=== PATIENT | male | born 1940 | race Caucasian/White ===

== ENCOUNTER 2019-12-03 16:10 | Outpatient (CLI) | payer MEDICARE, SELFPAY ==
--- NOTE | 2019-12-03 | ECG_ITS ---
Measurements Intervals [place] Rate: 78 P: 90 [place]: 172 QRS: 18 QRSD: 78 T: 64 QT: 377 QTc: 430 Interpretive Statements SINUS RHYTHM EARLY PRECORDIAL R/S TRANSITION NONSPECIFIC ST & T-WAVE ABNORMALITY- DIFFUSE LEADS BASELINE ARTIFACT- I, II, III, AVR, AVL, AVF, V3-V4 BORDERLINE ECG Electronically Signed On 12-03-2019 16:49:51 CDT by Brandon Marshall D.O.
== END 2019-12-03 16:11 | disposition home or self-care (01) ==
PROVIDERS: PCP Internal Medicine
DX: M20.42 Other hammer toe(s) (acquired), left foot (principal)
CPT/HCPCS: 93005

== ENCOUNTER 2023-08-31 08:06 | Outpatient (CLI) | payer MEDICARE, SELFPAY ==
--- NOTE | ~2023-08-31 | XR_ITS ---
MODIFIED ESOPHAGRAM HISTORY: Dysphagia. Parkinson's disease. TECHNIQUE: Modified barium esophagram was performed on 08/31/2023. I administered fluoroscopy and perfo rmed the exam with speech pathologist. Patient was seated for lateral fluoroscopic imaging for inges tion of thin liquids, pudding, solids and quantified amounts, followed by thin liquids in uncontrolle d amounts. This was recorded on tape. A single fluoroscopic spot image was also recorded. The DAP for this procedure was 0.933 Gycm2. The amount of fluoroscopy time used during this procedure was 3.8 mi nutes. FINDINGS: Oral stage: Adequate function. Pharyngeal stage: Adequate function. Cervical/esophageal stage: Adequate function. IMPRESSION: Patient tolerated regular consistency oral feedings in the upright position. Please reji elate with speech pathologist findings and specific feeding recommendations. Reviewed, dictated and finalized at location A. NG SEWER IMPRESSION: Patient tolerated regular consistency oral feedings in the upright position. Please correlate with speech pathologist findings and specific feedi ng recommendations.
--- NOTE | 2023-08-31 09:30 | REHSTMBS ---
Assessment and note entered by Heidi Bolaños, [employer] Modified Barium Swallow Evaluation Feeding Type Recommended Oral Food Consistency Regular, Level 7 Liquid Consistency Thin (0) ST Clinical Summary MODIFIED BARIUM SWALLOW STUDY This patient was seen for an outpatient Modified Barium Swallow at the request of his physician, Dr. Patricia. Patient has a history of Parkinson's disease; he reported he was diagnosed 5-7 years ago. Patient reported that currently his feeds him as his hands are too shaking to feed himself neatly. He admitted to taking too large of bites and not chewing thoroughly as the reason he gets choked on solid foods; both patient and his deny that he chokes/coughs on liquids. The patient was viewed in the lateral position to the level of C5/C6. He was presented with uncontrolled thin liquid contrast medium per straw, pudding mixed with semi-solid contrast medium, and then fruit cocktail pieces and a large piece of geovani cracker and requested to swallow each item. He exhibited quick swallows with no evidence of penetration/aspiration on any consistency. Results indicate this patient's swallowing skills are within normal limits. It is possible that his behavior including large bites (although it is not him taking the large bites but the bite size presented by his ) and limited mastication are contributing to evidence of choking. Patient seems aware but may be unable to change habit? Speech Therapy is recommended for at least several sessions to address safe swallowing techniques, perhaps adding head flexion to the swallows, and for strengthening exercises to prevent evidence of dysphagia at home from worsening. Patient and voiced understanding of suggestion to begin Speech Therapy. Please order outpatient Speech Therapy at [facility] at the [facility] if you are in agreement. Thank you for this referral.
== END 2023-08-31 08:07 | disposition home or self-care (01) ==
PROVIDERS: PCP Internal Medicine; Visit Provider Student in an Organized Health Care Education/Training Program
DX: R13.10 Dysphagia, unspecified (principal); G20.A1 Parkinson's disease without dyskinesia, without mention of fluctuations
CPT/HCPCS: 92611

== ENCOUNTER 2024-06-16 19:16 | Emergency (ER) | payer MEDICARE, SELFPAY ==
--- NOTE | ~2024-06-16 | CT_ITS ---
EXAMINATION: CT pelvis wo con DATE: 06/16/2024 20:43 INDICATION: Fall TECHNIQUE: Computed tomography (CT) of the pelvis was performed without intravenous contrast. Automat ed exposure control and iterative reconstruction technique were employed. Exam dose: 354.98 mGy-cm t otal exam DLP. Lumbar spine COMPARISON: None. FINDINGS: There is extensive diverticulosis of the sigmoid and descending colon without diverticuliti s. No bowel obstruction is evident. Prostate enlargement and calcifications. Is extensive calcification of the abdominal aorta and iliac and femoral arteries. No lower abdominal or pelvic mass lesion or adenopathy or ascites is noted. Status post right total hip arthroplasty. There is posterior surgical fusion in the lumbosacral area. No pelvic fracture or bone destruction is detected. There is degenerative change but normal alignment at the sacroiliac joints. Left hip osteoarthritis. IMPRESSION: No pelvic fracture is detected Status post posterior lumbosacral surgical fusion Status post right total hip arthroplasty Reviewed, dictated and finalized at [facility]. Reviewed, dictated and finalized at location A. OUT INSPECTOR
--- NOTE | ~2024-06-16 | CT_ITS ---
EXAMINATION: CT lumbar spine wo con DATE: 06/16/2024 20:42 INDICATION: Fall TECHNIQUE: Computed tomography (CT) of the head was performed without intravenous contrast. The mA wa s adjusted according to patient size. Iterative reconstruction technique was employed. Exam dose: 73 9.67 mGy-cm total exam DLP. Lumbar spine COMPARISON: None FINDINGS: Status post posterior interbody surgical fusion at L4-S1 bilaterally. There is prominent degenerative spurring of the lower thoracic spine. There is severe degenerative disc disease at L1-2 and L2-3 with mild retrolisthesis at each of these levels. There is moderately severe degenerative disc disease and mild retrolisthesis at L3-4. There is grade 1 anterolisthesis at L5-S1. The sacroiliac joints are intact. There is extensive calcification of the abdominal aorta and iliac arteries. Numerous diverticula of the colon. IMPRESSION: Status post posterior and interbody surgical fusion or-S1 Multilevel prominent degenerative disc disease with associated mild retrolisthesis Grade 1 anterolisthesis at L5-S1 No apparent recent fracture of the lumbar spine is noted Reviewed, dictated and finalized at [facility]. Reviewed, dictated and finalized at location A. L RECRUITER IMPRESSION: Status post posterior and interbody surgical fusion or-S1 Multilevel prominent degenerative disc disease with associated mild retrolisthe sis Grade 1 anterolisthesis at L5-S1 No apparent recent fracture of the lumbar spine is noted
[2024-06-16 19:23] VITALS: BP 108/38; PULSE 82; RESP 16; TEMP 36.8; O2SAT 96
--- NOTE | 2024-06-16 19:56 | ED.FALL ---
HPI - Fall General Chief Complaint: Fall Stated Complaint: fall- referral from urgent care Time Seen by Provider: 06/16/24 19:46 History of Present Illness HPI Narrative: Patient is an 84-year-old male who presents to the emergency department this evening complaining of right hip pain. Patient states that yesterday while walking he got his walker stuck on something and caused him to fall landing on his right side. Patient presented to an urgent care where they performed x-rays of the patient's hip and lumbar spine and other than calcifications and arthritis and not see any fractures. They were encouraged to come to the emergency department for further evaluation to make sure that the x-rays did not miss any fractures. Patient admits that he did not his head. He is alert and oriented to person, place, and situation and is answering all my questions appropriately. He has been ambulatory since the fall yesterday using his walker. No additional symptoms or concerns at this time. Related Data Home Medications ?Medication ?Instructions ?Recorded ?Confirmed ?Last Taken ?Type aspirin 81 mg tablet,delayed 81 mg PO QAM 03/15/21 08/16/21 Unknown History release calcium 300 mg-D3 20 mcg-magnesium 1 tablet PO QAM 03/15/21 08/16/21 Unknown History 25 mg-coppr 0.5 [id number] tablet (Caltrate-D3 Plus Minerals) celecoxib 200 mg capsule 200 mg PO QAM 03/15/21 08/16/21 Unknown History diphenhydramine HCl 50 mg capsule 50 mg PO QHS 03/15/21 08/16/21 Unknown History divalproex 500 mg tablet,delayed 1,000 mg PO QHS 03/15/21 08/16/21 Unknown History release fluticasone furoate 100 1 inh inhalation DAILY 03/15/21 08/16/21 Unknown History mcg/actuation blister powder for inhalation tamsulosin 0.4 mg capsule 0.4 mg PO DAILY 03/15/21 08/16/21 Unknown History trifluoperazine 10 mg tablet 30 mg PO QHS 03/15/21 08/16/21 Unknown History venlafaxine 225 mg tablet,extended 225 mg PO QHS 03/15/21 08/16/21 Unknown History release 24 hr lorazepam 1 mg tablet 1 mg PO QHS PRN 06/13/23 Unknown History Allergies Allergy/AdvReac Type Severity Reaction Status Date / Time No Known Allergies Allergy Verified 06/16/24 19:28 Review of Systems Review of Systems: All systems are reviewed and are negative unless stated otherwise in the HPI. [facility] Past Medical History Medical History Cataract fragments in both eyes following surgery Arthritis COPD (chronic obstructive pulmonary disease) Depression Surgical History Surgical History History of back surgery Hx of cholecystectomy History of hip replacement Family History Family History Other Cancer Depression Heart disease Social History Social History Social History: Caffeine-none Smoking packs per day: 0 Smoking cigarettes per day: 0.0 Years smoked: 0 Smoking pack-years: 0.00 Smoking status: Former smoker Second hand tobacco smoke exposure: No Smoking end date: 06/26/06 Alcohol intake: former Substance use: never Substance use type: does not use Do You Feel Safe in your Home?: Yes Lack of Transportation: No Lack of Food: Never True Current Housing: I Have Housing Concerned About Future Housing: No Difficulty Paying Gas/Electric Bills: No Difficulty Paying for Meds: No Currently Unemployed: No Education: High School Diploma/GED Difficulty w/ Childcare or Family Care: No Living arrangements: with family Gender identity (if verbalized by the patient): Male Exam Narrative: General: Alert, awake, afebrile, in no acute distress. HEENT: PERRL, no rhinorrhea, no post nasal drip, oropharynx clear. Neck: Trachea midline, no JVD, no lymphadenopathy. Cardiovascular: Regular rate and rhythm, no murmurs, rubs or gallops, no peripheral edema. Respiratory: Clear to auscultation bilaterally, no tachypnea, no wheezing, no rhonchi, no rubs, no respiratory distress. Abdomen: Soft, nontender, nondistended, no rebound, no guarding, no peritoneal signs. Musculoskeletal: No joint swelling or deformity, normal muscle tone. Back: No midline tenderness to palpation over the cervical, thoracic spine, midline lumbar Skin: No rashes or petechia, no signs of infection. Psychiatric: Alert and oriented, normal behavior and judgment for situation. Neurological: Alert and oriented to person, place, and time. Follows all commands. No focal deficits, speech is clear and fluent. Course Vital Signs Vital signs: Vital Signs Temperature 98.2 F 06/16/24 19:23 Pulse Rate 82 06/16/24 19:23 Respiratory Rate 16 06/16/24 19:23 Blood Pressure 108/38 L 06/16/24 19:23 Pulse Oximetry 96 06/16/24 19:23 Oxygen Delivery Room Air 06/16/24 19:23 Temperature 98.2 F 06/16/24 19:23 Pulse Rate 82 06/16/24 19:23 Respiratory Rate 16 06/16/24 19:23 Blood Pressure 108/38 L 06/16/24 19:23 Pulse Oximetry 96 06/16/24 19:23 Oxygen Delivery Room Air 06/16/24 19:23 MDM - Fall MDM Narrative Medical decision making narrative: The patient was evaluated by myself in the emergency department. History is obtained from patient who is an independent historian and physical exam was performed. External medical records were reviewed at this time. IV was established and pertinent tests were ordered. Laboratory results obtained revealing no acute process. Family members requested obtaining a Depakote level as they were supposed to do this as an outpatient but they have not gone to it. I did inform the patient that this is a send out lab and they will need to contact the hospital to obtain these results. Imaging studies obtained included CT lumbar/ pelvis without IV contrast which was independently interpreted by me revealing no acute fractures, chronic findings, which is pending final radiology interpretation. patient was provided with a printout of both his lumbar and pelvis CT report. Differential diagnosis considerations include fractures, dislocations, musculoskeletal strain. Comorbidities impacting this visit include none. I have evaluated and discussed social determinants of health with the patient that could potentially impact subsequent diagnosis and treatment plans. On repeat assessment of the patient, reevaluation revealed that the patient is doing well and is in no acute distress. Patient symptoms have Remained stable since he arrived to our emergency department. Repeat vital signs were all reviewed and noted to be stable. Differential diagnosis and treatment plan were discussed with the patient at bedside. Patient agrees with discussion and after shared medical decision making agrees with discharge. All questions were answered to the patient's satisfaction. Patient will follow up with his PCP in 3-5 days. Patient was provided with strict return precautions and instructed to return to the emergency department if any new or worsening symptoms develop. The patient was discharged in stable condition. Lab Data 06/16/24 21:33 06/16/24 21:32 Labs: Lab Results 06/16/24 06/16/24 Range/Units 21:32 21:33 WBC 15.9 H (4.5-10.0) K/mm3 RBC 4.59 L (4.6-6.20) M/mm3 Hgb 13.7 L (14.0-18.0) g/dL Hct 41.3 L (42.0-52.0) % MCV 90.0 (80-100) fl MCH 29.8 (26-34) pg MCHC 33.2 (32-36) g/dl RDW 14.5 (11.5-14.5) % Plt Count 183 (150-375) k/mm3 MPV 10.6 H (7.4-10.4) fl Immature Gran % (Auto) Not Reportable Neut % (Auto) Not Reportable Lymph % (Auto) Not Reportable [place] % (Auto) Not Reportable Eos % (Auto) Not Reportable Baso % (Auto) Not Reportable Lymph # (Auto) Not Reportable [place] # (Auto) Not Reportable Eos # (Auto) Not Reportable Baso # (Auto) Not Reportable Abs Immat Gran (auto) Not Reportable Absolute Neuts (auto) Not Reportable Absolute Nucleated RBC Not Reportable Nucleated RBC % Not Reportable Platelet Estimate Pending Schistocytes Pending Sodium 134 L (137-145) mmol/L Potassium 4.0 (3.4-5.0) mmol/L Chloride 102 (98-107) mmol/L Carbon Dioxide 29 (22-30) mmol/L Anion Gap 3 L (4-12) mmol/L BUN 22 H (9-20) mg/dL Creatinine 0.60 L (0.7-1.3) mg/dL Estim Creat Clear Calc 78 ml/min Estimated GFR > 60 (59 - ) Glucose 120 H (65-110) mg/dL Calcium 9.4 (8.4-10.2) mg/dL Magnesium 2.0 (1.6-2.3) mg/dL Total Bilirubin 0.6 (0.2-1.3) mg/dL AST 30 (17-59) U/L ALT 8 (6-50) U/L Alkaline Phosphatase 87 (38-126) U/L Total Protein 8.0 (6.3-8.2) g/dL Albumin 4.4 (3.5-5.1) g/dL Free Valproic Acid Pending Total Valproic Acid Pending Discharge Plan Discharge Clinical Impression: Back pain, Hip pain, right, Fall from ground level Patient Disposition: Home, Self-Care Condition: Stable Instructions: Antibiotic Form, Fall Prevention for Older Adults (ED) Additional Instructions: Please follow-up with your family doctor within the next 3-5 days. Return to the emergency department if any new or worsening symptoms develop. Patient Language: Tamaz[place] Prescriptions: No Action lorazepam 1 mg tablet 1 mg PO QHS PRN carbidopa-levodopa 25-250 mg tablet 2 tablet PO QID Qty: 480 3RF donepezil 5 mg tablet See Rx Instructions .ROUTE .COMPLEX Qty: 90 3RF Dose Instruction: TAKE 1 TABLET DAILY IN THE EVENING Rx Instructions: TAKE 1 TABLET DAILY IN THE EVENING primidone 50 mg tablet See Rx Instructions .ROUTE .COMPLEX Qty: 360 3RF Dose Instruction: TAKE 2 TABLETS BY MOUTH TWICE A DAY Rx Instructions: TAKE 2 TABLETS BY MOUTH TWICE A DAY tamsulosin 0.4 mg capsule 0.4 mg PO DAILY trifluoperazine 10 mg tablet 30 mg PO QHS divalproex 500 mg tablet,delayed release (DR/EC) 1,000 mg PO QHS venlafaxine 225 mg tablet extended release 24hr 225 mg PO QHS diphenhydramine HCl 50 mg capsule 50 mg PO QHS celecoxib 200 mg capsule 200 mg PO QAM aspirin 81 mg tablet,delayed release (DR/EC) 81 mg PO QAM fluticasone furoate 100 mcg/actuation blister with device 1 inh inhalation DAILY Caltrate-D3 Plus Minerals 300 mg-800 unit -25 mg-0.5 mg tablet 1 tablet PO QAM Follow-up/Referrals: Christophe,Junito Connelly MD [Primary Care Provider] - 3 Days Time of Disposition: 21:29
[2024-06-16 21:41] LABS: Hematocrit 41.3 % (42.0-52.0); Hemoglobin 13.7 g/dL (14.0-18.0); Mean Corpuscular HGB Conc 33.2 g/dl (32-36); Mean Corpuscular Hemoglobin 29.8 pg (26-34); Mean Platelet Volume 10.6 fl (7.4-10.4); Platelet Count Result 183 k/mm3 (150-375); Red Blood Count 4.59 M/mm3 (4.6-6.20); Red Cell Distribution Width 14.5 % (11.5-14.5); White Blood Count 15.9 K/mm3 (4.5-10.0)
[2024-06-16 21:51] LABS: Alanine Aminotransferase 8 U/L (6-50); Albumin Level 4.4 g/dL (3.5-5.1); Alkaline Phosphatase 87 U/L (38-126); Anion Gap 3 mmol/L (4-12); Aspartate Amino Transferase 30 U/L (17-59); Bilirubin,Total 0.6 mg/dL (0.2-1.3); Blood Urea Nitrogen 22 mg/dL (9-20); Calcium 9.4 mg/dL (8.4-10.2); Carbon Dioxide 29 mmol/L (22-30); Chloride 102 mmol/L (98-107); Estimated CRCL calculation 78 ml/min; Estimated Glomerular Filt Rate > 60; Glucose 120 mg/dL (65-110); Sodium 134 mmol/L (137-145)
[2024-06-16 22:07] LABS: Eosinophils Absolute Manual 0.63 K/mm3 (0.02-0.50); Eosinophils Percent Manual 4 % (0-4); Lymphocytes Absolute Manual 2.06 K/mm3 (1.1-4.5); Monocytes Percent Manual 17 % (3-9); Neutrophils Percent Manual 66 % (46-73); Total Cells Counted 100
[2024-06-16 22:08] LABS: Anisocytosis 1+; Giant Platelets Present; Platelet Estimate Adequate (Adequate); Schistocytes None Seen; Smudge Cells PRESENT
[2024-06-16 22:23] VITALS: BP 143/99; PULSE 80; RESP 17; O2SAT 97
== END 2024-06-16 22:24 | disposition home or self-care (01) ==
PROVIDERS: Emergency Provider Emergency Medicine; PCP Internal Medicine
DX: M25.551 Pain in right hip (principal); M54.50 Low back pain, unspecified; M19.90 Unspecified osteoarthritis, unspecified site; J44.9 Chronic obstructive pulmonary disease, unspecified; F32.A Depression, unspecified; W01.0XXA Fall on same level from slipping, tripping and stumbling without subsequent striking against object, initial encounter
CPT/HCPCS: 36415; 72131; 72192; 80053; 80164; 80165; 83735; 85025; 99284

== ENCOUNTER 2024-09-30 14:43 | Emergency (ER) | payer MEDICARE, SELFPAY ==
--- NOTE | ~2024-09-30 | XR_ITS ---
CHEST RADIOGRAPH, PA AND LATERAL CLINICAL HISTORY: chest pain and abdominal pain . COMPARISON: None available TECHNIQUE: PA and lateral views of the chest. FINDINGS The cardiomediastinal silhouette is unremarkable. Coarse interstitial lung markings and scar are identified bilaterally, likely chronic. The remainder of the lungs are clear. IMPRESSION: No focal infiltrate or effusion. Reviewed, dictated and finalized at location A.
--- NOTE | ~2024-09-30 | US_ITS ---
EXAM: ABDOMEN ULTRASOUND HISTORY: transaminitis, epigastric pain COMPARISON: None FINDINGS: LIVER: The liver is increased in echogenicity and unremarkable in size. Punctate echogenic foci are described within the liver suggesting small calcifications. The portal vein is patent, demonstrating hepatopedal flow. GALLBLADDER: Surgically absent. BILE DUCTS: Common bile duct measures 2.4mm. PANCREAS: Limited evaluation of the pancreas secondary to overlying bowel gas. VASCULATURE : The IVC is patent. IMPRESSION: Fatty infiltration of the liver with punctate calcifications. Reviewed, dictated and finalized at location A.
--- NOTE | ~2024-09-30 | CT_ITS ---
EXAMINATION: CTA chest PE abdomen pel DATE: 09/30/2024 19:48 CDT INDICATION: Remote history of chest and abdominal pain, now resolved. TECHNIQUE: Computed tomographic angiography (CTA) of the chest was performed, along with multiple con tiguous axial images of the abdomen and pelvis with 100 mL Omnipaque-350 intravenous contrast. The do se-length product was 1015.70 mGy-cm. Maximum intensity projection 3D-reconstructions of the aorta an d other arteries were constructed by the technologist on a separate workstation. FINDINGS/OBSERVATIONS: PULMONARY ARTERIES: No filling defect is identified within the main or proximal pulmonary artery. The main pulmonary artery is not enlarged. THORACIC AORTA: No aneurysmal dilatation or dissection is present. The great vessels are intact LUNGS: Chronic interstitial change is detected bilaterally. Peripheral honeycombing is also noted, as is central lobular emphysematous disease. Calcified pleural plaques are noted. MEDIASTINUM: No morphologically suspicious or pathologically enlarged lymph nodes are identified with in the mediastinum or bilateral axilla. BONES OF THE CHEST: No acute fracture. Age-appropriate degenerative disease. No lytic or blastic lesions. HEART: The heart is of normal size, without pericardial effusion. LIVER: Punctate calcifications identified within the hepatic parenchyma, suggesting prior granulomatous dise ase. Remainder of the liver is otherwise unremarkable, and is not enlarged. GALLBLADDER AND BILIARY SYSTEM: The gallbladder is surgically absent. PANCREAS: The pancreas enhances homogeneously without ductal dilatation. SPLEEN: Punctate calcifications identified within the splenic parenchyma, suggesting prior granulomat ous disease. The remainder of the spleen otherwise enhances homogeneously and is not enlarged. KIDNEYS: The bilateral kidneys enhance symmetrically without hydronephrosis or renal calculi. ADRENAL GLANDS: Unremarkable. GASTROINTESTINAL TRACT: Colonic diverticulosis without surrounding inflammatory change. APPENDIX: The appendix is not definitively visualized. However, no pericecal inflammatory change is identified suggest the presence of acute appendicitis. VASCULATURE: Densely calcified atherosclerotic disease, without aneurysmal dilatation or significant stenosis. LYMPH NODES: No pathologically enlarged or morphologically suspicious lymph nodes within the retroperitoneum or at the root of the mesentery. PELVIC STRUCTURES: The bladder is significantly distended, and otherwise unremarkable. Limited evaluation of the pelvis secondary to streak metallic artifact from patient's right hip prost hetic and lower lumbar spine hardware. The prostate gland does not appear to be enlarged. BODY WALL AND MUSCULOSKELETAL: Posterior fixation hardware at the level of L4, L5 and S1 with postlaminectomy change. 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 IMPRESSION: No pulmonary embolus. No aortic dissection. No acute pathology identified within the chest, abdomen or pelvis, as detailed above Reviewed, dictated and finalized at location A.
--- NOTE | 2024-09-30 14:46 | ECG_ITS ---
Test Date: 2024-09-30 14:59:22 Measurements Intervals [place] Rate: 78 P: 7 [place]: 180 QRS: 44 QRSD: 78 T: 48 QT: 375 QTc: 427 Interpretive Statements SINUS RHYTHM BORDERLINE ST-T WAVE ABNORMALITY- inf/lat leads BASELINE ARTIFACT- I, II, III, AVR, AVL, AVF, V1-V6 BORDERLINE ECG No previous ECG available for comparison Electronically Signed On 09-30-2024 15:12:28 CDT by Brandon Marshall D.O.
[2024-09-30 15:12] LABS: Hematocrit 41.4 % (42.0-52.0); Hemoglobin 13.3 g/dL (14.0-18.0); Mean Corpuscular HGB Conc 32.1 g/dl (32-36); Mean Corpuscular Volume 93.2 fl (80-100); Mean Platelet Volume 10.3 fl (7.4-10.4); Platelet Count Result 181 k/mm3 (150-375); Red Blood Count 4.44 M/mm3 (4.6-6.20); Red Cell Distribution Width 14.5 % (11.5-14.5); White Blood Count 11.3 K/mm3 (4.5-10.0)
[2024-09-30 15:16] VITALS: BP 131/95; PULSE 77; RESP 18; TEMP 36.9; O2SAT 98
[2024-09-30 15:22] LABS: Alanine Aminotransferase 103 U/L (6-50); Albumin Level 4.8 g/dL (3.5-5.1); Alkaline Phosphatase 123 U/L (38-126); Anion Gap 7 mmol/L (4-12); Aspartate Amino Transferase 412 U/L (17-59); Bilirubin,Total 0.7 mg/dL (0.2-1.3); Blood Urea Nitrogen 18 mg/dL (9-20); Calcium 9.5 mg/dL (8.4-10.2); Carbon Dioxide 34 mmol/L (22-30); Chloride 98 mmol/L (98-107); Estimated CRCL calculation 73 ml/min; Estimated Glomerular Filt Rate > 60; Glucose 86 mg/dL (65-110); Lipase 144 U/L (23-300); Sodium 139 mmol/L (137-145)
[2024-09-30 15:27] LABS: Prothrombin Time 13.7 Seconds (11.1-14.7)
[2024-09-30 15:29] LABS: Partial Thromboplastin Time 29.7 Seconds (22.3-36.8)
[2024-09-30 15:34] LABS: Troponin I < 0.012 ng/mL (0.000-0.034)
[2024-09-30 15:48] LABS: Eosinophils Absolute Manual 0.22 K/mm3 (0.02-0.50); Eosinophils Percent Manual 2 % (0-4); Lymphocytes Absolute Manual 2.37 K/mm3 (1.1-4.5); Monocytes Percent Manual 8 % (3-9); Neutrophils Percent Manual 69 % (46-73); Platelet Estimate Adequate (Adequate); Total Cells Counted 100
[2024-09-30 15:49] LABS: Schistocytes None Seen
--- NOTE | 2024-09-30 15:59 | ED.CHESTPAIN ---
HPI - Chest Pain General Chief Complaint: Chest Pain <FREDI Lewis Last Filed: 10/01/24 09:12> Stated Complaint: Chest/upper abdomen pain <FREDI Lewis Last Filed: 10/01/24 09:12> Time Seen by Provider: 09/30/24 15:59 <FREDI Lewis Last Filed: 10/01/24 09:12> Focused HPI: This is a 84 year old male that presents to the ER for chest pain. Started around 2 this morning. Reports associated mid abdominal pain. Reports this lasted for a couple of hours and went away without intervention. Denies vomiting, diarrhea, shortness of breath. GENERAL: Elderly, well-nourished, and in no acute distress. HEAD: Normocephalic, atraumatic. CHEST: Clear to auscultation. ?No respiratory distress. HEART: Regular rate and rhythm.? NEURO: ?Alert and oriented x3. Patient screened in triage and initial orders placed.? ?Additional care and disposition to be based upon?diagnostic testing and treatment. <FREDI Lewis Last Filed: 10/01/24 09:12> Focused HPI: This is a 84 year old male that presents to the ER for chest pain. Started around 2 this morning. Reports associated mid abdominal pain. Reports this lasted for a couple of hours and went away without intervention. Denies vomiting, diarrhea, shortness of breath. GENERAL: Elderly, well-nourished, and in no acute distress. HEAD: Normocephalic, atraumatic. CHEST: Clear to auscultation. ?No respiratory distress. HEART: Regular rate and rhythm.? NEURO: ?Alert and oriented x3. Patient screened in triage and initial orders placed.? ?Additional care and disposition to be based upon?diagnostic testing and treatment. <FREDI Lowery Last Filed: 10/01/24 03:35> Source: patient <FREDI Lowery Last Filed: 10/01/24 03:35> Mode of arrival: ambulatory <FREDI Lowery Last Filed: 10/01/24 03:35> Limitations: no limitations <Silvana Valle PA-C - Last Filed: 10/01/24 03:35> History of Present Illness HPI narrative: Agree with above HPI. Patient reports to me that he had an hour long episode around 3:00 a.m. of diffuse chest and abdominal pain. He then had another less severe, shorter episode around 10:00 a.m.. Pain is currently resolved. He denies any active pain. Denies recent cough or cold symptoms, pain or swelling in legs. No previous hx of heart disease. Does not see a ultimate hoops referee. Hx of parkinson's, COPD <Silvana Valle PA-C - Last Filed: 10/01/24 03:35> Related Data Home Medications: Home Medications ?Medication ?Instructions ?Recorded ?Confirmed ?Last Taken ?Type aspirin 81 mg tablet,delayed 81 mg PO QAM 03/15/21 08/16/21 Unknown History release calcium 300 mg-D3 20 mcg-magnesium 1 tablet PO QAM 03/15/21 08/16/21 Unknown History 25 mg-coppr 0.5 um-phdh-feuh tablet (Caltrate-D3 Plus Minerals) celecoxib 200 mg capsule 200 mg PO QAM 03/15/21 08/16/21 Unknown History diphenhydramine HCl 50 mg capsule 50 mg PO QHS 03/15/21 08/16/21 Unknown History divalproex 500 mg tablet,delayed 1,000 mg PO QHS 03/15/21 08/16/21 Unknown History release fluticasone furoate 100 1 inh inhalation DAILY 03/15/21 08/16/21 Unknown History mcg/actuation blister powder for inhalation tamsulosin 0.4 mg capsule 0.4 mg PO DAILY 03/15/21 08/16/21 Unknown History trifluoperazine 10 mg tablet 30 mg PO QHS 03/15/21 08/16/21 Unknown History venlafaxine 225 mg tablet,extended 225 mg PO QHS 03/15/21 08/16/21 Unknown History release 24 hr lorazepam 1 mg tablet 1 mg PO QHS PRN 06/13/23 Unknown History <Priscila Palmer PA-C - Last Filed: 10/01/24 09:12> Allergies/Adverse Reactions: Allergies Allergy/AdvReac Type Severity Reaction Status Date / Time No Known Allergies Allergy Verified 09/30/24 14:45 <Priscila Palmer PA-C - Last Filed: 10/01/24 09:12> Review of Systems Review of Systems: All systems reviewed & are unremarkable except as noted in HPI. <Silvana Valle PA-C - Last Filed: 10/01/24 03:35> All systems reviewed & are unremarkable except as noted in HPI and below <Silvana Valle PA-C - Last Filed: 10/01/24 03:35> [facility] Past Medical History Medical History: Medical History Cataract fragments in both eyes following surgery Arthritis COPD (chronic obstructive pulmonary disease) Depression <Priscila Palmer PA-C - Last Filed: 10/01/24 09:12> Surgical History Surgical History: Surgical History History of back surgery Hx of cholecystectomy History of hip replacement <Priscila Palmer PA-C - Last Filed: 10/01/24 09:12> Family History Family History: Family History Other Cancer Depression Heart disease <Priscila Palmer PA-C - Last Filed: 10/01/24 09:12> Social History Social History: Social History Social History: Caffeine-none Smoking packs per day: 0 Smoking cigarettes per day: 0.0 Years smoked: 0 Smoking pack-years: 0.00 Smoking status: Former smoker Second hand tobacco smoke exposure: No Smoking end date: 06/26/06 Alcohol intake: former Substance use: never Substance use type: does not use Do You Feel Safe in your Home?: Yes Lack of Transportation: No Lack of Food: Never True Current Housing: I Have Housing Concerned About Future Housing: No Difficulty Paying Gas/Electric Bills: No Difficulty Paying for Meds: No Currently Unemployed: No Education: High School Diploma/GED Difficulty w/ Childcare or Family Care: No Living arrangements: with family Gender identity (if verbalized by the patient): Male <FREDI Lewis Last Filed: 10/01/24 09:12> Exam Narrative: GENERAL: Elderly but well appearing, well-nourished, non-toxic, in no acute distress. HEAD: Normocephalic, atraumatic. RESPIRATORY: Airway patent, respirations nonlabored. Clear to auscultation bilaterally, no rales, rhonchi. Very faint occasional expiratory wheezing. CARDIOVASCULAR: Regular rate and rhythm without murmurs, rubs, or gallops. ABDOMINAL: Soft, no focal tenderness, nondistended. Normoactive BS. MUSCULOSKELETAL: Moves all extremities. No gross deformities. No peripheral edema. No calf tenderness. SKIN: Warm, dry, normal color. NEURO: A&O X3. Speech clear. Cranial nerves II-XII grossly intact. Steady gait. Diffuse tremor in upper extremities, consistent with Parkinsons PSYCHIATRIC: Appropriate mood and affect. Normal interaction. <FREDI Lowery Last Filed: 10/01/24 03:35> Course Vital Signs Vital signs: Vital Signs Temperature 98.4 F 09/30/24 15:16 Pulse Rate 77 09/30/24 15:16 Respiratory Rate 18 09/30/24 15:16 Blood Pressure 131/95 H 09/30/24 15:16 Pulse Oximetry 98 09/30/24 15:16 Oxygen Delivery Room Air 09/30/24 15:16 Temperature 98.4 F 09/30/24 15:16 Pulse Rate 76 09/30/24 19:26 Respiratory Rate 17 09/30/24 19:26 Blood Pressure 110/89 09/30/24 19:26 Pulse Oximetry 100 09/30/24 19:26 Oxygen Delivery Room Air 09/30/24 15:16 <FREDI Lewis Last Filed: 10/01/24 09:12> Vital Signs Temperature 98.4 F 09/30/24 15:16 Pulse Rate 77 09/30/24 15:16 Respiratory Rate 18 09/30/24 15:16 Blood Pressure 131/95 H 09/30/24 15:16 Pulse Oximetry 98 09/30/24 15:16 Oxygen Delivery Room Air 09/30/24 15:16 Temperature 98.4 F 09/30/24 15:16 Pulse Rate 76 09/30/24 19:26 Respiratory Rate 17 09/30/24 19:26 Blood Pressure 110/89 09/30/24 19:26 Pulse Oximetry 100 09/30/24 19:26 Oxygen Delivery Room Air 09/30/24 15:16 <FREDI Lowery Last Filed: 10/01/24 03:35> MDM - Chest Pain MDM Narrative Medical decision making narrative: Patient presented to ED with episodes of chest and abdominal pain that began this morning. VSS upon arrival. Patient asymptomatic at the time of my evaluation. Denying pain since 10am this morning. EKG w/ some nonspecific ST changes in inferior leads, no acute STEMI. Baseline trop undetectable. Basic laboratory studies with leukocytosis of 11.3. No bandemia. Stable electrolytes. Liver enzymes are mildly elevated, AST 412, ALT 103. Normal total bilirubin. Normal alk-phos. Lipase within normal range. Patient without any right upper quadrant tenderness on exam. Right upper quadrant ultrasound was obtained and showing fatty liver with calcifications, no other abnormalities. 3hr EKG w/o interval changes. 3hr trop also undetectable. Patient with HEART score 3/4, no significant risk factors for ACS. Low suspicion for ACS at this time. D-dimer resulted elevated. CTA PE study with abd/pelvis obtained and unremarkable, no evidence of PE or other acute abnormalities. No aortic pathology. Discussed lab and imaging findings with patient. Overall w/u reassuring. Patient states he is ready to go home at this time. He has not had any further pain in the ED. Feel he is safe for discharge home with close outpatient follow-up. Recommended close follow-up with PCP for further evaluation, repeat laboratory testing given elevated liver enzymes. Discussed very strict return precautions. Patient and voiced understanding. They feel comfortable going home. Discharged in stable condition. <FREDI Lowery Last Filed: 10/01/24 03:35> Medical Records Data Attestation: I reviewed the patient's medical records. <FREDI Lowery Last Filed: 10/01/24 03:35> Lab Data Attestation: I reviewed the patient's lab results. <FREDI Lowery Last Filed: 10/01/24 03:35> Result diagrams: 09/30/24 15:03 09/30/24 15:03 <Priscila Palmer PA-C - Last Filed: 10/01/24 09:12> Labs: Lab Results 09/30/24 09/30/24 Range/Units 15:03 17:50 WBC 11.3 H (4.5-10.0) K/mm3 RBC 4.44 L (4.6-6.20) M/mm3 Hgb 13.3 L (14.0-18.0) g/dL Hct 41.4 L (42.0-52.0) % MCV 93.2 (80-100) fl MCH 30.0 (26-34) pg MCHC 32.1 (32-36) g/dl RDW 14.5 (11.5-14.5) % Plt Count 181 (150-375) k/mm3 MPV 10.3 (7.4-10.4) fl Immature Gran % (Auto) Not Reportable Neut % (Auto) Not Reportable Lymph % (Auto) Not Reportable [place] % (Auto) Not Reportable Eos % (Auto) Not Reportable Baso % (Auto) Not Reportable Lymph # (Auto) Not Reportable [place] # (Auto) Not Reportable Eos # (Auto) Not Reportable Baso # (Auto) Not Reportable Abs Immat Gran (auto) Not Reportable Absolute Neuts (auto) Not Reportable Absolute Nucleated RBC Not Reportable Total Counted 100 Neutrophils % (Manual) 69 (46-73) % Band Neutrophils % 0 (0-6) % Lymphocytes % (Manual) 21.0 (18-44) % Monocytes % (Manual) 8 (3-9) % Eosinophils % (Manual) 2 (0-4) % Nucleated RBC % Not Reportable Abs Neuts (Manual) 7.79 H (1.3-6.7) K/mm3 Abs Lymphs (Manual) 2.37 (1.1-4.5) K/mm3 Abs Monocytes (Manual) 0.90 (0.1-0.90) K/mm3 Absolute Eos (Manual) 0.22 (0.02-0.50) K/mm3 Platelet Estimate Adequate (Adequate) Schistocytes None seen PT 13.7 (11.1-14.7) Seconds INR 1.0 APTT 29.7 (22.3-36.8) Seconds D-Dimer 0.63 H (<0.48) ug/mL Sodium 139 (137-145) mmol/L Potassium 5.0 (3.4-5.0) mmol/L Chloride 98 (98-107) mmol/L Carbon Dioxide 34 H (22-30) mmol/L Anion Gap 7 (4-12) mmol/L BUN 18 (9-20) mg/dL Creatinine 0.67 L (0.7-1.3) mg/dL Estim Creat Clear Calc 73 ml/min Estimated GFR > 60 (59 - ) Glucose 86 (65-110) mg/dL Calcium 9.5 (8.4-10.2) mg/dL Total Bilirubin 0.7 (0.2-1.3) mg/dL AST 412 H (17-59) U/L ALT 103 H (6-50) U/L Alkaline Phosphatase 123 (38-126) U/L Troponin I < 0.012 < 0.012 (0.000-0.034) ng/mL Total Protein 8.0 (6.3-8.2) g/dL Albumin 4.8 (3.5-5.1) g/dL Lipase 144 (23-300) U/L <Priscila Palmer PA-C - Last Filed: 10/01/24 09:12> Lab Results 09/30/24 09/30/24 Range/Units 15:03 17:50 WBC 11.3 H (4.5-10.0) K/mm3 RBC 4.44 L (4.6-6.20) M/mm3 Hgb 13.3 L (14.0-18.0) g/dL Hct 41.4 L (42.0-52.0) % MCV 93.2 (80-100) fl MCH 30.0 (26-34) pg MCHC 32.1 (32-36) g/dl RDW 14.5 (11.5-14.5) % Plt Count 181 (150-375) k/mm3 MPV 10.3 (7.4-10.4) fl Immature Gran % (Auto) Not Reportable Neut % (Auto) Not Reportable Lymph % (Auto) Not Reportable [place] % (Auto) Not Reportable Eos % (Auto) Not Reportable Baso % (Auto) Not Reportable Lymph # (Auto) Not Reportable [place] # (Auto) Not Reportable Eos # (Auto) Not Reportable Baso # (Auto) Not Reportable Abs Immat Gran (auto) Not Reportable Absolute Neuts (auto) Not Reportable Absolute Nucleated RBC Not Reportable Total Counted 100 Neutrophils % (Manual) 69 (46-73) % Band Neutrophils % 0 (0-6) % Lymphocytes % (Manual) 21.0 (18-44) % Monocytes % (Manual) 8 (3-9) % Eosinophils % (Manual) 2 (0-4) % Nucleated RBC % Not Reportable Abs Neuts (Manual) 7.79 H (1.3-6.7) K/mm3 Abs Lymphs (Manual) 2.37 (1.1-4.5) K/mm3 Abs Monocytes (Manual) 0.90 (0.1-0.90) K/mm3 Absolute Eos (Manual) 0.22 (0.02-0.50) K/mm3 Platelet Estimate Adequate (Adequate) Schistocytes None seen PT 13.7 (11.1-14.7) Seconds INR 1.0 APTT 29.7 (22.3-36.8) Seconds D-Dimer 0.63 H (<0.48) ug/mL Sodium 139 (137-145) mmol/L Potassium 5.0 (3.4-5.0) mmol/L Chloride 98 (98-107) mmol/L Carbon Dioxide 34 H (22-30) mmol/L Anion Gap 7 (4-12) mmol/L BUN 18 (9-20) mg/dL Creatinine 0.67 L (0.7-1.3) mg/dL Estim Creat Clear Calc 73 ml/min Estimated GFR > 60 (59 - ) Glucose 86 (65-110) mg/dL Calcium 9.5 (8.4-10.2) mg/dL Total Bilirubin 0.7 (0.2-1.3) mg/dL AST 412 H (17-59) U/L ALT 103 H (6-50) U/L Alkaline Phosphatase 123 (38-126) U/L Troponin I < 0.012 < 0.012 (0.000-0.034) ng/mL Total Protein 8.0 (6.3-8.2) g/dL Albumin 4.8 (3.5-5.1) g/dL Lipase 144 (23-300) U/L <FREDI Lowery Last Filed: 10/01/24 03:35> Imaging Data Attestation: I personally reviewed and interpreted this imaging study as follows: <FREDI Lowery Last Filed: 10/01/24 03:35> Radiologist's impression: ITS Impressions Chest X-Ray 09/30/24 15:29 IMPRESSION: No focal infiltrate or effusion. Upper Quadrant Ultrasound 09/30/24 16:39 IMPRESSION: Fatty infiltration of the liver with punctate calcifications. Chest/Abdomen/Pelvis CTA 09/30/24 19:48 IMPRESSION: No pulmonary embolus. No aortic dissection. No acute pathology identified within the chest, abdomen or pelvis, as detailed above <FREDI Lowery Last Filed: 10/01/24 03:35> ECG Data EKG #1: Attestation: I personally reviewed and interpreted this ECG as follows: <FREDI Lowery Last Filed: 10/01/24 03:35> ECG completion date: 09/30/24 <FREDI Lowery Last Filed: 10/01/24 03:35> ECG completion time: 14:59 <FREDI Lowery Last Filed: 10/01/24 03:35> EKG Interpretation: normal rate (78), sinus rhythm and non-specific ST changes <FREDI Lowery Last Filed: 10/01/24 03:35> Critical Care Time Critical Care Time Critical Care Time: No <FREDI Lewis Last Filed: 10/01/24 09:12> Discharge Plan Discharge Clinical Impression: Atypical chest pain, Transaminitis <FREDI Lewis Last Filed: 10/01/24 09:12> Patient Disposition: Home <FREDI Lewis Last Filed: 10/01/24 09:12> Condition: Stable <Priscila Palmer PA-C - Last Filed: 10/01/24 09:12> Instructions: Antibiotic Form, Chest Pain (ED), Abdominal Pain (ED), Transaminitis (ED) <Priscila Palmer PA-C - Last Filed: 10/01/24 09:12> Additional Instructions: Your workup here was reassuring. Follow-up closely with your primary care doctor for further evaluation. Your liver enzymes were slightly elevated today. You will need repeat laboratory testing within the next 1 week. Recommend follow-up with PCP for this. Return to the ED if you experience worsening or severe chest or abdominal pain, feeling short of breath or difficulty breathing, passing out, unable to keep down food or drink, dark black stools, rectal bleeding, or any other symptoms of concern. <Priscila Palmer PA-C - Last Filed: 10/01/24 09:12> Patient Language: Sudanese <Priscila Palmer PA-C - Last Filed: 10/01/24 09:12> Prescriptions: No Action lorazepam 1 mg tablet 1 mg PO QHS PRN carbidopa-levodopa 25-250 mg tablet 2 tablet PO QID Qty: 480 3RF donepezil 5 mg tablet See Rx Instructions .ROUTE .COMPLEX Qty: 90 3RF Dose Instruction: TAKE 1 TABLET DAILY IN THE EVENING Rx Instructions: TAKE 1 TABLET DAILY IN THE EVENING primidone 50 mg tablet See Rx Instructions .ROUTE .COMPLEX Qty: 360 3RF Dose Instruction: TAKE 2 TABLETS BY MOUTH TWICE A DAY Rx Instructions: TAKE 2 TABLETS BY MOUTH TWICE A DAY tamsulosin 0.4 mg capsule 0.4 mg PO DAILY trifluoperazine 10 mg tablet 30 mg PO QHS divalproex 500 mg tablet,delayed release (DR/EC) 1,000 mg PO QHS venlafaxine 225 mg tablet extended release 24hr 225 mg PO QHS diphenhydramine HCl 50 mg capsule 50 mg PO QHS celecoxib 200 mg capsule 200 mg PO QAM aspirin 81 mg tablet,delayed release (DR/EC) 81 mg PO QAM fluticasone furoate 100 mcg/actuation blister with device 1 inh inhalation DAILY Caltrate-D3 Plus Minerals 300 mg-800 unit -25 mg-0.5 mg tablet 1 tablet PO QAM <Priscila Palmer PA-C - Last Filed: 10/01/24 09:12> Follow-up/Referrals: Saeed,Junito Connelly MD [Primary Care Provider] - <Priscila Palmer PA-C - Last Filed: 10/01/24 09:12> Time of Disposition: 20:29 <Priscila Palmer PA-C - Last Filed: 10/01/24 09:12> 20:29 <Silvana Valle PA-C - Last Filed: 10/01/24 03:35> Quality HEART score for chest pain patients History: slightly suspicious <Silvana Valle PA-C - Last Filed: 10/01/24 03:35> ECG: non specific repolarization disturbance/LBTB/PM <Silvana Valle PA-C - Last Filed: 10/01/24 03:35> Age: > or = to 65 years <Silvana Valle PA-C - Last Filed: 10/01/24 03:35> Risk factors: no risk factors known <Silvana Valle PA-C - Last Filed: 10/01/24 03:35> Troponin: < or = to 1x normal limit <Silvana Valle PA-C - Last Filed: 10/01/24 03:35> Heart score: 3 <Priscila Palmer PA-C - Last Filed: 10/01/24 09:12> 3 <Silvana Valle PA-C - Last Filed: 10/01/24 03:35>
[2024-09-30 16:01] LABS: Band Neutrophils Percent 0 % (0-6); Neutrophils Absolute Manual 7.79 K/mm3 (1.3-6.7)
--- OUTSIDE RECORDS SUMMARY | 2024-09-30 16:53 | XMS_ITS | CONTINUITY OF CARE DOCUMENT ---
Author Name bill, bill Address Unknown Organization [facility] Address [address] [place] [address] Phone [phone] Care Team Providers Care Orchard Pruner Name Role Phone Gaston Hawkins MD Unavailable NASH SHARMA MD Unavailable NASH SHARMA MD Unavailable PROBLEMS Condition Status Date Provider Notes DEPRESSION active Chadd Mesa RN CHEST PAIN-TYPE TO BE DETERMINED active - Kemal Oleary MD TOBACCO USE completed - Kemal jacob MD CHEST PAIN-? CAUSE:NEG ECHO, DDIMER, CXR & NUCLEAR active Kemal Oleary MD ENCOUNTERS Date Type Provider Location Encounter Diag nosis - In-person encounter Office Visit Kemal Oleary MD [facility] CHEST PAIN-TYPE TO BE DETERMINEDCHEST PAIN-? CAUSE:NEG ECHO, DDIMER, CXR & NUCLEAR - In-person encounter Office Visit Kemal Oleary MD [facility] TOBACCO USE VITAL SIGNS Date Observation Value Provider blood pressure, diastolic 80 mm[Hg] Moe Mesa RN blood pressure, systolic 134 mm[Hg] Chadd Mesa RN pulse rate 72 /min Chadd Mesa RN oxygen saturation, oximetry 98 % Chadd Mesa RN respiratory rate E&M 18 /min Chadd briggs RN weight E&M 168 [lb_av] Chadd Mesa RN blood pressure, diastolic 80 mm[Hg] Ricarda Nicolas blood pressure, systolic 140 mm[Hg] And re Nicolas pulse rate 87 /min Kermit Childressd oxygen saturation, oximetry 95 % Kermit Childressd respiratory rate E&M 18 /min Kermit roa weight E&M 163 [lb_av] Kermit Nicolas ALLERGIES No Known Drug Allergies HISTORY OF MEDICATION USE Medication Status Instructions Dates Provider Indications Com ments TEMAZEPAM 30 MG ORAL CAPSULE completed 5 - 5 Chadd Mesa RN LEXAPRO 20 MG ORAL TABLET active ONE TAB. DAILY 5 Kermit Fidencio BENZTROPINE MESYLATE 1 MG ORAL TABLET active 1 tab @ hs 5 Chadd Mesa RN TRAZODONE HCL 100 MG ORAL TABLET completed 5 - 5 Chadd Mesa RN NEXIUM 40 MG ORAL CAPSULE DELAYED RELEASE active ONE TAB. DAILY 5 Kermit Fidencio APAP-DIPHENHYDRAMIN E TABS completed 5 - 5 Chadd Mesa RN TRIFLUOPERAZINE HCL 10 MG ORAL TABLET active 4 tab @ hs 5 Chadd Mesa RN BENADRYL TABLET active 1 cap @ hs Chadd kwon RN TRAZODONE HCL TABLET active 100mg @ hs Chadd Mesa RN TEMAZEPAM CAPSULE active 30mg 2 @ hs [facility] tulio RN ASPIRIN 81 MG ORAL TABLET active ONE TAB. DAILY 5 Kemal Oleary MD LEXAPRO TABLET completed - 5 Kermit Childressd SOCIAL HISTORY Date Observation Value Provider social history reviewed E&M reviewed Chadd Mesa RN number of children 3 children Kemal chaudhary MD social history E&M Marital Statu s: E thnicity: C hildren: 3 children L alison with family/friends Kemal Oleary MD social history reviewed E&M reviewed Kemal Oleary MD physical exercise, f requency, days per week no [employer] caffeine use, averag e drinks per day no [employer] alcohol use, average drinks per day none [employer] number of years as a smoker 10 years or m ore [employer] smoking status Quit [employer] MENTAL STATUS Date Observation Value Provider assessment of judgme nt and insight E&M Alert and oriented to time, place and person. Mood and affect are normal. Chadd Mesa RN assessment of judgme nt and insight E&M Alert and oriented to time, place and person. Mood and affect are normal. Kemal Oleary MD INSURANCE PROVIDERS Payer name Policy type / Coverage type [place] [employer] ID [employer]P MEDICARE ADVANTAGE PLAN (PPO) Medicare [id number] TREATMENT PLAN Date Name Performer office visit Kemal Oleary MD office visit: H is updated medication list for this problem includes: Aspirin 81 Mg Tabs (Aspirin) ..... One tab. daily BP today: 134/80 Prior BP: 140/80 (11/29/2007) N uclear Stress Findings: 1. Normal Emmett protocol exercise tolerance test. 2 . Normal left ventricular size and function with a calculated ejection fraction of 63%%. 3 . Myocardial scintigraphy is normal without evidence for previous myocardial infarction or reversible ischemia. (11/15/2007) E chocardiogram: EF 55%. The left ventricular chamber size is normal. Normal left ventricular wall thickness. Normal left ventricular function. There is E: A reversal of mitral inflow velocities consistent with d iastolic dysfunction. Normal right atrium. The Mitral Valve is structurally normal and appears to open and close adequately. The aortic valve appears structurally normal. The tricuspid valve is structurally normal. The right ventricular systolic pressure ( RSVP) is estimated to be less than 30 mmHg and is within normal limits. (12/18/2007) Kemal Oleary MD signature: H is updated medication list for this problem includes: Aspirin 81 Mg Tabs (Aspirin) ..... One tab. daily N uclear Stress Findings: 1. Normal Emmett protocol exercise tolerance test. 2 . Normal left ventricular size and function with a calculated ejection fraction of 63%%. 3 . Myocardial scintigraphy is normal without evidence for previous myocardial infarction or reversible ischemia. (11/15/2007) Orders: C omplete Echo ([id number]) Kemal Oleary MD Date Name Complete Echo
--- OUTSIDE RECORDS SUMMARY | 2024-09-30 16:53 | XMS_ITS | Clinical Summary ---
Author Organization [facility] Address [address] [place] [id number] Care Team Providers Care Automotive Service Consultant Name Role Phone Storm Rae MD Primary Care Provider [phone] Social History Tobacco Use Types Packs/Day Years Used Date Smoking Tobacco: Never Assessed Sex and Gender Information Value Date Recorded Sex Assigned at Not on file Legal Sex Male 5:14 PM CDT Gender Identity Not on file Sexual Orientation Not on file Plan of Treatment Health Maintenance Due Date Last Done Comments DTaP, Tdap and Td Vaccines ( 1 - Tdap) 1961 Zoster Vaccines (1 of 2) 1992 Pneumococcal Vaccine: 65+ Ye ars (1 of 1 - PCV) 2007 RSV Immunization or 60+ Years (1 - 1-dose 75+ series) 2017 COVID-19 Vaccine ( - 2023-2 5 season) 2024 Meningococcal B Vaccine Aged Out No l onger eligible based on patient's age to complete this topic Meningococcal Vaccine Aged Out No mitch keshia eligible based on patient's age to complete this topic RSV Immunizations Under 20 Months Aged Out No longer eligible based on patient's age to complete this topic Care Teams Automotive Service Consultant Relationship Specialty Start Date End Date Storm Rae MD [address] [facility] [address] [place] [address] PCP - General 03/29/11
--- NOTE | 2024-09-30 17:14 | PC.NURSE ---
Patient ambulated to the restroom with assistance of walker. stayed at patient's side in the bathroom for support
[2024-09-30 17:20] VITALS: BP 110/89; PULSE 86; RESP 20; O2SAT 98
[2024-09-30 17:37] LABS: D Dimer 0.63 ug/mL (<0.48)
--- NOTE | 2024-09-30 17:39 | PC.NURSE ---
Patient denies chest pain at this time. Patient states he has not had any chest pain since 1000 this morning
--- NOTE | 2024-09-30 17:53 | ECG_ITS ---
Test Date: 2024-09-30 17:58:35 Measurements Intervals [place] Rate: 74 P: 30 VT: 192 QRS: 16 QRSD: 86 T: 37 QT: 403 QTc: 448 Interpretive Statements SINUS RHYTHM CONSIDER INFERIOR INFARCT, AGE INDETERMINATE NONSPECIFIC ST & T-WAVE ABNORMALITY- LATERAL LEADS BASELINE WANDER- V3 ABNORMAL ECG Compared to ECG 09/30/2024 14:59:22 NO SIGNIFICANT CHANGE Electronically Signed On 09-30-2024 19:34:48 CDT by Brandon Marshall D.O.
--- OUTSIDE RECORDS SUMMARY | 2024-09-30 18:14 | XMS_ITS | Clinical Summary ---
Author Organization [facility] Address [address] [place] [id number] Care Team Providers Care Manager Marketing Sales Name Role Phone Storm Rae MD Primary Care Provider [phone] Social History Tobacco Use Types Packs/Day Years [...] age to complete this topic Care Teams Manager Marketing Sales Relationship Specialty Start Date End Date Storm Rae MD [address] [facility] [address] [place] [address] PCP - General 03/29/11
--- OUTSIDE RECORDS SUMMARY | 2024-09-30 18:14 | XMS_ITS | CONTINUITY OF CARE DOCUMENT ---
Author Name bill, bill Address Unknown Organization [facility] Address [address] [place] [address] Phone [phone] Care Team Providers Care Swahili Teacher Name Role Phone Gaston Hawkins MD Unavailable [phone] NASH SHARMA MD Unavailable [phone] NASH SHARMA MD Unavailable PROBLEMS Condition Status Date Provider Notes DEPRESSION active Chadd Mesa RN CHEST PAIN-TYPE TO BE DETERMINED active - Kemal Oleary MD TOBACCO USE completed - Kemal jacob MD CHEST PAIN-? CAUSE:NEG ECHO, DDIMER, CXR & NUCLEAR active Kemal Oleary MD ENCOUNTERS Date Type Provider Location Encounter Diag nosis - In-person encounter Office Visit Kemal Oleary MD [place] [facility] CHEST PAIN-TYPE TO BE DETERMINEDCHEST PAIN-? CAUSE:NEG ECHO, DDIMER, CXR & NUCLEAR - In-person encounter Office Visit Kemal Oleary MD [place] [facility] TOBACCO USE VITAL SIGNS Date Observation [...] TEMAZEPAM CAPSULE active 30mg 2 @ hs [facility] tulio RN ASPIRIN 81 MG ORAL TABLET [...] Payer name Policy type / Coverage type [place] red libertarian ID UHC GRP MEDICARE ADVANTAGE PLAN (PPO) Medicare [id number] TREATMENT PLAN Date Name Performer office visit [...] reversible ischemia. (11/15/2007) Orders: C omplete Echo ([id number]) Kemal Oleary MD Date Name Complete Echo
[2024-09-30 18:23] LABS: Troponin I < 0.012 ng/mL (0.000-0.034)
[2024-09-30 19:26] VITALS: BP 110/89; PULSE 76; PULSE 79; RESP 17; O2SAT 100
== END 2024-09-30 20:37 | disposition home or self-care (01) ==
PROVIDERS: Emergency Medicine; Emergency Provider Physician Assistant; PCP Internal Medicine
DX: R07.89 Other chest pain (principal); R74.01 Elevation of levels of liver transaminase levels; J44.9 Chronic obstructive pulmonary disease, unspecified; H59.023 Cataract (lens) fragments in eye following cataract surgery, bilateral; M19.90 Unspecified osteoarthritis, unspecified site; F32.A Depression, unspecified; Z96.649 Presence of unspecified artificial hip joint; Z90.49 Acquired absence of other specified parts of digestive tract; Z87.891 Personal history of nicotine dependence; Z79.899 Other long term (current) drug therapy; R94.31 Abnormal electrocardiogram [ECG] [EKG]; K76.0 Fatty (change of) liver, not elsewhere classified
CPT/HCPCS: 36415; 71046; 71275; 74177; 76705; 80053; 83690; 84484; 85025; 85380; 85610; 85730; 93005; 99284; Q9967

== ENCOUNTER 2024-11-23 07:31 | Inpatient (IN) | payer MEDICARE, SELFPAY ==
[2024-11-23] VITALS (30 sets, daily range): BP systolic 84–129; BP diastolic 57–111; PULSE 101–129; RESP 16–24; TEMP 36.5–36.9; O2SAT 91–99; BMI 29.0
--- NOTE | ~2024-11-23 | US_ITS ---
US right upper quadrant INDICATION: Abnormal liver CT PROCEDURE: Realtime right upper abdominal ultrasound. COMPARISON: CT dated 11/23/2024 FINDINGS: The pancreas is normal without focal mass or pancreatic ductal dilation. There is a slight ly irregular shaped hyperechoic mass measuring 1.7 cm x 1 x 1.4 cm. No internal vascularity. There i s normal directional flow in the portal vein. Gallbladder is surgically absent. Common bile duct measures 2 mm. No sonographic Gallegos's sign. IMPRESSION: 1: Hyperechoic irregular shaped 1.7 cm liver mass. Recommend correlation with MRI abdomen without and with contrast for complete evaluation of masses seen on prior CT. Cannot exclude malignancy. Reviewed, dictated and finalized at location A. IMPRESSION: 1: Hyperechoic irregular shaped 1.7 cm liver mass. Recommend correlation with M RI abdomen without and with contrast for complete evaluation of masses seen on prior CT. Cannot exclude malignancy.
--- NOTE | ~2024-11-23 | CT_ITS ---
EXAMINATION: CT brain wo con DATE: 11/23/2024 08:55 INDICATION: Status post fall. TECHNIQUE: Computed tomography (CT) of the head was performed without intravenous contrast. The dose- length product was 605.33 mGy-cm. Automated exposure control and iterative reconstruction technique w ere employed. COMPARISON: None FINDINGS: Generalized atrophy. There are scattered mild periventricular and subcortical white matter changes, most likely related to small vessel ischemic disease (microangiopathy). There is intracrania l atherosclerosis. There is a chronic left lacunar infarction versus prominent perivascular space. No acute intracranial hemorrhage, infarction, mass or mass effect. Paranasal sinuses and mastoids are p neumatized. Nasal bones intact. No depressed skull fractures. IMPRESSION: 1. No acute intracranial abnormality. Reviewed, dictated and finalized at location A.
--- NOTE | ~2024-11-23 | XR_ITS ---
XR chest 2V 11/23/2024 08:59 Indication: Weakness Procedure: 2 view chest Comparison: 09/30/2024 Findings: Borderline heart size. There is extensive bilateral airspace disease, consistent with pneum onia. Possible small left effusion. No pneumothorax. No acute osseous abnormality. Impression: 1: Extensive bilateral airspace disease, consistent with pneumonia. Reviewed, dictated and finalized at location A. Impression: 1: Extensive bilateral airspace disease, consistent with pneumonia.
--- NOTE | ~2024-11-23 | MR_ITS ---
EXAMINATION: MR renal wo/w con DATE: 11/27/2024 12:21 INDICATION: Left adrenal mass TECHNIQUE: Magnetic resonance imaging (MRI) of the abdomen was performed without and with 14 mL Multi esequiel intravenous contrast. Sequences included coronal T2-weighted SS-FSE, coronal and axial FS 2D-F IESTA, axial STIR FSE, axial T2-weighted SS-FSE, axial T2-weighted FS SS-FSE, axial diffusion-weighte d SE, axial dual-echo T1-weighted FSPGR, and axial and coronal T1-weighted LAVA. Postcontrast axial T 1-weighted LAVA images were obtained in a time course. Postcontrast coronal T1-weighted LAVA images w ere obtained. COMPARISON: CT dated 11/23/2024 FINDINGS: Heart size is normal. No pericardial or pleural effusion. Gallbladder is surgically absent. Liver, sp javed, pancreas and right adrenal gland are normal. Again seen is a nodular appearance to the posterio r medial limb of the left adrenal gland. No evident signal dropout to suggest adenoma. When viewed on the sagittal plane with the prior CT imaging however the posterior medial limb appears folded anteri roly which likely accounts for the more nodular appearance on the axial imaging. Review of 3-4 mm T2 hyperintense nonenhancing right renal cyst. There are also few bilateral T2 hyperintense nonenhancing parapelvic cysts of both kidneys. Visualized bowels appear normal. The region of focal wall thickeni ng along the distal transverse colon seen on prior CT is appreciated in the current study and may hav e reflected artifact of peristalsis. No pathologically enlarged abdominal lymphadenopathy. Mild thora columbar levocurvature with severe lumbar and moderate lower thoracic spondylosis with associated fib rofatty degenerative endplate changes. Metallic magnetic field artifact associated with instrumentati on for lower lumbar posterior spinal fusion. Additional subtle postoperative changes seen along the m idline upper abdominal wall surgical scar. IMPRESSION: 1. Persistent nodular thickening of the posterior medial limb of the left adrenal gland. Based upon a ppearance on the reconstructed sagittal imaging on prior CT would favor that this reflects artifactua l nodular appearance in the axial plane and resulting from anterior flexion of this limb of the adren al gland as opposed to a true nodule. Recommend 12 month follow-up adrenal protocol abdomen CT as per indeterminate 1-2 cm adrenal nodule. Reviewed, dictated and finalized at location A. IMPRESSION: 1. Persistent nodular thickening of the posterior medial limb of the left adren al gland. Based upon appearance on the reconstructed sagittal imaging on prior CT would favor that this reflects artifactual nodular appearance in the axial p rm and resulting from anterior flexion of this limb of the adrenal gland as o pposed to a true nodule. Recommend 12 month follow-up adrenal protocol abdomen CT as per indeterminate 1-2 cm adrenal nodule.
--- NOTE | ~2024-11-23 | CT_ITS ---
EXAMINATION: CT diagnostic chest wo con DATE: 11/23/2024 11:48 INDICATION: Possible pneumonia. TECHNIQUE: Computed tomography (CT) of the chest was performed without intravenous contrast. The dose -length product was 269.67 mGy-cm. Automated exposure control and iterative reconstruction technique were employed. COMPARISON: CT dated 09/30/2024 FINDINGS: There is patent patchy consolidation of the right upper lobe consistent with pneumonia. The re is focal consolidation in the right lower lobe as well. There is extensive chronic interstitial rehana ng disease with bronchiectasis bilaterally. No endobronchial lesions. There is atherosclerosis of the aorta and coronary arteries. Heart size normal. There is residual contrast in the renal collecting s ystems, likely from prior contrast study. There is severe thoracic and upper lumbar spondylosis with dextroscoliosis. IMPRESSION: 1. Patchy predominantly right-sided airspace consolidation, consistent with pneumonia. 2: Chronic interstitial lung disease, consistent with pulmonary fibrosis. There is associated bronch iectasis bilaterally. Reviewed, dictated and finalized at location A. IMPRESSION: 1. Patchy predominantly right-sided airspace consolidation, consistent with pne umonia. 2: Chronic interstitial lung disease, consistent with pulmonary fibrosis. Ther e is associated bronchiectasis bilaterally.
--- NOTE | ~2024-11-23 | CT_ITS ---
EXAMINATION: CT abdomen pelvis w con DATE: 11/23/2024 08:55 INDICATION: Bilateral lower quadrant pain TECHNIQUE: Computed tomography (CT) of the abdomen and pelvis was performed with 100 cc Omnipaque 350 intravenous contrast. The dose-length product was 600.03 mGy-cm. Automated exposure control and iter ative reconstruction technique were employed. COMPARISON: CT dated 09/30/2024. FINDINGS: There is dependent atelectasis. Heart size normal. There is a low-density lesion in the lef t hepatic lobe measuring 2.6 x 2.6 cm which has developed since prior examination. There is a 1 cm hy povascular lesion of the right hepatic lobe. This was not definitely seen on prior examination. There are calcified granulomas of the spleen. The pancreas, right adrenal gland and kidneys are unremarkab le. There is nodular thickening of the left adrenal gland, nonspecific. There are cholecystectomy cli ps. There are calcified granulomas of the spleen. There is atherosclerosis of the aorta without evide nce for aneurysm. Colonic diverticulosis without evidence for diverticulitis. There is a possible col onic mass proximal to the splenic flexure. There is mild thickening of the more proximal colon. Consi ifrah colitis. There is a right total hip arthroplasty. 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 Severe lower thoracic and lumbar spondylosis with fusion at L4-S1. There is grade 1 spondylolisthe sis at L5-S1. IMPRESSION: 1. Possible colonic mass just proximal to the splenic flexure. There is mild segmental thickening of the proximal colon. Cannot exclude colon carcinoma. Other considerations include infectious and infla mmatory colitis. Recommend GI consultation. 2: Developing liver masses, suspicious for metastatic disease. 3: Nodular thickening of the left adrenal gland which may be secondary to adenomatous hyperplasia or adenomas versus metastatic disease. Reviewed, dictated and finalized at location A. IMPRESSION: 1. Possible colonic mass just proximal to the splenic flexure. There is mild se gmental thickening of the proximal colon. Cannot exclude colon carcinoma. Other considerations include infectious and inflammatory colitis. Recommend GI consu ltation. 2: Developing liver masses, suspicious for metastatic disease. 3: Nodular thickening of the left adrenal gland which may be secondary to gita omatous hyperplasia or adenomas versus metastatic disease.
--- OUTSIDE RECORDS SUMMARY | 2024-11-23 07:33 | XMS_ITS | CONTINUITY OF CARE DOCUMENT ---
Author Name bill, bill Address Unknown Organization [facility] Address [address] [place] [address] Phone [phone] Care Team Providers Care Construction Cost Estimator Name Role Phone Gaston Hawkins MD Unavailable NASH SHARMA MD Unavailable NASH SHARMA MD Unavailable [phone] PROBLEMS Condition Status Date Provider Notes DEPRESSION active Chadd Mesa RN CHEST PAIN-TYPE TO BE DETERMINED active - Kemal Oleary MD TOBACCO USE completed - Kemal jacob MD CHEST PAIN-? CAUSE:NEG ECHO, DDIMER, CXR & NUCLEAR active Kemal Oleary MD ENCOUNTERS Date Type Provider Location Encounter Diag nosis - In-person encounter Office Visit Kemal Oleary MD [place] [facility] CHEST PAIN-TYPE TO BE DETERMINEDCHEST PAIN-? CAUSE:NEG ECHO, DDIMER, CXR & NUCLEAR - In-person encounter Office Visit Kemal Oleary MD [place] [facility] TOBACCO USE VITAL SIGNS Date Observation [...] ORAL CAPSULE completed 5 - 5 Chadd eMsa RN LEXAPRO 20 MG ORAL TABLET active [...] TEMAZEPAM CAPSULE active 30mg 2 @ hs [facility] tulio RN ASPIRIN 81 MG ORAL TABLET [...] Payer name Policy type / Coverage type [place] red [employer] party ID UHC GRP MEDICARE ADVANTAGE PLAN (PPO) Medicare [id number] TREATMENT PLAN Date Name Performer office visit [...] reversible ischemia. (11/15/2007) Orders: C omplete Echo ([id number]) Kemal Oleary MD Date Name Complete Echo
--- NOTE | 2024-11-23 07:39 | ECG_ITS ---
Test Date: 2024-11-23 07:50:41 Measurements Intervals [place] Rate: 121 P: 41 WI: 169 QRS: 32 QRSD: 76 T: 18 QT: 410 QTc: 584 Interpretive Statements SINUS TACHYCARDIA WITH OCCASIONAL SUPRAVENTRICULAR PREMATURE COMPLEXES NONSPECIFIC ST & T-WAVE ABNORMALITY- DIFFUSE LEADS BASELINE ARTIFACT- I, III, AVR, AVL, AVF, V1-V6 ABNORMAL ECG Compared to ECG 09/30/2024 17:58:35 HEART RATE HAS INCREASED Electronically Signed On 11-24-2024 06:41:56 CDT by Brandon Marshall D.O.
[2024-11-23 08:01] LABS: Basophils Absolute Auto 0.1 K/mm3 (0.0-0.1); Basophils Percent Auto 0.3 % (0.2-1.2); Eosinophils Percent Auto 0.1 % (0-4.4); Hematocrit 47.7 % (42.0-52.0); Hemoglobin 14.9 g/dL (14.0-18.0); Immature Granulocyte Absolute 0.13 K/mm3 (0.00-0.031); Immature Granulocyte Percent A 0.7 % (0-0.5); Lymphocytes Absolute Auto 0.62 K/mm3 (0.9-3.2); Lymphocytes Percent Auto 3.2 % (18.3-44.2); Mean Corpuscular HGB Conc 31.2 g/dl (32-36); Mean Corpuscular Hemoglobin 29.1 pg (26-34); Mean Corpuscular Volume 93.2 fl (80-100); Mean Platelet Volume 11.3 fl (7.4-10.4); Monocytes Absolute Auto 4.4 K/mm3 (0.1-0.6); Monocytes Percent Auto 22.7 % (2.6-8.5); Neutrophils Absolute Auto 14.2 K/mm3 (1.3-6.7); Platelet Count Result 197 k/mm3 (150-375); Red Blood Count 5.12 M/mm3 (4.6-6.20); Red Cell Distribution Width 14.8 % (11.5-14.5); White Blood Count 19.4 K/mm3 (4.5-10.0)
--- OUTSIDE RECORDS SUMMARY | 2024-11-23 08:03 | XMS_ITS | CONTINUITY OF CARE DOCUMENT ---
Author Name bill, bill Address Unknown Organization [facility] Address [address] [place] [address] Phone [phone] Care Team Providers Care Shearing Supervisor Name Role Phone Gaston Hawkins MD Unavailable NASH SHARMA MD Unavailable [phone] NASH SHARMA MD Unavailable [phone] PROBLEMS Condition Status Date Provider Notes DEPRESSION active Chadd Mesa RN CHEST PAIN-TYPE TO BE DETERMINED active - Kemal Oleary MD TOBACCO USE completed - Kemal jacob MD CHEST PAIN-? CAUSE:NEG ECHO, DDIMER, CXR & NUCLEAR active Kemal Oleary MD ENCOUNTERS Date Type Provider Location Encounter Diag nosis - In-person encounter Office Visit Kemal Oleary MD [place] [facility] CHEST PAIN-TYPE TO BE DETERMINEDCHEST PAIN-? CAUSE:NEG ECHO, DDIMER, CXR & NUCLEAR - In-person encounter Office Visit Kemal Oleary MD [place] [facility] TOBACCO USE VITAL SIGNS Date Observation [...] TEMAZEPAM CAPSULE active 30mg 2 @ hs [facility] tulio RN ASPIRIN 81 MG ORAL [...] Payer name Policy type / Coverage type [place] red green party ID UHC GRP MEDICARE ADVANTAGE PLAN (PPO) Medicare [id number] TREATMENT PLAN Date Name Performer office visit [...] reversible ischemia. (11/15/2007) Orders: C omplete Echo ([id number]) Kemal Oleary MD Date Name Complete Echo
[2024-11-23] MEDS: SODIUM CHLORIDE 0.9% IV 1,000 ML 999 ML IV CONT ×2 (08:10→09:05)
[2024-11-23] MEDS: SODIUM CHLORIDE 0.9% IV 500 ML 999 ML IV CONT (08:12)
[2024-11-23 08:16] LABS: Alanine Aminotransferase 25 U/L (6-50); Albumin Level 4.1 g/dL (3.5-5.1); Alkaline Phosphatase 64 U/L (38-126); Anion Gap 13 mmol/L (4-12); Aspartate Amino Transferase 277 U/L (17-59); Bilirubin,Total 0.8 mg/dL (0.2-1.3); Blood Urea Nitrogen 49 mg/dL (9-20); Calcium 9.5 mg/dL (8.4-10.2); Carbon Dioxide 25 mmol/L (22-30); Chloride 105 mmol/L (98-107); Estimated CRCL calculation 45 ml/min; Estimated Glomerular Filt Rate > 60; Glucose 145 mg/dL (65-110); Lipase 15 U/L (23-300); Sodium 143 mmol/L (137-145)
[2024-11-23 08:44] LABS: Lactic Acid Reflex 3.8 mmol/L (0.7-2.0)
[2024-11-23 08:50] LABS: INR 1.3
[2024-11-23 08:51] LABS: Partial Thromboplastin Time 31.7 Seconds (22.3-36.8)
[2024-11-23 09:02] LABS: Add Urine Microscopic? YES; Appearance Urine Clear (Clear); Bacteria Urine None Seen /hpf; Bilirubin Urine 1+ (Negative); Blood Urine Negative (Negative); Color Urine Dark Yellow (Yellow); Glucose Urine UA Negative (Negative); Hyaline Casts Urine Present /lpf; Ketones Urine Trace mg/dL (Negative); Leukocyte Esterase Ur Negative LEU/UL (Negative); Need Manual Microscopic Reviewed; Nitrate Urine Negative (Negative); Protein Urine 1+ mg/dL (Negative); Specific Grav Ur 1.029 (1.001-1.035); Squamous Epithelial Cell Urine None Seen /hpf (Few); WBC Urine 0-5 /hpf (0-3); pH Urine 5.5 (5.0-9.0)
[2024-11-23 09:04] LABS: CRP 21.3 mg/dL (<1.0)
--- NOTE | 2024-11-23 09:57 | ED_ITS ---
HPI - General Adult General Chief complaint: Nausea/Vomiting/Diarrhea Stated complaint: diarrhea, falls Time Seen by Provider: 11/23/24 07:42 History of Present Illness HPI narrative: Patient is an 84-year-old male who presents ER with diarrhea. Ongoing over last 3 days. He has had multiple falls due to weakness. is concerned he may have struck his head. Stool has been dark but not dark black. He has tried taking Imodium without improvement. No chest pain or shortness of breath. Mild nausea. Poor oral intake per . Related Data Home Medications ?Medication ?Instructions ?Recorded ?Confirmed ?Last Taken ?Type aspirin 81 mg tablet,delayed 81 mg PO BID 03/15/21 11/23/24 Unknown History release calcium 300 mg-D3 20 mcg-magnesium 1 tablet PO QAM 03/15/21 11/23/24 Unknown History 25 mg-coppr 0.5 [id number] tablet (Caltrate-D3 Plus Minerals) celecoxib 200 mg capsule 200 mg PO QAM 03/15/21 11/23/24 Unknown History diphenhydramine HCl 50 mg capsule 50 mg PO QHS 03/15/21 11/23/24 Unknown History divalproex 500 mg tablet,delayed 1,000 mg PO QHS 03/15/21 11/23/24 Unknown History release fluticasone furoate 100 1 inh inhalation DAILY 03/15/21 11/23/24 Unknown History mcg/actuation blister powder for inhalation tamsulosin 0.4 mg capsule 0.4 mg PO QHS 03/15/21 11/23/24 Unknown History trifluoperazine 10 mg tablet 30 mg PO QHS 03/15/21 11/23/24 Unknown History venlafaxine 225 mg tablet,extended 225 mg PO QHS 03/15/21 11/23/24 Unknown History release 24 hr lorazepam 1 mg tablet 1 mg PO BID 06/13/23 11/23/24 Unknown History Allergies Allergy/AdvReac Type Severity Reaction Status Date / Time No Known Allergies Allergy Verified 11/23/24 07:38 Review of Systems 2 Review of Systems: All systems reviewed & are unremarkable except as noted in HPI and below Constitutional: Constitutional: Reports no additional constitutional complaints ENT: Reports system reviewed and no additional complaints, except as documented Cardiovascular: Cardiovascular: Reports no additional cardiovascular complaints Respiratory: Respiratory: Reports no additional respiratory complaints Gastrointestinal: Gastrointestinal: Reports no additional gastrointestinal complaints [facility] Past Medical History Medical History (Updated 11/23/24 @ 18:16 by Ricci Brambila MD) Bronchiectasis seen on CT scan 11/23/2024 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 11/23/2024 Benign prostatic hyperplasia Anxiety Bipolar disorder Gastroesophageal reflux disease Parkinson's Disease Chronic obstructive pulmonary disease Arthritis Depression Surgical History Surgical History (Updated 11/23/24 @ 13:35 by Alia Acosta PA-C) History of cataract extraction History of cholecystectomy History of back surgery History of hip replacement Family History Family History Sibling Diabetes mellitus Father Cancer Sibling Heart disease Other Depression Social History Social History (Updated 11/23/24 @ 13:36 by Alia Acosta PA-C) Social History: Surrogate medical decision maker: Helenchico Chen, spouse. Code status: Do not resuscitate. Smoking packs per day: 2 Smoking cigarettes per day: 40.0 Years smoked: 50 Smoking pack-years: 100.00 Smoking status: Former smoker Tobacco type: cigarettes Second hand tobacco smoke exposure: Yes Smoking end date: 06/26/06 Alcohol intake: never Substance use: never Substance use type: does not use Do You Feel Safe in your Home?: Yes Lack of Transportation: No Lack of Food: Never True Current Housing: I Have Housing Concerned About Future Housing: No Difficulty Paying Gas/Electric Bills: No Difficulty Paying for Meds: No Currently Unemployed: No Education: High School Diploma/GED Difficulty w/ Childcare or Family Care: No Living arrangements: with family Spiritual care concerns: No Exam 2 Narrative: GENERAL: Ill-appearing, well-nourished, and in no acute distress. HEAD: Normocephalic, atraumatic. EYES: PERRL and EOMI. ENT: Dry mucous membranes. CHEST: Clear to auscultation. No respiratory distress. HEART: Tachycardic regular. Normal peripheral pulses. ABDOMEN: Soft, nontender, nondistended. EXTREMITIES: Normal range of motion. No edema. SKIN: Warm, dry, no rash. NEURO: Alert and oriented x3. PSYCH: Normal mood and affect. Course Course Emergency Course: Patient aggressively fluid resuscitated with 30 milliliters/kilogram of IV fluid. Broad-spectrum antibiotics started and blood cultured. Lactate elevated. Admit to hospitalist service. Patient without pneumonia symptoms but abnormal chest x-ray. Will add on CT scan for better understanding. reports patient used Cologuard 3 years ago but has not had a recent colonoscopy. Gi consulted. Vital Signs Vital signs: Vital Signs Temperature 98.0 F 11/23/24 07:35 Pulse Rate 127 H 11/23/24 07:35 Respiratory Rate 16 11/23/24 07:35 Blood Pressure 84/57 L 11/23/24 07:35 Pulse Oximetry 94 11/23/24 07:35 Oxygen Delivery Room Air 11/23/24 07:35 Temperature 98.5 F 11/23/24 16:53 Pulse Rate 108 H 11/23/24 16:53 Respiratory Rate 20 11/23/24 16:53 Blood Pressure 111/76 11/23/24 16:53 Pulse Oximetry 92 11/23/24 16:53 Oxygen Delivery Room Air 11/23/24 15:59 Medical Decision Making Vital Signs Vital Signs: Vital Signs Temperature 98.0 F 11/23/24 07:35 Pulse Rate 127 H 11/23/24 07:35 Respiratory Rate 16 11/23/24 07:35 Blood Pressure 84/57 L 11/23/24 07:35 Pulse Oximetry 94 11/23/24 07:35 Oxygen Delivery Room Air 11/23/24 07:35 Temperature 98.5 F 11/23/24 16:53 Pulse Rate 108 H 11/23/24 16:53 Respiratory Rate 20 11/23/24 16:53 Blood Pressure 111/76 11/23/24 16:53 Pulse Oximetry 92 11/23/24 16:53 Oxygen Delivery Room Air 11/23/24 15:59 Lab Data 11/23/24 07:55 11/23/24 07:55 Labs: Lab Results 11/23/24 11/23/24 11/23/24 Range/Units 07:55 08:23 08:27 WBC 19.4 H (4.5-10.0) K/mm3 RBC 5.12 (4.6-6.20) M/mm3 Hgb 14.9 (14.0-18.0) g/dL Hct 47.7 (42.0-52.0) % MCV 93.2 (80-100) fl MCH 29.1 (26-34) pg MCHC 31.2 L (32-36) g/dl RDW 14.8 H (11.5-14.5) % Plt Count 197 (150-375) k/mm3 MPV 11.3 H (7.4-10.4) fl Immature Gran % (Auto) 0.7 H (0-0.5) % Neut % (Auto) 73.0 (45.5-73.1) % Lymph % (Auto) 3.2 L (18.3-44.2) % [place] % (Auto) 22.7 H (2.6-8.5) % Eos % (Auto) 0.1 (0-4.4) % Baso % (Auto) 0.3 (0.2-1.2) % Lymph # (Auto) 0.62 L (0.9-3.2) K/mm3 [place] # (Auto) 4.4 H (0.1-0.6) K/mm3 Eos # (Auto) 0.0 (0-0.3) K/mm3 Baso # (Auto) 0.1 (0.0-0.1) K/mm3 Abs Immat Gran (auto) 0.13 H (0.00-0.031) K/mm3 Absolute Neuts (auto) 14.2 H (1.3-6.7) K/mm3 Absolute Nucleated RBC 0.000 (0.0-0.012) K/mm3 Nucleated RBC % 0.0 (0.0-0.2) % PT 16.0 H (11.1-14.7) Seconds INR 1.3 APTT 31.7 (22.3-36.8) Seconds Sodium 143 (137-145) mmol/L Potassium 4.0 (3.4-5.0) mmol/L Chloride 105 (98-107) mmol/L Carbon Dioxide 25 (22-30) mmol/L Anion Gap 13 H (4-12) mmol/L BUN 49 H D (9-20) mg/dL Creatinine 1.08 (0.7-1.3) mg/dL Estim Creat Clear Calc 45 ml/min Estimated GFR > 60 (59 - ) Glucose 145 H (65-110) mg/dL Lactic Acid 3.8 H (0.7-2.0) mmol/L Calcium 9.5 (8.4-10.2) mg/dL Total Bilirubin 0.8 (0.2-1.3) mg/dL AST 277 H (17-59) U/L ALT 25 (6-50) U/L Alkaline Phosphatase 64 (38-126) U/L C-Reactive Protein 21.3 H (<1.0) mg/dL Total Protein 7.0 (6.3-8.2) g/dL Albumin 4.1 (3.5-5.1) g/dL Lipase 15 L (23-300) U/L Urine Color Dark yellow (Yellow) Urine Appearance Clear (Clear) Urine pH 5.5 (5.0-9.0) Ur Specific [place] 1.029 (1.001-1.035) Urine Protein 1+ H (Negative) mg/dL Urine Glucose (UA) Negative (Negative) mg/dL Urine Ketones Trace H (Negative) mg/dL Ur Blood (Man) Negative (Negative) Urine Nitrate Negative (Negative) Urine Bilirubin 1+ H (Negative) Urine Urobilinogen 1.0 (<2.0) mg/dL Add Ur Microanalysis Reviewed Leukocyte Esterase Rfl Negative (Negative) CHUCK/UL Urine RBC 11-20 H (0-2) /hpf Urine WBC 0-5 (0-3) /hpf Ur Squamous Epith Cells None seen (Few) /hpf Urine Bacteria None seen /hpf Urine Casts 3-5 Hyaline Casts Present (None) /lpf Nasal MRSA (PCR) (NOT DETECTE) Blood Type O Positive Antibody Screen Negative 11/23/24 11/23/24 Range/Units 10:43 11:02 WBC (4.5-10.0) K/mm3 RBC (4.6-6.20) M/mm3 Hgb (14.0-18.0) g/dL Hct (42.0-52.0) % MCV (80-100) fl MCH (26-34) pg MCHC (32-36) g/dl RDW (11.5-14.5) % Plt Count (150-375) k/mm3 MPV (7.4-10.4) fl Immature Gran % (Auto) (0-0.5) % Neut % (Auto) (45.5-73.1) % Lymph % (Auto) (18.3-44.2) % [place] % (Auto) (2.6-8.5) % Eos % (Auto) (0-4.4) % Baso % (Auto) (0.2-1.2) % Lymph # (Auto) (0.9-3.2) K/mm3 [place] # (Auto) (0.1-0.6) K/mm3 Eos # (Auto) (0-0.3) K/mm3 Baso # (Auto) (0.0-0.1) K/mm3 Abs Immat Gran (auto) (0.00-0.031) K/mm3 Absolute Neuts (auto) (1.3-6.7) K/mm3 Absolute Nucleated RBC (0.0-0.012) K/mm3 Nucleated RBC % (0.0-0.2) % PT (11.1-14.7) Seconds INR APTT (22.3-36.8) Seconds Sodium (137-145) mmol/L Potassium (3.4-5.0) mmol/L Chloride (98-107) mmol/L Carbon Dioxide (22-30) mmol/L Anion Gap (4-12) mmol/L BUN (9-20) mg/dL Creatinine (0.7-1.3) mg/dL Estim Creat Clear Calc ml/min Estimated GFR (59 - ) Glucose (65-110) mg/dL Lactic Acid 2.3 H (0.7-2.0) mmol/L Calcium (8.4-10.2) mg/dL Total Bilirubin (0.2-1.3) mg/dL AST (17-59) U/L ALT (6-50) U/L Alkaline Phosphatase (38-126) U/L C-Reactive Protein (<1.0) mg/dL Total Protein (6.3-8.2) g/dL Albumin (3.5-5.1) g/dL Lipase (23-300) U/L Urine Color (Yellow) Urine Appearance (Clear) Urine pH (5.0-9.0) Ur Specific [place] (1.001-1.035) Urine Protein (Negative) mg/dL Urine Glucose (UA) (Negative) mg/dL Urine Ketones (Negative) mg/dL Ur Blood (Man) (Negative) Urine Nitrate (Negative) Urine Bilirubin (Negative) Urine Urobilinogen (<2.0) mg/dL Add Ur Microanalysis Leukocyte Esterase Rfl (Negative) CHUCK/UL Urine RBC (0-2) /hpf Urine WBC (0-3) /hpf Ur Squamous Epith Cells (Few) /hpf Urine Bacteria /hpf Urine Casts Hyaline Casts (None) /lpf Nasal MRSA (PCR) Not detected (NOT DETECTE) Blood Type Antibody Screen Imaging Data Radiologist's impression: ITS Impressions Head CT 11/23/24 08:57 IMPRESSION: 1. No acute intracranial abnormality. Abdomen/Pelvis CT 11/23/24 08:58 IMPRESSION: 1. Possible colonic mass just proximal to the splenic flexure. There is mild segmental thickening of the proximal colon. Cannot exclude colon carcinoma. Other considerations include infectious and inflammatory colitis. Recommend GI consultation. 2: Developing liver masses, suspicious for metastatic disease. 3: Nodular thickening of the left adrenal gland which may be secondary to adenomatous hyperplasia or adenomas versus metastatic disease. Chest X-Ray 11/23/24 09:08 Impression: 1: Extensive bilateral airspace disease, consistent with pneumonia. Critical Care Time Critical Care Time Critical Care Time: Yes Total Critical Care Time: 35 Discharge Plan Discharge Clinical Impression: Colitis, Sepsis, IRA (acute kidney injury) Patient Disposition: Still a Patient Condition: Serious
[2024-11-23 10:32] LABS: Reflex Lactic Acid Yes or No Add Lactic
[2024-11-23] MEDS: metroNIDAZOLE 500 MG/ISO 100ML 500 MG/100 ML BAG 100 MG IVPB (11:01)
[2024-11-23 11:11] LABS: Lactic Acid 2.3 mmol/L (0.7-2.0)
--- NOTE | 2024-11-23 12:16 | ADMGEN ---
This patient, Bartolome Maynard, was admitted to IMU Room 203-01 at approximately 1202. Patient/family oriented to hospital policies and general routines including ID bracelet, bed and alarms, visiting hours, pain management, procedures, bathroom and other care routines, personal items, smoking policy, room service/diet, and visiting hours. Information on how to activate the Rapid Response Team has been discussed. Patient/Family are encouraged to report perceived risks to care and to ask questions if they do not understand what they are told or what they should do.
[2024-11-23 12:36] LABS: MRSA (PCR) NOT DETECTED (NOT DETECTE)
[2024-11-23] MEDS: SODIUM CHLORIDE 0.9% IV 1,000 ML 125 ML IV CONT (12:49)
--- NOTE | 2024-11-23 12:55 | P.HP_ITS ---
H&P: HPI History of Present Illness Date/Time: 11/23/24 14:00 Chief Complaint: Vomiting, diarrhea, and weakness. Narrative: This is an 84-year-old male with history of Parkinson's disease, bipolar disorder, depression, anxiety, benign prostatic hyperplasia, chronic obstructive pulmonary disease, and pulmonary fibrosis with evidence of bronchiectasis on CT scan today who presented to the emergency department via private vehicle for evaluation of vomiting, diarrhea, and weakness. He has not been feeling well for 3 days with symptoms to include nausea, vomiting, and up to 20 episodes of diarrhea a day. He is becoming increasingly weak and reports having 2 falls due to the weakness, without injury. His stools have been dark starting today. He denies fever, chills, sweats, abdominal pain, epigastric pain, bloating, belching, hematemesis, hematochezia, dysuria, sinus congestion, sore throat, and cough. He also denies dysphagia and concerns for aspiration. No sick contacts, recent travel, or recent antibiotic use. He has had gradual weight loss over the years. He has not had a colonoscopy recently but he has never had colon polyps and apparently had a negative Cologuard 3 years ago. In the ED: He was afebrile on arrival with a blood pressure yeah 84/57, pulse 127, respiratory 24, SpO2 94% on room air. Labs were significant for a WBC count of 19.4, anion gap 13, BUN 49, lactic acid 3.8, AST 277, CRP 21.3. Abdomen/pelvis CT showed a possible colonic mass proximal to splenic flexure, developing liver masses, nodular thickening left adrenal gland. Chest CT showed findings of pneumonia and pulmonary fibrosis and associated bronchiectasis. He was given a 2.5 L normal saline bolus with improvement lactic acid level and blood pressures and he was started on ceftriaxone and metronidazole for possible colitis. He has been admitted to the IMU in this setting for further treatment and evaluation. Review of Systems Review of Systems: 12 systems were reviewed and are negativ e except for as per HPI. FOR[facility]LY [facility], LATER [facility] Past Medical History Medical History Bronchiectasis seen on CT scan 11/23/2024 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 11/23/2024 Benign prostatic hyperplasia Anxiety Bipolar disorder Gastroesophageal reflux disease Parkinson's Disease Chronic obstructive pulmonary disease Arthritis Depression Surgical History Surgical History History of cataract extraction History of cholecystectomy History of back surgery History of hip replacement Family History Family History Sibling Diabetes mellitus Father Cancer Sibling Heart disease Other Depression Social History Social History (Updated 11/23/24 @ 22:37 by Alia Acosta PA-C) Social History: Surrogate medical decision maker: Helen Chen, spouse. Code status: Do not resuscitate. Smoking packs per day: 2 Smoking cigarettes per day: 40.0 Years smoked: 50 Smoking pack-years: 100.00 Smoking status: Former smoker Tobacco type: cigarettes Second hand tobacco smoke exposure: Yes Smoking end date: 06/26/06 Alcohol intake: never Substance use: never Substance use type: does not use Do You Feel Safe in your Home?: Yes Lack of Transportation: No Lack of Food: Never True Current Housing: I Have Housing Concerned About Future Housing: No Difficulty Paying Gas/Electric Bills: No Difficulty Paying for Meds: No Currently Unemployed: No Education: High School Diploma/GED Difficulty w/ Childcare or Family Care: No Living arrangements: with family Additional living arrangements comments: Lives with spouse. Occupation/Education: retired Additional occupation/education comments: Worked for [employer] (without a respirator). Spiritual care concerns: No Meds Home Medications and Allergies Home Medications ?Medication ?Instructions ?Recorded ?Confirmed ?Type aspirin 81 mg tablet,delayed 81 mg PO BID 03/15/21 11/23/24 History release calcium 300 mg-D3 20 mcg-magnesium 1 tablet PO QAM 03/15/21 11/23/24 History 25 mg-coppr 0.5 [id number] tablet (Caltrate-D3 Plus Minerals) celecoxib 200 mg capsule 200 mg PO QAM 03/15/21 11/23/24 History diphenhydramine HCl 50 mg capsule 50 mg PO QHS 03/15/21 11/23/24 History divalproex 500 mg tablet,delayed 1,000 mg PO QHS 03/15/21 11/23/24 History release fluticasone furoate 100 1 inh inhalation DAILY 03/15/21 11/23/24 History mcg/actuation blister powder for inhalation tamsulosin 0.4 mg capsule 0.4 mg PO QHS 03/15/21 11/23/24 History trifluoperazine 10 mg tablet 30 mg PO QHS 03/15/21 11/23/24 History venlafaxine 225 mg tablet,extended 225 mg PO QHS 03/15/21 11/23/24 History release 24 hr lorazepam 1 mg tablet 1 mg PO BID 06/13/23 11/23/24 History carbidopa 25 mg-levodopa 250 mg 2 tablet PO QID #480 tabs 11/11/24 11/23/24 Rx tablet donepezil 5 mg tablet See Rx Instructions .Route 11/11/24 11/23/24 Rx .COMPLEX #90 tabs primidone 50 mg tablet See Rx Instructions .Route 11/11/24 11/23/24 Rx .COMPLEX #360 tabs Allergies Allergy/AdvReac Type Severity Reaction Status Date / Time No Known Allergies Allergy Verified 11/23/24 07:38 Vital Signs Vital Signs - 24 hr 11/23/24 07:35 11/23/24 07:52 11/23/24 07:53 Temperature 98.0 F Pulse Rate 127 H 126 H 125 H Respiratory Rate 16 24 H Blood Pressure 84/57 L 110/91 H 105/87 Pulse Oximetry 94 95 Oxygen Delivery Room Air 11/23/24 07:53 11/23/24 07:54 11/23/24 07:59 Temperature Pulse Rate 123 H 129 H 121 H Respiratory Rate Blood Pressure 107/92 H 129/111 H Pulse Oximetry Oxygen Delivery 11/23/24 08:00 11/23/24 08:21 11/23/24 08:30 Temperature Pulse Rate 119 H 116 H 115 H Respiratory Rate 24 H 22 H 22 H Blood Pressure Pulse Oximetry Oxygen Delivery 11/23/24 08:31 11/23/24 09:02 11/23/24 09:04 Temperature Pulse Rate 110 H 110 H 118 H Respiratory Rate 22 H 20 22 H Blood Pressure 118/84 116/85 Pulse Oximetry 99 95 96 Oxygen Delivery 11/23/24 09:15 11/23/24 09:16 11/23/24 09:34 Temperature Pulse Rate 110 H 110 H 113 H Respiratory Rate 20 20 21 H Blood Pressure 112/80 Pulse Oximetry 96 95 Oxygen Delivery 11/23/24 09:45 11/23/24 09:46 11/23/24 10:07 Temperature Pulse Rate 108 H 110 H 102 H Respiratory Rate 20 21 H 20 Blood Pressure 114/80 Pulse Oximetry 94 94 97 Oxygen Delivery 11/23/24 10:15 11/23/24 10:16 11/23/24 12:23 Temperature 97.7 F Pulse Rate 101 H 104 H 104 H Respiratory Rate 21 H 21 H 20 Blood Pressure 108/87 108/72 Pulse Oximetry 97 94 Oxygen Delivery Exam Narrative: General: Chronically ill-appearing gentleman the semi-Foster position in bed in no acute distress. Weight: 86.6 kg. BMI: 29.0 HEENT: Masked facies.PERRL, EOMI. Sclera anicteric. Tacky mucous membranes. Neck: Supple. No JVD. Respiratory: Respirations are nonlabored he is speaking in full sentences. Coarse crackles heard throughout both lung james, more so at the bases. Cardiovascular: Regular rate and rhythm with S1-S2. Gastrointestinal: Abdomen is soft, nontender, and nondistended with positive bowel sounds. Skin: Warm and dry. Generalized pallor. Extremities: No cyanosis, clubbing, or edema. Radial and pedal pulses intact. Neurological: Alert. Cranial nerves 2-12 are grossly intact. Speech is clear. No facial asymmetry. Tremor of the upper extremity. Generalized weakness without gross focal findings. Psychiatric: Pleasant and cooperative with appropriate mood and affect. H&P: Results Labs Labs: Short CBC 11/23/24 Range/Units 07:55 WBC 19.4 H (4.5-10.0) K/mm3 Hgb 14.9 (14.0-18.0) g/dL Hct 47.7 (42.0-52.0) % Plt Count 197 (150-375) k/mm3 BMP 11/23/24 07:55 Sodium 143 Potassium 4.0 Chloride 105 Carbon Dioxide 25 BUN 49 H D Creatinine 1.08 Glucose 145 H Calcium 9.5 Liver Function 11/23/24 Range/Units 07:55 Total Bilirubin 0.8 (0.2-1.3) mg/dL AST 277 H (17-59) U/L ALT 25 (6-50) U/L Alkaline Phosphatase 64 (38-126) U/L Albumin 4.1 (3.5-5.1) g/dL Urine 11/23/24 Range/Units 08:27 Urine Color Dark yellow (Yellow) Urine Appearance Clear (Clear) Urine pH 5.5 (5.0-9.0) Ur Specific [place] 1.029 (1.001-1.035) Urine Protein 1+ H (Negative) mg/dL Urine Glucose (UA) Negative (Negative) mg/dL Imaging Head CT 11/23/24 08:57 IMPRESSION: 1. No acute intracranial abnormality. Abdomen/Pelvis CT 11/23/24 08:58 IMPRESSION: 1. Possible colonic mass just proximal to the splenic flexure. There is mild segmental thickening of the proximal colon. Cannot exclude colon carcinoma. Other considerations include infectious and inflammatory colitis. Recommend GI consultation. 2: Developing liver masses, suspicious for metastatic disease. 3: Nodular thickening of the left adrenal gland which may be secondary to adenomatous hyperplasia or adenomas versus metastatic disease. Chest X-Ray 11/23/24 09:08 Impression: 1: Extensive bilateral airspace disease, consistent with pneumonia. Chest CT 11/23/24 12:15 IMPRESSION: 1. Patchy predominantly right-sided airspace consolidation, consistent with pneumonia. 2: Chronic interstitial lung disease, consistent with pulmonary fibrosis. There is associated bronchiectasis bilaterally. Assessment and Plan Assessment and plan (1) Sepsis: Code(s): A41.9 - Sepsis, unspecified organism Status: Acute (2) Pneumonia: Code(s): J18.9 - Pneumonia, unspecified organism Status: Acute (3) Colon wall thickening: Code(s): K63.9 - Disease of intestine, unspecified Status: Acute (4) Liver mass: Code(s): R16.0 - Hepatomegaly, not elsewhere classified Status: Acute (5) Pulmonary fibrosis: Code(s): J84.10 - Pulmonary fibrosis, unspecified Status: Acute (6) Bronchiectasis: Code(s): J47.9 - Bronchiectasis, uncomplicated Status: Acute (7) Prolonged QT interval: Code(s): R94.31 - Abnormal electrocardiogram [ECG] [EKG] Status: Acute (8) Chronic obstructive pulmonary disease: Code(s): J44.9 - Chronic obstructive pulmonary disease, unspecified Status: Acute (9) Parkinson's Disease: Code(s): G20 - Parkinson's disease Status: Acute (10) Gastroesophageal reflux disease: Code(s): K21.9 - Gastro-esophageal reflux disease without esophagitis Status: Acute (11) Benign prostatic hyperplasia: Code(s): N40.0 - Benign prostatic hyperplasia without lower urinary tract symptoms Status: Acute (12) Bipolar disorder: Code(s): F31.9 - Bipolar disorder, unspecified Status: Acute (13) Depression: Code(s): F32.9 - Major depressive disorder, single episode, unspecified Status: Acute (14) Anxiety: Code(s): F41.9 - Anxiety disorder, unspecified Status: Acute Plan The patient presented to the emergency department with a 2 day history of vomiting, diarrhea, and weakness leading to to falls without injury as detailed in HPI. Labs, imaging, EKG, and all reports were personally reviewed. He met sepsis criteria on arrival with hypotension, tachycardia, tachypnea, leukocytosis, and lactic acidosis in the setting of underlying infection. The source of infection appears to be the lungs with patchy, predominantly right- sided airspace disease on chest CT. Additionally there was mild segmental thickening of the proximal colon which could be infectious, inflammatory, or underlying malignancy (concerning given findings of developing liver masses and nodular thickening of the left adrenal gland). He received ceftriaxone and metronidazole in the ED but antibiotics will be changed to piperacillin- tazobactam and doxycycline to cover pneumonia in a patient with history of dysphagia due to Parkinson as well as bronchiectasis and possible colitis. Blood and sputum cultures are pending. GI consulted for colonoscopy. QTc is 584 and we will hold QT prolonging medications for now (diphenhydramine, donepezil, trifluoperazine, venlafaxine) and continue to monitor on telemetry and repeat EKG in a.m. Consider cardiology consultation if QT remains prolonged. Electrolytes are well within normal limits though magnesium is pending. No acute issues with regards to his COPD. Chronic conditions without acute issues include gastroesophageal reflux disease, benign prostatic hyperplasia, depression, anxiety, and bipolar disorder. His home medications will be reviewed and resumed as appropriate. Findings and treatment plan were discussed with the patient. Questions were solicited and answered to satisfaction. The patient's medical management will be taken over by the hospitalist team in a.m. Quality VTE Prophylaxis VTE prophylaxis: mechanical ordered If No VTE Prophylaxis Answer both mechanical and pharmacologic: Reason no pharmacologic proph: medical contraindication (dark stools, will need colonoscopy) Hospitalist MIPS Advance Care Plan I have confirmed that the patient's Advanced Care Plan is present, code status is documented, or surrogate decision maker is listed in patient medical record.: Yes Medication Reconciliation I have utilized all available resources to obtain, update and review the patients current medications (includes all prescriptions, OTC, herbals, cannabis, and nutritional supplements).: Yes
[2024-11-23 15:35] LABS: Magnesium 2.3 mg/dL (1.6-2.3)
[2024-11-23] MEDS: PIPERACILLN/TAZ 3.375GM/NS50ML 3.375 GM/50 ML BAG IVPB (15:35)
[2024-11-23] MEDS: SODIUM CHLORIDE 0.9% IV 1,000 ML 85 ML IV CONT (15:39)
[2024-11-23 15:42] LABS: Valproic Acid 39.7 ug/mL (50-120)
[2024-11-23 16:20] LABS: Influenza A QL RT-PCR Negative (Negative); Influenza B QL RT-PCR Negative (Negative); SARS-CoV-2 RNA PCR Negative (Negative)
[2024-11-23] MEDS: PRIMIDONE 50 MG TABLET 100 MG BY MOUTH (16:36)
[2024-11-23] MEDS: LORazepam (*CRX) 1 MG TABLET PO (16:36)
[2024-11-23] MEDS: CARBIDOPA/LEVODOPA 25/250 MG TABLET 2 TABLET PO ×2 (16:37→21:59)
[2024-11-23] MEDS: ASPIRIN 81 MG ENTERIC TABLET PO (16:37)
--- NOTE | 2024-11-23 16:59 | ECG_ITS ---
Test Date: 2024-11-23 17:14:46 Measurements Intervals [place] Rate: 101 P: 11 OR: 185 QRS: 7 QRSD: 69 T: 34 QT: 289 QTc: 374 Interpretive Statements SINUS TACHYCARDIA EARLY PRECORDIAL R/S TRANSITION LEFT VENTRICULAR HYPERTROPHY WITH ST-T CHANGE CONSIDER INFERIOR INFARCT, AGE INDETERMINATE BASELINE WANDER- AVF ABNORMAL ECG Compared to ECG 11/23/2024 07:50:41 HEART RATE HAS DECREASED Electronically Signed On 11-24-2024 06:55:23 CDT by Brandon Marshall D.O.
--- NOTE | 2024-11-23 17:56 | PC.NURSE ---
PT to bring in home medication for use while in the hospital.
[2024-11-23] MEDS: FLUTICASONE PROP 110 MCG INHALER 12 GM (*SP) 2 PUFF INHALATION (20:00)
[2024-11-23] MEDS: DIVALPROEX SODIUM DR 250 MG TABEC 1000 MG PO (21:59)
[2024-11-23] MEDS: DOXYCYCLINE HYCLATE 100 MG TABLET PO (21:59)
[2024-11-23] MEDS: TAMSULOSIN HCL 0.4 MG CAPSULE PO (22:00)
[2024-11-23] MEDS: guaiFENesin 12 HR 600 MG TABCR 1200 MG PO (22:00)
[2024-11-24] VITALS (20 sets, daily range): BP systolic 110–175; BP diastolic 61–91; PULSE 85–118; RESP 18–20; TEMP 36.6–37.3; O2SAT 93–97
[2024-11-24] MEDS: PIPERACILLN/TAZ 3.375GM/NS50ML 3.375 GM/50 ML BAG IVPB ×4 (00:09→17:40)
[2024-11-24 00:14] LABS: Toxigenic C. Diff NEGATIVE (NEGATIVE)
[2024-11-24 01:30] LABS: IFOB Positive Control Positive; Immunochemical Fecal Occult Bl Negative (N)
[2024-11-24 04:37] LABS: Hematocrit 36.1 % (42.0-52.0); Hemoglobin 11.4 g/dL (14.0-18.0); Mean Corpuscular HGB Conc 31.6 g/dl (32-36); Mean Corpuscular Hemoglobin 29.5 pg (26-34); Mean Corpuscular Volume 93.3 fl (80-100); Mean Platelet Volume 11.3 fl (7.4-10.4); Platelet Count Result 127 k/mm3 (150-375); Red Blood Count 3.87 M/mm3 (4.6-6.20); Red Cell Distribution Width 15.1 % (11.5-14.5); White Blood Count 13.2 K/mm3 (4.5-10.0)
[2024-11-24 04:57] LABS: Alanine Aminotransferase 32 U/L (6-50); Albumin Level 3.1 g/dL (3.5-5.1); Alkaline Phosphatase 56 U/L (38-126); Anion Gap 9 mmol/L (4-12); Aspartate Amino Transferase 111 U/L (17-59); Bilirubin,Total 0.5 mg/dL (0.2-1.3); Blood Urea Nitrogen 20 mg/dL (9-20); Calcium 8.4 mg/dL (8.4-10.2); Carbon Dioxide 23 mmol/L (22-30); Chloride 112 mmol/L (98-107); Estimated CRCL calculation 80 ml/min; Estimated Glomerular Filt Rate > 60; Glucose 98 mg/dL (65-110); Magnesium 2.3 mg/dL (1.6-2.3); Potassium 3.1 mmol/L (3.4-5.0); Sodium 144 mmol/L (137-145)
--- NOTE | 2024-11-24 08:00 | ECG_ITS ---
Test Date: 2024-11-24 10:56:44 Measurements Intervals [place] Rate: 102 P: 17 [place]: 174 QRS: 17 QRSD: 78 T: 54 QT: 278 QTc: 363 Interpretive Statements SINUS TACHYCARDIA WITH OCCASIONAL SUPRAVENTRICULAR PREMATURE COMPLEXES EARLY PRECORDIAL R/S TRANSITION CONSIDER INFERIOR INFARCT, AGE INDETERMINATE NONSPECIFIC ST & T-WAVE ABNORMALITY- ANTEROLAT/HIGH LAT LEADS BORDERLINE ECG Compared to ECG 11/23/2024 17:14:46 NO SIGNIFICANT CHANGE Electronically Signed On 11-24-2024 19:16:21 CDT by Brandon Marshall D.O.
[2024-11-24] MEDS: FLUTICASONE PROP 110 MCG INHALER 12 GM (*SP) 2 PUFF INHALATION ×2 (08:08→21:01)
[2024-11-24] MEDS: PRIMIDONE 50 MG TABLET 100 MG BY MOUTH ×2 (09:26→16:42)
[2024-11-24] MEDS: DOXYCYCLINE HYCLATE 100 MG TABLET PO ×2 (09:26→20:29)
[2024-11-24] MEDS: LORazepam (*CRX) 1 MG TABLET PO ×2 (09:26→16:42)
[2024-11-24] MEDS: guaiFENesin 12 HR 600 MG TABCR 1200 MG PO ×2 (09:26→20:29)
[2024-11-24] MEDS: CARBIDOPA/LEVODOPA 25/250 MG TABLET 2 TABLET PO ×4 (09:26→20:28)
[2024-11-24] MEDS: ASPIRIN 81 MG ENTERIC TABLET PO ×2 (09:26→16:42)
--- NOTE | 2024-11-24 10:34 | PHAR ---
HOME MED TRIFLUOPERAZINE TAB 10 MG; TAKE 3 TABLETS BY MOUTH EVERY DAY. VERIFIED BY PHARMACY.
[2024-11-24] MEDS: CALCIUM/VITAMIN D 250 MG/3.125 MCG (125 I.U.) TABLET 1 TABLET PO (12:03)
--- NOTE | 2024-11-24 15:21 | P.CONGI_ITS ---
Assessment and Plan Assessment and plan (1) Sepsis: Code(s): A41.9 - Sepsis, unspecified organism Status: Acute Assessment and Plan: on arrival, doing better now s/p fluids, abx cultures pending (2) Colon wall thickening: Code(s): K63.9 - Disease of intestine, unspecified Status: Acute Assessment and Plan: worrisome findings, willing to have colonoscopy tomorrow to assess if malignancy, could be also colitis (3) Pneumonia: Code(s): J18.9 - Pneumonia, unspecified organism Status: Acute (4) IRA (acute kidney injury): Code(s): N17.9 - Acute kidney failure, unspecified Status: Acute Assessment and Plan: treated, on fluids (5) Parkinson's Disease: Code(s): G20 - Parkinson's disease Status: Acute (6) Pulmonary fibrosis: Code(s): J84.10 - Pulmonary fibrosis, unspecified Status: Acute GI Consult Note Consult date/time: 11/24/24 15:21 Reason for consult: diarrhea, abnormal colon by ct HPI: Bartolome Maynard is a 84 year old male with history of Parkinson's disease, bipolar disorder, benign prostatic hyperplasia, chronic obstructive pulmonary disease, and pulmonary fibrosis who came to the emergency department via private vehicle for 3 days of vomiting, diarrhea, and weakness. His was sick Monday then he became sick with several episodes of diarrhea up to 20 a day with nausea and vomiting, this has improved since admission. No fever, no blood in stools. He has not had a colonoscopy for almost 10 years but had a negative Cologuard 3 years ago. ER evaluation with low BP 84/57, tachycardic. Labs were significant for a WBC count of 19.4, anion gap 13, BUN 49, lactic acid 3.8, AST 277, CRP 21.3. Abdomen/pelvis CT showed a possible colonic mass proximal to splenic flexure, developing liver masses, nodular thickening left adrenal gland. Chest CT showed findings of pneumonia and pulmonary fibrosis and associated bronchiectasis, started on abx and already feeling better. at bedside and willing to have colonoscopy tomorrow. Review of Systems 2 Constitutional: Constitutional: Reports fatigue Eyes: Eyes: Denies blurry vision ENT: Reports Normal hearing present Cardiovascular: Cardiovascular: Denies chest pain Respiratory: Respiratory: Reports cough (chronic) Gastrointestinal: Gastrointestinal: Reports diarrhea, Reports nausea and Reports vomiting Genitourinary: Comments: h/p BPH Musculoskeletal: Musculoskeletal: Denies back pain Integumentary/Breasts: Skin/Breast: Denies rash Neurologic: Comments: parkinson's Psychiatric: Psychiatric: Denies behavioral changes [facility] Past Medical History Medical History Bronchiectasis seen on CT scan 11/23/2024 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 11/23/2024 Benign prostatic hyperplasia Anxiety Bipolar disorder Gastroesophageal reflux disease Parkinson's Disease Chronic obstructive pulmonary disease Arthritis Depression Surgical History Surgical History History of cataract extraction History of cholecystectomy History of back surgery History of hip replacement Family History Family History Sibling Diabetes mellitus Father Cancer Sibling Heart disease Other Depression Social History Social History (Updated 11/23/24 @ 22:37 by Alia Acosta PA-C) Social History: Surrogate medical decision maker: Helen Chen, spouse. Code status: Do not resuscitate. Smoking packs per day: 2 Smoking cigarettes per day: 40.0 Years smoked: 50 Smoking pack-years: 100.00 Smoking status: Former smoker Tobacco type: cigarettes Second hand tobacco smoke exposure: Yes Smoking end date: 06/26/06 Alcohol intake: never Substance use: never Substance use type: does not use Do You Feel Safe in your Home?: Yes Lack of Transportation: No Lack of Food: Never True Current Housing: I Have Housing Concerned About Future Housing: No Difficulty Paying Gas/Electric Bills: No Difficulty Paying for Meds: No Currently Unemployed: No Education: High School Diploma/GED Difficulty w/ Childcare or Family Care: No Living arrangements: with family Additional living arrangements comments: Lives with spouse. Occupation/Education: retired Additional occupation/education comments: Worked for [employer] vehicles (without a respirator). Spiritual care concerns: No Meds Home Medications and Allergies Home Medications ?Medication ?Instructions ?Recorded ?Confirmed ?Type aspirin 81 mg tablet,delayed 81 mg PO BID 03/15/21 11/23/24 History release calcium 300 mg-D3 20 mcg-magnesium 1 tablet PO QAM 03/15/21 11/23/24 History 25 mg-coppr 0.5 [id number] tablet (Caltrate-D3 Plus Minerals) celecoxib 200 mg capsule 200 mg PO QAM 03/15/21 11/23/24 History diphenhydramine HCl 50 mg capsule 50 mg PO QHS 03/15/21 11/23/24 History divalproex 500 mg tablet,delayed 1,000 mg PO QHS 03/15/21 11/23/24 History release fluticasone furoate 100 1 inh inhalation DAILY 03/15/21 11/23/24 History mcg/actuation blister powder for inhalation tamsulosin 0.4 mg capsule 0.4 mg PO QHS 03/15/21 11/23/24 History trifluoperazine 10 mg tablet 30 mg PO QHS 03/15/21 11/23/24 History venlafaxine 225 mg tablet,extended 225 mg PO QHS 03/15/21 11/23/24 History release 24 hr lorazepam 1 mg tablet 1 mg PO BID 06/13/23 11/23/24 History carbidopa 25 mg-levodopa 250 mg 2 tablet PO QID #480 tabs 11/11/24 11/23/24 Rx tablet donepezil 5 mg tablet See Rx Instructions .Route 11/11/24 11/23/24 Rx .COMPLEX #90 tabs primidone 50 mg tablet See Rx Instructions .Route 11/11/24 11/23/24 Rx .COMPLEX #360 tabs Allergies Allergy/AdvReac Type Severity Reaction Status Date / Time No Known Allergies Allergy Verified 11/23/24 07:38 Vital Signs Vital Signs - 24 hr 11/23/24 15:59 11/23/24 16:00 11/23/24 16:53 Temperature 98.5 F Pulse Rate 104 H 108 H Respiratory Rate 20 Blood Pressure 111/76 Pulse Oximetry 92 Oxygen Delivery Room Air Fraction of Inspired Oxygen 11/23/24 18:00 11/23/24 19:52 11/23/24 20:00 Temperature 98.4 F Pulse Rate 103 H 108 H 115 H Respiratory Rate 20 20 Blood Pressure 124/85 Pulse Oximetry 91 Oxygen Delivery Fraction of Inspired Oxygen 11/23/24 20:00 11/23/24 20:25 11/23/24 21:41 Temperature Pulse Rate 106 H 108 H Respiratory Rate 20 Blood Pressure Pulse Oximetry 92 91 Oxygen Delivery Room Air Room Air Fraction of Inspired Oxygen 21 11/23/24 22:00 11/24/24 00:00 11/24/24 00:00 Temperature 98.4 F Pulse Rate 105 H 106 H 107 H Respiratory Rate 20 Blood Pressure 140/82 Pulse Oximetry 94 Oxygen Delivery Fraction of Inspired Oxygen 11/24/24 00:05 11/24/24 01:35 11/24/24 03:10 Temperature Pulse Rate 106 H 106 H 103 H Respiratory Rate 20 20 Blood Pressure Pulse Oximetry 94 94 Oxygen Delivery Room Air Room Air Fraction of Inspired Oxygen 11/24/24 03:38 11/24/24 04:00 11/24/24 06:00 Temperature 97.8 F Pulse Rate 105 H 105 H 105 H Respiratory Rate 20 Blood Pressure 111/88 Pulse Oximetry 94 Oxygen Delivery Fraction of Inspired Oxygen 11/24/24 08:00 11/24/24 08:08 11/24/24 08:14 Temperature 99.1 F Pulse Rate 118 H 106 H Respiratory Rate 18 Blood Pressure 175/76 H Pulse Oximetry 94 94 Oxygen Delivery Room Air Fraction of Inspired Oxygen 21 11/24/24 12:00 11/24/24 12:04 11/24/24 14:00 Temperature 98.9 F Pulse Rate 100 101 H 94 Respiratory Rate 20 Blood Pressure 155/61 H Pulse Oximetry 93 Oxygen Delivery Fraction of Inspired Oxygen Exam 2 Const: General: comfortable and no acute distress HENMT: Face/Nose/Sinus: Normal nares present Eyes: General: appearance normal, both eyes and all related structures Neck: Neck: supple Resp: Auscultation: clear to auscultation bilaterally Cardio: Rate: regular rate Rhythm: regular rhythm GI: Inspection: non-distended GI Palp: Yes Soft to palpation and No Tenderness to palpation present (GI) Auscultation: normal bowel sounds Skin: General skin exam: normal color Neuro: Speech: normal speech Motor exam (neuro): 5/5 motor strength present throughout Other: tremors Extrem: General: normal to inspection Psych: Mental Status: mental status grossly normal Results Labs 11/24/24 03:49 11/24/24 03:49 Labs: Short CBC 11/24/24 Range/Units 03:49 WBC 13.2 H (4.5-10.0) K/mm3 Hgb 11.4 L D (14.0-18.0) g/dL Hct 36.1 L (42.0-52.0) % Plt Count 127 L (150-375) k/mm3 BMP 11/24/24 03:49 Sodium 144 Potassium 3.1 L Chloride 112 H Carbon Dioxide 23 BUN 20 D Creatinine 0.58 L Glucose 98 Calcium 8.4 Liver Function 11/24/24 Range/Units 03:49 Total Bilirubin 0.5 (0.2-1.3) mg/dL AST 111 H (17-59) U/L ALT 32 (6-50) U/L Alkaline Phosphatase 56 (38-126) U/L Albumin 3.1 L (3.5-5.1) g/dL
[2024-11-24] MEDS: POTASSIUM CHLORIDE 20 MEQ PACKET (FOR LIQUID) 40 MEQ PO (16:40)
[2024-11-24] MEDS: BISACODYL 5 MG TABLET EC 20 MG PO (17:39)
[2024-11-24] MEDS: polyethylene glycoL 3350 238 GM BOTTLE PO (17:39)
[2024-11-24] MEDS: DIVALPROEX SODIUM DR 250 MG TABEC 1000 MG PO (20:29)
[2024-11-24] MEDS: TRIFLUOPERAZINE 10 MG 30 EACH PO (20:29)
[2024-11-24] MEDS: TAMSULOSIN HCL 0.4 MG CAPSULE PO (20:29)
--- NOTE | 2024-11-24 21:34 | WPDURCON ---
Assessment and Plan Assessment and plan (1) Sepsis: Code(s): A41.9 - Sepsis, unspecified organism Status: Acute (2) Colitis: Code(s): K52.9 - Noninfective gastroenteritis and colitis, unspecified Status: Acute (3) Adrenal mass: Code(s): E27.8 - Other specified disorders of adrenal gland Status: Acute Plan Left adrenal mass being worked up for colorectal issue. will need work up for functional adenoma does not have the appearance of a adrenal cortical carcinoma. will check metanephrines, renin, alsodterone, cortisol (may need endocrine evlauation as outpt for completion of endocrine functional studies.. MRI adrenal mass protocol after current evaluation for functional studies and GI issues Urology Consult Note HPI Date Seen: 11/24/24 Requesting Physician: Corey Garcia MD Primary Care Provider: Junito Saeed, Consult Narrative Narrative: Bartolome Perrygreciaana paula 84-year-old male with history of Parkinson's disease, bipolar disorder, depression, anxiety, benign prostatic hyperplasia, chronic obstructive pulmonary disease, and pulmonary fibrosis with evidence of bronchiectasis on CT scan today who presented to the emergency departmentfor abdominal pain and diarrhea.Urology is consulted for left adrenal thickening. Patient denies any hematuria dysuria and no significant active LUTS nocturia 0-1 times per. No hesitancy or straining throughout the day. This prostate issues denies seeing a urologist for this in the past. He denies uncontrolled blood pressure headaches mood swings patient. being workd up by GI for possible mass on CT. Review of Systems Review of Systems: All systems reviewed & are unremarkable except as noted in HPI and below Constitutional: Constitutional: Reports no additional constitutional complaints Eyes: Eyes: Reports no additional eye complaints ENT: Reports system reviewed and no additional complaints, except as documented Cardiovascular: Cardiovascular: Reports no additional cardiovascular complaints Respiratory: Respiratory: Reports as per HPI and Reports no additional respiratory complaints Gastrointestinal: Gastrointestinal: Reports no additional gastrointestinal complaints Genitourinary: Genitourinary: Reports no additional male genitourinary complaints, Denies hematuria, Denies dysuria, Denies flank pain and Denies urinary frequency Musculoskeletal: Musculoskeletal: Reports no additional musculoskeletal complaints Integumentary/Breasts: Skin/Breast: Reports system reviewed and no additional complaints, except as docu Neurologic: Reports system reviewed and no additional complaints, except as documented Psychiatric: Psychiatric: Reports no additional psychiatric complaints [facility] Past Medical History Medical History Bronchiectasis seen on CT scan 11/23/2024 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 11/23/2024 Benign prostatic hyperplasia Anxiety Bipolar disorder Gastroesophageal reflux disease Parkinson's Disease Chronic obstructive pulmonary disease Arthritis Depression Surgical History Surgical History History of cataract extraction History of cholecystectomy History of back surgery History of hip replacement Family History Family History Sibling Diabetes mellitus Father Cancer Sibling Heart disease Other Depression Social History Social History (Updated 11/23/24 @ 22:37 by Alia Acosta PA-C) Social History: Surrogate medical decision maker: Helen Chen, spouse. Code status: Do not resuscitate. Smoking packs per day: 2 Smoking cigarettes per day: 40.0 Years smoked: 50 Smoking pack-years: 100.00 Smoking status: Former smoker Tobacco type: cigarettes Second hand tobacco smoke exposure: Yes Smoking end date: 06/26/06 Alcohol intake: never Substance use: never Substance use type: does not use Do You Feel Safe in your Home?: Yes Lack of Transportation: No Lack of Food: Never True Current Housing: I Have Housing Concerned About Future Housing: No Difficulty Paying Gas/Electric Bills: No Difficulty Paying for Meds: No Currently Unemployed: No Education: High School Diploma/GED Difficulty w/ Childcare or Family Care: No Living arrangements: with family Additional living arrangements comments: Lives with spouse. Occupation/Education: retired Additional occupation/education comments: Worked for [employer] vehicles (without a respirator). Spiritual care concerns: No Meds Home Medications and Allergies Home Medications ?Medication ?Instructions ?Recorded ?Confirmed ?Type aspirin 81 mg tablet,delayed 81 mg PO BID 03/15/21 11/23/24 History release calcium 300 mg-D3 20 mcg-magnesium 1 tablet PO QAM 03/15/21 11/23/24 History 25 mg-coppr 0.5 [id number] tablet (Caltrate-D3 Plus Minerals) celecoxib 200 mg capsule 200 mg PO QAM 03/15/21 11/23/24 History diphenhydramine HCl 50 mg capsule 50 mg PO QHS 03/15/21 11/23/24 History divalproex 500 mg tablet,delayed 1,000 mg PO QHS 03/15/21 11/23/24 History release fluticasone furoate 100 1 inh inhalation DAILY 03/15/21 11/23/24 History mcg/actuation blister powder for inhalation tamsulosin 0.4 mg capsule 0.4 mg PO QHS 03/15/21 11/23/24 History trifluoperazine 10 mg tablet 30 mg PO QHS 03/15/21 11/23/24 History venlafaxine 225 mg tablet,extended 225 mg PO QHS 03/15/21 11/23/24 History release 24 hr lorazepam 1 mg tablet 1 mg PO BID 06/13/23 11/23/24 History carbidopa 25 mg-levodopa 250 mg 2 tablet PO QID #480 tabs 11/11/24 11/23/24 Rx tablet donepezil 5 mg tablet See Rx Instructions .Route 11/11/24 11/23/24 Rx .COMPLEX #90 tabs primidone 50 mg tablet See Rx Instructions .Route 11/11/24 11/23/24 Rx .COMPLEX #360 tabs Allergies Allergy/AdvReac Type Severity Reaction Status Date / Time No Known Allergies Allergy Verified 11/23/24 07:38 Vital Signs Vital Signs - 24 hr 11/23/24 21:41 11/23/24 22:00 11/24/24 00:00 Temperature 36.9 C Pulse Rate 108 H 105 H 106 H Respiratory Rate 20 20 Blood Pressure 140/82 Pulse Oximetry 91 94 Oxygen Delivery Room Air Fraction of Inspired Oxygen 11/24/24 00:00 11/24/24 00:05 11/24/24 01:35 Temperature Pulse Rate 107 H 106 H 106 H Respiratory Rate 20 Blood Pressure Pulse Oximetry 94 Oxygen Delivery Room Air Fraction of Inspired Oxygen 11/24/24 03:10 11/24/24 03:38 11/24/24 04:00 Temperature 36.6 C Pulse Rate 103 H 105 H 105 H Respiratory Rate 20 20 Blood Pressure 111/88 Pulse Oximetry 94 94 Oxygen Delivery Room Air Fraction of Inspired Oxygen 11/24/24 06:00 11/24/24 08:00 11/24/24 08:08 Temperature Pulse Rate 105 H 118 H Respiratory Rate Blood Pressure Pulse Oximetry 94 Oxygen Delivery Room Air Fraction of Inspired Oxygen 21 11/24/24 08:14 11/24/24 12:00 11/24/24 12:04 Temperature 37.3 C 37.2 C Pulse Rate 106 H 100 101 H Respiratory Rate 18 20 Blood Pressure 175/76 H 155/61 H Pulse Oximetry 94 93 Oxygen Delivery Fraction of Inspired Oxygen 11/24/24 14:00 11/24/24 16:00 11/24/24 16:32 Temperature 36.7 C Pulse Rate 94 92 96 Respiratory Rate 20 Blood Pressure 129/73 Pulse Oximetry 93 Oxygen Delivery Fraction of Inspired Oxygen 11/24/24 18:00 11/24/24 18:49 Temperature 36.9 C Pulse Rate 90 85 Respiratory Rate 18 Blood Pressure 110/91 H Pulse Oximetry 93 Oxygen Delivery Fraction of Inspired Oxygen Exam Const: General: comfortable and no acute distress HENMT: Face/Nose/Sinus: Normal nares present Mouth: Yes moist mucous membranes abnormal Eyes: General: appearance normal, both eyes and all related structures Resp: Auscultation: no wheezes Cardio: Rate: regular rate GI: GI Palp: Yes Soft to palpation, No Tenderness to palpation present (GI) and No Guarding due to palpation present (GI) Skin: General skin exam: normal color Neuro: Other: tremors consistent with parkinsons Extrem: General: normal to inspection Results Labs 11/24/24 03:49 11/24/24 03:49 Labs: Short CBC 11/24/24 Range/Units 03:49 WBC 13.2 H (4.5-10.0) K/mm3 Hgb 11.4 L D (14.0-18.0) g/dL Hct 36.1 L (42.0-52.0) % Plt Count 127 L (150-375) k/mm3 BMP 11/24/24 03:49 Sodium 144 Potassium 3.1 L Chloride 112 H Carbon Dioxide 23 BUN 20 D Creatinine 0.58 L Glucose 98 Calcium 8.4 Liver Function 11/24/24 Range/Units 03:49 Total Bilirubin 0.5 (0.2-1.3) mg/dL AST 111 H (17-59) U/L ALT 32 (6-50) U/L Alkaline Phosphatase 56 (38-126) U/L Albumin 3.1 L (3.5-5.1) g/dL Imaging Attestation: I personally reviewed and interpreted this imaging study as follows: My impression: left adrenal enlargement
[2024-11-24 22:56] LABS: Cortisol Random 9.35 ug/dL
--- NOTE | 2024-11-24 23:31 | P.PNIM_ITS ---
Progress Note: A&P Assessment and Plan (1) Sepsis: Code(s): A41.9 - Sepsis, unspecified organism Status: Acute Assessment and Plan: continue iv abx monitor bc (2) Pneumonia: Code(s): J18.9 - Pneumonia, unspecified organism Status: Acute Assessment and Plan: continue iv abx (3) Colon wall thickening: Code(s): K63.9 - Disease of intestine, unspecified Status: Acute Assessment and Plan: incidental finding on ct scan GI on board colonoscopy tyrese to find out results (4) Liver mass: Code(s): R16.0 - Hepatomegaly, not elsewhere classified Status: Acute Assessment and Plan: Gi on board for possible liver mass see recommendations urology on board for possible adrenal mass mri adrenal ordered (5) Pulmonary fibrosis: Code(s): J84.10 - Pulmonary fibrosis, unspecified Status: Acute (6) Bronchiectasis: Code(s): J47.9 - Bronchiectasis, uncomplicated Status: Acute (7) Prolonged QT interval: Code(s): R94.31 - Abnormal electrocardiogram [ECG] [EKG] Status: Acute (8) Chronic obstructive pulmonary disease: Code(s): J44.9 - Chronic obstructive pulmonary disease, unspecified Status: Acute (9) Parkinson's Disease: Code(s): G20 - Parkinson's disease Status: Acute (10) Gastroesophageal reflux disease: Code(s): K21.9 - Gastro-esophageal reflux disease without esophagitis Status: Acute (11) Benign prostatic hyperplasia: Code(s): N40.0 - Benign prostatic hyperplasia without lower urinary tract symptoms Status: Acute (12) Bipolar disorder: Code(s): F31.9 - Bipolar disorder, unspecified Status: Acute (13) Depression: Code(s): F32.9 - Major depressive disorder, single episode, unspecified Status: Acute (14) Anxiety: Code(s): F41.9 - Anxiety disorder, unspecified Status: Acute Plan dvt prop: scd Subjective Date/time seen: 11/24/24 23:31 Interval history: Pt admitted with sepsis, pneumonia, hepatomegaly, copd Pt found to have colonic mass liver mass and adrenal mass on ct incidental finding gi md consulted urology md consulted -await recommendations Review of Systems Review of Systems: thick cough, sob, general weakness Exam Narrative: General: Chronically ill-appearing gentleman the semi-Foster position in bed in no acute distress. Weight: 86.6 kg. BMI: 29.0 HEENT: Masked facies.PERRL, EOMI. Sclera anicteric. Tacky mucous membranes. Neck: Supple. No JVD. Respiratory: Respirations are nonlabored he is speaking in full sentences. Coarse crackles heard throughout both lung james, more so at the bases. Cardiovascular: Regular rate and rhythm with S1-S2. Gastrointestinal: Abdomen is soft, nontender, and nondistended with positive bowel sounds. Skin: Warm and dry. Generalized pallor. Extremities: No cyanosis, clubbing, or edema. Radial and pedal pulses intact. Neurological: Alert. Cranial nerves 2-12 are grossly intact. Speech is clear. No facial asymmetry. Tremor of the upper extremity. Generalized weakness without gross focal findings. Psychiatric: Pleasant and cooperative with appropriate mood and affect. Objective Data Vital Signs Vital Signs: Vital Signs - 24 hr 11/24/24 00:00 11/24/24 00:00 11/24/24 00:05 Temperature 36.9 C Pulse Rate 106 H 107 H 106 H Respiratory Rate 20 20 Blood Pressure 140/82 Pulse Oximetry 94 94 Oxygen Delivery Room Air Fraction of Inspired Oxygen 11/24/24 01:35 11/24/24 03:10 11/24/24 03:38 Temperature 36.6 C Pulse Rate 106 H 103 H 105 H Respiratory Rate 20 20 Blood Pressure 111/88 Pulse Oximetry 94 94 Oxygen Delivery Room Air Fraction of Inspired Oxygen 11/24/24 04:00 11/24/24 06:00 11/24/24 08:00 Temperature Pulse Rate 105 H 105 H 118 H Respiratory Rate Blood Pressure Pulse Oximetry Oxygen Delivery Fraction of Inspired Oxygen 11/24/24 08:08 11/24/24 08:14 11/24/24 12:00 Temperature 37.3 C Pulse Rate 106 H 100 Respiratory Rate 18 Blood Pressure 175/76 H Pulse Oximetry 94 94 Oxygen Delivery Room Air Fraction of Inspired Oxygen 21 11/24/24 12:04 11/24/24 14:00 11/24/24 16:00 Temperature 37.2 C Pulse Rate 101 H 94 92 Respiratory Rate 20 Blood Pressure 155/61 H Pulse Oximetry 93 Oxygen Delivery Fraction of Inspired Oxygen 11/24/24 16:32 11/24/24 18:00 11/24/24 18:49 Temperature 36.7 C 36.9 C Pulse Rate 96 90 85 Respiratory Rate 20 18 Blood Pressure 129/73 110/91 H Pulse Oximetry 93 93 Oxygen Delivery Fraction of Inspired Oxygen 11/24/24 20:00 11/24/24 20:00 11/24/24 20:00 Temperature 36.6 C Pulse Rate 87 91 Respiratory Rate 19 Blood Pressure 117/85 Pulse Oximetry 97 Oxygen Delivery Room Air Fraction of Inspired Oxygen 11/24/24 21:11/24/24 21:11/24/24 22:00 Temperature Pulse Rate 89 89 91 Respiratory Rate 20 Blood Pressure Pulse Oximetry 95 Oxygen Delivery Room Air Fraction of Inspired Oxygen 21 Intake/Output Intake/Output: Intake & Output 11/21/24 11/22/24 11/23/24 11/24/24 23:59 23:59 23:59 23:59 Intake Total 4252.1 4300 Output Total 400 1450 Balance 3852.1 2850 Meds/Results Medications: Active Medications Generic Name Dose Route Start Last Admin Trade Name Freq PRN Reason Stop Dose Admin Acetaminophen 650 mg 11/23/24 10:59 Acetaminophen 325 Mg Tablet PO Q4H PRN Mild Pain (1-3) or Fever Aspirin 81 mg 11/23/24 17:00 11/24/24 16:42 Aspirin 81 Mg Enteric Tablet PO 81 mg BID CRAMEN Administration Calcium Carbonate 1 tablet 11/24/24 12:00 11/24/24 12:03 Calcium/Vitamin D 250 Mg/3.125 Mcg (125 I.U.) Tablet PO 1 tablet DAILY@1200 CARMEN Administration Carbidopa/Levodopa 2 tablet 11/23/24 17:00 11/24/24 20:28 Carbidopa/Levodopa 25/250 Mg Tablet PO 2 tablet QID CARMEN Administration Divalproex Sodium 1,000 mg 11/23/24 21:00 11/24/24 20:[address] 250 Mg Tabec PO 1,000 mg QHS CARMEN Administration Doxycycline Hyclate 100 mg 11/23/24 21:00 11/24/24 20:29 Doxycycline Hyclate 100 Mg Tablet PO 100 mg Q12HR CARMEN Administration Fluticasone Propionate 2 puff 11/23/24 20:00 11/24/24 21:01 Fluticasone Prop 110 Mcg Inhaler 12 Gm (*Sp) INHALATION 2 puff Q12HRT CARMEN Administration Guaifenesin 1,200 mg 11/23/24 21:00 11/24/24 20:29 Guaifenesin 12 Hr 600 Mg Tabcr PO 1,200 mg Q12HR CARMEN Administration Piperacillin/Tazobactam/Dextrose 3.375 gm in 50 mls @ 100 mls/hr 11/23/24 16:00 11/24/24 17:40 Zosyn 3.375 Gm/Ns 50 Ml IVPB 100 mls/hr Q6HR CARMEN Administration Lorazepam 1 mg 11/23/24 17:00 11/24/24 16:42 Lorazepam (*Crx) 1 Mg Tablet PO 1 mg BID CARMEN Administration Magnesium Citrate 300 ml 11/25/24 01:00 Magnesium Citrate 300 Ml Btl PO 11/25/24 01:01 ONCE ONE Trifluoperazine 10 30 mg 11/24/24 21:00 11/24/24 20:29 Mg Tablet Home PO 12/24/24 20:59 30 mg QHS CARMEN Administration Ondansetron HCl 4 mg 11/23/24 10:59 Ondansetron Inj 4 Mg/2 Ml Vial IV PUSH Q4H PRN Nausea Potassium Chloride 40 meq 11/24/24 17:00 11/24/24 16:40 Potassium Chloride 20 Meq Packet (For Liquid) PO 40 meq BID CARMEN Administration Primidone 100 mg 11/23/24 17:00 11/24/24 16:42 Primidone 50 Mg Tablet BY MOUTH 100 mg BID CARMEN Administration Tamsulosin HCl 0.4 mg 11/23/24 21:00 11/24/24 20:29 Tamsulosin Hcl 0.4 Mg Capsule PO 0.4 mg QHS CARMEN Administration Radiology Results: ITS Impressions Head CT 11/23/24 08:57 IMPRESSION: 1. No acute intracranial abnormality. Abdomen/Pelvis CT 11/23/24 08:58 IMPRESSION: 1. Possible colonic mass just proximal to the splenic flexure. There is mild segmental thickening of the proximal colon. Cannot exclude colon carcinoma. Other considerations include infectious and inflammatory colitis. Recommend GI consultation. 2: Developing liver masses, suspicious for metastatic disease. 3: Nodular thickening of the left adrenal gland which may be secondary to adenomatous hyperplasia or adenomas versus metastatic disease. Chest X-Ray 11/23/24 09:08 Impression: 1: Extensive bilateral airspace disease, consistent with pneumonia. Chest CT 11/23/24 12:15 IMPRESSION: 1. Patchy predominantly right-sided airspace consolidation, consistent with p neumonia. 2: Chronic interstitial lung disease, consistent with pulmonary fibrosis. There is associated bronchiectasis bilaterally. Labs Labs: Laboratory Results - last 24 hr 11/23/24 11/24/24 11/24/24 22:32 03:49 22:10 WBC 13.2 H RBC 3.87 L Hgb 11.4 L D Hct 36.1 L MCV 93.3 MCH 29.5 MCHC 31.6 L RDW 15.1 H Plt Count 127 L MPV 11.3 H Sodium 144 Potassium 3.1 L Chloride 112 H Carbon Dioxide 23 Anion Gap 9 BUN 20 D Creatinine 0.58 L Estim Creat Clear Calc 80 Estimated GFR > 60 Glucose 98 Calcium 8.4 Magnesium 2.3 Total Bilirubin 0.5 AST 111 H ALT 32 Alkaline Phosphatase 56 Total Protein 6.0 L Albumin 3.1 L Random Cortisol 9.35 Stl Occult Blood (IFOB) Negative C. difficile (PCR) Negative
[2024-11-25] VITALS (18 sets, daily range): BP systolic 91–129; BP diastolic 63–89; PULSE 76–94; RESP 16–25; TEMP 36.3–37.3; O2SAT 92–97
[2024-11-25] MEDS: VENLAFAXINE HCL XR 75 MG CAP.ER.24H 225 MG PO ×2 (00:04→20:16)
[2024-11-25] MEDS: PIPERACILLN/TAZ 3.375GM/NS50ML 3.375 GM/50 ML BAG IVPB ×4 (00:04→17:27)
[2024-11-25 02:17] LABS: Hematocrit 35.1 % (42.0-52.0); Hemoglobin 11.4 g/dL (14.0-18.0); Mean Corpuscular HGB Conc 32.5 g/dl (32-36); Mean Corpuscular Hemoglobin 29.5 pg (26-34); Mean Corpuscular Volume 90.9 fl (80-100); Platelet Count Result 137 k/mm3 (150-375); Red Blood Count 3.86 M/mm3 (4.6-6.20); Red Cell Distribution Width 14.6 % (11.5-14.5); White Blood Count 13.3 K/mm3 (4.5-10.0)
[2024-11-25 02:39] LABS: Anion Gap 7 mmol/L (4-12); Blood Urea Nitrogen 13 mg/dL (9-20); Calcium 8.8 mg/dL (8.4-10.2); Carbon Dioxide 26 mmol/L (22-30); Chloride 108 mmol/L (98-107); Estimated CRCL calculation 83 ml/min; Estimated Glomerular Filt Rate > 60; Glucose 109 mg/dL (65-110); Magnesium 1.9 mg/dL (1.6-2.3); Potassium 2.7 mmol/L (3.4-5.0); Sodium 141 mmol/L (137-145)
[2024-11-25] MEDS: POTASSIUM CHLORIDE 20 MEQ PACKET (FOR LIQUID) 40 MEQ PO ×3 (03:54→16:13)
[2024-11-25] MEDS: POTASSIUM CHLORIDE INJ 40 MEQ in SODIUM CHLORIDE 0.9% IV 500 ML 130 MEQ IVPB (03:54)
[2024-11-25 05:00] LABS: Anion Gap 6 mmol/L (4-12); Blood Urea Nitrogen 12 mg/dL (9-20); Calcium 8.9 mg/dL (8.4-10.2); Carbon Dioxide 27 mmol/L (22-30); Chloride 108 mmol/L (98-107); Estimated CRCL calculation 82 ml/min; Estimated Glomerular Filt Rate > 60; Glucose 105 mg/dL (65-110); Potassium 2.8 mmol/L (3.4-5.0); Sodium 141 mmol/L (137-145)
[2024-11-25] MEDS: FLUTICASONE PROP 110 MCG INHALER 12 GM (*SP) 2 PUFF INHALATION ×2 (08:34→20:22)
[2024-11-25] MEDS: PRIMIDONE 50 MG TABLET 100 MG BY MOUTH ×2 (08:52→16:13)
[2024-11-25] MEDS: CARBIDOPA/LEVODOPA 25/250 MG TABLET 2 TABLET PO ×4 (08:52→20:16)
[2024-11-25] MEDS: DOXYCYCLINE HYCLATE 100 MG TABLET PO ×2 (08:52→20:16)
[2024-11-25] MEDS: LORazepam (*CRX) 1 MG TABLET PO ×2 (08:52→16:15)
[2024-11-25 09:31] LABS: Potassium 3.6 mmol/L (3.4-5.0)
[2024-11-25] MEDS: LACTATED RINGERS 1,000 ML 150 ML IV CONT (13:15)
--- NOTE | 2024-11-25 13:24 | P.PNAN_ITS ---
Anes - Initial Pre Proc Eval Procedure: Operation Date: 11/25/24 15:30 Proposed Procedures p Colonoscopy - Hood Murray MD Date/Time: 11/25/24 13:24 Surgeon: Corey Garcia MD Pre Op Diagnosis: sepsis,colitis,colon mass Patient Data Age: 84 Gender: M Height: 1.73 m Weight: 72.3 kg Last Vital Signs Temp 36.6 C 11/25/24 12:55 Pulse 84 11/25/24 12:55 Resp 20 11/25/24 12:55 BP 125/86 11/25/24 12:55 Pulse Ox 94 11/25/24 12:55 O2 Del Method Room Air 11/25/24 12:55 FiO2 21 11/25/24 08:39 Allergies Allergy/AdvReac Type Severity Reaction Status Date / Time No Known Allergies Allergy Verified 11/23/24 07:38 Home Medications ?Medication ?Instructions ?Recorded ?Confirmed ?Type aspirin 81 mg tablet,delayed 81 mg PO BID 03/15/21 11/23/24 History release calcium 300 mg-D3 20 mcg-magnesium 1 tablet PO QAM 03/15/21 11/23/24 History 25 mg-coppr 0.5 [id number] tablet (Caltrate-D3 Plus Minerals) celecoxib 200 mg capsule 200 mg PO QAM 03/15/21 11/23/24 History diphenhydramine HCl 50 mg capsule 50 mg PO QHS 03/15/21 11/23/24 History divalproex 500 mg tablet,delayed 1,000 mg PO QHS 03/15/21 11/23/24 History release fluticasone furoate 100 1 inh inhalation DAILY 03/15/21 11/23/24 History mcg/actuation blister powder for inhalation tamsulosin 0.4 mg capsule 0.4 mg PO QHS 03/15/21 11/23/24 History trifluoperazine 10 mg tablet 30 mg PO QHS 03/15/21 11/23/24 History venlafaxine 225 mg tablet,extended 225 mg PO QHS 03/15/21 11/23/24 History release 24 hr lorazepam 1 mg tablet 1 mg PO BID 06/13/23 11/23/24 History carbidopa 25 mg-levodopa 250 mg 2 tablet PO QID #480 tabs 11/11/24 11/23/24 Rx tablet donepezil 5 mg tablet See Rx Instructions .Route 11/11/24 11/23/24 Rx .COMPLEX #90 tabs primidone 50 mg tablet See Rx Instructions .Route 11/11/24 11/23/24 Rx .COMPLEX #360 tabs Laboratory Tests 11/24/24 11/24/24 11/24/24 22:10 22:10 22:11 WBC RBC Hgb Hct MCV MCH MCHC RDW Plt Count MPV Sodium Potassium Chloride Carbon Dioxide Anion Gap BUN Creatinine Estim Creat Clear Calc Estimated GFR Glucose Calcium Magnesium Renin Pending Renin Activity Pending Aldosterone Pending Pending Aldosterone/Renin Dir Pending Random Cortisol 9.35 ug/dL Plasma Free Metaneph Pending Plasma Free Normeta Pending Pls Totl Free Metaneph Pending 11/25/24 11/25/24 11/25/24 02:12 04:01 09:08 WBC 13.3 H K/mm3 (4.5-10.0) RBC 3.86 L M/mm3 (4.6-6.20) Hgb 11.4 L g/dL (14.0-18.0) Hct 35.1 L % (42.0-52.0) MCV 90.9 fl (80-100) MCH 29.5 pg (26-34) MCHC 32.5 g/dl (32-36) RDW 14.6 H % (11.5-14.5) Plt Count 137 L k/mm3 (150-375) MPV 11.0 H fl (7.4-10.4) Sodium 141 mmol/L 141 mmol/L (137-145) (137-145) Potassium 2.7 L* mmol/L 2.8 L* mmol/L 3.6 mmol/L (3.4-5.0) (3.4-5.0) (3.4-5.0) Chloride 108 H mmol/L 108 H mmol/L (98-107) (98-107) Carbon Dioxide 26 mmol/L 27 mmol/L (22-30) (22-30) Anion Gap 7 mmol/L 6 mmol/L (4-12) (4-12) BUN 13 D mg/dL 12 mg/dL (9-20) (9-20) Creatinine 0.56 L mg/dL 0.57 L mg/dL (0.7-1.3) (0.7-1.3) Estim Creat Clear Calc 83 ml/min 82 ml/min Estimated GFR > 60 > 60 (59 - ) (59 - ) Glucose 109 mg/dL 105 mg/dL (65-110) (65-110) Calcium 8.8 mg/dL 8.9 mg/dL (8.4-10.2) (8.4-10.2) Magnesium 1.9 mg/dL (1.6-2.3) Renin Renin Activity Aldosterone Aldosterone/Renin Dir Random Cortisol Plasma Free Metaneph Plasma Free Normeta Pls Totl Free Metaneph Patient hx anesthesia problems: none Family hx anesthesia problems: none Results Review: All pre-operative results and documents have been reviewed as part of the pre- operative evaluation. [facility] Past Medical History Medical History Bronchiectasis seen on CT scan 11/23/2024 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 11/23/2024 Benign prostatic hyperplasia Anxiety Bipolar disorder Gastroesophageal reflux disease Parkinson's Disease Chronic obstructive pulmonary disease Arthritis Depression Surgical History Surgical History History of cataract extraction History of cholecystectomy History of back surgery History of hip replacement Family History Family History Sibling Diabetes mellitus Father Cancer Sibling Heart disease Other Depression Social History Social History (Updated 11/23/24 @ 22:37 by Alia Acosta PA-C) Social History: Surrogate medical decision maker: Helen Chen, spouse. Code status: Do not resuscitate. Smoking packs per day: 2 Smoking cigarettes per day: 40.0 Years smoked: 50 Smoking pack-years: 100.00 Smoking status: Former smoker Tobacco type: cigarettes Second hand tobacco smoke exposure: Yes Smoking end date: 06/26/06 Alcohol intake: never Substance use: never Substance use type: does not use Do You Feel Safe in your Home?: Yes Lack of Transportation: No Lack of Food: Never True Current Housing: I Have Housing Concerned About Future Housing: No Difficulty Paying Gas/Electric Bills: No Difficulty Paying for Meds: No Currently Unemployed: No Education: High School Diploma/GED Difficulty w/ Childcare or Family Care: No Living arrangements: with family Additional living arrangements comments: Lives with spouse. Occupation/Education: retired Additional occupation/education comments: Worked for [employer] (without a respirator). Spiritual care concerns: No Anes - Eval Final PreProcedure Day of Procedure 11/25/24 13:24 Patient weight: normal Heart: regular rate and rhythm Lungs: clear to auscultation and normal air movement Airway: Mallampati scale class II Neurological: alert and oriented Last oral intake: >/= 8 hours ASA classification: IV Emergent: no Anesthetic plan: proceed Anesthesia type and monitoring: general GIVS and standard monitoring Results Review: All pre-operative results and documents have been reviewed as part of the pre- operative evaluation. Informed Consent: The patient's anesthetic plan and its attendant risks and benefits were discussed with the patient/family/POA. Questions were solicited and answers provided to the satisfaction of the patient/family/POA.
--- NOTE | 2024-11-25 14:23 | S_PTH ---
PATIENT: Bartolome Maynard LOC: [id number] U#:[id number] AGE/SX: 84/M ROOM: 348 RE11/23/[address]: Suzanne Foster APRN : 1940 BED: 01 DIS: 11/27/2024 SPEC #: [id number] RECD: 11/26/24 09:24 STATUS: [facility] [place] #: [id number] FAN: 11/25/24 14:[address]: Hood Murray DEPT: [facility] Surgical RECD BY: Yuko Centeno ENTERED: 11/26/24 09:25 SP TYPE: Surgical OTHR DR: Junito Saeed, MD Corey Jones MD Tissues: A - Colon Biopsy B - Colon Biopsy Procedures: Hematoxylin and Eosin Stain Gross and Microscopic Level 4
[2024-11-25] MEDS: CALCIUM/VITAMIN D 250 MG/3.125 MCG (125 I.U.) TABLET 1 TABLET PO (14:56)
--- NOTE | 2024-11-25 15:35 | P.PNIM_ITS ---
Progress Note: A&P Assessment and Plan (1) Sepsis: Code(s): A41.9 - Sepsis, unspecified organism Status: Acute Assessment and Plan: continue iv zosyn monitor bc (2) Pneumonia: Code(s): J18.9 - Pneumonia, unspecified organism Status: Acute Assessment and Plan: continue iv zosyn and oral doxycycline ct chest shows patchy infiltrate on admission can dc fluids [place] [id number] continue to watch wcc (3) Colon wall thickening: Code(s): K63.9 - Disease of intestine, unspecified Status: Acute Assessment and Plan: incidental finding on ct scan GI on board colonoscopy today (4) Liver mass: Code(s): R16.0 - Hepatomegaly, not elsewhere classified Status: Acute Assessment and Plan: Gi on board for possible liver mass see recommendations urology on board for possible adrenal mass mri adrenal ordered watch cmp (5) Prolonged QT interval: Code(s): R94.31 - Abnormal electrocardiogram [ECG] [EKG] Status: Acute Assessment and Plan: tele on (6) Chronic obstructive pulmonary disease: Code(s): J44.9 - Chronic obstructive pulmonary disease, unspecified Status: Acute Assessment and Plan: history of COPD (7) Parkinson's Disease: Code(s): G20 - Parkinson's disease Status: Acute Assessment and Plan: stable on meds (8) Gastroesophageal reflux disease: Code(s): K21.9 - Gastro-esophageal reflux disease without esophagitis Status: Acute Assessment and Plan: stable on meds (9) Benign prostatic hyperplasia: Code(s): N40.0 - Benign prostatic hyperplasia without lower urinary tract symptoms Status: Acute Assessment and Plan: stable on meds (10) Bipolar disorder: Code(s): F31.9 - Bipolar disorder, unspecified Status: Acute Assessment and Plan: stable on meds (11) Depression: Code(s): F32.9 - Major depressive disorder, single episode, unspecified Status: Acute Assessment and Plan: stable on meds (12) Anxiety: Code(s): F41.9 - Anxiety disorder, unspecified Status: Acute Assessment and Plan: stable on meds Plan Dvt prop: scd code status : DNR Subjective Date/time seen: 11/25/24 15:35 Interval history: Pt admitted with sepsis, pneumonia, hepatomegaly, copd Pt found to have colonic mass liver mass and adrenal mass on ct incidental finding Gi md consulted urology md consulted Pt going for colonoscopy today per GI MD Pt to have MRI adrenal mass protocol after colonoscopy Severely hypokalemic potassium rider ordered Review of Systems Review of Systems: Pt states his cough is improved still appears weak Exam Narrative: General: Chronically ill-appearing gentleman old frail tired Respiratory: Respirations are nonlabored, bl decreased BS Cardiovascular: s1 and s2 nl Gastrointestinal: Abdomen is soft, nontender Skin: Warm and dry. Generalized pallor. Extremities: No cyanosis, clubbing, or edema. Radial and pedal pulses intact. Neurological: Alert. Cranial nerves 2-12 are grossly intact. Speech is clear. No facial asymmetry. Tremor of the upper extremity. Generalized weakness without gross focal findings. Psychiatric: Pleasant and cooperative with appropriate mood and affect. Objective Data Vital Signs Vital Signs: Vital Signs - 24 hr 11/24/24 16:00 11/24/24 16:32 11/24/24 18:00 Temperature 36.7 C Pulse Rate 92 96 90 Respiratory Rate 20 Blood Pressure 129/73 Pulse Oximetry 93 Oxygen Delivery Fraction of Inspired Oxygen 11/24/24 18:49 11/24/24 20:00 11/24/24 20:00 Temperature 36.9 C 36.6 C Pulse Rate 85 87 Respiratory Rate 18 19 Blood Pressure 110/91 H 117/85 Pulse Oximetry 93 97 Oxygen Delivery Room Air Fraction of Inspired Oxygen 11/24/24 20:00 11/24/24 21:01 11/24/24 21:01 Temperature Pulse Rate 91 89 89 Respiratory Rate 20 Blood Pressure Pulse Oximetry 95 Oxygen Delivery Room Air Fraction of Inspired Oxygen 11/24/24 22:00 11/25/24 00:00 11/25/24 00:00 Temperature Pulse Rate 91 93 Respiratory Rate Blood Pressure Pulse Oximetry Oxygen Delivery Room Air Fraction of Inspired Oxygen 11/25/24 00:00 11/25/24 02:00 11/25/24 04:00 Temperature 36.3 C L Pulse Rate 91 92 Respiratory Rate 16 Blood Pressure 129/89 Pulse Oximetry 96 Oxygen Delivery Room Air Fraction of Inspired Oxygen 11/25/24 04:00 11/25/24 04:00 11/25/24 06:00 Temperature 37.0 C Pulse Rate 92 94 91 Respiratory Rate 20 Blood Pressure 123/85 Pulse Oximetry 94 Oxygen Delivery Fraction of Inspired Oxygen 11/25/24 08:00 11/25/24 08:00 11/25/24 08:39 Temperature 37.2 C Pulse Rate 89 89 79 Respiratory Rate 16 20 Blood Pressure 117/85 Pulse Oximetry 93 96 Oxygen Delivery Room Air Fraction of Inspired Oxygen 21 11/25/24 08:39 11/25/24 10:00 11/25/24 12:00 Temperature Pulse Rate 79 87 88 Respiratory Rate 20 Blood Pressure Pulse Oximetry Oxygen Delivery Fraction of Inspired Oxygen 11/25/24 12:55 11/25/24 14:22 11/25/24 14:32 Temperature 36.6 C Pulse Rate 84 78 80 Respiratory Rate 20 19 19 Blood Pressure 125/86 91/63 L 103/71 Pulse Oximetry 94 96 97 Oxygen Delivery Room Air Room Air Room Air Fraction of Inspired Oxygen 11/25/24 14:42 Temperature Pulse Rate 76 Respiratory Rate 25 H Blood Pressure 104/79 Pulse Oximetry 94 Oxygen Delivery Room Air Fraction of Inspired Oxygen Intake/Output Intake/Output: Intake & Output 11/22/24 11/23/24 11/24/24 11/25/24 23:59 23:59 23:59 23:59 Intake Total 4252.1 4350 750 Output Total 400 1450 550 Balance 3852.1 2900 200 Meds/Results Medications: Active Medications Generic Name Dose Route Start Last Admin Trade Name Delfinq PRN Reason Stop Dose Admin Acetaminophen 650 mg 11/23/24 10:59 Acetaminophen 325 Mg Tablet PO Q4H PRN Mild Pain (1-3) or Fever Aspirin 81 mg 11/23/24 17:00 11/25/24 11:04 Aspirin 81 Mg Enteric Tablet PO Not Given BID [facility] Calcium Carbonate 1 tablet 11/24/24 12:00 11/25/24 14:56 Calcium/Vitamin D 250 Mg/3.125 Mcg (125 I.U.) Tablet PO 1 tablet DAILY@1200 CARMEN Administration Carbidopa/Levodopa 2 tablet 11/23/24 17:00 11/25/24 12:25 Carbidopa/Levodopa 25/250 Mg Tablet PO 2 tablet QID CARMEN Administration Divalproex Sodium 1,000 mg 11/23/24 21:00 11/24/24 20:[address] 250 Mg Tabec PO 1,000 mg QHS CARMEN Administration Doxycycline Hyclate 100 mg 11/23/24 21:00 11/25/24 08:52 Doxycycline Hyclate 100 Mg Tablet PO 100 mg Q12HR CARMEN Administration Fluticasone Propionate 2 puff 11/23/24 20:00 11/25/24 08:34 Fluticasone Prop 110 Mcg Inhaler 12 Gm (*Sp) INHALATION 2 puff Q12HRT CARMEN Administration Guaifenesin 1,200 mg 11/23/24 21:00 11/25/24 11:04 Guaifenesin 12 Hr 600 Mg Tabcr PO Not Given Q12HR CARMEN Piperacillin/Tazobactam/Dextrose 3.375 gm in 50 mls @ 100 mls/hr 11/23/24 16:00 11/25/24 11:07 Zosyn 3.375 Gm/Ns 50 Ml IVPB 100 mls/hr Q6HR CARMEN Administration Lorazepam 1 mg 11/23/24 17:00 11/25/24 08:52 Lorazepam (*Crx) 1 Mg Tablet PO 1 mg BID CARMEN Administration Trifluoperazine 10 30 mg 11/24/24 21:00 11/24/24 20:29 Mg Tablet Home PO 12/24/24 20:59 30 mg QHS CARMEN Administration Ondansetron HCl 4 mg 11/23/24 10:59 Ondansetron Inj 4 Mg/2 Ml Vial IV PUSH Q4H PRN Nausea Potassium Chloride 40 meq 11/24/24 17:00 11/25/24 08:52 Potassium Chloride 20 Meq Packet (For Liquid) PO 40 meq BID CARMEN Administration Primidone 100 mg 11/23/24 17:00 11/25/24 08:52 Primidone 50 Mg Tablet BY MOUTH 100 mg BID CARMEN Administration Tamsulosin HCl 0.4 mg 11/23/24 21:00 11/24/24 20:29 Tamsulosin Hcl 0.4 Mg Capsule PO 0.4 mg QHS CARMEN Administration Venlafaxine HCl 225 mg 11/24/24 23:40 11/25/24 00:04 Venlafaxine Hcl Xr 75 Mg Cap.Er.24h PO 225 mg QHS CARMEN Administration Radiology Results: ITS Impressions Head CT 11/23/24 08:57 IMPRESSION: 1. No acute intracranial abnormality. Abdomen/Pelvis CT 11/23/24 08:58 IMPRESSION: 1. Possible colonic mass just proximal to the splenic flexure. There is mild segmental thickening of the proximal colon. Cannot exclude colon carcinoma. Other considerations include infectious and inflammatory colitis. Recommend GI consultation. 2: Developing liver masses, suspicious for metastatic disease. 3: Nodular thickening of the left adrenal gland which may be secondary to adenomatous hyperplasia or adenomas versus metastatic disease. Chest X-Ray 11/23/24 09:08 Impression: 1: Extensive bilateral airspace disease, consistent with pneumonia. Chest CT 11/23/24 12:15 IMPRESSION: 1. Patchy predominantly right-sided airspace consolidation, consistent with pneumonia. 2: Chronic interstitial lung disease, consistent with pulmonary fibrosis. There is associated bronchiectasis bilaterally. Labs Labs: Laboratory Results - last 24 hr 11/24/24 11/25/24 11/25/24 22:10 02:12 04:01 WBC 13.3 H RBC 3.86 L Hgb 11.4 L Hct 35.1 L MCV 90.9 MCH 29.5 MCHC 32.5 RDW 14.6 H Plt Count 137 L MPV 11.0 H Sodium 141 141 Potassium 2.7 L* 2.8 L* Chloride 108 H 108 H Carbon Dioxide 26 27 Anion Gap 7 6 BUN 13 D 12 Creatinine 0.56 L 0.57 L Estim Creat Clear Calc 83 82 Estimated GFR > 60 > 60 Glucose 109 105 Calcium 8.8 8.9 Magnesium 1.9 Random Cortisol 9.35 11/25/24 09:08 WBC RBC Hgb Hct MCV MCH MCHC RDW Plt Count MPV Sodium Potassium 3.6 Chloride Carbon Dioxide Anion Gap BUN Creatinine Estim Creat Clear Calc Estimated GFR Glucose Calcium Magnesium Random Cortisol
--- NOTE | 2024-11-25 16:01 | PCOTNOTE ---
Attempted to see pt for OT evaluation however pt was out of room for colonoscopy. Will continue to follow.
[2024-11-25] MEDS: ASPIRIN 81 MG ENTERIC TABLET PO (16:13)
[2024-11-25] MEDS: guaiFENesin 12 HR 600 MG TABCR 1200 MG PO (20:16)
[2024-11-25] MEDS: TAMSULOSIN HCL 0.4 MG CAPSULE PO (20:16)
[2024-11-25] MEDS: TRIFLUOPERAZINE 10 MG 30 EACH PO (20:17)
[2024-11-25] MEDS: DONEPEZIL HCL 5 MG TABLET BY MOUTH (20:17)
[2024-11-25] MEDS: DIVALPROEX SODIUM DR 250 MG TABEC 1000 MG PO (20:17)
[2024-11-26] VITALS (12 sets, daily range): BP systolic 115–149; BP diastolic 84–105; PULSE 62–91; RESP 16–18; TEMP 36.6–37.4; O2SAT 92–97
[2024-11-26] MEDS: PIPERACILLN/TAZ 3.375GM/NS50ML 3.375 GM/50 ML BAG IVPB ×2 (00:05→05:44)
[2024-11-26 08:37] LABS: Basophils Absolute Auto 0.1 K/mm3 (0.0-0.1); Basophils Percent Auto 0.3 % (0.2-1.2); Eosinophils Absolute Auto 0.3 K/mm3 (0-0.3); Eosinophils Percent Auto 1.9 % (0-4.4); Hematocrit 39.4 % (42.0-52.0); Hemoglobin 12.7 g/dL (14.0-18.0); Immature Granulocyte Absolute 0.58 K/mm3 (0.00-0.031); Immature Granulocyte Percent A 3.7 % (0-0.5); Lymphocytes Absolute Auto 1.58 K/mm3 (0.9-3.2); Lymphocytes Percent Auto 10.2 % (18.3-44.2); Mean Corpuscular HGB Conc 32.2 g/dl (32-36); Mean Corpuscular Hemoglobin 28.8 pg (26-34); Mean Corpuscular Volume 89.3 fl (80-100); Mean Platelet Volume 10.3 fl (7.4-10.4); Monocytes Absolute Auto 2.2 K/mm3 (0.1-0.6); Monocytes Percent Auto 14.3 % (2.6-8.5); Neutrophils Absolute Auto 10.8 K/mm3 (1.3-6.7); Neutrophils Percent Auto 69.6 % (45.5-73.1); Platelet Count Result 177 k/mm3 (150-375); Red Blood Count 4.41 M/mm3 (4.6-6.20); Red Cell Distribution Width 14.2 % (11.5-14.5); White Blood Count 15.5 K/mm3 (4.5-10.0)
[2024-11-26] MEDS: FLUTICASONE PROP 110 MCG INHALER 12 GM (*SP) 2 PUFF INHALATION ×2 (08:40→20:38)
[2024-11-26] MEDS: DOXYCYCLINE HYCLATE 100 MG TABLET PO ×2 (08:54→20:19)
[2024-11-26] MEDS: PRIMIDONE 50 MG TABLET 100 MG BY MOUTH ×2 (08:54→16:06)
[2024-11-26] MEDS: CARBIDOPA/LEVODOPA 25/250 MG TABLET 2 TABLET PO ×4 (08:54→20:20)
[2024-11-26] MEDS: ASPIRIN 81 MG ENTERIC TABLET PO ×2 (08:54→16:06)
[2024-11-26] MEDS: LORazepam (*CRX) 1 MG TABLET PO ×2 (08:54→16:06)
[2024-11-26] MEDS: guaiFENesin 12 HR 600 MG TABCR 1200 MG PO ×2 (08:54→20:19)
[2024-11-26 11:12] LABS: Anion Gap 10 mmol/L (4-12); Blood Urea Nitrogen 12 mg/dL (9-20); Calcium 9.3 mg/dL (8.4-10.2); Carbon Dioxide 26 mmol/L (22-30); Chloride 100 mmol/L (98-107); Estimated CRCL calculation 86 ml/min; Estimated Glomerular Filt Rate > 60; Glucose 132 mg/dL (65-110); Magnesium 1.8 mg/dL (1.6-2.3); Potassium 3.7 mmol/L (3.4-5.0); Sodium 136 mmol/L (137-145)
[2024-11-26] MEDS: POTASSIUM CHLORIDE 20 MEQ PACKET (FOR LIQUID) 40 MEQ PO ×2 (12:45→16:15)
[2024-11-26] MEDS: AMOXICILLIN/CLAVULANATE K 875-125 MG TAB 1 TABLET PO ×2 (12:45→20:19)
[2024-11-26] MEDS: CALCIUM/VITAMIN D 250 MG/3.125 MCG (125 I.U.) TABLET 1 TABLET PO (12:45)
--- NOTE | 2024-11-26 14:22 | P.PNUR_ITS ---
Progress Note: A&P Assessment and Plan (1) Left adrenal mass: Code(s): E27.8 - Other specified disorders of adrenal gland Status: Acute Assessment and Plan: 10/3124 CT AP W CON: Nodular thickening of the left adrenal gland which may be secondary to adenomatous hyperplasia or adenomas versus metastatic disease Plan - 84yoM admitted with GI issues, incidental finding of left adrenal mass identified on CT. - Patient needs abdominal MRI, adrenal mass protocol for further assessment. This can be completed as an inpatient or outpatient. [facility] would not delay discharge to complete. - Follow-up with uro-onc (Dr. Kaye) on discharge. Patient/family aware and agreeable. - No plan for inpatient surgical intervention. Inpatient urology to follow peripherally. Please call with questions. Subjective Subjective Date/Time Seen: 11/26/24 14:22 Interval history: NAEO, afebrile Colonoscopy yesterday --> Colitis Hgb and renal function stable Patient reports diarrhea episode earlier and feeling weak, otherwise denies complaints Exam Narrative: Comfortable, no distress, UNGA, essential tremor Objective Data Vital Signs Vital Signs: Vital Signs - 24 hr 11/25/24 14:32 11/25/24 14:42 11/25/24 16:00 Temperature Pulse Rate 80 76 77 Respiratory Rate 19 25 H Blood Pressure 103/71 104/79 Pulse Oximetry 97 94 Oxygen Delivery Room Air Room Air Fraction of Inspired Oxygen 11/25/24 16:00 11/25/24 18:00 11/25/24 20:00 Temperature 98.5 F 99.2 F Pulse Rate 76 80 87 Respiratory Rate 20 20 Blood Pressure 114/83 113/72 Pulse Oximetry 93 94 Oxygen Delivery Fraction of Inspired Oxygen 11/25/24 20:00 11/25/24 20:00 11/25/24 20:23 Temperature Pulse Rate 89 90 Respiratory Rate 16 Blood Pressure Pulse Oximetry Oxygen Delivery Room Air Fraction of Inspired Oxygen 11/25/24 20:23 11/25/24 20:25 11/25/24 22:00 Temperature Pulse Rate 90 89 89 Respiratory Rate 16 16 Blood Pressure Pulse Oximetry 92 Oxygen Delivery Room Air Fraction of Inspired Oxygen 21 11/26/24 00:00 11/26/24 00:00 11/26/24 00:00 Temperature 99.3 F Pulse Rate 85 89 Respiratory Rate 18 Blood Pressure 134/92 H Pulse Oximetry 97 Oxygen Delivery Room Air Fraction of Inspired Oxygen 11/26/24 02:00 11/26/24 04:00 11/26/24 04:00 Temperature Pulse Rate 82 83 Respiratory Rate Blood Pressure Pulse Oximetry Oxygen Delivery Room Air Fraction of Inspired Oxygen 11/26/24 04:00 11/26/24 06:00 11/26/24 07:36 Temperature 98.0 F 98 F Pulse Rate 79 79 86 Respiratory Rate 18 18 Blood Pressure 136/89 147/105 H Pulse Oximetry 94 93 Oxygen Delivery Fraction of Inspired Oxygen 11/26/24 08:00 11/26/24 08:43 11/26/24 09:21 Temperature Pulse Rate 85 88 Respiratory Rate 18 Blood Pressure Pulse Oximetry Oxygen Delivery Room Air Fraction of Inspired Oxygen 11/26/24 10:00 11/26/24 12:01 Temperature Pulse Rate 91 Respiratory Rate Blood Pressure Pulse Oximetry Oxygen Delivery Room Air Fraction of Inspired Oxygen Intake/Output Intake/Output: Intake & Output 11/23/24 11/24/24 11/25/24 11/26/24 23:59 23:59 23:59 23:59 Intake Total 4252.1 4350 1730 960 Output Total 400 1450 1550 1750 Balance 3852.1 2900 180 -790 Meds/Results Medications: Active Medications Generic Name Dose Route Start Last Admin Trade Name Alistair PRN Reason Stop Dose Admin Acetaminophen 650 mg 11/23/24 10:59 Acetaminophen 325 Mg Tablet PO Q4H PRN Mild Pain (1-3) or Fever Amoxicillin/Clavulanate Potassium 1 tablet 11/26/24 11:45 11/26/24 12:45 Amoxicillin/Clavulanate K 875-125 Mg Tab PO 12/02/24 23:59 1 tablet Q12HR CARMEN Administration Aspirin 81 mg 11/23/24 17:00 11/26/24 08:54 Aspirin 81 Mg Enteric Tablet PO 81 mg BID CARMEN Administration Calcium Carbonate 1 tablet 11/24/24 12:00 11/26/24 12:45 Calcium/Vitamin D 250 Mg/3.125 Mcg (125 I.U.) Tablet PO 1 tablet DAILY@1200 CARMEN Administration Carbidopa/Levodopa 2 tablet 11/23/24 17:00 11/26/24 12:45 Carbidopa/Levodopa 25/250 Mg Tablet PO 2 tablet QID CARMEN Administration Divalproex Sodium 1,000 mg 11/23/24 21:00 11/25/24 20:[address] 250 Mg Tabec PO 1,000 mg QHS CARMEN Administration Donepezil HCl 5 mg 11/25/24 21:00 11/25/24 20:17 Donepezil Hcl 5 Mg Tablet BY MOUTH 5 mg QHS CARMEN Administration Doxycycline Hyclate 100 mg 11/23/24 21:00 11/26/24 08:54 Doxycycline Hyclate 100 Mg Tablet PO 11/30/24 09:01 100 mg Q12HR CARMEN Administration Fluticasone Propionate 2 puff 11/23/24 20:00 11/26/24 08:40 Fluticasone Prop 110 Mcg Inhaler 12 Gm (*Sp) INHALATION 2 puff Q12HRT CARMEN Administration Guaifenesin 1,200 mg 11/23/24 21:00 11/26/24 08:54 Guaifenesin 12 Hr 600 Mg Tabcr PO 1,200 mg Q12HR CARMEN Administration Lorazepam 1 mg 11/23/24 17:00 11/26/24 08:54 Lorazepam (*Crx) 1 Mg Tablet PO 1 mg BID CARMEN Administration Trifluoperazine 10 30 mg 11/24/24 21:00 11/25/24 20:17 Mg Tablet Home PO 12/24/24 20:59 30 mg QHS CARMEN Administration Ondansetron HCl 4 mg 11/23/24 10:59 Ondansetron Inj 4 Mg/2 Ml Vial IV PUSH Q4H PRN Nausea Potassium Chloride 40 meq 11/24/24 17:00 11/26/24 12:45 Potassium Chloride 20 Meq Packet (For Liquid) PO 40 meq BID CARMEN Administration Primidone 100 mg 11/23/24 17:00 11/26/24 08:54 Primidone 50 Mg Tablet BY MOUTH 100 mg BID CARMEN Administration Tamsulosin HCl 0.4 mg 11/23/24 21:00 11/25/24 20:16 Tamsulosin Hcl 0.4 Mg Capsule PO 0.4 mg QHS CARMEN Administration Venlafaxine HCl 225 mg 11/24/24 23:40 11/25/24 20:16 Venlafaxine Hcl Xr 75 Mg Cap.Er.24h PO 225 mg QHS CARMEN Administration Radiology Results: ITS Impressions Head CT 11/23/24 08:57 IMPRESSION: 1. No acute intracranial abnormality. Abdomen/Pelvis CT 11/23/24 08:58 IMPRESSION: 1. Possible colonic mass just proximal to the splenic flexure. There is mild segmental thickening of the proximal colon. Cannot exclude colon carcinoma. Other considerations include infectious and inflammatory colitis. Recommend GI consultation. 2: Developing liver masses, suspicious for metastatic disease. 3: Nodular thickening of the left adrenal gland which may be secondary to adenomatous hyperplasia or adenomas versus metastatic disease. Chest X-Ray 11/23/24 09:08 Impression: 1: Extensive bilateral airspace disease, consistent with pneumonia. Chest CT 11/23/24 12:15 IMPRESSION: 1. Patchy predominantly right-sided airspace consolidation, consistent with pneumonia. 2: Chronic interstitial lung disease, consistent with pulmonary fibrosis. There is associated bronchiectasis bilaterally. Labs Labs: Laboratory Results - last 24 hr 11/26/24 08:31 WBC 15.5 H RBC 4.41 L Hgb 12.7 L Hct 39.4 L MCV 89.3 MCH 28.8 MCHC 32.2 RDW 14.2 Plt Count 177 MPV 10.3 Immature Gran % (Auto) 3.7 H Neut % (Auto) 69.6 Lymph % (Auto) 10.2 L [place] % (Auto) 14.3 H Eos % (Auto) 1.9 Baso % (Auto) 0.3 Lymph # (Auto) 1.58 [place] # (Auto) 2.2 H Eos # (Auto) 0.3 Baso # (Auto) 0.1 Abs Immat Gran (auto) 0.58 H Absolute Neuts (auto) 10.8 H Absolute Nucleated RBC 0.000 Nucleated RBC % 0.0 Sodium 136 L Potassium 3.7 Chloride 100 Carbon Dioxide 26 Anion Gap 10 BUN 12 Creatinine 0.54 L Estim Creat Clear Calc 86 Estimated GFR > 60 Glucose 132 H Calcium 9.3 Magnesium 1.8
--- NOTE | 2024-11-26 16:17 | P.PNGI_ITS ---
Progress Note: A&P Assessment and Plan (1) Colitis: Code(s): K52.9 - Noninfective gastroenteritis and colitis, unspecified Status: Acute Assessment and Plan: s/p colonoscopy, noted patchy inflammation in rt colon, pending biopsies had diarrhea today (2) Colon wall thickening: Code(s): K63.9 - Disease of intestine, unspecified Status: Acute (3) Hypokalemia: Code(s): E87.6 - Hypokalemia Status: Acute Assessment and Plan: treated and better (4) Sepsis: Code(s): A41.9 - Sepsis, unspecified organism Status: Acute Assessment and Plan: resolved Subjective Date/time seen: 11/26/24 16:17 Interval history: colonoscopy with colitis in rt colon had diarrhea today overall better unable to urinate today after catheter removed Review of Systems Review of Systems: All systems reviewed & are unremarkable except as noted in HPI and below Exam Const: General: comfortable and no acute distress HENMT: Face/Nose/Sinus: Normal nares present Eyes: General: appearance normal, both eyes and all related structures Neck: Neck: supple Resp: Auscultation: clear to auscultation bilaterally Cardio: Rate: regular rate Rhythm: regular rhythm GI: Inspection: non-distended GI Palp: Yes Soft to palpation and No Tenderness to palpation present (GI) Auscultation: normal bowel sounds Skin: General skin exam: normal color Neuro: Speech: normal speech Motor exam (neuro): 5/5 motor strength present throughout Other: tremors Extrem: General: normal to inspection Psych: Mental Status: mental status grossly normal Objective Data Vital Signs Vital Signs: Vital Signs - 24 hr 11/25/24 18:00 11/25/24 20:00 11/25/24 20:00 Temperature 99.2 F Pulse Rate 80 87 Respiratory Rate 20 Blood Pressure 113/72 Pulse Oximetry 94 Oxygen Delivery Room Air Fraction of Inspired Oxygen 11/25/24 20:00 11/25/24 20:23 11/25/24 20:23 Temperature Pulse Rate 89 90 90 Respiratory Rate 16 16 Blood Pressure Pulse Oximetry 92 Oxygen Delivery Room Air Fraction of Inspired Oxygen 21 11/25/24 20:25 11/25/24 22:00 11/26/24 00:00 Temperature Pulse Rate 89 89 Respiratory Rate 16 Blood Pressure Pulse Oximetry Oxygen Delivery Room Air Fraction of Inspired Oxygen 11/26/24 00:00 11/26/24 00:00 11/26/24 02:00 Temperature 99.3 F Pulse Rate 85 89 82 Respiratory Rate 18 Blood Pressure 134/92 H Pulse Oximetry 97 Oxygen Delivery Fraction of Inspired Oxygen 11/26/24 04:00 11/26/24 04:00 11/26/24 04:00 Temperature 98.0 F Pulse Rate 83 79 Respiratory Rate 18 Blood Pressure 136/89 Pulse Oximetry 94 Oxygen Delivery Room Air Fraction of Inspired Oxygen 11/26/24 06:00 11/26/24 07:36 11/26/24 08:00 Temperature 98 F Pulse Rate 79 86 85 Respiratory Rate 18 Blood Pressure 147/105 H Pulse Oximetry 93 Oxygen Delivery Fraction of Inspired Oxygen 11/26/24 08:43 11/26/24 09:21 11/26/24 10:00 Temperature Pulse Rate 88 91 Respiratory Rate 18 Blood Pressure Pulse Oximetry Oxygen Delivery Room Air Fraction of Inspired Oxygen 11/26/24 12:01 11/26/24 15:40 Temperature 98 F Pulse Rate 62 Respiratory Rate 16 Blood Pressure 115/84 Pulse Oximetry 94 Oxygen Delivery Room Air Fraction of Inspired Oxygen Intake/Output Intake/Output: Intake & Output 11/23/24 11/24/24 11/25/24 11/26/24 23:59 23:59 23:59 23:59 Intake Total 4252.1 4350 1730 960 Output Total 400 1450 1550 1750 Balance 3852.1 2900 180 -790 Meds/Results Medications: Active Medications Generic Name Dose Route Start Last Admin Trade Name Freq PRN Reason Stop Dose Admin Acetaminophen 650 mg 11/23/24 10:59 Acetaminophen 325 Mg Tablet PO Q4H PRN Mild Pain (1-3) or Fever Amoxicillin/Clavulanate Potassium 1 tablet 11/26/24 11:45 11/26/24 12:45 Amoxicillin/Clavulanate K 875-125 Mg Tab PO 12/02/24 23:59 1 tablet Q12HR CARMEN Administration Aspirin 81 mg 11/23/24 17:00 11/26/24 16:06 Aspirin 81 Mg Enteric Tablet PO 81 mg BID CARMEN Administration Calcium Carbonate 1 tablet 11/24/24 12:00 11/26/24 12:45 Calcium/Vitamin D 250 Mg/3.125 Mcg (125 I.U.) Tablet PO 1 tablet DAILY@1200 CARMEN Administration Carbidopa/Levodopa 2 tablet 11/23/24 17:00 11/26/24 16:06 Carbidopa/Levodopa 25/250 Mg Tablet PO 2 tablet QID CARMEN Administration Divalproex Sodium 1,000 mg 11/23/24 21:00 11/25/24 20:[address] 250 Mg Tabec PO 1,000 mg QHS CARMEN Administration Donepezil HCl 5 mg 11/25/24 21:00 11/25/24 20:17 Donepezil Hcl 5 Mg Tablet BY MOUTH 5 mg QHS CARMEN Administration Doxycycline Hyclate 100 mg 11/23/24 21:00 11/26/24 08:54 Doxycycline Hyclate 100 Mg Tablet PO 11/30/24 09:01 100 mg Q12HR CARMEN Administration Fluticasone Propionate 2 puff 11/23/24 20:00 11/26/24 08:40 Fluticasone Prop 110 Mcg Inhaler 12 Gm (*Sp) INHALATION 2 puff Q12HRT CARMEN Administration Guaifenesin 1,200 mg 11/23/24 21:00 11/26/24 08:54 Guaifenesin 12 Hr 600 Mg Tabcr PO 1,200 mg Q12HR CARMEN Administration Lorazepam 1 mg 11/23/24 17:00 11/26/24 16:06 Lorazepam (*Crx) 1 Mg Tablet PO 1 mg BID CARMEN Administration Trifluoperazine 10 30 mg 11/24/24 21:00 11/25/24 20:17 Mg Tablet Home PO 12/24/24 20:59 30 mg QHS CARMEN Administration Ondansetron HCl 4 mg 11/23/24 10:59 Ondansetron Inj 4 Mg/2 Ml Vial IV PUSH Q4H PRN Nausea Potassium Chloride 40 meq 11/24/24 17:00 11/26/24 16:15 Potassium Chloride 20 Meq Packet (For Liquid) PO 40 meq BID CARMEN Administration Primidone 100 mg 11/23/24 17:00 11/26/24 16:06 Primidone 50 Mg Tablet BY MOUTH 100 mg BID CARMEN Administration Tamsulosin HCl 0.4 mg 11/23/24 21:00 11/25/24 20:16 Tamsulosin Hcl 0.4 Mg Capsule PO 0.4 mg QHS CARMEN Administration Venlafaxine HCl 225 mg 11/24/24 23:40 11/25/24 20:16 Venlafaxine Hcl Xr 75 Mg Cap.Er.24h PO 225 mg QHS CARMEN Administration Radiology Results: ITS Impressions Head CT 11/23/24 08:57 IMPRESSION: 1. No acute intracranial abnormality. Abdomen/Pelvis CT 11/23/24 08:58 IMPRESSION: 1. Possible colonic mass just proximal to the splenic flexure. There is mild segmental thickening of the proximal colon. Cannot exclude colon carcinoma. Other considerations include infectious and inflammatory colitis. Recommend GI consultation. 2: Developing liver masses, suspicious for metastatic disease. 3: Nodular thickening of the left adrenal gland which may be secondary to adenomatous hyperplasia or adenomas versus metastatic disease. Chest X-Ray 11/23/24 09:08 Impression: 1: Extensive bilateral airspace disease, consistent with pneumonia. Chest CT 11/23/24 12:15 IMPRESSION: 1. Patchy predominantly right-sided airspace consolidation, consistent with pneumonia. 2: Chronic interstitial lung disease, consistent with pulmonary fibrosis. There is associated bronchiectasis bilaterally. Labs Labs: Laboratory Results - last 24 hr 11/26/24 08:31 WBC 15.5 H RBC 4.41 L Hgb 12.7 L Hct 39.4 L MCV 89.3 MCH 28.8 MCHC 32.2 RDW 14.2 Plt Count 177 MPV 10.3 Immature Gran % (Auto) 3.7 H Neut % (Auto) 69.6 Lymph % (Auto) 10.2 L [place] % (Auto) 14.3 H Eos % (Auto) 1.9 Baso % (Auto) 0.3 Lymph # (Auto) 1.58 [place] # (Auto) 2.2 H Eos # (Auto) 0.3 Baso # (Auto) 0.1 Abs Immat Gran (auto) 0.58 H Absolute Neuts (auto) 10.8 H Absolute Nucleated RBC 0.000 Nucleated RBC % 0.0 Sodium 136 L Potassium 3.7 Chloride 100 Carbon Dioxide 26 Anion Gap 10 BUN 12 Creatinine 0.54 L Estim Creat Clear Calc 86 Estimated GFR > 60 Glucose 132 H Calcium 9.3 Magnesium 1.8
--- NOTE | 2024-11-26 16:36 | PM.IMPN ---
Progress Note: A&P Assessment and Plan (1) Sepsis: Code(s): A41.9 - Sepsis, unspecified organism Status: Acute Assessment and Plan: continue iv zosyn Blood culture negative today. Will switch to Augmentin Treating for colitis and pneumonia (2) Pneumonia: Code(s): J18.9 - Pneumonia, unspecified organism Status: Acute Assessment and Plan: continue iv zosyn and oral doxycycline ct chest shows patchy infiltrate on admission bc prelim is negative Mild leukocytosis persist Will switch Zosyn to Augmentin (3) Colon wall thickening: Code(s): K63.9 - Disease of intestine, unspecified Status: Acute Assessment and Plan: incidental finding on ct scan GI on board colonoscopy with findings of colitis. (4) Liver mass: Code(s): R16.0 - Hepatomegaly, not elsewhere classified Status: Acute Assessment and Plan: Gi on board for possible liver mass see recommendations urology on board for possible adrenal mass mri adrenal ordered watch cmp (5) Prolonged QT interval: Code(s): R94.31 - Abnormal electrocardiogram [ECG] [EKG] Status: Acute Assessment and Plan: tele on Repeat EKG with normal QTC (6) Chronic obstructive pulmonary disease: Code(s): J44.9 - Chronic obstructive pulmonary disease, unspecified Status: Acute Assessment and Plan: history of COPD CT with underlying chronic interstitial lung disease consistent with pulmonary fibrosis associated bronchiectasis (7) Parkinson's Disease: Code(s): G20 - Parkinson's disease Status: Acute Assessment and Plan: stable on meds (8) Gastroesophageal reflux disease: Code(s): K21.9 - Gastro-esophageal reflux disease without esophagitis Status: Acute Assessment and Plan: stable on meds (9) Benign prostatic hyperplasia: Code(s): N40.0 - Benign prostatic hyperplasia without lower urinary tract symptoms Status: Acute Assessment and Plan: stable on meds (10) Bipolar disorder: Code(s): F31.9 - Bipolar disorder, unspecified Status: Acute Assessment and Plan: stable on meds (11) Depression: Code(s): F32.9 - Major depressive disorder, single episode, unspecified Status: Acute Assessment and Plan: stable on meds (12) Anxiety: Code(s): F41.9 - Anxiety disorder, unspecified Status: Acute Assessment and Plan: stable on meds Plan Suspicious liver masses on CT will check right upper quadrant ultrasound Nodular thickening of the left adrenal gland hormonal assessment ordered will take some time for these results to come back should follow this up as an outpatient basis. Adrenal mass protocol abnormal MRI ordered this should be followed up as an outpatient as well Urinary retention may try void trial Dvt prop: scd code status : DNR Subjective Date/time seen: 11/26/24 16:37 Interval history: Feels well. Working with therapy. No abdominal pain. Diarrhea resolved. No cough or shortness of breath. Review of Systems Review of Systems: All systems reviewed & are unremarkable except as noted in HPI and below Exam Narrative: General: Chronically well-appearing not in acute distress Respiratory: Respirations are nonlabored, bl decreased BS Cardiovascular: s1 and s2 nl Gastrointestinal: Abdomen is soft, nontender Skin: Warm and dry. Generalized pallor. Extremities: No cyanosis, clubbing, or edema. Radial and pedal pulses intact. Neurological: Alert. Cranial nerves 2-12 are grossly intact. Speech is clear. No facial asymmetry. Tremor of the upper extremity. Generalized weakness without gross focal findings. Psychiatric: Pleasant and cooperative with appropriate mood and affect. Objective Data Vital Signs Vital Signs: Vital Signs - 24 hr 11/25/24 18:00 11/25/24 20:00 11/25/24 20:00 Temperature 99.2 F Pulse Rate 80 87 Respiratory Rate 20 Blood Pressure 113/72 Pulse Oximetry 94 Oxygen Delivery Room Air Fraction of Inspired Oxygen 11/25/24 20:00 11/25/24 20:23 11/25/24 20:23 Temperature Pulse Rate 89 90 90 Respiratory Rate 16 16 Blood Pressure Pulse Oximetry 92 Oxygen Delivery Room Air Fraction of Inspired Oxygen 21 11/25/24 20:25 11/25/24 22:00 11/26/24 00:00 Temperature Pulse Rate 89 89 Respiratory Rate 16 Blood Pressure Pulse Oximetry Oxygen Delivery Room Air Fraction of Inspired Oxygen 11/26/24 00:00 11/26/24 00:00 11/26/24 02:00 Temperature 99.3 F Pulse Rate 85 89 82 Respiratory Rate 18 Blood Pressure 134/92 H Pulse Oximetry 97 Oxygen Delivery Fraction of Inspired Oxygen 11/26/24 04:00 11/26/24 04:00 11/26/24 04:00 Temperature 98.0 F Pulse Rate 83 79 Respiratory Rate 18 Blood Pressure 136/89 Pulse Oximetry 94 Oxygen Delivery Room Air Fraction of Inspired Oxygen 11/26/24 06:00 11/26/24 07:36 11/26/24 08:00 Temperature 98 F Pulse Rate 79 86 85 Respiratory Rate 18 Blood Pressure 147/105 H Pulse Oximetry 93 Oxygen Delivery Fraction of Inspired Oxygen 11/26/24 08:43 11/26/24 09:21 11/26/24 10:00 Temperature Pulse Rate 88 91 Respiratory Rate 18 Blood Pressure Pulse Oximetry Oxygen Delivery Room Air Fraction of Inspired Oxygen 11/26/24 12:01 11/26/24 15:40 Temperature 98 F Pulse Rate 62 Respiratory Rate 16 Blood Pressure 115/84 Pulse Oximetry 94 Oxygen Delivery Room Air Fraction of Inspired Oxygen Intake/Output Intake/Output: Intake & Output 11/23/24 11/24/24 11/25/24 11/26/24 23:59 23:59 23:59 23:59 Intake Total 4252.1 4350 1730 960 Output Total 400 1450 1550 1750 Balance 3852.1 2900 180 -790 Meds/Results Medications: Active Medications Generic Name Dose Route Start Last Admin Trade Name Freq PRN Reason Stop Dose Admin Acetaminophen 650 mg 11/23/24 10:59 Acetaminophen 325 Mg Tablet PO Q4H PRN Mild Pain (1-3) or Fever Amoxicillin/Clavulanate Potassium 1 tablet 11/26/24 11:45 11/26/24 12:45 Amoxicillin/Clavulanate K 875-125 Mg Tab PO 12/02/24 23:59 1 tablet Q12HR CARMEN Administration Aspirin 81 mg 11/23/24 17:00 11/26/24 16:06 Aspirin 81 Mg Enteric Tablet PO 81 mg BID CARMEN Administration Calcium Carbonate 1 tablet 11/24/24 12:00 11/26/24 12:45 Calcium/Vitamin D 250 Mg/3.125 Mcg (125 I.U.) Tablet PO 1 tablet DAILY@1200 CARMEN Administration Carbidopa/Levodopa 2 tablet 11/23/24 17:00 11/26/24 16:06 Carbidopa/Levodopa 25/250 Mg Tablet PO 2 tablet QID CARMEN Administration Divalproex Sodium 1,000 mg 11/23/24 21:00 11/25/24 20:[address] 250 Mg Tabec PO 1,000 mg QHS CARMEN Administration Donepezil HCl 5 mg 11/25/24 21:00 11/25/24 20:17 Donepezil Hcl 5 Mg Tablet BY MOUTH 5 mg QHS CARMEN Administration Doxycycline Hyclate 100 mg 11/23/24 21:00 11/26/24 08:54 Doxycycline Hyclate 100 Mg Tablet PO 11/30/24 09:01 100 mg Q12HR CARMEN Administration Fluticasone Propionate 2 puff 11/23/24 20:00 11/26/24 08:40 Fluticasone Prop 110 Mcg Inhaler 12 Gm (*Sp) INHALATION 2 puff Q12HRT CARMEN Administration Guaifenesin 1,200 mg 11/23/24 21:00 11/26/24 08:54 Guaifenesin 12 Hr 600 Mg Tabcr PO 1,200 mg Q12HR CARMEN Administration Lorazepam 1 mg 11/23/24 17:00 11/26/24 16:06 Lorazepam (*Crx) 1 Mg Tablet PO 1 mg BID CARMEN Administration Trifluoperazine 10 30 mg 11/24/24 21:00 11/25/24 20:17 Mg Tablet Home PO 12/24/24 20:59 30 mg QHS CARMEN Administration Ondansetron HCl 4 mg 11/23/24 10:59 Ondansetron Inj 4 Mg/2 Ml Vial IV PUSH Q4H PRN Nausea Potassium Chloride 40 meq 11/24/24 17:00 11/26/24 16:15 Potassium Chloride 20 Meq Packet (For Liquid) PO 40 meq BID CARMNE Administration Primidone 100 mg 11/23/24 17:00 11/26/24 16:06 Primidone 50 Mg Tablet BY MOUTH 100 mg BID CARMEN Administration Tamsulosin HCl 0.4 mg 11/23/24 21:00 11/25/24 20:16 Tamsulosin Hcl 0.4 Mg Capsule PO 0.4 mg QHS CARMEN Administration Venlafaxine HCl 225 mg 11/24/24 23:40 11/25/24 20:16 Venlafaxine Hcl Xr 75 Mg Cap.Er.24h PO 225 mg QHS CARMEN Administration Radiology Results: ITS Impressions Head CT 11/23/24 08:57 IMPRESSION: 1. No acute intracranial abnormality. Abdomen/Pelvis CT 11/23/24 08:58 IMPRESSION: 1. Possible colonic mass just proximal to the splenic flexure. There is mild segmental thickening of the proximal colon. Cannot exclude colon carcinoma. Other considerations include infectious and inflammatory colitis. Recommend GI consultation. 2: Developing liver masses, suspicious for metastatic disease. 3: Nodular thickening of the left adrenal gland which may be secondary to adenomatous hyperplasia or adenomas versus metastatic disease. Chest X-Ray 11/23/24 09:08 Impression: 1: Extensive bilateral airspace disease, consistent with pneumonia. Chest CT 11/23/24 12:15 IMPRESSION: 1. Patchy predominantly right-sided airspace consolidation, consistent with pneumonia. 2: Chronic interstitial lung disease, consistent with pulmonary fibrosis. There is associated bronchiectasis bilaterally. Labs Labs: Laboratory Results - last 24 hr 11/26/24 08:31 WBC 15.5 H RBC 4.41 L Hgb 12.7 L Hct 39.4 L MCV 89.3 MCH 28.8 MCHC 32.2 RDW 14.2 Plt Count 177 MPV 10.3 Immature Gran % (Auto) 3.7 H Neut % (Auto) 69.6 Lymph % (Auto) 10.[address] [place] % (Auto) 14.3 H Eos % (Auto) 1.9 Baso % (Auto) 0.3 Lymph # (Auto) 1.58 [place] # (Auto) 2.2 H Eos # (Auto) 0.3 Baso # (Auto) 0.1 Abs Immat Gran (auto) 0.58 H Absolute Neuts (auto) 10.8 H Absolute Nucleated RBC 0.000 Nucleated RBC % 0.0 Sodium 136 L Potassium 3.7 Chloride 100 Carbon Dioxide 26 Anion Gap 10 BUN 12 Creatinine 0.54 L Estim Creat Clear Calc 86 Estimated GFR > 60 Glucose 132 H Calcium 9.3 Magnesium 1.8
[2024-11-26] MEDS: TAMSULOSIN HCL 0.4 MG CAPSULE PO (20:19)
[2024-11-26] MEDS: VENLAFAXINE HCL XR 75 MG CAP.ER.24H 225 MG PO (20:19)
[2024-11-26] MEDS: DIVALPROEX SODIUM DR 250 MG TABEC 1000 MG PO (20:19)
[2024-11-26] MEDS: DONEPEZIL HCL 5 MG TABLET BY MOUTH (20:20)
[2024-11-26] MEDS: TRIFLUOPERAZINE 10 MG 30 EACH PO (20:23)
--- NOTE | 2024-11-26 21:34 | PC.NURSE ---
This patient, Bartolome Andrew Ishanana paula, was received from [[id number] ] on 11/26/24 at 2138. Patient/family oriented to unit policies and routines
--- NOTE | 2024-11-26 21:42 | PC.NURSE ---
This patient, Bartolome Maynard, was transferred to [facility] on 11/26/24 at 2125. Personal belongings sent with patient. Report given to Luz MESSINA. Appropriate documentation sent with patient.
[2024-11-27 05:46] LABS: Basophils Absolute Auto 0.1 K/mm3 (0.0-0.1); Basophils Percent Auto 0.5 % (0.2-1.2); Eosinophils Absolute Auto 0.4 K/mm3 (0-0.3); Eosinophils Percent Auto 2.4 % (0-4.4); Hematocrit 38.1 % (42.0-52.0); Hemoglobin 12.3 g/dL (14.0-18.0); Immature Granulocyte Absolute 1.09 K/mm3 (0.00-0.031); Immature Granulocyte Percent A 6.4 % (0-0.5); Lymphocytes Absolute Auto 2.03 K/mm3 (0.9-3.2); Mean Corpuscular HGB Conc 32.3 g/dl (32-36); Mean Corpuscular Hemoglobin 29.1 pg (26-34); Mean Corpuscular Volume 90.1 fl (80-100); Mean Platelet Volume 10.6 fl (7.4-10.4); Monocytes Absolute Auto 2.8 K/mm3 (0.1-0.6); Monocytes Percent Auto 16.7 % (2.6-8.5); Neutrophils Absolute Auto 10.5 K/mm3 (1.3-6.7); Platelet Count Result 189 k/mm3 (150-375); Red Blood Count 4.23 M/mm3 (4.6-6.20); Red Cell Distribution Width 14.2 % (11.5-14.5)
[2024-11-27 06:00] VITALS: BP 105/82; PULSE 90; RESP 16; TEMP 36.8; O2SAT 93
[2024-11-27 06:33] LABS: Alanine Aminotransferase 25 U/L (6-50); Albumin Level 3.4 g/dL (3.5-5.1); Alkaline Phosphatase 72 U/L (38-126); Anion Gap 8 mmol/L (4-12); Aspartate Amino Transferase 55 U/L (17-59); Bilirubin,Total 0.4 mg/dL (0.2-1.3); Blood Urea Nitrogen 12 mg/dL (9-20); Calcium 9.3 mg/dL (8.4-10.2); Carbon Dioxide 25 mmol/L (22-30); Chloride 99 mmol/L (98-107); Estimated CRCL calculation 92 ml/min; Estimated Glomerular Filt Rate > 60; Glucose 108 mg/dL (65-110); Magnesium 1.8 mg/dL (1.6-2.3); Potassium 4.1 mmol/L (3.4-5.0); Sodium 132 mmol/L (137-145); Total Protein 6.2 g/dL (6.3-8.2)
[2024-11-27] MEDS: FLUTICASONE PROP 110 MCG INHALER 12 GM (*SP) 2 PUFF INHALATION (08:50)
[2024-11-27] MEDS: LORazepam (*CRX) 1 MG TABLET PO (13:03)
[2024-11-27] MEDS: PRIMIDONE 50 MG TABLET 100 MG BY MOUTH (13:03)
[2024-11-27] MEDS: CALCIUM/VITAMIN D 250 MG/3.125 MCG (125 I.U.) TABLET 1 TABLET PO (13:03)
[2024-11-27] MEDS: ASPIRIN 81 MG ENTERIC TABLET PO (13:03)
[2024-11-27] MEDS: guaiFENesin 12 HR 600 MG TABCR 1200 MG PO (13:03)
[2024-11-27] MEDS: DOXYCYCLINE HYCLATE 100 MG TABLET PO (13:04)
[2024-11-27] MEDS: POTASSIUM CHLORIDE 20 MEQ PACKET (FOR LIQUID) 40 MEQ PO (13:04)
[2024-11-27] MEDS: AMOXICILLIN/CLAVULANATE K 875-125 MG TAB 1 TABLET PO (13:04)
[2024-11-27] MEDS: CARBIDOPA/LEVODOPA 25/250 MG TABLET 2 TABLET PO (13:04)
--- NOTE | 2024-11-27 15:02 | P.DS_ITS ---
DS: Admitting Diagnosis Discharge Date 11/27/2024 Admitting Diagnosis Pneumonia/Sepsis/Colitis DS: Discharge Diagnosis Discharge Diagnosis (1) Sepsis: Code(s): A41.9 - Sepsis, unspecified organism Status: Acute (2) Pneumonia: Code(s): J18.9 - Pneumonia, unspecified organism Status: Acute (3) Colon wall thickening: Code(s): K63.9 - Disease of intestine, unspecified Status: Acute (4) Liver mass: Code(s): R16.0 - Hepatomegaly, not elsewhere classified Status: Acute (5) Prolonged QT interval: Code(s): R94.31 - Abnormal electrocardiogram [ECG] [EKG] Status: Acute (6) Chronic obstructive pulmonary disease: Code(s): J44.9 - Chronic obstructive pulmonary disease, unspecified Status: Acute (7) Parkinson's Disease: Code(s): G20 - Parkinson's disease Status: Acute (8) Gastroesophageal reflux disease: Code(s): K21.9 - Gastro-esophageal reflux disease without esophagitis Status: Acute (9) Benign prostatic hyperplasia: Code(s): N40.0 - Benign prostatic hyperplasia without lower urinary tract symptoms Status: Acute (10) Bipolar disorder: Code(s): F31.9 - Bipolar disorder, unspecified Status: Acute (11) Depression: Code(s): F32.9 - Major depressive disorder, single episode, unspecified Status: Acute (12) Anxiety: Code(s): F41.9 - Anxiety disorder, unspecified Status: Acute DS: Summary Hospital Course Reason for hospitalization: speis/Pneumonia/Colitis Hospital Course: Admission: Patient was a 84-year-old male with history of Parkinson's disease, bipolar disorder, depression, anxiety, benign prostatic hyperplasia, chronic obstructive pulmonary disease, and pulmonary fibrosis with evidence of bronchiectasis on CT scan today who presented to the emergency department via private vehicle for evaluation of vomiting, diarrhea, and weakness. He has not been feeling well for 3 days with symptoms to include nausea, vomiting, and up to 20 episodes of diarrhea a day. He is becoming increasingly weak and reports having 2 falls due to the weakness, without injury. His stools have been dark starting today. He denies fever, chills, sweats, abdominal pain, epigastric pain, bloating, belching, hematemesis, hematochezia, dysuria, sinus congestion, sore throat, and cough. He also denies dysphagia and concerns for aspiration. No sick contacts, recent travel, or recent antibiotic use. He has had gradual weight loss over the years. He has not had a colonoscopy recently but he has never had colon polyps and apparently had a negative Cologuard 3 years ago. In the ED: He was afebrile on arrival with a blood pressure yeah 84/57, pulse 127, respiratory 24, SpO2 94% on room air. Labs were significant for a WBC count of 19.4, anion gap 13, BUN 49, lactic acid 3.8, AST 277, CRP 21.3. Abdomen/pelvis CT showed a possible colonic mass proximal to splenic flexure, developing liver masses, nodular thickening left adrenal gland. Chest CT showed findings of pneumonia and pulmonary fibrosis and associated bronchiectasis. He was given a 2.5 L normal saline bolus with improvement lactic acid level and blood pressures and he was started on ceftriaxone and metronidazole for possible colitis. He was been admitted to the IMU in this setting for further treatment and evaluation. Hospital Course: Patient was admitted to the medical unit due to sepsis secondary to pneumonia and colitis was continued iv zosyn and transitioned to oral Augmentin and doxycycline at discharge. blood cultures remained negative throughout his hospitalization, leukocytosis trended flat anywhere between 15-17, but remained afebrile and on room air there was an incidental finding on ct scan I have colon thickening at which time a colonoscopy was conducted by GI showing colitis. patient was continued on IV Zosyn and doxycycline and then transitioned to Augmentin for coverage. patient with possible liver mass GI reported could follow-up outpatient for was also found to have a left adrenal mass and underwent MRI that did show persistent nodular thickening of the posterior medial limb of the left adrenal gland which was recommended for a follow-up in 12 months for adrenal protocol abdomen CT however can continue to follow with Urology outpatient. patient with overall improvement to symptoms was tolerating oral intake with minimal abdominal pain and diarrhea had improved, and denied further shortness a breath. Pathology report for his colitis did show ischemic colitis will follow-up with GI outpatient for continued monitoring and treatment. patient was discharged home with family Status at Discharge Functional status at discharge: uses cane/walker Overall status at discharge: patient is progressing back to baseline Time Spent with Patient Time attestation: Total time spent providing and/or coordinating discharge services: Time spent: Greater than 30 minutes Exam Narrative: General: Chronically well-appearing not in acute distress Respiratory: Respirations are nonlabored, bl decreased BS Cardiovascular: s1 and s2 nl Gastrointestinal: Abdomen is soft, nontender Skin: Warm and dry. Generalized pallor. Extremities: No cyanosis, clubbing, or edema. Radial and pedal pulses intact. Neurological: Alert. Cranial nerves 2-12 are grossly intact. Speech is clear. No facial asymmetry. Tremor of the upper extremity. Generalized weakness without gross focal findings. Psychiatric: Pleasant and cooperative with appropriate mood and affect. DS: Data Data Completed and Pending Completed studies during hospitalization: Pending at discharge 11/25/24 14:23 Surgical [PTH] Routine Labs on day of discharge: Labs from last 24 hours 11/27/24 05:28 WBC 17.0 H RBC 4.23 L Hgb 12.3 L Hct 38.1 L MCV 90.1 MCH 29.1 MCHC 32.3 RDW 14.2 Plt Count 189 MPV 10.6 H Immature Gran % (Auto) 6.4 H Neut % (Auto) 62.0 Lymph % (Auto) 12.0 L [place] % (Auto) 16.7 H Eos % (Auto) 2.4 Baso % (Auto) 0.5 Lymph # (Auto) 2.03 [place] # (Auto) 2.8 H Eos # (Auto) 0.4 H Baso # (Auto) 0.1 Abs Immat Gran (auto) 1.09 H Absolute Neuts (auto) 10.5 H Absolute Nucleated RBC 0.000 Nucleated RBC % 0.0 Sodium 132 L Potassium 4.1 Chloride 99 Carbon Dioxide 25 Anion Gap 8 BUN 12 Creatinine 0.50 L Estim Creat Clear Calc 92 Estimated GFR > 60 Glucose 108 Calcium 9.3 Magnesium 1.8 Total Bilirubin 0.4 AST 55 ALT 25 Alkaline Phosphatase 72 Total Protein 6.2 L Albumin 3.4 L Preliminary micro results at discharge 11/23/24 08:23 Blood Culture - Preliminary Blood 11/23/24 08:23 Blood Culture - Preliminary Blood Imaging Radiologist's impression: Radiology Results: ITS Impressions Head CT 11/23/24 08:57 IMPRESSION: 1. No acute intracranial abnormality. Abdomen/Pelvis CT 11/23/24 08:58 IMPRESSION: 1. Possible colonic mass just proximal to the splenic flexure. There is mild segmental thickening of the proximal colon. Cannot exclude colon carcinoma. Other considerations include infectious and inflammatory colitis. Recommend GI consultation. 2: Developing liver masses, suspicious for metastatic disease. 3: Nodular thickening of the left adrenal gland which may be secondary to adenomatous hyperplasia or adenomas versus metastatic disease. Chest X-Ray 11/23/24 09:08 Impression: 1: Extensive bilateral airspace disease, consistent with pneumonia. Chest CT 11/23/24 12:15 IMPRESSION: 1. Patchy predominantly right-sided airspace consolidation, consistent with pneumonia. 2: Chronic interstitial lung disease, consistent with pulmonary fibrosis. There is associated bronchiectasis bilaterally. Discharge Plan Discharge Attending physician on discharge: Yossi Red Consulting providers: Humble Rodriguez; Hood Murray; Brandon Marshall; Alia Acosta; Denise Steve; Vinay Abbott; Arcaeli Bird; Ken Tan; Uriel Suresh Discharging Clinician: Suzanne Foster Anticipated Discharge Date/Time: 11/27/24 14:40 Patient Disposition: Home Activity: may shower and as tolerated Diet: low fiber Discharge Instructions: Colitis: * You were diagnosed with colitis per colonoscopy and biopsy was sent for further evaluation, underlying causes include inflammatory vs infectious vs autoimmune. Your VEGA markers did come back positive and I recommend further testing outpatient for underlying autoimmune diseases. * I have prescribed oral antibiotics please take as indicated and complete even if feeling better * I recommend a low fiber soft diet with smaller portions * Avoid spicy or fried foods Pneumonia * Complete antibiotic as prescribed * stay hydrated * Continue incentive spirometer Please follow-up in 12 months for repeat Adrenal CT scan Please follow-up with GI for Liver biopsy outpatient was infectious process is complete How can you care for yourself at home? ? Keep track of any new symptoms or changes in your symptoms. ? Rest until you feel better. ? Be safe with medicines. Take your medicines exactly as prescribed. Call your doctor if you think you are having a problem with your medicine. ? Do not drive after taking a prescription pain medicine. ? Ensure to follow-up with primary care physician as indicated and provide updated medication list provided to you at discharge. When should you call for help? Call 911 anytime you think you may need emergency care. For example, call if: ? You passed out (lost consciousness). Call your doctor now or seek immediate medical care if: ? You have new symptoms like fever, difficulty breathing, Chest pain, vomiting, or rash. ? You have new or different pain. ? You are confused and are having trouble thinking clearly. ? Your symptoms are getting worse. Watch closely for changes in your health, and be sure to contact your doctor if: ? You do not get better as expected. Patient Instructions: Antibiotic Form, Low Fiber Diet (DC), Pneumonia (DC), Infectious Colitis (GEN), Colitis (ED) Patient Language: [place] Stand Alone Forms: General Discharge Information Follow-up/Referrals: Brandt Kaye MD [Physician] - Call for Appointment (Please schedule at either [place] or [facility] locations ) Discharge Medications: New amoxicillin-pot clavulanate 875-125 mg tablet 1 tablet PO Q12H Qty: 11 0RF doxycycline hyclate 100 mg Tablet 100 mg PO Q12HR Qty: 6 0RF guaifenesin [Mucus Relief ER] 600 mg Tablet Extended Release 12hr 1,200 mg PO Q12HR Qty: 10 0RF Continued lorazepam 1 mg tablet 1 mg PO BID tamsulosin 0.4 mg capsule 0.4 mg PO QHS trifluoperazine 10 mg tablet 30 mg PO QHS divalproex 500 mg tablet,delayed release (DR/EC) 1,000 mg PO QHS venlafaxine 225 mg tablet extended release 24hr 225 mg PO QHS celecoxib 200 mg capsule 200 mg PO QAM aspirin 81 mg tablet,delayed release (DR/EC) 81 mg PO BID fluticasone furoate 100 mcg/actuation blister with device 1 inh inhalation DAILY Caltrate-D3 Plus Minerals 300 mg-800 unit -25 mg-0.5 mg tablet 1 tablet PO QAM primidone 50 mg tablet See Rx Instructions .ROUTE .COMPLEX Qty: 360 3RF Dose Instruction: TAKE 2 TABLETS BY MOUTH TWICE A DAY Rx Instructions: TAKE 2 TABLETS BY MOUTH TWICE A DAY donepezil 5 mg tablet See Rx Instructions .ROUTE .COMPLEX Qty: 90 3RF Dose Instruction: TAKE 1 TABLET DAILY IN THE EVENING Rx Instructions: TAKE 1 TABLET DAILY IN THE EVENING carbidopa-levodopa 25-250 mg tablet 2 tablet PO QID Qty: 480 3RF Discontinued diphenhydramine HCl 50 mg capsule 50 mg PO QHS Date of admission: 11/23/24 11:52 Primary Care Provider: Ashley,Junito Connelly Admitting Provider: Corey Garcia Attending physician on admission: Suzanne Foster Condition: Stable Quality VTE Prophylaxis VTE prophylaxis: mechanical ordered -Patient's previous records reviewed on admission -ER notes reviewed in detail on admission -discussed all findings and current treatment plan with patient/Family/POA -Consultations reviewed for recommendations -Patient's disposition for safe discharge discussed with spring encaser Dictation performed by [employer] direct speech recognition software, therefore cosmetics counter manager variants and typographical errors may occur. Hospitalist MIPS Heart Failure (Exclusion) Patient has history of Heart Transplant or Left Ventricular Assistive Device?: No IF YES, STOP HERE Heart Failure (Qualifier) Patient has current or prior documentation of LVEF less than or equal to 40%, or mod/servere depressed LVSF?: No IF NO, STOP HERE
--- NOTE | 2024-11-27 17:21 | WPDGIPROGNO ---
Progress Note: A&P Assessment and Plan (1) Colitis: Code(s): K52.9 - Noninfective gastroenteritis and colitis, unspecified Status: Acute Assessment and Plan: s/p colonoscopy, noted patchy inflammation in rt colon, bx consistent with ischemic colitis no need to repeat colonoscopy, no malignancy ok to go home (2) Colon wall thickening: Code(s): K63.9 - Disease of intestine, unspecified Status: Acute Assessment and Plan: from colitis (3) Sepsis: Code(s): A41.9 - Sepsis, unspecified organism Status: Acute Assessment and Plan: resolved Subjective Date/time seen: 11/27/24 15:11 Interval history: better, going home Review of Systems Review of Systems: All systems reviewed & are unremarkable except as noted in HPI and below Exam Const: General: comfortable and no acute distress HENMT: Face/Nose/Sinus: Normal nares present Eyes: General: appearance normal, both eyes and all related structures Neck: Neck: supple Resp: Auscultation: clear to auscultation bilaterally Cardio: Rate: regular rate Rhythm: regular rhythm GI: Inspection: non-distended GI Palp: Yes Soft to palpation and No Tenderness to palpation present (GI) Auscultation: normal bowel sounds Skin: General skin exam: normal color Neuro: Speech: normal speech Motor exam (neuro): 5/5 motor strength present throughout Other: tremors Extrem: General: normal to inspection Psych: Mental Status: mental status grossly normal Objective Data Vital Signs Vital Signs: Vital Signs - 24 hr 11/26/24 20:00 11/26/24 20:37 11/26/24 20:42 Temperature 98.2 F Pulse Rate 81 Respiratory Rate 16 Blood Pressure 143/96 H Pulse Oximetry 95 92 Oxygen Delivery Room Air Room Air 11/26/24 21:54 11/26/24 22:59 11/27/24 06:00 Temperature 98.0 F 98.2 F Pulse Rate 87 90 Respiratory Rate 16 16 Blood Pressure 149/89 H 105/82 Pulse Oximetry 97 93 Oxygen Delivery Room Air 11/27/24 08:00 11/27/24 10:22 Temperature Pulse Rate Respiratory Rate Blood Pressure Pulse Oximetry Oxygen Delivery Room Air Room Air Intake/Output Intake/Output: Intake & Output 11/24/24 11/25/24 11/26/24 11/27/24 23:59 23:59 23:59 23:59 Intake Total 4350 1730 1200 Output Total 1450 1550 1750 Balance 2900 180 -550 Meds/Results Radiology Results: ITS Impressions Head CT 11/23/24 08:57 IMPRESSION: 1. No acute intracranial abnormality. Abdomen/Pelvis CT 11/23/24 08:58 IMPRESSION: 1. Possible colonic mass just proximal to the splenic flexure. There is mild segmental thickening of the proximal colon. Cannot exclude colon carcinoma. Other considerations include infectious and inflammatory colitis. Recommend GI consultation. 2: Developing liver masses, suspicious for metastatic disease. 3: Nodular thickening of the left adrenal gland which may be secondary to adenomatous hyperplasia or adenomas versus metastatic disease. Chest X-Ray 11/23/24 09:08 Impression: 1: Extensive bilateral airspace disease, consistent with pneumonia. Chest CT 11/23/24 12:15 IMPRESSION: 1. Patchy predominantly right-sided airspace consolidation, consistent with pneumonia. 2: Chronic interstitial lung disease, consistent with pulmonary fibrosis. There is associated bronchiectasis bilaterally. Upper Quadrant Ultrasound 11/27/24 10:39 IMPRESSION: 1: Hyperechoic irregular shaped 1.7 cm liver mass. Recommend correlation with MRI abdomen without and with contrast for complete evaluation of masses seen on prior CT. Cannot exclude malignancy. Kidney MRI 11/27/24 12:39 IMPRESSION: 1. Persistent nodular thickening of the posterior medial limb of the left adrenal gland. Based upon appearance on the reconstructed sagittal imaging on prior CT would favor that this reflects artifactual nodular appearance in the axial plane and resulting from anterior flexion of this limb of the adrenal gland as opposed to a true nodule. Recommend 12 month follow-up adrenal protocol abdomen CT as per indeterminate 1-2 cm adrenal nodule. Labs Labs: Laboratory Results - last 24 hr 11/23/24 11/27/24 16:37 05:28 WBC 17.0 H RBC 4.23 L Hgb 12.3 L Hct 38.1 L MCV 90.1 MCH 29.1 MCHC 32.3 RDW 14.2 Plt Count 189 MPV 10.6 H Immature Gran % (Auto) 6.4 H Neut % (Auto) 62.0 Lymph % (Auto) 12.0 L [place] % (Auto) 16.7 H Eos % (Auto) 2.4 Baso % (Auto) 0.5 Lymph # (Auto) 2.03 [place] # (Auto) 2.8 H Eos # (Auto) 0.4 H Baso # (Auto) 0.1 Abs Immat Gran (auto) 1.09 H Absolute Neuts (auto) 10.5 H Absolute Nucleated RBC 0.000 Nucleated RBC % 0.0 Sodium 132 L Potassium 4.1 Chloride 99 Carbon Dioxide 25 Anion Gap 8 BUN 12 Creatinine 0.50 L Estim Creat Clear Calc 92 Estimated GFR > 60 Glucose 108 Calcium 9.3 Magnesium 1.8 Total Bilirubin 0.4 AST 55 ALT 25 Alkaline Phosphatase 72 Total Protein 6.2 L Albumin 3.4 L Urine Pneumococcal Ag Not detected
[2024-11-27 18:14] LABS: Legionella pneumophila Ag Ur. NOT DETECTED
[2024-11-27 19:14] LABS: Mycoplasma IgM Antibody Titer. 100 U/mL
[2024-12-05 07:51] LABS: PRA 1.24
[2024-12-07 09:26] LABS: Metanephrine, Free 38
[2024-12-07 09:31] LABS: Normetanephrine, Free 213; Total, Free (MN + NMN) 251
== END 2024-11-27 15:51 | disposition home or self-care (01) | DRG 194 ==
LOC: ANHED 08:00 → ANHIMU 11:39 → ANH3MED 11-26 21:31
PROVIDERS: Family Medicine; Internal Medicine Gastroenterology; Physician Assistant; Urology; Admitting Provider Internal Medicine; Emergency Provider Emergency Medicine; PCP Internal Medicine; Visit Provider Nurse Practitioner Family
PROC: 0DJD8ZZ Inspection of Lower Intestinal Tract, Via Natural or Artificial Opening Endoscopic (ICD-10-PCS; CPT 45378; principal; 2024-11-25 15:30)
DX: J18.9 Pneumonia, unspecified organism (principal); J47.0 Bronchiectasis with acute lower respiratory infection; N17.9 Acute kidney failure, unspecified; K57.30 Diverticulosis of large intestine without perforation or abscess without bleeding; K52.9 Noninfective gastroenteritis and colitis, unspecified; E87.6 Hypokalemia; E27.8 Other specified disorders of adrenal gland; F31.9 Bipolar disorder, unspecified; F41.9 Anxiety disorder, unspecified; G20.A1 Parkinson's disease without dyskinesia, without mention of fluctuations; J84.10 Pulmonary fibrosis, unspecified; K21.9 Gastro-esophageal reflux disease without esophagitis; N40.0 Benign prostatic hyperplasia without lower urinary tract symptoms; R16.0 Hepatomegaly, not elsewhere classified; Z66 Do not resuscitate; Z90.49 Acquired absence of other specified parts of digestive tract; Z87.891 Personal history of nicotine dependence; Z79.82 Long term (current) use of aspirin; Z20.822 Contact with and (suspected) exposure to COVID-19
CPT/HCPCS: 36415; 70450; 71046; 71250; 74177; 74183; 76705; 80048; 80053; 80164; 81001; 82088; 82274; 82533; 83605; 83690; 83735; 83835; 84132; 84244; 85025; 85027; 85610; 85730; 86140; 86738; 86850; 86900; 86901; 87040; 87045; 87427; 87449; 87493; 87636; 87641; 87899; 88305; 93005; 94640; 94667; 94668; 96361; 96365; 96366; 96368; 96375; 97161; 97165; 97535; 99285; A9270; A9577; G0378; J0696; J1836; J2371; J2543; J2704; J3480; J7030; J7040; J7120; Q9967

== ENCOUNTER 2025-02-06 17:11 | Inpatient (IN) | payer MEDICARE, SELFPAY ==
[2025-02-06] VITALS (30 sets, daily range): BP systolic 132–156; BP diastolic 80–127; PULSE 112–127; RESP 19–42; TEMP 36.6; O2SAT 83–98
--- NOTE | ~2025-02-06 | US_ITS ---
EXAMINATION: US venous doppler [facility] DATE: 02/07/2025 14:41 INDICATION: Lower limb swelling TECHNIQUE: Grayscale ultrasound images without and with compression and Doppler ultrasound images of the bilateral lower extremity veins were obtained. COMPARISON: None. FINDINGS: The visualized portions of right common femoral vein, profunda (deep) femoral vein, femoral vein, pop liteal vein, posterior tibial veins, peroneal veins and greater saphenous vein outflow are patent. The visualized portions of left common femoral vein, profunda femoral vein, femoral vein, popliteal v ein, posterior tibial veins, peroneal veins and greater saphenous vein outflow are patent. IMPRESSION: 1. No deep venous thrombosis in either lower limb. Reviewed, dictated and finalized at location A.
--- NOTE | ~2025-02-06 | XR_ITS ---
MODIFIED ESOPHAGRAM HISTORY: Pneumonia TECHNIQUE: Modified barium esophagram was performed on 02/07/2025. I administered fluoroscopy and perf ormed the exam with speech pathologist. Patient was seated for lateral fluoroscopic imaging for manda stion of thin liquids, pudding, solids and quantified amounts, followed by thin liquids in uncontroll ed amounts. This was recorded on tape. A single fluoroscopic spot image was also recorded. The DAP fo r this procedure was 1.253 Gycm2. The amount of fluoroscopy time used during this procedure was 1.3 m inutes. FINDINGS: Oral stage: Adequate function. Pharyngeal stage: Trace laryngeal penetration without aspiration.. Cervical/esophageal stage: Adequate function. IMPRESSION: Trace laryngeal penetration without aspiration. Please correlate with speech pathologist findings and specific feeding recommendations. Reviewed, dictated and finalized at location A. IMPRESSION: Trace laryngeal penetration without aspiration. Please correlate w deon speech pathologist findings and specific feeding recommendations.
--- NOTE | ~2025-02-06 | XR_ITS ---
EXAMINATION: XR chest 1V portable DATE: 02/10/2025 08:04 INDICATION: Pneumonia. Interstitial lung disease. TECHNIQUE: frontal view of the chest was obtained. COMPARISON: Chest radiograph dated 02/06/2025 FINDINGS: The course interstitial opacities and mild patchy airspace opacities scattered throughout both lungs appear slightly more prominent in the current than on the prior study which suggests worsening mild p ulmonary edema and/or pneumonia superimposed over emphysema and chronic interstitial lung disease. No pleural effusion or pneumothorax. Heart size is normal accounting for AP technique. IMPRESSION: 1. Emphysema with chronic interstitial lung disease with suggestion of some interval worsening in sup erimposed pulmonary edema and/or pneumonia. Reviewed, dictated and finalized at location A. IMPRESSION: 1. Emphysema with chronic interstitial lung disease with suggestion of some int erval worsening in superimposed pulmonary edema and/or pneumonia.
--- NOTE | ~2025-02-06 | XR_ITS ---
EXAMINATION: XR chest 2V Exam Date/Time: 02/06/2025 18:21 CDT HISTORY: cp Comparison: X-ray chest and CT chest 11/23/2024. RESULT: Lines, tubes, and devices: None. Lungs and pleura: Ill-defined patchy bilateral groundglass opacities, overlying moderate diffuse ret icular/interstitial opacities. Cardiomediastinal silhouette: Stable. Other: No acute osseous or upper abdominal finding. IMPRESSION: Patchy ground glass opacities may represent infection or edema, overlying moderate chronic interstiti al lung disease. Acute exacerbation of the interstitial disease should also be considered in the diff erential Reviewed, dictated and finalized at location K. IMPRESSION: Patchy ground glass opacities may represent infection or edema, overlying moder ate chronic interstitial lung disease. Acute exacerbation of the interstitial d isease should also be considered in the differential
--- NOTE | ~2025-02-06 | CT_ITS ---
EXAMINATION: CTA chest PE protocol DATE: 02/07/2025 13:30 CDT INDICATION: Rule out pulmonary wasn't. History of ILD. Bronchiectasis TECHNIQUE: Computed tomographic angiography (CTA) of the chest was performed with intravenous contras t. The dose-length product was 510.26 mGy-cm. Maximum intensity projection 3D-reconstructions of the aorta and other arteries were constructed by the technologist on a separate workstation. COMPARISON: CTA chest 09/30/2024; CT chest 11/23/2024 FINDINGS: No pulmonary embolism is identified. Small right-sided pleural effusion. Tiny left-sided pleural effu ubaldo. Upper abdomen is grossly unchanged. Heart is mildly enlarged. Thoracic aorta is not aneurysmal. There are coronary artery calcifications. Tracheobronchial tree is patent. No pneumothorax. No pulmonary mass. Grossly stable paraseptal and ce ntrilobular emphysema. Grossly stable bronchiectasis. Grossly stable honeycombing in the lower lungs. Osseous structures are grossly unchanged. Bones appear osteopenic with multilevel degenerative change in the visualized spine. IMPRESSION: 1. No pulmonary embolism identified. 2. No pulmonary mass. No new focal pulmonary consolidation. 3. Grossly stable chronic changes in the lungs as compared to the study from 09/30/2024. Grossly stable bronchiectasis. 4. New small right-sided pleural effusion. Tiny left-sided pleural effusion. Reviewed, dictated and finalized at location A.
--- OUTSIDE RECORDS SUMMARY | 2025-02-06 17:14 | XMS_ITS | Clinical Summary ---
Author Organization [facility] Address [address] [place] [id number] Care Team Providers Care [employer] Engraver Hand Name Role Phone Storm Rae MD Primary Care Provider [phone] Social History Tobacco Use Types Packs/Day Years Used Date Smoking Tobacco: Never Assessed Sex and Gender Information Value Date Recorded Sex Assigned at Not on file Legal Sex Male 5:14 PM CDT Gender Identity Not on file Sexual Orientation Not on file Plan of Treatment Health Maintenance Due Date Last Done Comments DTaP, Tdap and Td Vaccines ( 1 - Tdap) 1961 Pneumococcal Vaccine: 50+ Ye ars (1 of 1 - PCV) 1992 Zoster Vaccines (1 of 2) 1992 RSV Immunization or 60+ Years (1 - [...] age to complete this topic Care Teams [employer] Eng[employer] Relationship Specialty Start Date End Date Storm Rae MD [address] [id number] PCP - General 03/29/11
--- NOTE | 2025-02-06 17:47 | ECG_ITS ---
Test Date: 2025-02-06 17:54:34 Measurements Intervals Qulin Rate: 113 P: 30 MO: 166 QRS: 13 QRSD: 77 T: 63 QT: 346 QTc: 475 Interpretive Statements SINUS TACHYCARDIA DELAYED PRECORDIAL R/S TRANSITION BORDERLINE ST-T WAVE ABNORMALITY- DIFFUSE LEADS BASELINE ARTIFACT- I, III, AVL, AVF, V1, V4-V6 ABNORMAL ECG Compared to ECG 11/24/2024 10:56:44 HEART RATE HAS INCREASED Electronically Signed On 02-06-2025 18:56:27 CDT by Brandon Marshall D.O.
--- NOTE | 2025-02-06 17:49 | ED.SOB ---
HPI - SOB/Dyspnea General Chief Complaint: Shortness of Breath/Dyspnea <Sunitha Coyle APRN - Last Filed: 02/06/25 17:52> Stated Complaint: sob, cough <Sunitha Coyle APRN - Last Filed: 02/06/25 17:52> Time Seen by Provider: 02/06/25 17:49 <Sunitha Coyle APRN - Last Filed: 02/06/25 17:52> Focused HPI: Patient is an 84-year-old male who presents to the ER with a 1 week history of shortness of breath and cough. He reports he called his primary care provider about a week ago and they prescribed him is Z-Rufus. Patient reports he completed the Z-Rufus and his symptoms did not improve so his primary care provider called him in a prescription for doxycycline. He reports he had no imaging his chest. Patient denies any recent fevers, abdominal pain, or back pain. He also endorses increased weakness. Patient endorses a history of COPD and dementia. GENERAL: Ill-appearing, well-nourished, and in mild respiratory distress. HEAD: Normocephalic, atraumatic. CHEST: Clear to auscultation. ?Mild respiratory distress. Crackles bilateral bases. HEART: Tachycardia. NEURO: ?Alert and oriented x3. Patient screened in triage and initial orders placed.? ?Additional care and disposition to be based upon?diagnostic testing and treatment. <Sunitha Coyle APRN - Last Filed: 02/06/25 17:52> History of Present Illness HPI Narrative: agree with HPI <Bari Padilla MD - Last Filed: 02/06/25 22:19> Related Data Home Medications: Home Medications ?Medication ?Instructions ?Recorded ?Confirmed ?Last Taken ?Type aspirin 81 mg tablet,delayed 81 mg PO BID 03/15/21 11/23/24 Unknown History release calcium 300 mg-D3 20 mcg-magnesium 1 tablet PO QAM 03/15/21 11/23/24 Unknown History 25 mg-coppr 0.5 [id number] tablet (Caltrate-D3 Plus Minerals) celecoxib 200 mg capsule 200 mg PO QAM 03/15/21 11/23/24 Unknown History divalproex 500 mg tablet,delayed 1,000 mg PO QHS 03/15/21 11/23/24 Unknown History release fluticasone furoate 100 1 inh inhalation DAILY 03/15/21 11/23/24 Unknown History mcg/actuation blister powder for inhalation tamsulosin 0.4 mg capsule 0.4 mg PO QHS 03/15/21 11/23/24 Unknown History trifluoperazine 10 mg tablet 30 mg PO QHS 03/15/21 11/23/24 Unknown History venlafaxine 225 mg tablet,extended 225 mg PO QHS 03/15/21 11/23/24 Unknown History release 24 hr lorazepam 1 mg tablet 1 mg PO BID 06/13/23 11/23/24 Unknown History <Sunitha Coyle, ORTHOPEDIC CODER - Last Filed: 02/06/25 17:52> Allergies/Adverse Reactions: Allergies Allergy/AdvReac Type Severity Reaction Status Date / Time No Known Allergies Allergy Verified 11/23/24 07:38 <Sunitha Coyle, ORTHOPEDIC CODER - Last Filed: 02/06/25 17:52> Review of Systems Review of Systems: Gen.: Denies fevers or chills Eyes: Denies eye pain or visual change ENT: Denies congestion Respiratory: Denies shortness of breath or cough CV: Denies chest pain or palpitations GI: Denies abdominal pain nausea, emesis or diarrhea denies burning, urgency, frequency or hematuria Musculoskeletal: Denies back pain or muscle pain Neuro: Denies numbness, tingling, weakness or focal weakness Skin: Denies rash Except as documented, all other systems reviewed and negative <Bari Padilla MD - Last Filed: 02/06/25 22:19> [facility] Past Medical History Medical History: Medical History Hypokalemia Bronchiectasis seen on CT scan 11/23/2024 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 11/23/2024 Benign prostatic hyperplasia Anxiety Bipolar disorder Gastroesophageal reflux disease Parkinson's Disease Chronic obstructive pulmonary disease Arthritis Depression <Sunitha Coyle, ORTHOPEDIC CODER - Last Filed: 02/06/25 17:52> Surgical History Surgical History: Surgical History History of cataract extraction History of cholecystectomy History of back surgery History of hip replacement <Sunitha Enrike Coyle, ORTHOPEDIC CODER - Last Filed: 02/06/25 17:52> Family History Family History: Family History Sibling Diabetes mellitus Father Cancer Sibling Heart disease Other Depression <Sunitha Enrike Coyle, ORTHOPEDIC CODER - Last Filed: 02/06/25 17:52> Social History Social History: Social History Social History: Surrogate medical decision maker: Helen Chen, spouse. Code status: Do not resuscitate. Smoking packs per day: 2 Smoking cigarettes per day: 40.0 Years smoked: 50 Smoking pack-years: 100.00 Smoking status: Former smoker Tobacco type: cigarettes Second hand tobacco smoke exposure: Yes Smoking end date: 06/26/06 Alcohol intake: never Substance use: never Substance use type: does not use Do You Feel Safe in your Home?: Yes Lack of Transportation: No Lack of Food: Never True Current Housing: I Have Housing Concerned About Future Housing: No Difficulty Paying Gas/Electric Bills: No Difficulty Paying for Meds: No Currently Unemployed: No Education: High School Diploma/GED Difficulty w/ Childcare or Family Care: No Living arrangements: with family Additional living arrangements comments: Lives with spouse. Occupation/Education: retired Additional occupation/education comments: Worked for [employer] (without a respirator). Spiritual care concerns: No <Sunitha Coyle, ORTHOPEDIC CODER - Last Filed: 02/06/25 17:52> Exam Narrative: APPEARANCE: Ill appearing EYES: EOMI HEENT: Normocephalic, atraumatic, OMM RESPIRATORY: Speaking in 2 word sentences, expiratory wheezes throughout CARDIOVASCULAR: Tachycardic, regular rhythm without murmurs rubs or gallops. ABDOMINAL: Soft, nontender, nondistended, no rebound or guarding MUSCULOSKELETAl: Moves all extremities. 1+ pitting edema to the BLE. NEURO: Awake and alert. Following commands, speech normal, no focal deficits SKIN:: Warm, dry. No rashes lesions or abrasions PSYCHIATRIC: Normal affect/mood, <Bari Padilla MD - Last Filed: 02/06/25 22:19> Course Vital Signs Vital signs: Vital Signs Temperature 97.8 F 02/06/25 17:42 Pulse Rate 113 H 02/06/25 17:42 Respiratory Rate 22 H 02/06/25 17:42 Blood Pressure 134/80 02/06/25 17:42 Pulse Oximetry 95 02/06/25 17:42 Oxygen Delivery Room Air 02/06/25 17:42 Temperature 97.8 F 02/06/25 17:42 Pulse Rate 124 H 02/06/25 21:45 Respiratory Rate 26 H 02/06/25 21:45 Blood Pressure 134/80 02/06/25 17:42 Pulse Oximetry 95 02/06/25 17:42 Oxygen Delivery Room Air 02/06/25 17:42 <Sunitha Coyle APRN - Last Filed: 02/06/25 17:52> Vital Signs Temperature 97.8 F 02/06/25 17:42 Pulse Rate 113 H 02/06/25 17:42 Respiratory Rate 22 H 02/06/25 17:42 Blood Pressure 134/80 02/06/25 17:42 Pulse Oximetry 95 02/06/25 17:42 Oxygen Delivery Room Air 02/06/25 17:42 Temperature 97.8 F 02/06/25 17:42 Pulse Rate 124 H 02/06/25 21:45 Respiratory Rate 26 H 02/06/25 21:45 Blood Pressure 134/80 02/06/25 17:42 Pulse Oximetry 95 02/06/25 17:42 Oxygen Delivery Room Air 02/06/25 17:42 <Bari Padilla MD - Last Filed: 02/06/25 22:19> MDM - SOB/Dyspnea MDM Narrative Medical decision making narrative: 84 yo male that presents to the ED for chest pain and shortness of breath. Initial pulse ox 85% on RA. Patient placed on 2L NC with improvement to 95%. He had expiratory wheezes throughout. Tachycardic to 110s. BP stable. Patient given duoneb, solumedrol, roceph, and doxycycline. Patient has already had 3 days of doxycycline. CXR showed evidence of ground glass opacities, no focal infiltrates. Leukocytosis at 21, although he is usually high, baseline appears to be around 15, has not been on steroids recently. Initial troponin 0.30, repeat troponin 0.32. Lactic acid 3.6. ABG showed respiratory alkalosis with hypoxemia. Suspect patient's elevated troponin is due to hypoxemia and unlikely primary cardiac at this time. Patient's chest pain has improved with O2. Continues to feel that he is not getting enough oxygen despite increasing NC to 4L and satting mid 90s, will trial venti mask as patient is trying to breath with mouth mostly. Repeat ABG prior to second duoneb shows slight improvement of hypoxemia and alkalosis. Patient will require admission for acute hypoxic respiratory failure due to COPD exacerbation. Patient did meet sepsis criteria, but did not receive full 30cc/kg fluids due to concerns for acute CHF as pro-BNP was nearly 9000. Case discussed with hospitalist who will admit the patient. Will add on scheduled nebs. <Bari Padilla MD - Last Filed: 02/06/25 22:19> Differential Diagnosis Differential diagnosis: Likely acute exacerbation of chronic obstructive airways disease, congestive heart failure, community acquired pneumonia and other (ACS) <Bari Padilla MD - Last Filed: 02/06/25 22:19> Lab Data Attestation: I reviewed the patient's lab results. <Bari Padilla MD - Last Filed: 02/06/25 22:19> Result diagrams: 02/06/25 18:04 02/06/25 18:04 <Sunitha Coyle APRN - Last Filed: 02/06/25 17:52> Labs: Lab Results 02/06/25 02/06/25 02/06/25 Range/Units 18:04 19:57 20:43 WBC 21.1 H (4.5-10.0) K/mm3 RBC 3.81 L (4.6-6.20) M/mm3 Hgb 11.3 L (14.0-18.0) g/dL Hct 36.5 L (42.0-52.0) % MCV 95.8 (80-100) fl MCH 29.7 (26-34) pg MCHC 31.0 L (32-36) g/dl RDW 15.7 H (11.5-14.5) % Plt Count 334 D (150-375) k/mm3 MPV 10.5 H (7.4-10.4) fl Immature Gran % (Auto) Not Reportable Neut % (Auto) Not Reportable Lymph % (Auto) Not Reportable [place] % (Auto) Not Reportable Eos % (Auto) Not Reportable Baso % (Auto) Not Reportable Lymph # (Auto) Not Reportable [place] # (Auto) Not Reportable Eos # (Auto) Not Reportable Baso # (Auto) Not Reportable Abs Immat Gran (auto) Not Reportable Absolute Neuts (auto) Not Reportable Absolute Nucleated RBC Not Reportable Total Counted 100 Neutrophils % (Manual) 75 H (46-73) % Band Neutrophils % 2 (0-6) % Lymphocytes % (Manual) 6 L (18-44) % Monocytes % (Manual) 13 H (3-9) % Eosinophils % (Manual) 1 (0-4) % Metamyelocytes % 2 % Myelocytes % 1 % Nucleated RBC % Not Reportable Abs Neuts (Manual) 16.24 H (1.3-6.7) K/mm3 Abs Lymphs (Manual) 1.26 (1.1-4.5) K/mm3 Abs Monocytes (Manual) 2.74 H (0.1-0.90) K/mm3 Absolute Eos (Manual) 0.21 (0.02-0.50) K/mm3 Platelet Estimate Adequate (Adequate) Schistocytes None seen PT 17.4 H (11.1-14.7) Seconds INR 1.4 APTT 37.8 H (22.3-36.8) Seconds Sodium 142 (137-145) mmol/L Potassium 4.5 (3.4-5.0) mmol/L Chloride 107 (98-107) mmol/L Carbon Dioxide 23 (22-30) mmol/L Anion Gap 12 (4-12) mmol/L BUN 39 H D (9-20) mg/dL Creatinine 0.94 (0.7-1.3) mg/dL Estim Creat Clear Calc 52 ml/min Estimated GFR > 60 (59 - ) Glucose 124 H (65-110) mg/dL Lactic Acid 3.6 H 1.9 (0.7-2.0) mmol/L Calcium 9.7 (8.4-10.2) mg/dL Magnesium 2.2 (1.6-2.3) mg/dL Total Bilirubin 0.7 (0.2-1.3) mg/dL AST 59 (17-59) U/L ALT 47 (6-50) U/L Alkaline Phosphatase 80 (38-126) U/L Troponin I 0.303 H* 0.322 H* (0.000-0.034) ng/mL NT-Pro-B Natriuret Pep 8850 H (19.9-100) pg/mL Total Protein 7.4 (6.3-8.2) g/dL Albumin 4.1 (3.5-5.1) g/dL Urine Color Dark yellow (Yellow) Urine Appearance Clear (Clear) Urine pH 5.5 (5.0-9.0) Ur Specific [place] 1.033 (1.001-1.035) Urine Protein 1+ H (Negative) mg/dL Urine Glucose (UA) Negative (Negative) mg/dL Urine Ketones Trace H (Negative) mg/dL Ur Blood (Man) Negative (Negative) Urine Nitrate Negative (Negative) Urine Bilirubin Negative (Negative) Urine Urobilinogen 1.0 (<2.0) mg/dL Leukocyte Esterase Rfl Trace H (Negative) CHUCK/UL Urine RBC 3-5 H (0-2) /hpf Urine WBC 6-10 H (0-3) /hpf Ur Squamous Epith Cells None seen (Few) /hpf Urine Bacteria None seen /hpf Urine Casts 3-5 <Sunitha Coyle, ORTHOPEDIC CODER - Last Filed: 02/06/25 17:52> Lab Results 02/06/25 02/06/25 02/06/25 Range/Units 18:04 19:57 20:43 WBC 21.1 H (4.5-10.0) K/mm3 RBC 3.81 L (4.6-6.20) M/mm3 Hgb 11.3 L (14.0-18.0) g/dL Hct 36.5 L (42.0-52.0) % MCV 95.8 (80-100) fl MCH 29.7 (26-34) pg MCHC 31.0 L (32-36) g/dl RDW 15.7 H (11.5-14.5) % Plt Count 334 D (150-375) k/mm3 MPV 10.5 H (7.4-10.4) fl Immature Gran % (Auto) Not Reportable Neut % (Auto) Not Reportable Lymph % (Auto) Not Reportable [place] % (Auto) Not Reportable Eos % (Auto) Not Reportable Baso % (Auto) Not Reportable Lymph # (Auto) Not Reportable [place] # (Auto) Not Reportable Eos # (Auto) Not Reportable Baso # (Auto) Not Reportable Abs Immat Gran (auto) Not Reportable Absolute Neuts (auto) Not Reportable Absolute Nucleated RBC Not Reportable Total Counted 100 Neutrophils % (Manual) 75 H (46-73) % Band Neutrophils % 2 (0-6) % Lymphocytes % (Manual) 6 L (18-44) % Monocytes % (Manual) 13 H (3-9) % Eosinophils % (Manual) 1 (0-4) % Metamyelocytes % 2 % Myelocytes % 1 % Nucleated RBC % Not Reportable Abs Neuts (Manual) 16.24 H (1.3-6.7) K/mm3 Abs Lymphs (Manual) 1.26 (1.1-4.5) K/mm3 Abs Monocytes (Manual) 2.74 H (0.1-0.90) K/mm3 Absolute Eos (Manual) 0.21 (0.02-0.50) K/mm3 Platelet Estimate Adequate (Adequate) Schistocytes None seen PT 17.4 H (11.1-14.7) Seconds INR 1.4 APTT 37.8 H (22.3-36.8) Seconds Sodium 142 (137-145) mmol/L Potassium 4.5 (3.4-5.0) mmol/L Chloride 107 (98-107) mmol/L Carbon Dioxide 23 (22-30) mmol/L Anion Gap 12 (4-12) mmol/L BUN 39 H D (9-20) mg/dL Creatinine 0.94 (0.7-1.3) mg/dL Estim Creat Clear Calc 52 ml/min Estimated GFR > 60 (59 - ) Glucose 124 H (65-110) mg/dL Lactic Acid 3.6 H 1.9 (0.7-2.0) mmol/L Calcium 9.7 (8.4-10.2) mg/dL Magnesium 2.2 (1.6-2.3) mg/dL Total Bilirubin 0.7 (0.2-1.3) mg/dL AST 59 (17-59) U/L ALT 47 (6-50) U/L Alkaline Phosphatase 80 (38-126) U/L Troponin I 0.303 H* 0.322 H* (0.000-0.034) ng/mL NT-Pro-B Natriuret Pep 8850 H (19.9-100) pg/mL Total Protein 7.4 (6.3-8.2) g/dL Albumin 4.1 (3.5-5.1) g/dL Urine Color Dark yellow (Yellow) Urine Appearance Clear (Clear) Urine pH 5.5 (5.0-9.0) Ur Specific [place] 1.033 (1.001-1.035) Urine Protein 1+ H (Negative) mg/dL Urine Glucose (UA) Negative (Negative) mg/dL Urine Ketones Trace H (Negative) mg/dL Ur Blood (Man) Negative (Negative) Urine Nitrate Negative (Negative) Urine Bilirubin Negative (Negative) Urine Urobilinogen 1.0 (<2.0) mg/dL Leukocyte Esterase Rfl Trace H (Negative) CHUCK/UL Urine RBC 3-5 H (0-2) /hpf Urine WBC 6-10 H (0-3) /hpf Ur Squamous Epith Cells None seen (Few) /hpf Urine Bacteria None seen /hpf Urine Casts 3-5 <Bari Padilla MD - Last Filed: 02/06/25 22:19> ABG Data ABG results: 02/06/25 02/06/25 19:39 21:29 Puncture Site Right radial Right radial ABG pH 7.517 H* 7.500 H ABG pCO2 26.4 L 27.2 L ABG pO2 71.6 L 75.7 L ABG PO2/FiO2 Ratio 2.56 2.70 ABG HCO3 20.9 L 20.7 L ABG O2 Saturation 96.0 96.4 ABG O2 Content 15.4 L 15.1 L ABG Base Excess -0.8 -1.4 A-a Gradient 96.9 91.8 Oxyhemoglobin 92.7 93.0 Total Hemoglobin 11.8 L 11.5 L O2 Delivery Device Nasal cannula Nasal cannula O2 Liters/Min 2.0 2.0 FiO2 28 28 <Sunitha Coyle APRN - Last Filed: 02/06/25 17:52> 02/06/25 02/06/25 19:39 21:29 Puncture Site Right radial Right radial ABG pH 7.517 H* 7.500 H ABG pCO2 26.4 L 27.2 L ABG pO2 71.6 L 75.7 L ABG PO2/FiO2 Ratio 2.56 2.70 ABG HCO3 20.9 L 20.7 L ABG O2 Saturation 96.0 96.4 ABG O2 Content 15.4 L 15.1 L ABG Base Excess -0.8 -1.4 A-a Gradient 96.9 91.8 Oxyhemoglobin 92.7 93.0 Total Hemoglobin 11.8 L 11.5 L O2 Delivery Device Nasal cannula Nasal cannula O2 Liters/Min 2.0 2.0 FiO2 28 28 <Bari Padilla MD - Last Filed: 02/06/25 22:19> Attestation: I personally reviewed and interpreted this ABG as follows: <Bari Padilla MD - Last Filed: 02/06/25 22:19> Interpretation: Respiratory alkalosis with hypoxemia <Bari Padilla MD - Last Filed: 02/06/25 22:19> Imaging Data Radiologist's impression: Impressions Chest X-Ray 02/06/25 18:30 IMPRESSION: Patchy ground glass opacities may represent infection or edema, overlying moderate chronic interstitial lung disease. Acute exacerbation of the interstitial disease should also be considered in the differential <Bari Padilla MD - Last Filed: 02/06/25 22:19> ECG Data EKG #1: ECG completion date: 02/06/25 <Bari Padilla MD - Last Filed: 02/06/25 22:19> ECG completion time: 17:54 <Bari Padilla MD - Last Filed: 02/06/25 22:19> Interpretation: Some artifact limits interpretation. Sinus tachycardia rate of 113, normal axis, normal intervals, nonspecific ST wave change <Bari Padilla MD - Last Filed: 02/06/25 22:19> EKG #2: Attestation: I personally reviewed and interpreted this ECG as follows: <Bari Padilal MD - Last Filed: 02/06/25 22:19> ECG completion date: 02/06/25 <Bari Padilla MD - Last Filed: 02/06/25 22:19> ECG completion time: 20:33 <Bari Padilla MD - Last Filed: 02/06/25 22:19> Prior ECG tracings: available for review (no significant change) <Bari Padilla MD - Last Filed: 02/06/25 22:19> Interpretation: Sinus tachycardia rate of 121, normal axis, normal intervals, nonspecific ST and T wave changes <Bari Padilla MD - Last Filed: 02/06/25 22:19> Discharge Plan Discharge Clinical Impression: Acute hypoxemic respiratory failure, Acute exacerbation of chronic obstructive pulmonary disease, Non-ST elevation (NSTEMI) myocardial infarction <Sunitha Coyle APRN - Last Filed: 02/06/25 17:52> Patient Disposition: Still a Patient <Sunitha Coyle APRN - Last Filed: 02/06/25 17:52> Condition: Stable <Sunitha Coyle APRN - Last Filed: 02/06/25 17:52> Patient Language: Malay <Sunitha Coyle APRN - Last Filed: 02/06/25 17:52> Prescriptions: No Action lorazepam 1 mg tablet 1 mg PO BID tamsulosin 0.4 mg capsule 0.4 mg PO QHS trifluoperazine 10 mg tablet 30 mg PO QHS divalproex 500 mg tablet,delayed release (DR/EC) 1,000 mg PO QHS venlafaxine 225 mg tablet extended release 24hr 225 mg PO QHS celecoxib 200 mg capsule 200 mg PO QAM aspirin 81 mg tablet,delayed release (DR/EC) 81 mg PO BID fluticasone furoate 100 mcg/actuation blister with device 1 inh inhalation DAILY Caltrate-D3 Plus Minerals 300 mg-800 unit -25 mg-0.5 mg tablet 1 tablet PO QAM primidone 50 mg tablet See Rx Instructions .ROUTE .COMPLEX Qty: 360 3RF Dose Instruction: TAKE 2 TABLETS BY MOUTH TWICE A DAY Rx Instructions: TAKE 2 TABLETS BY MOUTH TWICE A DAY donepezil 5 mg tablet See Rx Instructions .ROUTE .COMPLEX Qty: 90 3RF Dose Instruction: TAKE 1 TABLET DAILY IN THE EVENING Rx Instructions: TAKE 1 TABLET DAILY IN THE EVENING carbidopa-levodopa 25-250 mg tablet 2 tablet PO QID Qty: 480 3RF amoxicillin-pot clavulanate 875-125 mg tablet 1 tablet PO Q12H Qty: 11 0RF doxycycline hyclate 100 mg Tablet 100 mg PO Q12HR Qty: 6 0RF guaifenesin [Mucus Relief ER] 600 mg Tablet Extended Release 12hr 1,200 mg PO Q12HR Qty: 10 0RF <Sunitha Coyle APRN - Last Filed: 02/06/25 17:52> Follow-up/Referrals: Saeed,Junito Connelly MD [Primary Care Provider] - <Sunitha Coyle APRN - Last Filed: 02/06/25 17:52>
[2025-02-06 18:12] LABS: Hematocrit 36.5 % (42.0-52.0); Hemoglobin 11.3 g/dL (14.0-18.0); Mean Corpuscular HGB Conc 31.0 g/dl (32-36); Mean Corpuscular Hemoglobin 29.7 pg (26-34); Mean Corpuscular Volume 95.8 fl (80-100); Platelet Count Result 334 k/mm3 (150-375); Red Blood Count 3.81 M/mm3 (4.6-6.20); White Blood Count 21.1 K/mm3 (4.5-10.0)
[2025-02-06 18:23] LABS: INR 1.4; Prothrombin Time 17.4 Seconds (11.1-14.7)
[2025-02-06 18:24] LABS: Partial Thromboplastin Time 37.8 Seconds (22.3-36.8)
[2025-02-06 18:28] LABS: Band Neutrophils Percent 2 % (0-6); Lymphocytes Absolute Manual 1.26 K/mm3 (1.1-4.5); Lymphocytes Percent Manual 6 % (18-44); Monocytes Absolute Manual 2.74 K/mm3 (0.1-0.90); Monocytes Percent Manual 13 % (3-9); Neutrophils Absolute Manual 16.24 K/mm3 (1.3-6.7); Neutrophils Percent Manual 75 % (46-73); Total Cells Counted 100
[2025-02-06 18:29] LABS: Eosinophils Absolute Manual 0.21 K/mm3 (0.02-0.50); Eosinophils Percent Manual 1 % (0-4); Metamyelocytes Percent 2 %; Myelocytes Percent 1 %; Schistocytes None Seen
[2025-02-06 18:35] LABS: Alanine Aminotransferase 47 U/L (6-50); Albumin Level 4.1 g/dL (3.5-5.1); Alkaline Phosphatase 80 U/L (38-126); Anion Gap 12 mmol/L (4-12); Aspartate Amino Transferase 59 U/L (17-59); Bilirubin,Total 0.7 mg/dL (0.2-1.3); Blood Urea Nitrogen 39 mg/dL (9-20); Calcium 9.7 mg/dL (8.4-10.2); Carbon Dioxide 23 mmol/L (22-30); Chloride 107 mmol/L (98-107); Estimated CRCL calculation 52 ml/min; Estimated Glomerular Filt Rate > 60; Glucose 124 mg/dL (65-110); Magnesium 2.2 mg/dL (1.6-2.3); Potassium 4.5 mmol/L (3.4-5.0); Sodium 142 mmol/L (137-145); Total Protein 7.4 g/dL (6.3-8.2)
[2025-02-06 18:43] LABS: NT Pro B Type Natriuretic Pept 8850 pg/mL (19.9-100); Troponin I 0.303 ng/mL (0.000-0.034)
--- OUTSIDE RECORDS SUMMARY | 2025-02-06 19:29 | XMS_ITS | Clinical Summary ---
Author Organization [facility] Address [address] [place] [id number] Care Team Providers Care Nurses Assistant Name Role Phone Storm Rae MD Primary Care Provider [phone] Social History Tobacco Use Types Packs/Day Years [...] age to complete this topic Care Teams Nurses Assistant Relationship Specialty Start Date End Date Storm Rae MD [address] [address] PCP - General 03/29/11
[2025-02-06] MEDS: IPRATROPIUM 0.5 MG/ALBUTEROL SULFATE 2.5 MG AMPUL.NEB 3 ML INHALATION ×2 (19:40→21:43)
[2025-02-06 19:51] LABS: Alveolar/Arterial O2 Gradient 96.9 mmHg; Fractional Inspired Oxygen 28 %; HCO3 ABG 20.9 mEq/l (22.0-26.0); Oxygen Content ABG 15.4 %vol (16.0-22.0); Oxygen Saturation ABG 96.0 % (95.0-100.0); PCO2 ABG 26.4 mmHg (35.0-45.0); PO2 ABG 71.6 mmHg (80.0-100.0); PO2 FiO2 Ratio Arterial Blood 2.56 %
[2025-02-06 19:53] LABS: Liters per Minute 2.0 LPM; Modified Allen's Test Pass; Site Drawn RIGHT RADIAL
[2025-02-06] MEDS: SODIUM CHLORIDE 0.9% IV 500 ML 999 ML IV CONT (20:04)
[2025-02-06 20:16] LABS: Add Urine Microscopic? YES; Appearance Urine Clear (Clear); Glucose Urine UA Negative (Negative); Leukocyte Esterase Ur Trace LEU/UL (Negative); Nitrate Urine Negative (Negative); Specific Grav Ur 1.033 (1.001-1.035)
--- NOTE | 2025-02-06 20:30 | ECG_ITS ---
Test Date: 2025-02-06 20:33:16 Measurements Intervals [place] Rate: 121 P: 28 HI: 157 QRS: 3 QRSD: 78 T: 47 QT: 326 QTc: 463 Interpretive Statements SINUS TACHYCARDIA ST-T WAVE ABNORMALITY IN INF/LAT LEADS- CONSIDER ISCHEMIA ABNORMAL ECG Compared to ECG 02/06/2025 17:54:34 HEART RATE HAS INCREASED POSSIBLE ISCHEMIA NOW PRESENT Electronically Signed On 02-07-2025 06:33:30 CDT by Brandon Marshall D.O.
[2025-02-06] MEDS: DOXYCYCLINE HYCLATE 100 MG TABLET PO (21:05)
[2025-02-06] MEDS: cefTRIAXone 1 GM in SODIUM CHLORIDE 0.9% IV 50 ML 100 ML IVPB (21:05)
[2025-02-06 21:15] LABS: Troponin I 0.322 ng/mL (0.000-0.034)
[2025-02-06 21:47] LABS: Alveolar/Arterial O2 Gradient 91.8 mmHg; Fractional Inspired Oxygen 28 %; HCO3 ABG 20.7 mEq/l (22.0-26.0); Oxygen Content ABG 15.1 %vol (16.0-22.0); Oxygen Saturation ABG 96.4 % (95.0-100.0); PCO2 ABG 27.2 mmHg (35.0-45.0); PO2 ABG 75.7 mmHg (80.0-100.0); PO2 FiO2 Ratio Arterial Blood 2.70 %
[2025-02-06 21:49] LABS: Liters per Minute 2.0 LPM; Modified Allen's Test Pass; Site Drawn RIGHT RADIAL
[2025-02-07] VITALS (23 sets, daily range): BP systolic 101–146; BP diastolic 78–90; PULSE 106–130; RESP 18–34; TEMP 36.5–36.7; O2SAT 93–98; BMI 24.7; BMI 24.9
--- NOTE | 2025-02-07 | ECHO_ITS ---
Patient Info Name: Bartolome Maynard Age: 84 years : 1940 Gender: Male Ht: 68 in Wt: 164 lbs BSA: 1.90 m2 HR: 108 bpm BP: 109 / 83 mmHg Heart Rhythm: Sinus Rhythm Technical Quality: Good Exam Date: 02/07/2025 3:18 PM Patient Status: I Admit Date: 02/06/2025 Exam Type: CA echo dop color flow w con Complete two-dimensional, color flow and Doppler transthoracic echocardiogram is performed with contrast to opacify the left ventricle and to improve the deliniation of the left ventricle endocardial borders. Staff Referring Physician: Gregg Naik Oncology Pharmacist: Felicia Fernández Attending Provider: Jackie Lazcano DO Contrast/Agitated Saline Contrast/Ag. Saline: Definity Amount: 2.00 ml Administered By: Felicia Fernández Summary 1. Left ventricular chamber dimension is mildly enlarged. 2. Left ventricular systolic function is severely reduced, estimated at 25-30. 3. There is mildly increased left ventricular wall thickness. 4. The left ventricular diastolic function is grade I diastolic dysfunction. 5. Left atrial chamber dimension is moderately enlarged. 6. There is moderate mitral valve regurgitation. 7. The mitral valve annulus is mildly calcified. 8. There is mild aortic valve regurgitation. 9. There is mild tricuspid valve regurgitation. 10. Severe pulmonary hypertension, estimated pulmonary arterial systolic pressure is 60 mmHg. 11. There is moderate pulmonic regurgitation. Left Ventricle Left ventricular chamber dimension is mildly enlarged. Left ventricular systolic function is severely reduced, estimated at 25-30. There is mildly increased left ventricular wall thickness. The left ventricular diastolic function is grade I diastolic dysfunction. Right Ventricle Right ventricular chamber dimension is normal. Right ventricular systolic function is normal. Left Atria Left atrial chamber dimension is moderately enlarged. Right Atria Right atrial chamber dimension is normal. Atrial Septum Intact interatrial septum visualized by color flow imaging. Aortic Valve The aortic valve is trileaflet. There is mild aortic valve sclerosis. There is no aortic valve stenosis. There is mild aortic valve regurgitation. Pulmonic Valve The pulmonic valve is normal. There is no pulmonic valve stenosis. There is moderate pulmonic regurgitation. Mitral Valve There is no mitral valve stenosis. There is moderate mitral valve regurgitation. The mitral valve annulus is mildly calcified. Tricuspid Valve The tricuspid valve leaflets are normal. There is no significant tricuspid valve stenosis. There is mild tricuspid valve regurgitation. Severe pulmonary hypertension, estimated pulmonary arterial systolic pressure is 60 mmHg. Pericardium/Pleural The pericardium appears normal. There is no pericardial effusion. Inferior Vena Cava Normal inferior vena cava with >50% collapse upon inspiration consistent with normal right atrial pressure, 5 mmHg. Aorta The aortic root size at the sinus of Valsalva is normal. Left Ventricular Outflow Tract Name Value Normal LVOT 2D LVOT Diameter 2.1 cm LVOT Doppler LVOT Peak Velocity 59 cm/s LVOT Peak Gradient 1 mmHg LVOT Mean Gradient 1 mmHg LVOT VTI 11 cm LVOT Stroke Volume 37 ml LVOT CO 4.0 l/min LVOT CI 2.1 l/min/m2 Pulmonic Valve Name Value Normal RVOT Doppler RVOT Peak Velocity 42 cm/s RVOT Peak Gradient 1 mmHg PV Doppler PV Peak Velocity 67 cm/s PV Peak Gradient 2 mmHg PV Regurgitation Doppler MA Peak End Diastolic Velocity 182 cm/s Mitral Valve Name Value Normal MV Diastolic Function MV E Peak Velocity 88 cm/s MV A Peak Velocity 25 cm/s MV E/A 3.6 MV Decel Time (PW) 152 ms MV Annular TDI MV E/e' (Septal) 11.4 MV E/e' (Lateral) 10.7 MV E/e' (Average) 11.1 Tricuspid Valve Name Value Normal TV Regurgitation Doppler TR Peak Velocity 371 cm/s TR Peak Gradient 55 mmHg Estimated PAP/RSVP RA Pressure 5 mmHg <=5 PA Systolic Pressure 60 mmHg <36 RV Systolic Pressure 60 mmHg <36 Aortic Valve Name Value Normal AV Doppler AV Peak Velocity 91 cm/s AV Peak Gradient 3 mmHg AV Area (Cont Eq Mckay) 2.3 cm2 AV DI (Mckay) 0.65 AV Regurgitation 2D LVOT Area 3.5 cm2 Ventricles Name Value Normal LV Dimensions 2D/MM IVS Diastolic Thickness (2D) 1.2 cm 0.6-1.0 LVID Diastole (2D) 5.0 cm 4.2-5.8 LVIW Diastolic Thickness (2D) 1.2 cm 0.6-1.0 LVID Systole (2D) 4.3 cm 2.5-4.0 LVOT Diameter 2.1 cm LV Mass (2D Cubed) 229.46 g 88.00-224.00 LV Mass Index (2D Cubed) 121 g/m2 49-115 Relative Wall Thickness (2D) 0.47 <=0.42 LV Fractional Shortening/Ejection Fraction 2D/MM LV Fractional Shortening (2D) 13 % 25-43 LV EF (2D Teichholz) 29 % LV Diastolic Volume (4C MOD) 148 ml LV EF (4C MOD) 22 % LV Diastolic Volume (2C MOD) 140 ml LV EF (2C MOD) 38 % LV Diastolic Volume (BP MOD) 154 ml 62-150 LV Diastolic Volume Index (BP MOD) 81 ml/m2 34-74 LV Systolic Volume (BP MOD) 106 ml 21-61 LV Systolic Volume Index (BP MOD) 56 ml/m2 11-31 LV EF (BP MOD) 32 % 52-72 LV Diastolic Length (4C) 9.7 cm LV Systolic Length (4C) 9.0 cm LV Stroke Volume (4C MOD) 33 ml Atria Name Value Normal LA Dimensions LA Volume (4C A-L) 69 ml LA Volume (BP A-L) 60 ml RA Dimensions RA Systolic Major [place] Length (4C) 4.7 cm 2.1-2.7 RA Area (4C) 12.6 cm2 <=18.0 Report Signatures
[2025-02-07 00:16] LABS: Influenza A QL RT-PCR Negative (Negative); Influenza B QL RT-PCR Negative (Negative); RSV RNA, RT-PCR Negative (Negative); SARS-CoV-2 RNA PCR Negative (Negative)
--- NOTE | 2025-02-07 01:01 | ECG_ITS ---
Test Date: 2025-02-07 01:02:44 Measurements Intervals [place] Rate: 120 P: 35 IL: 163 QRS: 15 QRSD: 77 T: 64 QT: 321 QTc: 455 Interpretive Statements SINUS TACHYCARDIA ST-T WAVE ABNORMALITY IN INF/LAT LEADS- CONSIDER ISCHEMIA ABNORMAL ECG Compared to ECG 02/06/2025 20:33:16 No significant changes Electronically Signed On 02-07-2025 06:34:01 CDT by Brandon Marshall D.O.
--- NOTE | 2025-02-07 01:15 | ADMGEN ---
This patient, Bartolome Maynard, was admitted to IMU Room 205-02. Patient/family oriented to hospital policies and general routines including ID bracelet, bed and alarms, visiting hours, pain management, procedures, bathroom and other care routines, personal items, smoking policy, room service/diet, and visiting hours. Information on how to activate the Rapid Response Team has been discussed. Patient/Family are encouraged to report perceived risks to care and to ask questions if they do not understand what they are told or what they should do.
[2025-02-07] MEDS: LORazepam (*CRX) 1 MG TABLET PO ×3 (01:40→22:12)
[2025-02-07] MEDS: TAMSULOSIN HCL 0.4 MG CAPSULE PO ×2 (01:40→22:15)
[2025-02-07] MEDS: VENLAFAXINE HCL XR 75 MG CAP.ER.24H 225 MG PO ×2 (01:40→22:16)
[2025-02-07] MEDS: CARBIDOPA/LEVODOPA 25/250 MG TABLET 2 TABLET PO ×5 (01:40→22:14)
[2025-02-07] MEDS: diphenhydrAMINE HCl CAP 25 MG CAPSULE 50 MG PO ×2 (01:40→22:09)
[2025-02-07] MEDS: PRIMIDONE 50 MG TABLET 100 MG PO ×3 (01:40→22:14)
[2025-02-07] MEDS: DIVALPROEX SODIUM DR 250 MG TABEC 1000 MG PO ×2 (01:40→22:10)
[2025-02-07] MEDS: ASPIRIN 81 MG ENTERIC TABLET PO ×3 (01:40→17:21)
[2025-02-07] MEDS: IPRATROPIUM 0.5 MG/ALBUTEROL SULFATE 2.5 MG AMPUL.NEB 3 ML INHALATION ×2 (03:50→07:28)
[2025-02-07 05:32] LABS: Troponin I 0.303 ng/mL (0.000-0.034)
--- NOTE | 2025-02-07 07:30 | P.HP_ITS ---
H&P: HPI History of Present Illness Date/Time: 02/07/25 07:30 Chief Complaint: Worsening cough and shortness of Narrative: 84-year-old male with a past medical history of COPD, pulmonary fibrosis, bronchiectasis, Parkinson's disease, bipolar disorder, depression, BPH and dementia who presented to the ER with productive cough and shortness of breath. The patient states that he had received a prescription for Z-Rufus about 2 weeks ago. Despite taking the Z-Rufus he continued to have cough and the cough was productive of green to brownish sputum. He reports that he usually does have a cough that is productive of clear sputum but his sputum has definitely changed. He reports he has not been having any fever. A couple of days ago he called this provider again and was given a prescription for doxycycline. He took a couple of days of the doxycycline in still was not feeling any better. He noticed that he was having increased wheezing and significant shortness of breath. When he arrived to the ER he was having oxygen saturations of 85% on room air. He was noted to have significant leukocytosis and denies any significant fevers or chills. He denies any orthopnea. He has not noticed any lower extremity swelling. He has noticed that his abdomen is been more distended. He is unsure if he is emptying his bladder completely. He does report weak urinary stream at times. Patient does have history of presume dementia given is on Aricept but is a relatively good historian at the time of my evaluation he is alert oriented x4. He denies any recent confusion. Chest x-ray in the ER suggested likely pneumonia versus pulmonary edema. Patient's oxygen saturations improved up to 95% on 4 L nasal cannula but the patient was mouth breathing and subsequently was placed on a Venti mask. Review of Systems 2 Review of Systems: 12 systems were reviewed with pertinent positives and negatives per HPI. Except as documented in the HPI, all other systems were reviewed and are negative. [facility] Past Medical History Medical History (Updated 02/07/25 @ 07:47 by Jackie Lazcano DO) Bronchiectasis seen on CT scan 11/23/2024 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 11/23/2024 Benign prostatic hyperplasia Anxiety Bipolar disorder Gastroesophageal reflux disease Parkinson's Disease Chronic obstructive pulmonary disease Arthritis Depression Surgical History Surgical History History of cataract extraction History of cholecystectomy History of back surgery History of hip replacement Family History Family History Sibling Diabetes mellitus Father Cancer Sibling Heart disease Other Depression Social History Social History (Updated 02/07/25 @ 08:11 by Jackie Lazcano DO) Social History: The patient smoked 2-3 packs of unfiltered Camel cigarettes for 50 years prior to quitting. He quit smoking in 2006. He lives with his of almost 60 years. Surrogate medical decision maker: Helenchico Chen, spouse. Code status: DNR/DNI Smoking packs per day: 2 Smoking cigarettes per day: 40.0 Years smoked: 50 Smoking pack-years: 100.00 Smoking status: Former smoker Tobacco type: cigarettes Second hand tobacco smoke exposure: Yes Smoking end date: 06/26/06 Alcohol intake: never Substance use: never Substance use type: does not use Do You Feel Safe in your Home?: Yes Lack of Transportation: No Lack of Food: Never True Current Housing: I Have Housing Concerned About Future Housing: No Difficulty Paying Gas/Electric Bills: No Difficulty Paying for Meds: No Currently Unemployed: No Education: High School Diploma/GED Difficulty w/ Childcare or Family Care: No Living arrangements: with family Additional living arrangements comments: Lives with spouse. Occupation/Education: retired Additional occupation/education comments: Worked for [employer] (without a respirator). Spiritual care concerns: No Meds Home Medications and Allergies Home Medications ?Medication ?Instructions ?Recorded ?Confirmed ?Type aspirin 81 mg tablet,delayed 81 mg PO BID 03/15/21 02/06/25 History release calcium 300 mg-D3 20 mcg-magnesium 1 tablet PO QAM 03/15/21 02/06/25 History 25 mg-coppr 0.5 [id number] tablet (Caltrate-D3 Plus Minerals) celecoxib 200 mg capsule 200 mg PO QAM 03/15/21 02/06/25 History divalproex 500 mg tablet,delayed 1,000 mg PO QHS 03/15/21 02/06/25 History release fluticasone furoate 100 1 inh inhalation BID 03/15/21 02/06/25 History mcg/actuation blister powder for inhalation tamsulosin 0.4 mg capsule 0.4 mg PO QHS 03/15/21 02/06/25 History trifluoperazine 10 mg tablet 30 mg PO QHS 03/15/21 02/06/25 History venlafaxine 225 mg tablet,extended 225 mg PO QHS 03/15/21 02/06/25 History release 24 hr lorazepam 1 mg tablet 1 mg PO BID 06/13/23 02/06/25 History carbidopa 25 mg-levodopa 250 mg 2 tablet PO QID #480 tabs 11/11/24 02/06/25 Rx tablet donepezil 5 mg tablet See Rx Instructions .Route 11/11/24 02/06/25 Rx .COMPLEX #90 tabs primidone 50 mg tablet See Rx Instructions .Route 11/11/24 02/06/25 Rx .COMPLEX #360 tabs doxycycline hyclate 100 mg tablet 100 mg PO Q12HR #6 tabs 11/27/24 02/06/25 Rx diphenhydramine HCl 25 mg capsule 50 mg PO HS 02/06/25 02/06/25 History (Allergy (diphenhydramine)) Allergies Allergy/AdvReac Type Severity Reaction Status Date / Time No Known Allergies Allergy Verified 02/07/25 05:14 Vital Signs Vital Signs - 24 hr 02/06/25 17:42 02/06/25 18:54 02/06/25 19:00 Temperature 97.8 F Pulse Rate 113 H Respiratory Rate 22 H 27 H Blood Pressure 134/80 Pulse Oximetry 95 92 87 L Oxygen Delivery Room Air Oxygen Flow Rate 02/06/25 19:01 02/06/25 19:15 02/06/25 19:15 Temperature Pulse Rate Respiratory Rate Blood Pressure 149/105 H Pulse Oximetry 95 94 89 L Oxygen Delivery Nasal Cannula Oxygen Flow Rate 4 02/06/25 19:16 02/06/25 19:20 02/06/25 19:30 Temperature Pulse Rate Respiratory Rate 25 H Blood Pressure 156/86 H Pulse Oximetry 83 L 95 94 Oxygen Delivery Nasal Cannula Oxygen Flow Rate 4 02/06/25 19:31 02/06/25 19:45 02/06/25 19:46 Temperature Pulse Rate 113 H Respiratory Rate 22 H 26 H 42 H Blood Pressure 134/85 141/86 H Pulse Oximetry 94 94 Oxygen Delivery Oxygen Flow Rate 02/06/25 19:48 02/06/25 20:00 02/06/25 20:01 Temperature Pulse Rate 112 H 125 H Respiratory Rate 26 H 33 H Blood Pressure 144/81 H Pulse Oximetry 96 95 Oxygen Delivery Oxygen Flow Rate 02/06/25 20:15 02/06/25 20:16 02/06/25 20:30 Temperature Pulse Rate 119 H 121 H 119 H Respiratory Rate 22 H 25 H 28 H Blood Pressure 141/104 H Pulse Oximetry 97 96 96 Oxygen Delivery Oxygen Flow Rate 02/06/25 20:31 02/06/25 20:45 02/06/25 20:46 Temperature Pulse Rate 121 H 123 H 123 H Respiratory Rate 33 H 35 H 42 H Blood Pressure 138/99 H 140/127 H Pulse Oximetry 96 97 95 Oxygen Delivery Oxygen Flow Rate 02/06/25 21:00 02/06/25 21:01 02/06/25 21:15 Temperature Pulse Rate 125 H 125 H 122 H Respiratory Rate 24 H 24 H 25 H Blood Pressure 138/89 Pulse Oximetry 96 94 94 Oxygen Delivery Oxygen Flow Rate 02/06/25 21:30 02/06/25 21:45 02/06/25 21:45 Temperature Pulse Rate 125 H 124 H 122 H Respiratory Rate 39 H 26 H 24 H Blood Pressure Pulse Oximetry 97 94 Oxygen Delivery Oxygen Flow Rate 02/06/25 22:00 02/06/25 22:15 02/06/25 22:30 Temperature Pulse Rate 127 H 127 H 126 H Respiratory Rate 19 32 H 28 H Blood Pressure Pulse Oximetry 98 95 94 Oxygen Delivery Oxygen Flow Rate 02/06/25 22:32 02/06/25 22:55 02/07/25 00:39 Temperature Pulse Rate 125 H 116 H Respiratory Rate 26 H 25 H Blood Pressure 132/82 146/78 H Pulse Oximetry 92 97 98 Oxygen Delivery Simple Face Mask Oxygen Flow Rate 6 02/07/25 00:54 02/07/25 01:20 02/07/25 02:00 Temperature 97.9 F Pulse Rate 115 H 130 H Respiratory Rate 25 H 34 H Blood Pressure 121/90 Pulse Oximetry 96 98 96 Oxygen Delivery Simple Face Mask Oxygen Flow Rate 6 02/07/25 02:00 02/07/25 03:50 02/07/25 03:50 Temperature Pulse Rate 120 H 116 H 116 H Respiratory Rate 24 H 24 H Blood Pressure Pulse Oximetry 97 Oxygen Delivery Simple Face Mask Oxygen Flow Rate 6 02/07/25 04:00 02/07/25 04:00 02/07/25 04:00 Temperature 97.9 F Pulse Rate 117 H 114 H Respiratory Rate 24 H 24 H Blood Pressure 111/83 Pulse Oximetry 97 97 Oxygen Delivery Simple Face Mask Oxygen Flow Rate 6 02/07/25 04:00 02/07/25 06:00 Temperature Pulse Rate 117 H 117 H Respiratory Rate Blood Pressure Pulse Oximetry Oxygen Delivery Oxygen Flow Rate Exam 2 Narrative: Weight 74.4 kg BMI 24.9 Const: Other: Acutely ill-appearing, well-developed well-nourished, appears stated age HENMT: Other: Head is normocephalic atraumatic, mucous membranes are tacky, multiple dental bridges in place, no oral pharyngeal erythema Eyes: Other: Pupils are equal and reactive with bilateral and lens implants noted Neck: Other: No JVD, no lymphadenopathy Resp: Other: Diffuse wheezing all lung james, coarse breath sound, conversational tachypnea Cardio: Other: Sinus tachycardia, 2+ bilateral radial and pedal pulses, no JVD, no murmur GI: Other: Distended, firm, abdominal respirations, positive bowel sounds : Other: Pure wick catheter in place Skin: Other: Generalized pallor, non jaundice Neuro: Other: A alert oriented x4, speech is clear, no facial asymmetry, no localizing neurologic deficits noted during the course of conversation Extrem: Other: No cyanosis, no edema, moves all extremities equally Psych: Other: Appropriate mood and affect, pleasant and cooperative, judgment and insight intact H&P: Results Labs Labs: Laboratory Tests 02/06/25 18:04 02/06/25 18:04 02/06/25 02/06/25 02/06/25 18:04 19:39 19:57 WBC 21.1 H RBC 3.81 L Hgb 11.3 L Hct 36.5 L MCV 95.8 MCH 29.7 MCHC 31.0 L RDW 15.7 H Plt Count 334 D MPV 10.5 H Immature Gran % (Auto) Not Reportable Neut % (Auto) Not Reportable Lymph % (Auto) Not Reportable [place] % (Auto) Not Reportable Eos % (Auto) Not Reportable Baso % (Auto) Not Reportable Lymph # (Auto) Not Reportable [place] # (Auto) Not Reportable Eos # (Auto) Not Reportable Baso # (Auto) Not Reportable Abs Immat Gran (auto) Not Reportable Absolute Neuts (auto) Not Reportable Absolute Nucleated RBC Not Reportable Total Counted 100 Neutrophils % (Manual) 75 H Band Neutrophils % 2 Lymphocytes % (Manual) 6 L Monocytes % (Manual) 13 H Eosinophils % (Manual) 1 Metamyelocytes % 2 Myelocytes % 1 Nucleated RBC % Not Reportable Abs Neuts (Manual) 16.24 H Abs Lymphs (Manual) 1.26 Abs Monocytes (Manual) 2.74 H Absolute Eos (Manual) 0.21 Platelet Estimate Adequate Schistocytes None seen PT 17.4 H INR 1.4 APTT 37.8 H Puncture Site Right radial ABG pH 7.517 H* ABG pCO2 26.4 L ABG pO2 71.6 L ABG PO2/FiO2 Ratio 2.56 ABG HCO3 20.9 L ABG O2 Saturation 96.0 ABG O2 Content 15.4 L ABG Base Excess -0.8 A-a Gradient 96.9 Oxyhemoglobin 92.7 Total Hemoglobin 11.8 L O2 Delivery Device Nasal cannula O2 Liters/Min 2.0 FiO2 28 Sodium 142 Potassium 4.5 Chloride 107 Carbon Dioxide 23 Anion Gap 12 BUN 39 H D Creatinine 0.94 Estim Creat Clear Calc 52 Estimated GFR > 60 Glucose 124 H Lactic Acid 3.6 H Calcium 9.7 Magnesium 2.2 Total Bilirubin 0.7 AST 59 ALT 47 Alkaline Phosphatase 80 Troponin I 0.303 H* NT-Pro-B Natriuret Pep 8850 H Total Protein 7.4 Albumin 4.1 Urine Color Dark yellow Urine Appearance Clear Urine pH 5.5 Ur Specific [place] 1.033 Urine Protein 1+ H Urine Glucose (UA) Negative Urine Ketones Trace H Ur Blood (Man) Negative Urine Nitrate Negative Urine Bilirubin Negative Urine Urobilinogen 1.0 Leukocyte Esterase Rfl Trace H Urine RBC 3-5 H Urine WBC 6-10 H Ur Squamous Epith Cells None seen Urine Bacteria None seen Urine Casts 3-5 Influenza A (RT-PCR) Influenza B (RT-PCR) RSV (RT-PCR) SARS-CoV-2 RNA (RT-PCR) 02/06/25 02/06/25 02/06/25 20:43 21:29 23:36 WBC RBC Hgb Hct MCV MCH MCHC RDW Plt Count MPV Immature Gran % (Auto) Neut % (Auto) Lymph % (Auto) [place] % (Auto) Eos % (Auto) Baso % (Auto) Lymph # (Auto) [place] # (Auto) Eos # (Auto) Baso # (Auto) Abs Immat Gran (auto) Absolute Neuts (auto) Absolute Nucleated RBC Total Counted Neutrophils % (Manual) Band Neutrophils % Lymphocytes % (Manual) Monocytes % (Manual) Eosinophils % (Manual) Metamyelocytes % Myelocytes % Nucleated RBC % Abs Neuts (Manual) Abs Lymphs (Manual) Abs Monocytes (Manual) Absolute Eos (Manual) Platelet Estimate Schistocytes PT INR APTT Puncture Site Right radial ABG pH 7.500 H ABG pCO2 27.2 L ABG pO2 75.7 L ABG PO2/FiO2 Ratio 2.70 ABG HCO3 20.7 L ABG O2 Saturation 96.4 ABG O2 Content 15.1 L ABG Base Excess -1.4 A-a Gradient 91.8 Oxyhemoglobin 93.0 Total Hemoglobin 11.5 L O2 Delivery Device Nasal cannula O2 Liters/Min 2.0 FiO2 28 Sodium Potassium Chloride Carbon Dioxide Anion Gap BUN Creatinine Estim Creat Clear Calc Estimated GFR Glucose Lactic Acid 1.9 Calcium Magnesium Total Bilirubin AST ALT Alkaline Phosphatase Troponin I 0.322 H* NT-Pro-B Natriuret Pep Total Protein Albumin Urine Color Urine Appearance Urine pH Ur Specific [place] Urine Protein Urine Glucose (UA) Urine Ketones Ur Blood (Man) Urine Nitrate Urine Bilirubin Urine Urobilinogen Leukocyte Esterase Rfl Urine RBC Urine WBC Ur Squamous Epith Cells Urine Bacteria Urine Casts Influenza A (RT-PCR) Negative Influenza B (RT-PCR) Negative RSV (RT-PCR) Negative SARS-CoV-2 RNA (RT-PCR) Negative 02/07/25 01:03 WBC RBC Hgb Hct MCV MCH MCHC RDW Plt Count MPV Immature Gran % (Auto) Neut % (Auto) Lymph % (Auto) [place] % (Auto) Eos % (Auto) Baso % (Auto) Lymph # (Auto) [place] # (Auto) Eos # (Auto) Baso # (Auto) Abs Immat Gran (auto) Absolute Neuts (auto) Absolute Nucleated RBC Total Counted Neutrophils % (Manual) Band Neutrophils % Lymphocytes % (Manual) Monocytes % (Manual) Eosinophils % (Manual) Metamyelocytes % Myelocytes % Nucleated RBC % Abs Neuts (Manual) Abs Lymphs (Manual) Abs Monocytes (Manual) Absolute Eos (Manual) Platelet Estimate Schistocytes PT INR APTT Puncture Site ABG pH ABG pCO2 ABG pO2 ABG PO2/FiO2 Ratio ABG HCO3 ABG O2 Saturation ABG O2 Content ABG Base Excess A-a Gradient Oxyhemoglobin Total Hemoglobin O2 Delivery Device O2 Liters/Min FiO2 Sodium Potassium Chloride Carbon Dioxide Anion Gap BUN Creatinine Estim Creat Clear Calc Estimated GFR Glucose Lactic Acid Calcium Magnesium Total Bilirubin AST ALT Alkaline Phosphatase Troponin I 0.303 H* NT-Pro-B Natriuret Pep Total Protein Albumin Urine Color Urine Appearance Urine pH Ur Specific [place] Urine Protein Urine Glucose (UA) Urine Ketones Ur Blood (Man) Urine Nitrate Urine Bilirubin Urine Urobilinogen Leukocyte Esterase Rfl Urine RBC Urine WBC Ur Squamous Epith Cells Urine Bacteria Urine Casts Influenza A (RT-PCR) Influenza B (RT-PCR) RSV (RT-PCR) SARS-CoV-2 RNA (RT-PCR) Impressions Chest X-Ray 02/06/25 18:30 IMPRESSION: Patchy ground glass opacities may represent infection or edema, overlying moderate chronic interstitial lung disease. Acute exacerbation of the interstitial disease should also be considered in the differential EKG:Test Date: 2025-02-06 17:54:34 Measurements Intervals [place] Rate: 113 P: 30 [place]: 166 QRS: 13 QRSD: 77 T: 63 QT: 346 QTc: 475 Interpretive Statements SINUS TACHYCARDIA DELAYED PRECORDIAL R/S TRANSITION BORDERLINE ST-T WAVE ABNORMALITY- DIFFUSE LEADS BASELINE ARTIFACT- I, III, AVL, AVF, V1, V4-V6 ABNORMAL ECG Compared to ECG 11/24/2024 10:56:44 HEART RATE HAS INCREASED All imaging and EKGs personally reviewed and interpreted. And unless stated otherwise agree with radiologic and cardiology interpretation. Assessment and Plan Assessment and plan (1) Acute hypoxic respiratory failure: Code(s): J96.01 - Acute respiratory failure with hypoxia Status: Acute (2) Acute exacerbation of chronic obstructive pulmonary disease: Code(s): J44.1 - Chronic obstructive pulmonary disease with (acute) exacerbation Status: Acute (3) Sepsis: Qualifiers: Sepsis type: sepsis due to unspecified organism Sepsis acute organ dysfunction status: with acute organ dysfunction Severe sepsis acute organ dysfunction type: acute respiratory failure Acute respiratory failure type: w ith hypoxia Severe sepsis shock status: without septic shock Qualified Code(s): A41.9 - Sepsis, unspecified organism; R65.20 - Severe sepsis without septic shock; J96.01 - Acute respiratory failure with hypoxia Code(s): A41.9 - Sepsis, unspecified organism Status: Acute (4) Lactic acidosis: Code(s): E87.20 - Acidosis, unspecified Status: Acute (5) Elevated troponin: Code(s): R79.89 - Other specified abnormal findings of blood chemistry Status: Acute Plan Patient met sepsis criteria with tachycardia, tachypnea, leukocytosis in the setting of bilateral pneumonia on imaging with associated acute hypoxic respiratory failure persistent lactic acidosis after 1 L fluid bolus. Patient did not receive 30 mL/kilos fluid bolus due to ER concern for fluid status. At the time of my evaluation patient appears to be intervascular volume depleted. I will give the patient additional 2 L of IV fluid hydration at 150 mL an hour and then re-evaluate fluid status. Patient's lactic acid is doses did improve on repeat labs this a.m.. Patient was started on empiric antibiotic therapy with Rocephin and doxycycline in the ER. Blood cultures have been obtained and are pending. Will check urine Legionella and pneumococcal antigen. Will obtain sputum culture and send for Gram stain. The patient is a likely also has COPD exacerbation due to lower respiratory infection with pneumonia. Patient received 1 dose of IV Solu-Medrol in the ER. Will place patient on scheduled Solu-Medrol 60 mg q.6 hours and scheduled DuoNebs. Will resume patient's home inhalers. Will wean oxygen as tolerated. Will repeat CBC and electrolyte panel in a.m.. Patient did have been mildly elevated troponins most likely due to a demand ischemia from acute hypoxic respiratory failure and tachycardia. Will trend troponins and monitor. Patient is not having any chest pain or EKG changes to indicate acute plaque rupture. MEDICAL DECISION MAKING NARRATIVE -Spoke with the ED provider in detail regarding patient's evaluation, workup and management -Patient seen and examined at bedside -Collaborated with patient's nurse at the bedside in detail and addressed all concerns -Labs, electrolytes, radiology, investigations and test results reviewed -ED/Consult/Nursing/Ancilliary notes on the chart reviewed and appreciated -Spoke with patient at bedside and plan was discussed. Patient is in agreement with plan. Quality VTE Prophylaxis VTE prophylaxis: mechanical ordered (SCDs) Hospitalist MIPS Advance Care Plan I have confirmed that the patient's Advanced Care Plan is present, code status is documented, or surrogate decision maker is listed in patient medical record.: Yes Medication Reconciliation I have utilized all available resources to obtain, update and review the patients current medications (includes all prescriptions, OTC, herbals, cannabis, and nutritional supplements).: Yes
[2025-02-07] MEDS: CELECOXIB 200 MG CAPSULE PO (08:25)
[2025-02-07] MEDS: DOXYCYCLINE HYCLATE 100 MG TABLET PO ×2 (08:26→22:21)
[2025-02-07] MEDS: FLUTICASONE PROP 110 MCG INHALER 12 GM (*SP) 2 PUFF INHALATION ×2 (09:07→20:20)
--- NOTE | 2025-02-07 09:56 | P.CONCA_ITS ---
Assessment and Plan Assessment and plan (1) Elevated troponin: Code(s): R79.89 - Other specified abnormal findings of blood chemistry Status: Acute Assessment and Plan: Troponin levels are 0.303, 0.322, and 0.303. This troponin trend is not consistent with acute coronary syndrome, however he has been having intermittent chest pain for the past 4-6 months. It is certainly possible that he has some underlying coronary artery disease and troponin leak represents demand ischemia in the setting of sepsis, hypoxia, acute kidney injury. He does also have some ST depression on EKG which also raises concern for underlying coronary artery disease. Will check an echocardiogram today and plan for some sort of ischemic evaluation when he has recovered from his acute illness. Certainly if he has any LV dysfunction or wall motion abnormalities left heart catheterization could be performed during this hospitalization. (2) Sepsis: Code(s): A41.9 - Sepsis, unspecified organism Status: Acute Assessment and Plan: Meet sepsis criteria. On antibiotics. Management per hospitalist. (3) Pneumonia: Code(s): J18.9 - Pneumonia, unspecified organism Status: Acute Assessment and Plan: Treatment per hospitalist (4) Acute hypoxemic respiratory failure: Code(s): J96.01 - Acute respiratory failure with hypoxia Status: Acute Assessment and Plan: Improving, currently on 6 L oxygen per high-flow nasal cannula. Management per hospitalist. History of Present Illness History of Present Illness Consult date/time: 02/07/25 09:56 Requesting physician: Aldair Dumont MD Consult reason: Other (elevated troponin) Reason For Visit: Acute hypoxic respiratory fail,COPD exacerbation,N Narrative: Bartolome Maynard is an 84-year-old male with COPD, Parkinson's disease, dementia, BPH, bipolar disorder, and depression. This is a patient who presents to the hospital with complaints productive cough and shortness of breath. Cardiology is consulted because of elevated troponins. He states that he has been sick with upper respiratory illness for about 2 weeks. Despite antibiotic treatment as an outpatient, he continued to is have symptoms. Therefore, he came to the emergency department for further evaluation. He was hypoxic on arrival and is now admitted and being treated for sepsis and pneumonia. Patient does provide history of intermittent chest pain for the past 4-6 months. He describes it as a crushing central chest pain that seems to come and go at random. He does not notice the pain with exertion stating that he has a punching bag that he boxes with for exercise and does not experience chest pain with this activity. He denies having any chest pain currently. Review of Systems 2 Review of Systems: All systems reviewed & are unremarkable except as noted in HPI and below [facility] Past Medical History Medical History Bronchiectasis seen on CT scan 11/23/2024 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 11/23/2024 Benign prostatic hyperplasia Anxiety Bipolar disorder Gastroesophageal reflux disease Parkinson's Disease Chronic obstructive pulmonary disease Arthritis Depression Surgical History Surgical History History of cataract extraction History of cholecystectomy History of back surgery History of hip replacement Family History Family History Sibling Diabetes mellitus Father Cancer Sibling Heart disease Other Depression Social History Social History Social History: The patient smoked 2-3 packs of unfiltered Camel cigarettes for 50 years prior to quitting. He quit smoking in 2006. He lives with his of almost 60 years. Surrogate medical decision maker: Helen Chen, spouse. Code status: DNR/DNI Smoking packs per day: 2 Smoking cigarettes per day: 40.0 Years smoked: 50 Smoking pack-years: 100.00 Smoking status: Former smoker Tobacco type: cigarettes Second hand tobacco smoke exposure: Yes Smoking end date: 06/26/06 Alcohol intake: never Substance use: never Substance use type: does not use Do You Feel Safe in your Home?: Yes Lack of Transportation: No Lack of Food: Never True Current Housing: I Have Housing Concerned About Future Housing: No Difficulty Paying Gas/Electric Bills: No Difficulty Paying for Meds: No Currently Unemployed: No Education: High School Diploma/GED Difficulty w/ Childcare or Family Care: No Living arrangements: with family Additional living arrangements comments: Lives with spouse. Occupation/Education: retired Additional occupation/education comments: Worked for [employer] vehicles (without a respirator). Spiritual care concerns: No Meds Home Medications and Allergies Home Medications ?Medication ?Instructions ?Recorded ?Confirmed ?Type aspirin 81 mg tablet,delayed 81 mg PO BID 03/15/21 02/06/25 History release calcium 300 mg-D3 20 mcg-magnesium 1 tablet PO QAM 03/15/21 02/06/25 History 25 mg-coppr 0.5 ft-eaxy-hvht tablet (Caltrate-D3 Plus Minerals) celecoxib 200 mg capsule 200 mg PO QAM 03/15/21 02/06/25 History divalproex 500 mg tablet,delayed 1,000 mg PO QHS 03/15/21 02/06/25 History release fluticasone furoate 100 1 inh inhalation BID 03/15/21 02/06/25 History mcg/actuation blister powder for inhalation tamsulosin 0.4 mg capsule 0.4 mg PO QHS 03/15/21 02/06/25 History trifluoperazine 10 mg tablet 30 mg PO QHS 03/15/21 02/06/25 History venlafaxine 225 mg tablet,extended 225 mg PO QHS 03/15/21 02/06/25 History release 24 hr lorazepam 1 mg tablet 1 mg PO BID 06/13/23 02/06/25 History carbidopa 25 mg-levodopa 250 mg 2 tablet PO QID #480 tabs 11/11/24 02/06/25 Rx tablet donepezil 5 mg tablet See Rx Instructions .Route 11/11/24 02/06/25 Rx .COMPLEX #90 tabs primidone 50 mg tablet See Rx Instructions .Route 11/11/24 02/06/25 Rx .COMPLEX #360 tabs doxycycline hyclate 100 mg tablet 100 mg PO Q12HR #6 tabs 11/27/24 02/06/25 Rx diphenhydramine HCl 25 mg capsule 50 mg PO HS 02/06/25 02/06/25 History (Allergy (diphenhydramine)) Allergies Allergy/AdvReac Type Severity Reaction Status Date / Time No Known Allergies Allergy Verified 02/07/25 05:14 Vital Signs Vital Signs - 24 hr 02/06/25 17:42 02/06/25 18:54 02/06/25 19:00 Temperature 36.6 C Pulse Rate 113 H Respiratory Rate 22 H 27 H Blood Pressure 134/80 Pulse Oximetry 95 92 87 L Oxygen Delivery Room Air Oxygen Flow Rate 02/06/25 19:01 02/06/25 19:15 02/06/25 19:15 Temperature Pulse Rate Respiratory Rate Blood Pressure 149/105 H Pulse Oximetry 95 94 89 L Oxygen Delivery Nasal Cannula Oxygen Flow Rate 4 02/06/25 19:16 02/06/25 19:20 02/06/25 19:30 Temperature Pulse Rate Respiratory Rate 25 H Blood Pressure 156/86 H Pulse Oximetry 83 L 95 94 Oxygen Delivery Nasal Cannula Oxygen Flow Rate 4 02/06/25 19:31 02/06/25 19:45 02/06/25 19:46 Temperature Pulse Rate 113 H Respiratory Rate 22 H 26 H 42 H Blood Pressure 134/85 141/86 H Pulse Oximetry 94 94 Oxygen Delivery Oxygen Flow Rate 02/06/25 19:48 02/06/25 20:00 02/06/25 20:01 Temperature Pulse Rate 112 H 125 H Respiratory Rate 26 H 33 H Blood Pressure 144/81 H Pulse Oximetry 96 95 Oxygen Delivery Oxygen Flow Rate 02/06/25 20:15 02/06/25 20:16 02/06/25 20:30 Temperature Pulse Rate 119 H 121 H 119 H Respiratory Rate 22 H 25 H 28 H Blood Pressure 141/104 H Pulse Oximetry 97 96 96 Oxygen Delivery Oxygen Flow Rate 02/06/25 20:31 02/06/25 20:45 02/06/25 20:46 Temperature Pulse Rate 121 H 123 H 123 H Respiratory Rate 33 H 35 H 42 H Blood Pressure 138/99 H 140/127 H Pulse Oximetry 96 97 95 Oxygen Delivery Oxygen Flow Rate 02/06/25 21:00 02/06/25 21:01 02/06/25 21:15 Temperature Pulse Rate 125 H 125 H 122 H Respiratory Rate 24 H 24 H 25 H Blood Pressure 138/89 Pulse Oximetry 96 94 94 Oxygen Delivery Oxygen Flow Rate 02/06/25 21:30 02/06/25 21:45 02/06/25 21:45 Temperature Pulse Rate 125 H 124 H 122 H Respiratory Rate 39 H 26 H 24 H Blood Pressure Pulse Oximetry 97 94 Oxygen Delivery Oxygen Flow Rate 02/06/25 22:00 02/06/25 22:15 02/06/25 22:30 Temperature Pulse Rate 127 H 127 H 126 H Respiratory Rate 19 32 H 28 H Blood Pressure Pulse Oximetry 98 95 94 Oxygen Delivery Oxygen Flow Rate 02/06/25 22:32 02/06/25 22:55 02/07/25 00:39 Temperature Pulse Rate 125 H 116 H Respiratory Rate 26 H 25 H Blood Pressure 132/82 146/78 H Pulse Oximetry 92 97 98 Oxygen Delivery Simple Face Mask Oxygen Flow Rate 6 02/07/25 00:54 02/07/25 01:20 02/07/25 02:00 Temperature 36.6 C Pulse Rate 115 H 130 H Respiratory Rate 25 H 34 H Blood Pressure 121/90 Pulse Oximetry 96 98 96 Oxygen Delivery Simple Face Mask Oxygen Flow Rate 6 02/07/25 02:00 02/07/25 03:50 02/07/25 03:50 Temperature Pulse Rate 120 H 116 H 116 H Respiratory Rate 24 H 24 H Blood Pressure Pulse Oximetry 97 Oxygen Delivery Simple Face Mask Oxygen Flow Rate 6 02/07/25 04:00 02/07/25 04:00 02/07/25 04:00 Temperature 36.6 C Pulse Rate 117 H 114 H Respiratory Rate 24 H 24 H Blood Pressure 111/83 Pulse Oximetry 97 97 Oxygen Delivery Simple Face Mask Oxygen Flow Rate 6 02/07/25 04:00 02/07/25 06:00 02/07/25 07:34 Temperature Pulse Rate 117 H 117 H 116 H Respiratory Rate 24 H Blood Pressure Pulse Oximetry Oxygen Delivery Oxygen Flow Rate 02/07/25 08:00 02/07/25 08:00 02/07/25 08:00 Temperature 36.7 C Pulse Rate 116 H 117 H 117 H Respiratory Rate 24 H 24 H Blood Pressure 109/83 Pulse Oximetry 96 96 Oxygen Delivery High Flow Therapy with Na Oxygen Flow Rate 6 Exam 2 Const: General: comfortable, no acute distress, alert and awake O rientation/consciousness: patient oriented x3 HENMT: Head: normal to inspection Eyes: General: appearance normal, both eyes and all related structures P upils: Equal, round and reactive pupils present Neck: Neck: normal visual inspection, supple and no JVD Carotids: normal carotid upstroke Resp: Effort & Inspection: normal respiratory effort Auscultation: crackles and rhonchi Cardio: Rate: tachycardic Rhythm: regular rhythm Heart sounds: S1 normal heart sound present, S2 normal heart sound present and no murmurs GI: Auscultation: normal bowel sounds Skin: General skin exam: normal color Neuro: General: patient oriented x3 Cranial nerves: Yes Equal, round and reactive pupils present Extrem: General: normal to inspection Psych: Appearance: grossly normal Mental Status: mental status grossly normal Results Labs and Meds 02/07/25 09:49 02/07/25 09:49 Lab results: Cardiac Enzymes 02/06/25 02/06/25 02/07/25 Range/Units 18:04 20:43 01:03 AST 59 (17-59) U/L Troponin I 0.303 H* 0.322 H* 0.303 H* (0.000-0.034) ng/mL Coagulation 02/06/25 Range/Units 18:04 PT 17.4 H (11.1-14.7) Seconds APTT 37.8 H (22.3-36.8) Seconds CBC 02/06/25 Range/Units 18:04 WBC 21.1 H (4.5-10.0) K/mm3 RBC 3.81 L (4.6-6.20) M/mm3 Hgb 11.3 L (14.0-18.0) g/dL Hct 36.5 L (42.0-52.0) % Plt Count 334 D (150-375) k/mm3 Lymph # (Auto) Not Reportable [place] # (Auto) Not Reportable Eos # (Auto) Not Reportable Baso # (Auto) Not Reportable Comprehensive Metabolic Panel 02/06/25 Range/Units 18:04 Sodium 142 (137-145) mmol/L Potassium 4.5 (3.4-5.0) mmol/L Chloride 107 (98-107) mmol/L Carbon Dioxide 23 (22-30) mmol/L BUN 39 H D (9-20) mg/dL Creatinine 0.94 (0.7-1.3) mg/dL Glucose 124 H (65-110) mg/dL Calcium 9.7 (8.4-10.2) mg/dL AST 59 (17-59) U/L ALT 47 (6-50) U/L Alkaline Phosphatase 80 (38-126) U/L Total Protein 7.4 (6.3-8.2) g/dL Albumin 4.1 (3.5-5.1) g/dL Intake and Output 02/06/25 02/07/25 02/07/25 23:59 07:59 15:59 Intake Total 550 100 240 Output Total 200 300 Balance 550 -100 -60 Intake: IV 550 Sodium Chloride 0.9% IV 500 ml 500 @ 999 mls/hr IV CONT .Q31M STA Rx#:[id number] cefTRIAXone 1 gm In Sodium 50 Chloride 0.9% IV 50 ml @ 100 mls/hr IVPB ONCE STA Rx#: [id number] Oral 100 240 Output: Urine 200 300 Patient Weight 02/07/25 23:59 Weight 74.4 kg
[2025-02-07 10:04] LABS: Hematocrit 32.5 % (42.0-52.0); Hemoglobin 10.1 g/dL (14.0-18.0); Mean Corpuscular HGB Conc 31.1 g/dl (32-36); Mean Corpuscular Hemoglobin 30.1 pg (26-34); Mean Corpuscular Volume 96.7 fl (80-100); Platelet Count Result 304 k/mm3 (150-375); Red Blood Count 3.36 M/mm3 (4.6-6.20); White Blood Count 18.0 K/mm3 (4.5-10.0)
[2025-02-07 10:32] LABS: Anion Gap 11 mmol/L (4-12); Blood Urea Nitrogen 34 mg/dL (9-20); Calcium 9.3 mg/dL (8.4-10.2); Carbon Dioxide 24 mmol/L (22-30); Chloride 107 mmol/L (98-107); Estimated CRCL calculation 61 ml/min; Estimated Glomerular Filt Rate > 60; Glucose 121 mg/dL (65-110); Magnesium 2.3 mg/dL (1.6-2.3); Potassium 4.5 mmol/L (3.4-5.0); Sodium 142 mmol/L (137-145)
--- NOTE | 2025-02-07 11:27 | PM.CNPUL ---
Assessment and Plan Assessment and plan (1) Chronic obstructive pulmonary disease: Code(s): J44.9 - Chronic obstructive pulmonary disease, unspecified Status: Acute Assessment and Plan: Regarding patient's COPD He the family tells me he was diagnosed 10 years ago. He denies ever having PFTs. He was given inhalers and these did help him. He smoked 2 packs a day from 1957 until 2006 for a total of 100 pack years. He was exposed to secondhand smoke from his father. He denies vaping or illicit drug use. CT scan of the chest on 09/30/2024 shows mild apical predominant panlobular emphysema. He is maintained on fluticasone 100 q.day. At the base line patient is very limited in his activity. Ten years ago he could walk unlimited going slow. Five years ago he began using walker and could walk 1 block. One year ago he could walk half a block. Six months ago he says he could walk half a block. He was admitted to the hospital on 11/23/2024 with pneumonia and colitis and has lost strength since then and his breathing has never recovered. He did not require oxygen at discharge. Patient presents now with change in sputum volume call our, change in sputum color, worsening shortness of breath, leukocytosis and wheezing. I will treat him for COPD exacerbation and he may have a pneumonia. 02/07/2025: Currently the patient tells me he feels better. He is 26% back to his normal. His cough is improved and is 26% back to normal. He has decreased volume of phlegm. His appetite is improved and he 8 like a horse. His white blood cell count is 18.0, his creatinine is 0.79. His BNP is 9220, his CRP is 4.1. D dimer is 1.08. when I enter the room the patient was on 4 L nasal cannula saturations 95%. I decreased her 3 L and his saturations were 95%. I decreased him to 2 L and his saturations were 92%. Plan: currently has no wheezes. I will decrease his Solu-Medrol to 20 mg IV q.6 hours. Patient is tachycardic at 1:10 a.m. on the DuoNebs and I will discontinue albuterol. I will place the patient on ipratropium nebulizers Q.4 hours and follow him clinically. if the patient has continued bronchospasm will add levalbuterol nebulizer. I will order alpha 1 anti trypsin genotype and level tomorrow. I will obtain a CT scan of the chest with contrast to assess his bullous emphysema and to look for evidence of pneumonia. At this time he was clinically improving on ceftriaxone and doxycycline, day 2 will continue. Goal saturation 90-94%. Pulmonary inpatient consultative services will resume on 02/10/2025, call with questions. Discussed with Dr. Dumont, will follow with you. (2) Pulmonary fibrosis: Code(s): J84.10 - Pulmonary fibrosis, unspecified Status: Acute Assessment and Plan: Regarding his interstitial lung disease this is seen on the first CT scan of the chest in our system on 09/30/2024 with calcified pleural plaques, basilar and peripheral reticulations with honeycombing. In my opinion this is a CT scan with a typical UIP CT pattern. Patient denies any rheumatoid arthritis or skin rashes. Patient worked at [employer] and [employer] from [id number] with no respiratory protection. He denied welding, sandblasting, coal mining work, construction work. Etiology of interstitial lung disease includes: IPF, asbestosis, occupational lung disease from professional car painting for 30 years. Plan: Will check a CT scan of the chest looking for ground-glass infiltrates which may indicate a flare of his pulmonary fibrosis. Continue steroids as above. Regarding other etiologies for his interstitial lung disease I will send serologies. I will order a VEGA screen that includes 11 different auto antibodies, an ANCA screen, a rheumatoid factor, anti CCP antibody, hypersensitivity pneumonitis panel, a CPK, an aldolase level, CRP, ESR and myomarker 3 plus profile. Patient will need outpatient PFTs once he is clinically stable. (3) Bronchiectasis: Code(s): J47.9 - Bronchiectasis, uncomplicated Status: Acute Assessment and Plan: Regarding his bronchiectasis. He does have a chronic cough 2-3 times in the 1st hour and intermittently makes phlegm during this 1st hour but his symptoms have not progressed. The bronchiectasis on his CT scan appears not to be related to traction bronchiectasis. Plan: I will send serologies looking for an autoimmune disease process, immunodeficiency as an etiology to the patient's bronchiectasis. I will send total IgG, IgM, IgA, IgE, IgG subclass, Aspergillus IgG, Aspergillus IgE, VEGA screen and rheumatoid factor. (4) Pleural plaque due to asbestos exposure: Code(s): J92.0 - Pleural plaque with presence of asbestos Status: Acute Assessment and Plan: Regarding his calcified pleural plaques. The patient worked in [employer] and was surrounded by asbestos pipes that ran from the ceiling to the floor. He did not work on the asbestos insulation but he was exposed to these pipes all his life. Plan: At a minimum the patient has asbestos exposure. He also has interstitial lung disease and may have asbestosis. Will check CT scan of the chest looking for ground-glass infiltrates. History of Present Illness History of Present Illness Consult date: 02/07/25 Chief complaint: Acute hypoxic respiratory fail,COPD exacerbation,N Narrative: 02/07/2025: This is a new pulmonary consult for shortness of breath. 84-year-old with a history of COPD, Interstitial lung disease, bronchiectasis, calcified pleural plaques,Parkinson's disease, BPH, bipolar disease. Regarding patient's COPD He the family tells me he was diagnosed 10 years ago. He denies ever having PFTs. He was given inhalers and these did help him. He smoked 2 packs a day from 1957 until 2006 for a total of 100 pack years. He was exposed to secondhand smoke from his father. He denies vaping or illicit drug use. CT scan of the chest on 09/30/2024 shows mild apical predominant panlobular emphysema. He is maintained on fluticasone 100 q.day. Regarding his interstitial lung disease this is for seen on The for CT scan of the chest in our system on 09/30/2024 with calcified pleural plaques, basilar and peripheral reticulations with honeycombing. Patient denies any rheumatoid arthritis or skin rashes. Patient worked at [employer] from [id number] with no respiratory protection. He denied welding, sandblasting, coal mining work, construction work. Regarding his bronchiectasis. He does have a chronic cough 2-3 times in the 1st hour and intermittently makes phlegm during this 1st hour but his symptoms have not progressed. The bronchiectasis on his CT scan appears not to be related to traction bronchiectasis. Regarding his calcified pleural plaques. The patient worked in [employer] and was surrounded by asbestos pipes that ran from the ceiling to the floor. He did not work on the asbestos insulation but he was exposed to these pipes all his life. at the base line patient is very limited in his activity. Ten years ago he could walk unlimited going slow. Five years ago he began using walker and could walk 1 block. One year ago he could walk half a block. Six months ago he says he could walk half a block. He was admitted to the hospital on 11/23/2024 with pneumonia and colitis and has lost strength since then and his breathing has never recovered. He did not require oxygen at discharge. 11/23/2024 through 11/27/2024. Patient was admitted to the hospital with colitis and pneumonia. He was treated on Zosyn and discharged on Augmentin and doxycycline. He had a biopsy of his colon that was consistent with ischemic colitis. CT scan of the chest on 11/23/2024 compared to 09/30/2024 showed unchanged mild apical predominant panlobular emphysema, unchanged calcified pleural plaques, unchanged lower lobe bronchiectasis, new right upper lobe patchy infiltrate. Unchanged peripheral and basilar reticulations and honeycombing in my opinion with a typical UIP CT pattern. Approximately 01/24/2025 the patient developed cough and shortness of breath was prescribed a Z-Rufus. By his PCP. He did not improve and was then prescribe doxycycline. On 02/06 the patient had worsening shortness of breath, dyspnea on exertion, increase in his phlegm volume, change in the color of his phlegm from green to dark green and black and presented to the emergency department. His blood pressure is 134/80, heart rate 113, respirations 22, room air saturations 95%. He had diffuse expiratory wheezes. His white blood cell count was 21.1, eosinophils 1%, creatinine 0.94. BNP 8850, troponin positive 0.303, point 0322. COVID influenza, RSV RT PCR assay negative. Patient had a blood gas on 2 L at 752/20 6/72. 2 hours later the patient had a blood gas on 2 L with a pH of 7.50/27/76. Patient was given 3 L IV fluids, Rocephin, doxycycline and Solu-Medrol and bronchodilators. 02/07/2025: Currently the patient tells me he feels better. He is 26% back to his normal. His cough is improved and is 26% back to normal. He has decreased volume of phlegm. His appetite is improved and he 8 like a horse. His white blood cell count is 18.0, his creatinine is 0.79. His BNP is 9220, his CRP is 4.1. D dimer is 1.08. when I enter the room the patient was on 4 L nasal cannula saturations 95%. I decreased her 3 L and his saturations were 95%. I decreased him to 2 L and his saturations were 92%. DATA 11/23/2024: EXAMINATION: CT diagnostic chest wo con DATE: 11/23/2024 11:48 INDICATION: Possible pneumonia. TECHNIQUE: Computed tomography (CT) of the chest was performed without intravenous contrast. The dose-length product was 269.67 mGy-cm. Automated exposure control and iterative reconstruction technique were employed. COMPARISON: CT dated 09/30/2024 FINDINGS: There is patent patchy consolidation of the right upper lobe consistent with pneumonia. There is focal consolidation in the right lower lobe as well. There is extensive chronic interstitial lung disease with bronchiectasis bilaterally. No endobronchial lesions. There is atherosclerosis of the aorta and coronary arteries. Heart size normal. There is residual contrast in the renal collecting systems, likely from prior contrast study. There is severe thoracic and upper lumbar spondylosis with dextroscoliosis. IMPRESSION: 1. Patchy predominantly right-sided airspace consolidation, consistent with pneumonia. 2: Chronic interstitial lung disease, consistent with pulmonary fibrosis. There is associated bronchiectasis bilaterally. 09/30/2024: EXAMINATION: CTA chest PE abdomen pel INDICATION: Remote history of chest and abdominal pain, now resolved. FINDINGS/OBSERVATIONS: PULMONARY ARTERIES: No filling defect is identified within the main or proximal pulmonary artery. The main pulmonary artery is not enlarged. THORACIC AORTA: No aneurysmal dilatation or dissection is present. The great vessels are intact LUNGS: Chronic interstitial change is detected bilaterally. Peripheral honeycombing is also noted, as is central lobular emphysematous disease. Calcified pleural plaques are noted. MEDIASTINUM: No morphologically suspicious or pathologically enlarged lymph nodes are identified within the mediastinum or bilateral axilla. BONES OF THE CHEST: No acute fracture. Age-appropriate degenerative disease. No lytic or blastic lesions. HEART: The heart is of normal size, without pericardial effusion. LIVER: Punctate calcifications identified within the hepatic parenchyma, suggesting prior granulomatous disease. Remainder of the liver is otherwise unremarkable, and is not enlarged. GALLBLADDER AND BILIARY SYSTEM: The gallbladder is surgically absent. PANCREAS: The pancreas enhances homogeneously without ductal dilatation. SPLEEN: Punctate calcifications identified within the splenic parenchyma, suggesting prior granulomatous disease. The remainder of the spleen otherwise enhances homogeneously and is not enlarged. KIDNEYS: The bilateral kidneys enhance symmetrically without hydronephrosis or renal calculi. ADRENAL GLANDS: Unremarkable. GASTROINTESTINAL TRACT: Colonic diverticulosis without surrounding inflammatory change. APPENDIX: The appendix is not definitively visualized. However, no pericecal inflammatory change is identified suggest the presence of acute appendicitis. VASCULATURE: Densely calcified atherosclerotic disease, without aneurysmal dilatation or significant stenosis. LYMPH NODES: No pathologically enlarged or morphologically suspicious lymph nodes within the retroperitoneum or at the root of the mesentery. PELVIC STRUCTURES: The bladder is significantly distended, and otherwise unremarkable. Limited evaluation of the pelvis secondary to streak metallic artifact from patient's right hip prosthetic and lower lumbar spine hardware. The prostate gland does not appear to be enlarged. BODY WALL AND MUSCULOSKELETAL: Posterior fixation hardware at the level of L4, L5 and S1 with postlaminectomy change. 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 IMPRESSION: No pulmonary embolus. No aortic dissection. No acute pathology identified within the chest, abdomen or pelvis, as detailed above Review of Systems Constitutional: Constitutional: Reports no additional constitutional complaints Eyes: Eyes: Reports no additional eye complaints ENT: Reports system reviewed and no additional complaints, except as documented Cardiovascular: Cardiovascular: Reports no additional cardiovascular complaints Respiratory: Respiratory: Reports no additional respiratory complaints Gastrointestinal: Gastrointestinal: Reports no additional gastrointestinal complaints Musculoskeletal: Musculoskeletal: Reports no additional musculoskeletal complaints Neurologic: Reports system reviewed and no additional complaints, except as documented Psychiatric: Psychiatric: Reports no additional psychiatric complaints Endocrine: Endocrine: Reports no additional endocrine complaints Hematologic/Lymphatic: Hematologic/Lymphatic: Reports no additional hematologic/lymphatic complaints Allergic/Immunologic: Allergic/Immunologic: Reports no additional allergic/immunologic complaints [facility] Past Medical History Medical History Bronchiectasis seen on CT scan 11/23/2024 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 11/23/2024 Benign prostatic hyperplasia Anxiety Bipolar disorder Gastroesophageal reflux disease Parkinson's Disease Chronic obstructive pulmonary disease Arthritis Depression Surgical History Surgical History History of cataract extraction History of cholecystectomy History of back surgery History of hip replacement Family History Family History Sibling Diabetes mellitus Father Cancer Sibling Heart disease Other Depression Social History Social History Social History: The patient smoked 2-3 packs of unfiltered Camel cigarettes for 50 years prior to quitting. He quit smoking in 2006. He lives with his of almost 60 years. Surrogate medical decision maker: Helen Chen, spouse. Code status: DNR/DNI Smoking packs per day: 2 Smoking cigarettes per day: 40.0 Years smoked: 50 Smoking pack-years: 100.00 Smoking status: Former smoker Tobacco type: cigarettes Second hand tobacco smoke exposure: Yes Smoking end date: 06/26/06 Alcohol intake: never Substance use: never Substance use type: does not use Do You Feel Safe in your Home?: Yes Lack of Transportation: No Lack of Food: Never True Current Housing: I Have Housing Concerned About Future Housing: No Difficulty Paying Gas/Electric Bills: No Difficulty Paying for Meds: No Currently Unemployed: No Education: High School Diploma/GED Difficulty w/ Childcare or Family Care: No Living arrangements: with family Additional living arrangements comments: Lives with spouse. Occupation/Education: retired Additional occupation/education comments: Worked for [employer] (without a respirator). Spiritual care concerns: No Meds Home Medications and Allergies Home Medications ?Medication ?Instructions ?Recorded ?Confirmed ?Type aspirin 81 mg tablet,delayed 81 mg PO BID 03/15/21 02/06/25 History release calcium 300 mg-D3 20 mcg-magnesium 1 tablet PO QAM 03/15/21 02/06/25 History 25 mg-coppr 0.5 [id number] tablet (Caltrate-D3 Plus Minerals) celecoxib 200 mg capsule 200 mg PO QAM 03/15/21 02/06/25 History divalproex 500 mg tablet,delayed 1,000 mg PO QHS 03/15/21 02/06/25 History release fluticasone furoate 100 1 inh inhalation BID 03/15/21 02/06/25 History mcg/actuation blister powder for inhalation tamsulosin 0.4 mg capsule 0.4 mg PO QHS 03/15/21 02/06/25 History trifluoperazine 10 mg tablet 30 mg PO QHS 03/15/21 02/06/25 History venlafaxine 225 mg tablet,extended 225 mg PO QHS 03/15/21 02/06/25 History release 24 hr lorazepam 1 mg tablet 1 mg PO BID 06/13/23 02/06/25 History carbidopa 25 mg-levodopa 250 mg 2 tablet PO QID #480 tabs 11/11/24 02/06/25 Rx tablet donepezil 5 mg tablet See Rx Instructions .Route 11/11/24 02/06/25 Rx .COMPLEX #90 tabs primidone 50 mg tablet See Rx Instructions .Route 11/11/24 02/06/25 Rx .COMPLEX #360 tabs doxycycline hyclate 100 mg tablet 100 mg PO Q12HR #6 tabs 11/27/24 02/06/25 Rx diphenhydramine HCl 25 mg capsule 50 mg PO HS 02/06/25 02/06/25 History (Allergy (diphenhydramine)) Allergies Allergy/AdvReac Type Severity Reaction Status Date / Time No Known Allergies Allergy Verified 02/07/25 05:14 Vital Signs Vital Signs - 24 hr 02/06/25 17:42 02/06/25 18:54 02/06/25 19:00 Temperature 36.6 C Pulse Rate 113 H Respiratory Rate 22 H 27 H Blood Pressure 134/80 Pulse Oximetry 95 92 87 L Oxygen Delivery Room Air Oxygen Flow Rate 02/06/25 19:01 02/06/25 19:15 02/06/25 19:15 Temperature Pulse Rate Respiratory Rate Blood Pressure 149/105 H Pulse Oximetry 95 94 89 L Oxygen Delivery Nasal Cannula Oxygen Flow Rate 4 02/06/25 19:16 02/06/25 19:20 02/06/25 19:30 Temperature Pulse Rate Respiratory Rate 25 H Blood Pressure 156/86 H Pulse Oximetry 83 L 95 94 Oxygen Delivery Nasal Cannula Oxygen Flow Rate 4 02/06/25 19:31 02/06/25 19:45 02/06/25 19:46 Temperature Pulse Rate 113 H Respiratory Rate 22 H 26 H 42 H Blood Pressure 134/85 141/86 H Pulse Oximetry 94 94 Oxygen Delivery Oxygen Flow Rate 02/06/25 19:48 02/06/25 20:00 02/06/25 20:01 Temperature Pulse Rate 112 H 125 H Respiratory Rate 26 H 33 H Blood Pressure 144/81 H Pulse Oximetry 96 95 Oxygen Delivery Oxygen Flow Rate 02/06/25 20:15 02/06/25 20:16 02/06/25 20:30 Temperature Pulse Rate 119 H 121 H 119 H Respiratory Rate 22 H 25 H 28 H Blood Pressure 141/104 H Pulse Oximetry 97 96 96 Oxygen Delivery Oxygen Flow Rate 02/06/25 20:31 02/06/25 20:45 02/06/25 20:46 Temperature Pulse Rate 121 H 123 H 123 H Respiratory Rate 33 H 35 H 42 H Blood Pressure 138/99 H 140/127 H Pulse Oximetry 96 97 95 Oxygen Delivery Oxygen Flow Rate 02/06/25 21:00 02/06/25 21:01 02/06/25 21:15 Temperature Pulse Rate 125 H 125 H 122 H Respiratory Rate 24 H 24 H 25 H Blood Pressure 138/89 Pulse Oximetry 96 94 94 Oxygen Delivery Oxygen Flow Rate 02/06/25 21:30 02/06/25 21:45 02/06/25 21:45 Temperature Pulse Rate 125 H 124 H 122 H Respiratory Rate 39 H 26 H 24 H Blood Pressure Pulse Oximetry 97 94 Oxygen Delivery Oxygen Flow Rate 02/06/25 22:00 02/06/25 22:15 02/06/25 22:30 Temperature Pulse Rate 127 H 127 H 126 H Respiratory Rate 19 32 H 28 H Blood Pressure Pulse Oximetry 98 95 94 Oxygen Delivery Oxygen Flow Rate 02/06/25 22:32 02/06/25 22:55 02/07/25 00:39 Temperature Pulse Rate 125 H 116 H Respiratory Rate 26 H 25 H Blood Pressure 132/82 146/78 H Pulse Oximetry 92 97 98 Oxygen Delivery Simple Face Mask Oxygen Flow Rate 6 02/07/25 00:54 02/07/25 01:20 02/07/25 02:00 Temperature 36.6 C Pulse Rate 115 H 130 H Respiratory Rate 25 H 34 H Blood Pressure 121/90 Pulse Oximetry 96 98 96 Oxygen Delivery Simple Face Mask Oxygen Flow Rate 6 02/07/25 02:00 02/07/25 03:50 02/07/25 03:50 Temperature Pulse Rate 120 H 116 H 116 H Respiratory Rate 24 H 24 H Blood Pressure Pulse Oximetry 97 Oxygen Delivery Simple Face Mask Oxygen Flow Rate 6 02/07/25 04:00 02/07/25 04:00 02/07/25 04:00 Temperature 36.6 C Pulse Rate 117 H 114 H Respiratory Rate 24 H 24 H Blood Pressure 111/83 Pulse Oximetry 97 97 Oxygen Delivery Simple Face Mask Oxygen Flow Rate 6 02/07/25 04:00 02/07/25 06:00 02/07/25 07:34 Temperature Pulse Rate 117 H 117 H 116 H Respiratory Rate 24 H Blood Pressure Pulse Oximetry Oxygen Delivery Oxygen Flow Rate 02/07/25 08:00 02/07/25 08:00 02/07/25 08:00 Temperature 36.7 C Pulse Rate 116 H 117 H 117 H Respiratory Rate 24 H 24 H Blood Pressure 109/83 Pulse Oximetry 96 96 Oxygen Delivery High Flow Therapy with Na Oxygen Flow Rate 6 02/07/25 10:00 Temperature Pulse Rate 113 H Respiratory Rate Blood Pressure Pulse Oximetry Oxygen Delivery Oxygen Flow Rate Exam Const: General: cooperative, healthy appearing, comfortable and in distress Orientation/consciousness: oriented to person, oriented to place and oriented to time Other: mild respiratory distress HENMT: Head: normal to inspection Ears: hearing grossly normal bilaterally Eyes: General: appearance normal, both eyes and all related structures Neck: Neck: normal visual inspection Chest: Chest palpation & inspection: normal inspection of the chest Resp: Effort & Inspection: normal respiratory effort and able to speak in complete sentences Auscultation: crackles, no rales, no rhonchi, no wheezes and lung sounds not diminished Other: Dry crackles at the bases. No wheezes. Cardio: Jugular venous distension: no JVD GI: Inspection: normal to inspection GI Palp: No abdominal tenderness Skin: General skin exam: normal color Neuro: General: oriented to person, oriented to place and oriented to time Extrem: General: normal to inspection Psych: Appearance: grossly normal Results Laboratory Findings 02/07/25 09:49 02/07/25 09:49 ABG, PT/INR, D-dimer: ABG ABG pH 7.500 (7.350-7.450) H 02/06/25 21:29 ABG pCO2 27.2 mmHg (35.0-45.0) L 02/06/25 21:29 ABG pO2 75.7 mmHg (80.0-100.0) L 02/06/25 21:29 ABG O2 Saturation 96.4 % (95.0-100.0) 02/06/25 21:29 PT/INR, D-dimer PT 17.4 Seconds (11.1-14.7) H 02/06/25 18:04 INR 1.4 02/06/25 18:04 Abnormal lab findings: Abnormal Labs 02/06/25 02/06/25 02/06/25 18:04 19:39 19:57 WBC 21.1 H RBC 3.81 L Hgb 11.3 L Hct 36.5 L MCHC 31.0 L RDW 15.7 H MPV 10.5 H Neutrophils % (Manual) 75 H Lymphocytes % (Manual) 6 L Monocytes % (Manual) 13 H Abs Neuts (Manual) 16.24 H Abs Monocytes (Manual) 2.74 H PT 17.4 H APTT 37.8 H ABG pH 7.517 H* ABG pCO2 26.4 L ABG pO2 71.6 L ABG HCO3 20.9 L ABG O2 Content 15.4 L Total Hemoglobin 11.8 L BUN 39 H D Glucose 124 H Lactic Acid 3.6 H Troponin I 0.303 H* NT-Pro-B Natriuret Pep 8850 H Urine Protein 1+ H Urine Ketones Trace H Leukocyte Esterase Rfl Trace H Urine RBC 3-5 H Urine WBC 6-10 H 02/06/25 02/06/25 02/07/25 20:43 21:29 01:03 WBC RBC Hgb Hct MCHC RDW MPV Neutrophils % (Manual) Lymphocytes % (Manual) Monocytes % (Manual) Abs Neuts (Manual) Abs Monocytes (Manual) PT APTT ABG pH 7.500 H ABG pCO2 27.2 L ABG pO2 75.7 L ABG HCO3 20.7 L ABG O2 Content 15.1 L Total Hemoglobin 11.5 L BUN Glucose Lactic Acid Troponin I 0.322 H* 0.303 H* NT-Pro-B Natriuret Pep Urine Protein Urine Ketones Leukocyte Esterase Rfl Urine RBC Urine WBC 02/07/25 09:49 WBC 18.0 H RBC 3.36 L Hgb 10.1 L Hct 32.5 L MCHC 31.1 L RDW 15.9 H MPV Neutrophils % (Manual) Lymphocytes % (Manual) Monocytes % (Manual) Abs Neuts (Manual) Abs Monocytes (Manual) PT APTT ABG pH ABG pCO2 ABG pO2 ABG HCO3 ABG O2 Content Total Hemoglobin BUN 34 H Glucose 121 H Lactic Acid Troponin I NT-Pro-B Natriuret Pep Urine Protein Urine Ketones Leukocyte Esterase Rfl Urine RBC Urine WBC Diagnostic Findings Additional studies: ITS Impressions Chest X-Ray 02/06/25 18:30 IMPRESSION: Patchy ground glass opacities may represent infection or edema, overlying moderate chronic interstitial lung disease. Acute exacerbation of the interstitial disease should also be considered in the differential
[2025-02-07 12:30] LABS: CRP 4.1 mg/dL (<1.0)
[2025-02-07 12:31] LABS: NT Pro B Type Natriuretic Pept 9220 pg/mL (19.9-100)
--- NOTE | 2025-02-07 13:54 | PCSTNOTE ---
Please refer to the Modified Barium Swallow Evaluation in the EMR. The above very pleasant patient, with a dx of pneumonia & h/o Parkinson's disease seen for an MBS; he was seated for a lateral view and presented with 5cc of thin liquid barium via a spoon, pudding consistency barium via a spoon, a cracker coated with barium pudding via spoon, and an uncontrolled thin liquid barium bolus. This was presented via a straw & cup. Oral preparatory and oral phase symptoms: none. Pharyngeal phase symptoms: very shallow (flash/quickly ejected) laryngeal penetration with thin liquids when taken via a cup but no aspiration occurred. Esophageal stage symptoms: none. No aspiration occurred. Impressions: Overall, the patient presents with functional swallow ability throughout all stages of the swallow; laryngeal penetration was exhibited during the trial of uncontrolled thin liquids when taken via consecutive cup drinking but no aspiration occurred. It appeared to clear without aspiration. Recommendation: regular diet with regular liquids. Sit upright with all oral intake.
--- NOTE | 2025-02-07 14:58 | PHAR ---
PT'S HOME MED TRIFLUOPERAZINE 10 MG TABS VERIFIED BY PHARMACY
[2025-02-07 15:54] LABS: Procalcitonin 0.1 ng/mL
[2025-02-07] MEDS: PERFLUTREN LIPID MICROSPHERES 1.5 ML VIAL DILUTED TO 10 ML TOTAL VOLUME IV PUSH (16:00)
--- NOTE | 2025-02-07 16:00 | IVDEFINITY ---
Prior to administration of IV Definity the patient was educated on the risks and benefits of the imaging enhancing agent including potential adverse side effects. The patient verbalized understanding. Allergies were verified. No exclusion criteria were identified and at least one of the following inclusion criteria were met: 1) physician request, 2) patient technically difficult to image (per the [place] [employer] guidelines of two or more segments not discernable within the apical view), or 3) questionable left ventricular function. ?
[2025-02-07] MEDS: IPRATROPIUM BR 0.02% INH SOLN 0.5 MG/2.5 ML VIAL INHALATION ×2 (16:16→20:17)
[2025-02-07 16:27] LABS: MRSA (PCR) NOT DETECTED (NOT DETECTE)
--- NOTE | 2025-02-07 17:52 | P.PNIM_ITS ---
Progress Note: A&P Assessment and Plan (1) Acute hypoxic respiratory failure: Code(s): J96.01 - Acute respiratory failure with hypoxia Status: Acute (2) Acute exacerbation of chronic obstructive pulmonary disease: Code(s): J44.1 - Chronic obstructive pulmonary disease with (acute) exacerbation Status: Acute (3) Sepsis: Qualifiers: Sepsis type: sepsis due to unspecified organism Sepsis acute organ dysfunction status: with acute organ dysfunction Severe sepsis acute organ dysfunction type: acute respiratory failure Acute respiratory failure type: with hypoxia Severe sepsis shock status: without septic shock Qualified Code(s): A41.9 - Sepsis, unspecified organism; R65.20 - Severe sepsis without septic shock; J96.01 - Acute respiratory failure with hypoxia Code(s): A41.9 - Sepsis, unspecified organism Status: Acute (4) Lactic acidosis: Code(s): E87.20 - Acidosis, unspecified Status: Acute (5) Elevated troponin: Code(s): R79.89 - Other specified abnormal findings of blood chemistry Status: Acute Plan Patient met sepsis criteria with tachycardia, tachypnea, leukocytosis in the setting of bilateral pneumonia on imaging with associated acute hypoxic respiratory failure persistent lactic acidosis after 1 L fluid bolus. Patient did not receive 30 mL/kilos fluid bolus due to ER concern for fluid status. At the time of my evaluation patient appears to be intervascular volume depleted. I will give the patient additional 2 L of IV fluid hydration at 150 mL an hour and then re-evaluate fluid status. Patient's lactic acid is doses did improve on repeat labs this a.m.. Patient was started on empiric antibiotic therapy with Rocephin and doxycycline in the ER. Blood cultures have been obtained and are pending. Will check urine Legionella and pneumococcal antigen. Will obtain sputum culture and send for Gram stain. The patient is a likely also has COPD exacerbation due to lower respiratory infection with pneumonia. Patient received 1 dose of IV Solu-Medrol in the ER. Will place patient on scheduled Solu-Medrol 60 mg q.6 hours and scheduled DuoNebs. Will resume patient's home inhalers. Will wean oxygen as tolerated. Will repeat CBC and electrolyte panel in a.m.. Patient did have been mildly elevated troponins most likely due to a demand ischemia from acute hypoxic respiratory failure and tachycardia. Will trend troponins and monitor. Patient is not having any chest pain or EKG changes to indicate acute plaque rupture. 84 male presented with c/o shortness of breath with long history of smoking, working with paint and asbestos unprotected has developed severe COPD and ILD, patient is being treated with steroids, updraft and Levaquin, will consult Dr. Naik, corporate real estate manager for further recommendations, will CPM and monitor. patient daughter is present and gave updates. Subjective Date/time seen: 02/07/25 17:52 Interval history: Worsening cough and shortness of H&P-Narrative: 84-year-old male with a past medical history of COPD, pulmonary fibrosis, bronchiectasis, Parkinson's disease, bipolar disorder, depression, BPH and dementia who presented to the ER with productive cough and shortness of breath. The patient states that he had received a prescription for Z-Rufus about 2 weeks ago. Despite taking the Z-Rufus he continued to have cough and the cough was productive of green to brownish sputum. He reports that he usually does have a cough that is productive of clear sputum but his sputum has definitely changed. He reports he has not been having any fever. A couple of days ago he called this provider again and was given a prescription for doxycycline. He took a couple of days of the doxycycline in still was not feeling any better. He noticed that he was having increased wheezing and significant shortness of breath. When he arrived to the ER he was having oxygen saturations of 85% on room air. He was noted to have significant leukocytosis and denies any significant fevers or chills. He denies any orthopnea. He has not noticed any lower extremity swelling. He has noticed that his abdomen is been more distended. He is unsure if he is emptying his bladder completely. He does report weak urinary stream at times. Patient does have history of presume dementia given is on Aricept but is a relatively good historian at the time of my evaluation he is alert oriented x4. He denies any recent confusion. Chest x-ray in the ER suggested likely pneumonia versus pulmonary edema. Patient's oxygen saturations improved up to 95% on 4 L nasal cannula but the patient was mouth breathing and subsequently was placed on a Venti mask. 84 male presented with c/o shortness of breath with long history of smoking, working with paint and asbestos unprotected has developed severe COPD and ILD, patient is being treated with steroids, updraft and Levaquin, will consult Dr. Naik, corporate real estate manager for further recommendations, will CPM and monitor. patient daughter is present and gave updates. Review of Systems Review of Systems: 12 systems were reviewed with pertinent positives and negatives per HPI. Except as documented in the HPI, all other systems were reviewed and are negative. Exam Narrative: Patient is comfortable, NAD HEENT: eyes are clear and none icteric LUNGS: Bilateral poor air entry with rhonchi HEART: RR S1S2 ABD: BS+, Soft and nontender Lower extremities: no edema SKIN: nonjaundiced Neuro: grossly intact. Objective Data Vital Signs Vital Signs: Vital Signs - 24 hr 02/06/25 18:54 02/06/25 19:00 02/06/25 19:01 Temperature Pulse Rate Respiratory Rate 27 H Blood Pressure 149/105 H Pulse Oximetry 92 87 L 95 Oxygen Delivery Oxygen Flow Rate 02/06/25 19:15 02/06/25 19:15 02/06/25 19:16 Temperature Pulse Rate Respiratory Rate Blood Pressure 156/86 H Pulse Oximetry 94 89 L 83 L Oxygen Delivery Nasal Cannula Oxygen Flow Rate 4 02/06/25 19:20 02/06/25 19:30 02/06/25 19:31 Temperature Pulse Rate Respiratory Rate 25 H 22 H Blood Pressure 134/85 Pulse Oximetry 95 94 94 Oxygen Delivery Nasal Cannula Oxygen Flow Rate 4 02/06/25 19:45 02/06/25 19:46 02/06/25 19:48 Temperature Pulse Rate 113 H 112 H Respiratory Rate 26 H 42 H 26 H Blood Pressure 141/86 H Pulse Oximetry 94 Oxygen Delivery Oxygen Flow Rate 02/06/25 20:00 02/06/25 20:01 02/06/25 20:15 Temperature Pulse Rate 125 H 119 H Respiratory Rate 33 H 22 H Blood Pressure 144/81 H Pulse Oximetry 96 95 97 Oxygen Delivery Oxygen Flow Rate 02/06/25 20:16 02/06/25 20:30 02/06/25 20:31 Temperature Pulse Rate 121 H 119 H 121 H Respiratory Rate 25 H 28 H 33 H Blood Pressure 141/104 H 138/99 H Pulse Oximetry 96 96 96 Oxygen Delivery Oxygen Flow Rate 02/06/25 20:45 02/06/25 20:46 02/06/25 21:00 Temperature Pulse Rate 123 H 123 H 125 H Respiratory Rate 35 H 42 H 24 H Blood Pressure 140/127 H Pulse Oximetry 97 95 96 Oxygen Delivery Oxygen Flow Rate 02/06/25 21:01 02/06/25 21:15 02/06/25 21:30 Temperature Pulse Rate 125 H 122 H 125 H Respiratory Rate 24 H 25 H 39 H Blood Pressure 138/89 Pulse Oximetry 94 94 97 Oxygen Delivery Oxygen Flow Rate 02/06/25 21:45 02/06/25 21:45 02/06/25 22:00 Temperature Pulse Rate 124 H 122 H 127 H Respiratory Rate 26 H 24 H 19 Blood Pressure Pulse Oximetry 94 98 Oxygen Delivery Oxygen Flow Rate 02/06/25 22:15 02/06/25 22:30 02/06/25 22:32 Temperature Pulse Rate 127 H 126 H 125 H Respiratory Rate 32 H 28 H 26 H Blood Pressure 132/82 Pulse Oximetry 95 94 92 Oxygen Delivery Oxygen Flow Rate 02/06/25 22:55 02/07/25 00:39 02/07/25 00:54 Temperature Pulse Rate 116 H 115 H Respiratory Rate 25 H 25 H Blood Pressure 146/78 H Pulse Oximetry 97 98 96 Oxygen Delivery Simple Face Mask Oxygen Flow Rate 6 02/07/25 01:20 02/07/25 02:00 02/07/25 02:00 Temperature 36.6 C Pulse Rate 130 H 120 H Respiratory Rate 34 H Blood Pressure 121/90 Pulse Oximetry 98 96 Oxygen Delivery Simple Face Mask Oxygen Flow Rate 6 02/07/25 03:50 02/07/25 03:50 02/07/25 04:00 Temperature Pulse Rate 116 H 116 H 117 H Respiratory Rate 24 H 24 H 24 H Blood Pressure Pulse Oximetry 97 Oxygen Delivery Simple Face Mask Oxygen Flow Rate 6 02/07/25 04:00 02/07/25 04:00 02/07/25 04:00 Temperature 36.6 C Pulse Rate 114 H 117 H Respiratory Rate 24 H Blood Pressure 111/83 Pulse Oximetry 97 97 Oxygen Delivery Simple Face Mask Oxygen Flow Rate 6 02/07/25 06:00 02/07/25 07:34 02/07/25 08:00 Temperature 36.7 C Pulse Rate 117 H 116 H 116 H Respiratory Rate 24 H 24 H Blood Pressure 109/83 Pulse Oximetry 96 Oxygen Delivery Oxygen Flow Rate 02/07/25 08:00 02/07/25 08:00 02/07/25 10:00 Temperature Pulse Rate 117 H 117 H 113 H Respiratory Rate 24 H Blood Pressure Pulse Oximetry 96 Oxygen Delivery High Flow Therapy with Na Oxygen Flow Rate 6 02/07/25 11:36 02/07/25 12:00 02/07/25 12:00 Temperature 36.7 C Pulse Rate 115 H 115 H 114 H Respiratory Rate 18 18 Blood Pressure 101/83 Pulse Oximetry 97 97 Oxygen Delivery High Flow Therapy with Na Oxygen Flow Rate 2 02/07/25 14:00 02/07/25 15:30 02/07/25 16:00 Temperature 36.6 C Pulse Rate 111 H 115 H 114 H Respiratory Rate 20 Blood Pressure 103/88 Pulse Oximetry 96 Oxygen Delivery Oxygen Flow Rate 02/07/25 16:19 Temperature Pulse Rate 112 H Respiratory Rate 20 Blood Pressure Pulse Oximetry Oxygen Delivery Oxygen Flow Rate Intake/Output Intake/Output: Intake & Output 02/04/25 02/05/25 02/06/25 02/07/25 23:59 23:59 23:59 23:59 Intake Total 550 580 Output Total 500 Balance 550 80 Meds/Results Medications: Active Medications Generic Name Dose Route Start Last Admin Trade Name Freq PRN Reason Stop Dose Admin Acetaminophen 650 mg 02/06/25 22:14 Acetaminophen 325 Mg Tablet PO Q4H PRN Mild Pain (1-3) or Fever Aspirin 81 mg 02/07/25 00:45 02/07/25 17:21 Aspirin 81 Mg Enteric Tablet PO 81 mg BID CARMEN Administration Carbidopa/Levodopa 2 tablet 02/07/25 00:45 02/07/25 17:21 Carbidopa/Levodopa 25/250 Mg Tablet PO 2 tablet QID CARMEN Administration Celecoxib 200 mg 02/07/25 09:00 02/07/25 08:25 Celecoxib 200 Mg Capsule PO 200 mg QAM CARMEN Administration Diphenhydramine HCl 50 mg 02/07/25 00:45 02/07/25 01:40 Diphenhydramine Hcl Cap 25 Mg Capsule PO 50 mg HS CARMEN Administration Divalproex Sodium 1,000 mg 02/07/25 00:45 02/07/25 01:[address] 250 Mg Tabec PO 1,000 mg QHS CARMEN Administration Doxycycline Hyclate 100 mg 02/07/25 09:00 02/07/25 08:26 Doxycycline Hyclate 100 Mg Tablet PO 100 mg Q12HR CARMEN Administration Fluticasone Propionate 2 puff 02/07/25 08:00 02/07/25 09:07 Fluticasone Prop 110 Mcg Inhaler 12 Gm (*Sp) INHALATION 2 puff Q12HRT CARMEN Administration Ceftriaxone Sodium 1 gm/ 50 mls @ 100 mls/hr 02/07/25 21:00 Sodium Chloride IVPB Q24H CARMEN Sodium Chloride 1,000 mls @ 150 mls/hr 02/07/25 07:40 Normal Saline Iv IV CONT 02/07/25 20:59 .Q6H40M [facility] Ibuprofen 400 mg 02/06/25 22:14 Ibuprofen 400 Mg Tablet PO Q6H PRN Mild Pain (1-3) or Fever Ipratropium [place] 0.5 mg 02/07/25 16:00 02/07/25 16:16 Ipratropium Br 0.02% Inh Soln 0.5 Mg/2.5 Ml Vial INHALATION 0.5 mg Q4HRT CARMEN Administration Lorazepam 1 mg 02/07/25 00:50 02/07/25 08:25 Lorazepam (*Crx) 1 Mg Tablet PO 1 mg Q12HR CARMEN Administration Methylprednisolone Sodium Succinate 20 mg 02/07/25 18:00 02/07/25 17:21 Methylprednisolone Sod Succ 40 Mg Vial IV PUSH 20 mg Q6HR CARMEN Administration Non-Formulary ( 3 each 02/07/25 21:00 Trifluoperazine Hcl PO 03/09/25 20:59 10 Mg Oral Tablet) [facility] Ondansetron HCl 4 mg 02/06/25 22:14 Ondansetron Inj 4 Mg/2 Ml Vial IV PUSH Q4H PRN Nausea Primidone 100 mg 02/07/25 00:55 02/07/25 08:26 Primidone 50 Mg Tablet PO 100 mg Q12HR CARMEN Administration Sodium Chloride 6 ml 02/08/25 05:00 Sodium Chlor 3% 15 Ml Neb (Respiratory Therapy) INHALATION 02/08/25 05:01 ONCE ONE Tamsulosin HCl 0.4 mg 02/07/25 00:50 02/07/25 01:40 Tamsulosin Hcl 0.4 Mg Capsule PO 0.4 mg QHS CARMEN Administration Venlafaxine HCl 225 mg 02/07/25 00:50 02/07/25 01:40 Venlafaxine Hcl Xr 75 Mg Cap.Er.24h PO 225 mg QHS CARMEN Administration Radiology Results: ITS Impressions Chest X-Ray 02/06/25 18:30 IMPRESSION: Patchy ground glass opacities may represent infection or edema, overlying moderate chronic interstitial lung disease. Acute exacerbation of the interstitial disease should also be considered in the differential Chest CTA 02/07/25 13:30 IMPRESSION: 1. No pulmonary embolism identified. 2. No pulmonary mass. No new focal pulmonary consolidation. 3. Grossly stable chronic changes in the lungs as compared to the study from 09/30/2024. Grossly stable bronchiectasis. 4. New small right-sided pleural effusion. Tiny left-sided pleural effusion. Modified Barium Swallow 02/07/25 13:59 IMPRESSION: Trace laryngeal penetration without aspiration. Please correlate with speech pathologist findings and specific feeding recommendations. Venous Doppler Study 02/07/25 15:32 IMPRESSION: 1. No deep venous thrombosis in either lower limb. Labs Labs: Laboratory Results - last 24 hr 02/06/25 02/06/25 02/06/25 18:04 19:39 19:57 WBC 21.1 H RBC 3.81 L Hgb 11.3 L Hct 36.5 L MCV 95.8 MCH 29.7 MCHC 31.0 L RDW 15.7 H Plt Count 334 D MPV 10.5 H Immature Gran % (Auto) Not Reportable Neut % (Auto) Not Reportable Lymph % (Auto) Not Reportable [place] % (Auto) Not Reportable Eos % (Auto) Not Reportable Baso % (Auto) Not Reportable Lymph # (Auto) Not Reportable [place] # (Auto) Not Reportable Eos # (Auto) Not Reportable Baso # (Auto) Not Reportable Abs Immat Gran (auto) Not Reportable Absolute Neuts (auto) Not Reportable Absolute Nucleated RBC Not Reportable Total Counted 100 Neutrophils % (Manual) 75 H Band Neutrophils % 2 Lymphocytes % (Manual) 6 L Monocytes % (Manual) 13 H Eosinophils % (Manual) 1 Metamyelocytes % 2 Myelocytes % 1 Nucleated RBC % Not Reportable Abs Neuts (Manual) 16.24 H Abs Lymphs (Manual) 1.26 Abs Monocytes (Manual) 2.74 H Absolute Eos (Manual) 0.21 Platelet Estimate Adequate Schistocytes None seen PT 17.4 H INR 1.4 APTT 37.8 H D-Dimer Puncture Site Right radial ABG pH 7.517 H* ABG pCO2 26.4 L ABG pO2 71.6 L ABG PO2/FiO2 Ratio 2.56 ABG HCO3 20.9 L ABG O2 Saturation 96.0 ABG O2 Content 15.4 L ABG Base Excess -0.8 A-a Gradient 96.9 Oxyhemoglobin 92.7 Total Hemoglobin 11.8 L O2 Delivery Device Nasal cannula O2 Liters/Min 2.0 FiO2 28 Sodium 142 Potassium 4.5 Chloride 107 Carbon Dioxide 23 Anion Gap 12 BUN 39 H D Creatinine 0.94 Estim Creat Clear Calc 52 Estimated GFR > 60 Glucose 124 H POC Capillary Glucose Lactic Acid 3.6 H Calcium 9.7 Magnesium 2.2 Total Bilirubin 0.7 AST 59 ALT 47 Alkaline Phosphatase 80 Troponin I 0.303 H* C-Reactive Protein NT-Pro-B Natriuret Pep 8850 H Total Protein 7.4 Albumin 4.1 Procalcitonin Urine Color Dark yellow Urine Appearance Clear Urine pH 5.5 Ur Specific [place] 1.033 Urine Protein 1+ H Urine Glucose (UA) Negative Urine Ketones Trace H Ur Blood (Man) Negative Urine Nitrate Negative Urine Bilirubin Negative Urine Urobilinogen 1.0 Leukocyte Esterase Rfl Trace H Urine RBC 3-5 H Urine WBC 6-10 H Ur Squamous Epith Cells None seen Urine Bacteria None seen Urine Casts 3-5 Nasal MRSA (PCR) Influenza A (RT-PCR) Influenza B (RT-PCR) RSV (RT-PCR) SARS-CoV-2 RNA (RT-PCR) 02/06/25 02/06/25 02/06/25 20:43 21:29 23:36 WBC RBC Hgb Hct MCV MCH MCHC RDW Plt Count MPV Immature Gran % (Auto) Neut % (Auto) Lymph % (Auto) [place] % (Auto) Eos % (Auto) Baso % (Auto) Lymph # (Auto) [place] # (Auto) Eos # (Auto) Baso # (Auto) Abs Immat Gran (auto) Absolute Neuts (auto) Absolute Nucleated RBC Total Counted Neutrophils % (Manual) Band Neutrophils % Lymphocytes % (Manual) Monocytes % (Manual) Eosinophils % (Manual) Metamyelocytes % Myelocytes % Nucleated RBC % Abs Neuts (Manual) Abs Lymphs (Manual) Abs Monocytes (Manual) Absolute Eos (Manual) Platelet Estimate Schistocytes PT INR APTT D-Dimer Puncture Site Right radial ABG pH 7.500 H ABG pCO2 27.2 L ABG pO2 75.7 L ABG PO2/FiO2 Ratio 2.70 ABG HCO3 20.7 L ABG O2 Saturation 96.4 ABG O2 Content 15.1 L ABG Base Excess -1.4 A-a Gradient 91.8 Oxyhemoglobin 93.0 Total Hemoglobin 11.5 L O2 Delivery Device Nasal cannula O2 Liters/Min 2.0 FiO2 28 Sodium Potassium Chloride Carbon Dioxide Anion Gap BUN Creatinine Estim Creat Clear Calc Estimated GFR Glucose POC Capillary Glucose Lactic Acid 1.9 Calcium Magnesium Total Bilirubin AST ALT Alkaline Phosphatase Troponin I 0.322 H* C-Reactive Protein NT-Pro-B Natriuret Pep Total Protein Albumin Procalcitonin Urine Color Urine Appearance Urine pH Ur Specific [place] Urine Protein Urine Glucose (UA) Urine Ketones Ur Blood (Man) Urine Nitrate Urine Bilirubin Urine Urobilinogen Leukocyte Esterase Rfl Urine RBC Urine WBC Ur Squamous Epith Cells Urine Bacteria Urine Casts Nasal MRSA (PCR) Influenza A (RT-PCR) Negative Influenza B (RT-PCR) Negative RSV (RT-PCR) Negative SARS-CoV-2 RNA (RT-PCR) Negative 02/07/25 02/07/25 02/07/25 01:03 09:49 11:46 WBC 18.0 H RBC 3.36 L Hgb 10.1 L Hct 32.5 L MCV 96.7 MCH 30.1 MCHC 31.1 L RDW 15.9 H Plt Count 304 MPV 10.4 Immature Gran % (Auto) Neut % (Auto) Lymph % (Auto) [place] % (Auto) Eos % (Auto) Baso % (Auto) Lymph # (Auto) [place] # (Auto) Eos # (Auto) Baso # (Auto) Abs Immat Gran (auto) Absolute Neuts (auto) Absolute Nucleated RBC Total Counted Neutrophils % (Manual) Band Neutrophils % Lymphocytes % (Manual) Monocytes % (Manual) Eosinophils % (Manual) Metamyelocytes % Myelocytes % Nucleated RBC % Abs Neuts (Manual) Abs Lymphs (Manual) Abs Monocytes (Manual) Absolute Eos (Manual) Platelet Estimate Schistocytes PT INR APTT D-Dimer 1.08 H Puncture Site ABG pH ABG pCO2 ABG pO2 ABG PO2/FiO2 Ratio ABG HCO3 ABG O2 Saturation ABG O2 Content ABG Base Excess A-a Gradient Oxyhemoglobin Total Hemoglobin O2 Delivery Device O2 Liters/Min FiO2 Sodium 142 Potassium 4.5 Chloride 107 Carbon Dioxide 24 Anion Gap 11 BUN 34 H Creatinine 0.79 Estim Creat Clear Calc 61 Estimated GFR > 60 Glucose 121 H POC Capillary Glucose Lactic Acid Calcium 9.3 Magnesium 2.3 Total Bilirubin AST ALT Alkaline Phosphatase Troponin I 0.303 H* C-Reactive Protein 4.1 H NT-Pro-B Natriuret Pep 9220 H Total Protein Albumin Procalcitonin 0.1 Urine Color Urine Appearance Urine pH Ur Specific [place] Urine Protein Urine Glucose (UA) Urine Ketones Ur Blood (Man) Urine Nitrate Urine Bilirubin Urine Urobilinogen Leukocyte Esterase Rfl Urine RBC Urine WBC Ur Squamous Epith Cells Urine Bacteria Urine Casts Nasal MRSA (PCR) Influenza A (RT-PCR) Influenza B (RT-PCR) RSV (RT-PCR) SARS-CoV-2 RNA (RT-PCR) 02/07/25 02/07/25 12:46 15:00 WBC RBC Hgb Hct MCV MCH MCHC RDW Plt Count MPV Immature Gran % (Auto) Neut % (Auto) Lymph % (Auto) [place] % (Auto) Eos % (Auto) Baso % (Auto) Lymph # (Auto) [place] # (Auto) Eos # (Auto) Baso # (Auto) Abs Immat Gran (auto) Absolute Neuts (auto) Absolute Nucleated RBC Total Counted Neutrophils % (Manual) Band Neutrophils % Lymphocytes % (Manual) Monocytes % (Manual) Eosinophils % (Manual) Metamyelocytes % Myelocytes % Nucleated RBC % Abs Neuts (Manual) Abs Lymphs (Manual) Abs Monocytes (Manual) Absolute Eos (Manual) Platelet Estimate Schistocytes PT INR APTT D-Dimer Puncture Site ABG pH ABG pCO2 ABG pO2 ABG PO2/FiO2 Ratio ABG HCO3 ABG O2 Saturation ABG O2 Content ABG Base Excess A-a Gradient Oxyhemoglobin Total Hemoglobin O2 Delivery Device O2 Liters/Min FiO2 Sodium Potassium Chloride Carbon Dioxide Anion Gap BUN Creatinine Estim Creat Clear Calc Estimated GFR Glucose POC Capillary Glucose 132 H Lactic Acid Calcium Magnesium Total Bilirubin AST ALT Alkaline Phosphatase Troponin I C-Reactive Protein NT-Pro-B Natriuret Pep Total Protein Albumin Procalcitonin Urine Color Urine Appearance Urine pH Ur Specific [place] Urine Protein Urine Glucose (UA) Urine Ketones Ur Blood (Man) Urine Nitrate Urine Bilirubin Urine Urobilinogen Leukocyte Esterase Rfl Urine RBC Urine WBC Ur Squamous Epith Cells Urine Bacteria Urine Casts Nasal MRSA (PCR) Not detected Influenza A (RT-PCR) Influenza B (RT-PCR) RSV (RT-PCR) SARS-CoV-2 RNA (RT-PCR) Quality VTE Prophylaxis VTE prophylaxis: mechanical ordered (SCDs)
[2025-02-07] MEDS: TRIFLUOPERAZINE HCL 10 MG 3 EACH PO (22:17)
[2025-02-07] MEDS: cefTRIAXone 1 GM in SODIUM CHLORIDE 0.9% IV 50 ML 100 ML IVPB (22:48)
[2025-02-08] VITALS (26 sets, daily range): BP systolic 107–129; BP diastolic 62–84; PULSE 100–116; RESP 18–20; TEMP 36.1–36.4; O2SAT 92–98
[2025-02-08] MEDS: IPRATROPIUM BR 0.02% INH SOLN 0.5 MG/2.5 ML VIAL INHALATION ×6 (00:13→19:57)
[2025-02-08] MEDS: SODIUM CHLOR 3% 15 ML NEB (RESPIRATORY THERAPY) 6 ML INHALATION (03:05)
--- NOTE | 2025-02-08 03:05 | PCRCNOTE ---
Sputum induction done early. Patient had a dry non-productive cough.
[2025-02-08 06:20] LABS: Creatine Kinase 48 U/L (55-170)
[2025-02-08 06:29] LABS: Immunoglobulin A 315 mg/dL (70-400); Immunoglobulin G 1008 mg/dL (700-1600); Immunoglobulin M 100 mg/dL (40-230)
[2025-02-08] MEDS: FLUTICASONE PROP 110 MCG INHALER 12 GM (*SP) 2 PUFF INHALATION ×2 (07:35→20:08)
[2025-02-08] MEDS: ASPIRIN 81 MG ENTERIC TABLET PO ×2 (08:56→16:31)
[2025-02-08] MEDS: CARBIDOPA/LEVODOPA 25/250 MG TABLET 2 TABLET PO ×4 (08:56→20:44)
[2025-02-08] MEDS: PRIMIDONE 50 MG TABLET 100 MG PO ×2 (08:56→20:45)
[2025-02-08] MEDS: LORazepam (*CRX) 1 MG TABLET PO ×2 (08:56→20:45)
[2025-02-08] MEDS: CELECOXIB 200 MG CAPSULE PO (08:56)
[2025-02-08] MEDS: DOXYCYCLINE HYCLATE 100 MG TABLET PO ×2 (08:57→20:45)
[2025-02-08 10:07] LABS: Anion Gap 9 mmol/L (4-12); Blood Urea Nitrogen 29 mg/dL (9-20); Calcium 9.2 mg/dL (8.4-10.2); Carbon Dioxide 25 mmol/L (22-30); Chloride 104 mmol/L (98-107); Estimated CRCL calculation 69 ml/min; Estimated Glomerular Filt Rate > 60; Glucose 101 mg/dL (65-110); Potassium 5.0 mmol/L (3.4-5.0); Sodium 138 mmol/L (137-145)
--- NOTE | 2025-02-08 11:39 | P.PNCA_ITS ---
Progress Note: A&P Assessment and Plan (1) Elevated troponin: Code(s): R79.89 - Other specified abnormal findings of blood chemistry Status: Acute Assessment and Plan: Troponin levels are 0.303, 0.322, and 0.303. This troponin trend is not consistent with acute coronary syndrome, however he has been having intermittent chest pain for the past 4-6 months. Will continue to treat his pneumonia. Tentative plan will be to perform cardiac catheterization this hospitalization if patient wishes to undergo aggressive management. I did talk to the daughter also. He would need to temporarily rescind his DNR status to undergo than the angiogram. Will add low-dose metoprolol succinate 12.5 mg p.o. daily because of his cardiomyopathy and probable CAD. As able or as BP will tolerate, could add Jardiance, Entresto or other Alexandro/Arb. Patient does have hyperkalemia and will likely not be able to tolerate spironolactone. BP is also soft at this point. Will add a statin atorvastatin 20 mg daily for presumed CAD and continue aspirin (2) Sepsis: Code(s): A41.9 - Sepsis, unspecified organism Status: Acute Assessment and Plan: Meet sepsis criteria. On antibiotics. Management per hospitalist. (3) Pneumonia: Code(s): J18.9 - Pneumonia, unspecified organism Status: Acute Assessment and Plan: Treatment per hospitalist (4) Acute hypoxemic respiratory failure: Code(s): J96.01 - Acute respiratory failure with hypoxia Status: Acute Assessment and Plan: Improving, currently on 6 L oxygen per high-flow nasal cannula. Management per hospitalist. (5) Cardiomyopathy: Code(s): I42.9 - Cardiomyopathy, unspecified Status: Acute Assessment and Plan: Severe as detailed above. Probably ischemic. Subjective Date/time seen: 02/08/25 11:39 Interval history: H&P-Narrative: 84-year-old male with a past medical history of COPD, pulmonary fibrosis, bronchiectasis, Parkinson's disease, bipolar disorder, depression, BPH and dementia who presented to the ER with productive cough and shortness of breath. Cardiology consultation because of elevated troponins Date of service 02/08/2025: Still having productive cough. No chest pain at present but does reiterate that he has intermittent chest pain home. Echocardiogram shows markedly reduced ejection fraction as detailed below Review of Systems Review of Systems: All systems reviewed & are unremarkable except as noted in HPI and below Constitutional: Constitutional: Denies chills ENT: Reports Normal hearing present Cardiovascular: Cardiovascular: Reports chest pain Respiratory: Respiratory: Reports cough Gastrointestinal: Gastrointestinal: Denies abdominal pain Exam Narrative: Appears stated age Const: General: comfortable, no acute distress, alert and awake Orientation/consciousness: patient oriented x3 HENMT: Head: normal to inspection Eyes: General: appearance normal, both eyes and all related structures Sclera: sclerae normal Neck: Neck: normal visual inspection, supple and no JVD Carotids: normal carotid upstroke Resp: Effort & Inspection: normal respiratory effort Auscultation: crackles and rhonchi Other: Wheezes also noted Cardio: Rate: regular rate Rhythm: regular rhythm Heart sounds: S1 normal heart sound present, S2 normal heart sound present and no murmurs GI: Auscultation: normal bowel sounds Skin: General skin exam: normal color Neuro: General: patient oriented x3 Speech: normal speech Extrem: General: normal to inspection Psych: Appearance: grossly normal Mental Status: mental status grossly normal Objective Data Vital Signs Vital Signs: Vital Signs - 24 hr 02/07/25 12:00 02/07/25 12:00 02/07/25 14:00 Temperature Pulse Rate 115 H 114 H 111 H Respiratory Rate 18 Blood Pressure Pulse Oximetry 97 Oxygen Delivery High Flow Therapy with Na Oxygen Flow Rate 2 02/07/25 15:30 02/07/25 16:00 02/07/25 16:19 Temperature 36.6 C Pulse Rate 115 H 114 H 112 H Respiratory Rate 20 20 Blood Pressure 103/88 Pulse Oximetry 96 Oxygen Delivery Oxygen Flow Rate 02/07/25 18:00 02/07/25 19:55 02/07/25 20:00 Temperature 36.5 C Pulse Rate 109 H 114 H 106 H Respiratory Rate 20 Blood Pressure 102/82 Pulse Oximetry 93 Oxygen Delivery Oxygen Flow Rate 02/07/25 20:00 02/07/25 20:19 02/07/25 20:26 Temperature Pulse Rate 116 H 116 H Respiratory Rate 20 20 Blood Pressure Pulse Oximetry 96 Oxygen Delivery Nasal Cannula Oxygen Flow Rate 2 02/07/25 21:14 02/07/25 23:58 02/08/25 00:00 Temperature 36.5 C Pulse Rate 106 H 112 H Respiratory Rate 22 H Blood Pressure 101/79 Pulse Oximetry 97 94 Oxygen Delivery Nasal Cannula Oxygen Flow Rate 4 02/08/25 00:15 02/08/25 00:20 02/08/25 02:00 Temperature Pulse Rate 116 H 105 H 103 H Respiratory Rate 20 20 Blood Pressure Pulse Oximetry Oxygen Delivery Oxygen Flow Rate 02/08/25 03:00 02/08/25 03:06 02/08/25 04:00 Temperature Pulse Rate 116 H 116 H 107 H Respiratory Rate 20 20 Blood Pressure Pulse Oximetry Oxygen Delivery Oxygen Flow Rate 02/08/25 06:00 02/08/25 07:31 02/08/25 07:34 Temperature Pulse Rate 103 H 104 H 105 H Respiratory Rate 20 20 Blood Pressure Pulse Oximetry 94 Oxygen Delivery Nasal Cannula Oxygen Flow Rate 2 02/08/25 07:39 02/08/25 07:41 02/08/25 10:09 Temperature 36.4 C L Pulse Rate 104 H 109 H Respiratory Rate 20 20 Blood Pressure 108/84 Pulse Oximetry 98 Oxygen Delivery Nasal Cannula Oxygen Flow Rate 2 02/08/25 11:12 02/08/25 11:20 Temperature Pulse Rate 106 H 106 H Respiratory Rate 20 19 Blood Pressure Pulse Oximetry Oxygen Delivery Oxygen Flow Rate Intake/Output Intake/Output: Intake & Output 02/05/25 02/06/25 02/07/25 02/08/25 23:59 23:59 23:59 23:59 Intake Total 550 1020 490 Output Total 725 800 Balance 550 295 -310 Meds/Results Medications: Active Medications Generic Name Dose Route Start Last Admin Trade Name Freq PRN Reason Stop Dose Admin Acetaminophen 650 mg 02/06/25 22:14 Acetaminophen 325 Mg Tablet PO Q4H PRN Mild Pain (1-3) or Fever Aspirin 81 mg 02/07/25 00:45 02/08/25 08:56 Aspirin 81 Mg Enteric Tablet PO 81 mg BID CARMEN Administration Carbidopa/Levodopa 2 tablet 02/07/25 00:45 02/08/25 08:56 Carbidopa/Levodopa 25/250 Mg Tablet PO 2 tablet QID CARMEN Administration Celecoxib 200 mg 02/07/25 09:00 02/08/25 08:56 Celecoxib 200 Mg Capsule PO 200 mg QAM CARMEN Administration Diphenhydramine HCl 50 mg 02/07/25 00:45 02/07/25 22:09 Diphenhydramine Hcl Cap 25 Mg Capsule PO 50 mg HS CARMEN Administration Divalproex Sodium 1,000 mg 02/07/25 00:45 02/07/25 22:[address] 250 Mg Tabec PO 1,000 mg QHS CARMEN Administration Doxycycline Hyclate 100 mg 02/07/25 09:00 02/08/25 08:57 Doxycycline Hyclate 100 Mg Tablet PO 100 mg Q12HR CARMEN Administration Fluticasone Propionate 2 puff 02/07/25 08:00 02/08/25 07:35 Fluticasone Prop 110 Mcg Inhaler 12 Gm (*Sp) INHALATION 2 puff Q12HRT CARMEN Administration Ceftriaxone Sodium 1 gm/ 50 mls @ 100 mls/hr 02/07/25 21:00 02/07/25 22:48 Sodium Chloride IVPB 100 mls/hr Q24H CARMEN Administration Ibuprofen 400 mg 02/06/25 22:14 Ibuprofen 400 Mg Tablet PO Q6H PRN Mild Pain (1-3) or Fever Ipratropium [place] 0.5 mg 02/07/25 16:00 02/08/25 11:12 Ipratropium Br 0.02% Inh Soln 0.5 Mg/2.5 Ml Vial INHALATION 0.5 mg Q4HRT CARMEN Administration Lorazepam 1 mg 02/07/25 00:50 02/08/25 08:56 Lorazepam (*Crx) 1 Mg Tablet PO 1 mg Q12HR CARMEN Administration Methylprednisolone Sodium Succinate 20 mg 02/07/25 18:00 02/08/25 06:10 Methylprednisolone Sod Succ 40 Mg Vial IV PUSH 20 mg Q6HR CARMEN Administration Non-Formulary ( 3 each 02/07/25 21:00 02/07/25 22:17 Trifluoperazine Hcl PO 03/09/25 20:59 3 each 10 Mg Oral Tablet) HS CARMEN Administration Ondansetron HCl 4 mg 02/06/25 22:14 Ondansetron Inj 4 Mg/2 Ml Vial IV PUSH Q4H PRN Nausea Primidone 100 mg 02/07/25 00:55 02/08/25 08:56 Primidone 50 Mg Tablet PO 100 mg Q12HR CARMEN Administration Tamsulosin HCl 0.4 mg 02/07/25 00:50 02/07/25 22:15 Tamsulosin Hcl 0.4 Mg Capsule PO 0.4 mg QHS CARMEN Administration Venlafaxine HCl 225 mg 02/07/25 00:50 02/07/25 22:16 Venlafaxine Hcl Xr 75 Mg Cap.Er.24h PO 225 mg QHS CARMEN Administration Radiology Results: ITS Impressions Chest X-Ray 02/06/25 18:30 IMPRESSION: Patchy ground glass opacities may represent infection or edema, overlying moderate chronic interstitial lung disease. Acute exacerbation of the interstitial disease should also be considered in the differential Chest CTA 02/07/25 13:30 IMPRESSION: 1. No pulmonary embolism identified. 2. No pulmonary mass. No new focal pulmonary consolidation. 3. Grossly stable chronic changes in the lungs as compared to the study from 09/30/2024. Grossly stable bronchiectasis. 4. New small right-sided pleural effusion. Tiny left-sided pleural effusion. Modified Barium Swallow 02/07/25 13:59 IMPRESSION: Trace laryngeal penetration without aspiration. Please correlate with speech pathologist findings and specific feeding recommendations. Venous Doppler Study 02/07/25 15:32 IMPRESSION: 1. No deep venous thrombosis in either lower limb. Labs Labs: Laboratory Results - last 24 hr 02/07/25 02/07/25 02/07/25 11:46 12:46 15:00 D-Dimer 1.08 H Sodium Potassium Chloride Carbon Dioxide Anion Gap BUN Creatinine Estim Creat Clear Calc Estimated GFR Glucose POC Capillary Glucose 132 H Calcium Total Creatine Kinase C-Reactive Protein 4.1 H NT-Pro-B Natriuret Pep 9220 H Procalcitonin 0.1 Nasal MRSA (PCR) Not detected IgG IgA IgM Rheumatoid Factor Rheumatoid Factor Scrn Rheumatoid Factor Titer Anti-Cycl Citrul Peptide Cycl Citrul Peptide IgG Anti-Proteinase 3 FEIA c/o 1.9 Anti-Myeloperoxidase 02/08/25 05:41 D-Dimer Sodium 138 Potassium 5.0 Chloride 104 Carbon Dioxide 25 Anion Gap 9 BUN 29 H Creatinine 0.69 L Estim Creat Clear Calc 69 Estimated GFR > 60 Glucose 101 POC Capillary Glucose Calcium 9.2 Total Creatine Kinase 48 L C-Reactive Protein NT-Pro-B Natriuret Pep Procalcitonin Nasal MRSA (PCR) IgG 1008 IgA 315 IgM 100 Rheumatoid Factor Cancelled Rheumatoid Factor Scrn Cancelled Rheumatoid Factor Titer Cancelled Anti-Cycl Citrul Peptide Cancelled Cycl Citrul Peptide IgG Cancelled Anti-Proteinase 3 FEIA c/o 1.9 Cancelled Anti-Myeloperoxidase Cancelled Echocardiogram . Left ventricular chamber dimension is mildly enlarged. 2. Left ventricular systolic function is severely reduced, estimated at 25-30. 3. There is mildly increased left ventricular wall thickness. 4. The left ventricular diastolic function is grade I diastolic dysfunction. 5. Left atrial chamber dimension is moderately enlarged. 6. There is moderate mitral valve regurgitation. 7. The mitral valve annulus is mildly calcified. 8. There is mild aortic valve regurgitation. 9. There is mild tricuspid valve regurgitation. 10. Severe pulmonary hypertension, estimated pulmonary arterial systolic pressure is 60 mmHg. 11. There is moderate pulmonic regurgitation.
[2025-02-08] MEDS: METOPROLOL SUCCINATE EXT REL 12.5 MG TABCR PO (12:19)
[2025-02-08] MEDS: ATORVASTATIN 20 MG TABLET PO (12:19)
[2025-02-08] MEDS: guaiFENesin 12 HR 600 MG TABCR PO ×2 (12:19→20:45)
--- NOTE | 2025-02-08 15:00 | PM.IMPN ---
Progress Note: A&P Assessment and Plan (1) Acute hypoxic respiratory failure: Code(s): J96.01 - Acute respiratory failure with hypoxia Status: Acute (2) Acute exacerbation of chronic obstructive pulmonary disease: Code(s): J44.1 - Chronic obstructive pulmonary disease with (acute) exacerbation Status: Acute (3) Sepsis: Qualifiers: Acute respiratory failure type: with hypoxia Sepsis acute organ dysfunction status: with acute organ dysfunction Sepsis type: sepsis due to unspecified organism Severe sepsis acute organ dysfunction type: acute respiratory failure Severe sepsis shock status: without septic shock Qualified Code(s): A41.9 - Sepsis, unspecified organism; R65.20 - Severe sepsis without septic shock; J96.01 - Acute respiratory failure with hypoxia Code(s): A41.9 - Sepsis, unspecified organism Status: Acute (4) Lactic acidosis: Code(s): E87.20 - Acidosis, unspecified Status: Acute (5) Elevated troponin: Code(s): R79.89 - Other specified abnormal findings of blood chemistry Status: Acute Plan Patient met sepsis criteria with tachycardia, tachypnea, leukocytosis in the setting of bilateral pneumonia on imaging with associated acute hypoxic respiratory failure persistent lactic acidosis after 1 L fluid bolus. Patient did not receive 30 mL/kilos fluid bolus due to ER concern for fluid status. At the time of my evaluation patient appears to be intervascular volume depleted. I will give the patient additional 2 L of IV fluid hydration at 150 mL an hour and then re-evaluate fluid status. Patient's lactic acid is doses did improve on repeat labs this a.m.. Patient was started on empiric antibiotic therapy with Rocephin and doxycycline in the ER. Blood cultures have been obtained and are pending. Will check urine Legionella and pneumococcal antigen. Will obtain sputum culture and send for Gram stain. The patient is a likely also has COPD exacerbation due to lower respiratory infection with pneumonia. Patient received 1 dose of IV Solu-Medrol in the ER. Will place patient on scheduled Solu-Medrol 60 mg q.6 hours and scheduled DuoNebs. Will resume patient's home inhalers. Will wean oxygen as tolerated. Will repeat CBC and electrolyte panel in a.m.. Patient did have been mildly elevated troponins most likely due to a demand ischemia from acute hypoxic respiratory failure and tachycardia. Will trend troponins and monitor. Patient is not having any chest pain or EKG changes to indicate acute plaque rupture. 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 Naik, athletic team physician and further workup is in progress, patient stats feels congested, will give guaifenesin, will CPM and monitor. patient is present and gave updates. Subjective Date/time seen: 02/08/25 15:00 Interval history: Worsening cough and shortness of H&P-Narrative: 84-year-old male with a past medical history of COPD, pulmonary fibrosis, bronchiectasis, Parkinson's disease, bipolar disorder, depression, BPH and dementia who presented to the ER with productive cough and shortness of breath. The patient states that he had received a prescription for Z-Rufus about 2 weeks ago. Despite taking the Z-Rufus he continued to have cough and the cough was productive of green to brownish sputum. He reports that he usually does have a cough that is productive of clear sputum but his sputum has definitely changed. He reports he has not been having any fever. A couple of days ago he called this provider again and was given a prescription for doxycycline. He took a couple of days of the doxycycline in still was not feeling any better. He noticed that he was having increased wheezing and significant shortness of breath. When he arrived to the ER he was having oxygen saturations of 85% on room air. He was noted to have significant leukocytosis and denies any significant fevers or chills. He denies any orthopnea. He has not noticed any lower extremity swelling. He has noticed that his abdomen is been more distended. He is unsure if he is emptying his bladder completely. He does report weak urinary stream at times. Patient does have history of presume dementia given is on Aricept but is a relatively good historian at the time of my evaluation he is alert oriented x4. He denies any recent confusion. Chest x-ray in the ER suggested likely pneumonia versus pulmonary edema. Patient's oxygen saturations improved up to 95% on 4 L nasal cannula but the patient was mouth breathing and subsequently was placed on a Venti mask. 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 Naik, athletic team physician and further workup is in progress, patient stats feels congested, will give guaifenesin, will CPM and monitor. patient is present and gave updates. Review of Systems Review of Systems: 12 systems were reviewed with pertinent positives and negatives per HPI. Except as documented in the HPI, all other systems were reviewed and are negative. Exam Narrative: Patient is comfortable, NAD HEENT: eyes are clear and none icteric LUNGS: Bilateral poor air entry with rhonchi HEART: RR S1S2 ABD: BS+, Soft and nontender Lower extremities: no edema SKIN: nonjaundiced Neuro: grossly intact. Objective Data Vital Signs Vital Signs: Vital Signs - 24 hr 02/07/25 15:30 02/07/25 16:00 02/07/25 16:19 Temperature 36.6 C Pulse Rate 115 H 114 H 112 H Respiratory Rate 20 20 Blood Pressure 103/88 Pulse Oximetry 96 Oxygen Delivery Oxygen Flow Rate 02/07/25 18:00 02/07/25 19:55 02/07/25 20:00 Temperature 36.5 C Pulse Rate 109 H 114 H 106 H Respiratory Rate 20 Blood Pressure 102/82 Pulse Oximetry 93 Oxygen Delivery Oxygen Flow Rate 02/07/25 20:00 02/07/25 20:19 02/07/25 20:26 Temperature Pulse Rate 116 H 116 H Respiratory Rate 20 20 Blood Pressure Pulse Oximetry 96 Oxygen Delivery Nasal Cannula Oxygen Flow Rate 2 02/07/25 21:14 02/07/25 23:58 02/08/25 00:00 Temperature 36.5 C Pulse Rate 106 H 112 H Respiratory Rate 22 H Blood Pressure 101/79 Pulse Oximetry 97 94 Oxygen Delivery Nasal Cannula Oxygen Flow Rate 4 02/08/25 00:15 02/08/25 00:20 02/08/25 02:00 Temperature Pulse Rate 116 H 105 H 103 H Respiratory Rate 20 20 Blood Pressure Pulse Oximetry Oxygen Delivery Oxygen Flow Rate 02/08/25 03:00 02/08/25 03:06 02/08/25 04:00 Temperature Pulse Rate 116 H 116 H 107 H Respiratory Rate 20 20 Blood Pressure Pulse Oximetry Oxygen Delivery Oxygen Flow Rate 02/08/25 06:00 02/08/25 07:31 02/08/25 07:34 Temperature Pulse Rate 103 H 104 H 105 H Respiratory Rate 20 20 Blood Pressure Pulse Oximetry 94 Oxygen Delivery Nasal Cannula Oxygen Flow Rate 2 02/08/25 07:39 02/08/25 07:41 02/08/25 08:00 Temperature 36.4 C L Pulse Rate 104 H 109 H 115 H Respiratory Rate 20 20 Blood Pressure 108/84 Pulse Oximetry 98 Oxygen Delivery Oxygen Flow Rate 02/08/25 08:00 02/08/25 10:00 02/08/25 10:09 Temperature Pulse Rate 111 H Respiratory Rate Blood Pressure Pulse Oximetry 98 Oxygen Delivery Nasal Cannula Nasal Cannula Oxygen Flow Rate 2 2 02/08/25 11:12 02/08/25 11:20 02/08/25 12:00 Temperature Pulse Rate 106 H 106 H 109 H Respiratory Rate 20 19 Blood Pressure Pulse Oximetry Oxygen Delivery Oxygen Flow Rate 02/08/25 14:00 Temperature Pulse Rate 108 H Respiratory Rate Blood Pressure Pulse Oximetry Oxygen Delivery Oxygen Flow Rate Intake/Output Intake/Output: Intake & Output 02/05/25 02/06/25 02/07/25 02/08/25 23:59 23:59 23:59 23:59 Intake Total 550 1020 730 Output Total 725 800 Balance 550 295 -70 Meds/Results Medications: Active Medications Generic Name Dose Route Start Last Admin Trade Name Freq PRN Reason Stop Dose Admin Acetaminophen 650 mg 02/06/25 22:14 Acetaminophen 325 Mg Tablet PO Q4H PRN Mild Pain (1-3) or Fever Aspirin 81 mg 02/07/25 00:45 02/08/25 08:56 Aspirin 81 Mg Enteric Tablet PO 81 mg BID CARMEN Administration Atorvastatin Calcium 20 mg 02/08/25 11:50 02/08/25 12:19 Atorvastatin 20 Mg Tablet PO 20 mg DAILY CARMEN Administration Carbidopa/Levodopa 2 tablet 02/07/25 00:45 02/08/25 12:19 Carbidopa/Levodopa 25/250 Mg Tablet PO 2 tablet QID CARMEN Administration Celecoxib 200 mg 02/07/25 09:00 02/08/25 08:56 Celecoxib 200 Mg Capsule PO 200 mg QAM CARMEN Administration Diphenhydramine HCl 50 mg 02/07/25 00:45 02/07/25 22:09 Diphenhydramine Hcl Cap 25 Mg Capsule PO 50 mg HS CARMEN Administration Divalproex Sodium 1,000 mg 02/07/25 00:45 02/07/25 22:[address] 250 Mg Tabec PO 1,000 mg QHS CARMEN Administration Doxycycline Hyclate 100 mg 02/07/25 09:00 02/08/25 08:57 Doxycycline Hyclate 100 Mg Tablet PO 100 mg Q12HR CARMEN Administration Fluticasone Propionate 2 puff 02/07/25 08:00 02/08/25 07:35 Fluticasone Prop 110 Mcg Inhaler 12 Gm (*Sp) INHALATION 2 puff Q12HRT CARMEN Administration Guaifenesin 600 mg 02/08/25 12:05 02/08/25 12:19 Guaifenesin 12 Hr 600 Mg Tabcr PO 600 mg Q12HR CARMEN Administration Ceftriaxone Sodium 1 gm/ 50 mls @ 100 mls/hr 02/07/25 21:00 02/07/25 22:48 Sodium Chloride IVPB 100 mls/hr Q24H CARMEN Administration Ibuprofen 400 mg 02/06/25 22:14 Ibuprofen 400 Mg Tablet PO Q6H PRN Mild Pain (1-3) or Fever Ipratropium [place] 0.5 mg 02/07/25 16:00 02/08/25 11:12 Ipratropium Br 0.02% Inh Soln 0.5 Mg/2.5 Ml Vial INHALATION 0.5 mg Q4HRT CARMEN Administration Lorazepam 1 mg 02/07/25 00:50 02/08/25 08:56 Lorazepam (*Crx) 1 Mg Tablet PO 1 mg Q12HR CARMEN Administration Methylprednisolone Sodium Succinate 20 mg 02/07/25 18:00 02/08/25 12:19 Methylprednisolone Sod Succ 40 Mg Vial IV PUSH 20 mg Q6HR CARMEN Administration Metoprolol Succinate 12.5 mg 02/08/25 11:50 02/08/25 12:19 Metoprolol Succinate Ext Rel 12.5 Mg Tabcr PO 12.5 mg QAM CARMEN Administration Non-Formulary ( 3 each 02/07/25 21:00 02/07/25 22:17 Trifluoperazine Hcl PO 03/09/25 20:59 3 each 10 Mg Oral Tablet) HS CARMEN Administration Ondansetron HCl 4 mg 02/06/25 22:14 Ondansetron Inj 4 Mg/2 Ml Vial IV PUSH Q4H PRN Nausea Primidone 100 mg 02/07/25 00:55 02/08/25 08:56 Primidone 50 Mg Tablet PO 100 mg Q12HR CARMEN Administration Tamsulosin HCl 0.4 mg 02/07/25 00:50 02/07/25 22:15 Tamsulosin Hcl 0.4 Mg Capsule PO 0.4 mg QHS CARMEN Administration Venlafaxine HCl 225 mg 02/07/25 00:50 02/07/25 22:16 Venlafaxine Hcl Xr 75 Mg Cap.Er.24h PO 225 mg QHS CARMEN Administration Radiology Results: ITS Impressions Chest X-Ray 02/06/25 18:30 IMPRESSION: Patchy ground glass opacities may represent infection or edema, overlying moderate chronic interstitial lung disease. Acute exacerbation of the interstitial disease should also be considered in the differential Chest CTA 02/07/25 13:30 IMPRESSION: 1. No pulmonary embolism identified. 2. No pulmonary mass. No new focal pulmonary consolidation. 3. Grossly stable chronic changes in the lungs as compared to the study from 09/30/2024. Grossly stable bronchiectasis. 4. New small right-sided pleural effusion. Tiny left-sided pleural effusion. Modified Barium Swallow 02/07/25 13:59 IMPRESSION: Trace laryngeal penetration without aspiration. Please correlate with speech pathologist findings and specific feeding recommendations. Venous Doppler Study 02/07/25 15:32 IMPRESSION: 1. No deep venous thrombosis in either lower limb. Labs Labs: Laboratory Results - last 24 hr 02/07/25 02/07/25 02/08/25 11:46 15:00 05:41 Sodium 138 Potassium 5.0 Chloride 104 Carbon Dioxide 25 Anion Gap 9 BUN 29 H Creatinine 0.69 L Estim Creat Clear Calc 69 Estimated GFR > 60 Glucose 101 Calcium 9.2 Total Creatine Kinase 48 L Procalcitonin 0.1 Nasal MRSA (PCR) Not detected IgG 1008 IgA 315 IgM 100 Rheumatoid Factor Cancelled Rheumatoid Factor Scrn Cancelled Rheumatoid Factor Titer Cancelled Anti-Cycl Citrul Peptide Cancelled Cycl Citrul Peptide IgG Cancelled Anti-Proteinase 3 FEIA c/o 1.9 Cancelled Anti-Myeloperoxidase Cancelled Quality VTE Prophylaxis VTE prophylaxis: mechanical ordered (SCDs)
--- NOTE | 2025-02-08 17:02 | PC.NURSE ---
This patient, Bartolome Maynard, was transferred to [facility] on 02/08/25 at 1655. Personal belongings sent with patient. Report given to Hunter. Appropriate documentation sent with patient.
--- NOTE | 2025-02-08 17:05 | PC.NURSE ---
This patient, Bartolome Maynard, was received from IMU [id number] on 02/08/25 at 1705. Patient/family oriented to unit policies and routines
[2025-02-08] MEDS: diphenhydrAMINE HCl CAP 25 MG CAPSULE 50 MG PO (20:44)
[2025-02-08] MEDS: VENLAFAXINE HCL XR 75 MG CAP.ER.24H 225 MG PO (20:45)
[2025-02-08] MEDS: cefTRIAXone 1 GM in SODIUM CHLORIDE 0.9% IV 50 ML 100 ML IVPB (20:45)
[2025-02-08] MEDS: DIVALPROEX SODIUM DR 250 MG TABEC 1000 MG PO (20:45)
[2025-02-08] MEDS: TAMSULOSIN HCL 0.4 MG CAPSULE PO (20:45)
[2025-02-08] MEDS: TRIFLUOPERAZINE HCL 10 MG 3 EACH PO (20:57)
[2025-02-09] VITALS (26 sets, daily range): BP systolic 96–126; BP diastolic 58–86; PULSE 64–111; RESP 18–24; TEMP 36.4–36.9; O2SAT 93–100
[2025-02-09] MEDS: IPRATROPIUM BR 0.02% INH SOLN 0.5 MG/2.5 ML VIAL INHALATION ×6 (00:29→21:18)
[2025-02-09 06:11] LABS: Hematocrit 35.5 % (42.0-52.0); Hemoglobin 11.0 g/dL (14.0-18.0); Mean Corpuscular HGB Conc 31.0 g/dl (32-36); Mean Corpuscular Hemoglobin 29.6 pg (26-34); Mean Corpuscular Volume 95.7 fl (80-100); Platelet Count Result 329 k/mm3 (150-375); Red Blood Count 3.71 M/mm3 (4.6-6.20); White Blood Count 19.3 K/mm3 (4.5-10.0)
[2025-02-09 06:31] LABS: Anion Gap 10 mmol/L (4-12); Blood Urea Nitrogen 28 mg/dL (9-20); Calcium 9.1 mg/dL (8.4-10.2); Carbon Dioxide 25 mmol/L (22-30); Chloride 100 mmol/L (98-107); Estimated CRCL calculation 65 ml/min; Estimated Glomerular Filt Rate > 60; Glucose 103 mg/dL (65-110); Magnesium 2.4 mg/dL (1.6-2.3); Potassium 4.7 mmol/L (3.4-5.0); Sodium 135 mmol/L (137-145)
[2025-02-09] MEDS: FLUTICASONE PROP 110 MCG INHALER 12 GM (*SP) 2 PUFF INHALATION ×2 (09:10→21:19)
[2025-02-09] MEDS: DOXYCYCLINE HYCLATE 100 MG TABLET PO ×2 (09:54→21:53)
[2025-02-09] MEDS: METOPROLOL SUCCINATE EXT REL 12.5 MG TABCR PO (09:54)
[2025-02-09] MEDS: CELECOXIB 200 MG CAPSULE PO (09:54)
[2025-02-09] MEDS: ATORVASTATIN 20 MG TABLET PO (09:54)
[2025-02-09] MEDS: ASPIRIN 81 MG ENTERIC TABLET PO ×2 (09:54→17:56)
[2025-02-09] MEDS: CARBIDOPA/LEVODOPA 25/250 MG TABLET 2 TABLET PO ×4 (09:54→21:51)
[2025-02-09] MEDS: LORazepam (*CRX) 1 MG TABLET PO ×2 (09:54→21:53)
[2025-02-09] MEDS: guaiFENesin 12 HR 600 MG TABCR PO ×2 (09:54→21:54)
[2025-02-09] MEDS: PRIMIDONE 50 MG TABLET 100 MG PO ×2 (09:54→21:53)
--- NOTE | 2025-02-09 11:39 | P.PNCA_ITS ---
Progress Note: A&P Assessment and Plan (1) Elevated troponin: Code(s): R79.89 - Other specified abnormal findings of blood chemistry Status: Acute Assessment and Plan: Troponin levels are 0.303, 0.322, and 0.303. This troponin trend is not consistent with acute coronary syndrome, however he has been having intermittent chest pain for the past 4-6 months. Will continue to treat his pneumonia. Tentative plan will be to perform cardiac catheterization this hospitalization if patient wishes to undergo aggressive management. I talked to his as well as to the patient today. He would like to pursue coronary angiogram. Will keep NPO after midnight for possible angiogram tomorrow depending on respiratory status. They are okay to temporarily rescind DNR status to undergo the angiogram. Continue metoprolol because of his cardiomyopathy and probable CAD. As able or as BP will tolerate, could add Jardiance, Entresto or other Alexandro/Arb. Patient does have hyperkalemia and will likely not be able to tolerate spironolactone. BP is also soft at this point. Continue aspirin, statin. (2) Sepsis: Code(s): A41.9 - Sepsis, unspecified organism Status: Acute Assessment and Plan: Meet sepsis criteria. On antibiotics. Management per hospitalist. (3) Pneumonia: Code(s): J18.9 - Pneumonia, unspecified organism Status: Acute Assessment and Plan: Treatment per hospitalist (4) Acute hypoxemic respiratory failure: Code(s): J96.01 - Acute respiratory failure with hypoxia Status: Acute Assessment and Plan: Improving, currently on 6 L oxygen per high-flow nasal cannula. Management per hospitalist. (5) Cardiomyopathy: Code(s): I42.9 - Cardiomyopathy, unspecified Status: Acute Assessment and Plan: Severe as detailed above. Probably ischemic. Subjective Date/time seen: 02/09/25 11:39 Interval history: H&P-Narrative: 84-year-old male with a past medical history of COPD, pulmonary fibrosis, bronchiectasis, Parkinson's disease, bipolar disorder, depression, BPH and dementia who presented to the ER with productive cough and shortness of breath. Cardiology consultation because of elevated troponins Date of service 02/08/2025: Still having productive cough. No chest pain at present but does reiterate that he has intermittent chest pain home. Echocardi ogram shows markedly reduced ejection fraction as detailed below Date of service 02/09/2025: Less short of breath. Coughing less. No chest pain. Review of Systems Review of Systems: All systems reviewed & are unremarkable except as noted in HPI and below Constitutional: Constitutional: Denies chills ENT: Reports Normal hearing present Cardiovascular: Cardiovascular: Reports chest pain Respiratory: Respiratory: Reports cough Gastrointestinal: Gastrointestinal: Denies abdominal pain Neurologic: Reports Normal hearing present Exam Narrative: Appears stated age Const: General: comfortable, no acute distress, alert and awake Orientation/consciousness: patient oriented x3 HENMT: Head: normal to inspection Eyes: General: appearance normal, both eyes and all related structures Sclera: sclerae normal Pupils: Equal, round and reactive pupils present Neck: Neck: normal visual inspection, supple and no JVD Carotids: normal carotid upstroke Resp: Effort & Inspection: normal respiratory effort Auscultation: crackles and rhonchi Other: Wheezes also noted Cardio: Rate: regular rate and tachycardic Rhythm: regular rhythm Heart sounds: S1 normal heart sound present, S2 normal heart sound present and no murmurs GI: Auscultation: normal bowel sounds Skin: General skin exam: normal color Neuro: General: patient oriented x3 Cranial nerves: Yes Equal, round and reactive pupils present and Yes Normal hearing present Speech: normal speech Extrem: General: normal to inspection Psych: Appearance: grossly normal Mental Status: mental status grossly normal Objective Data Vital Signs Vital Signs: Vital Signs - 24 hr 02/08/25 12:00 02/08/25 14:00 02/08/25 16:00 Temperature Pulse Rate 109 H 108 H 102 H Respiratory Rate Blood Pressure Pulse Oximetry Oxygen Delivery Oxygen Flow Rate 02/08/25 16:00 02/08/25 16:00 02/08/25 16:18 Temperature 36.1 C L Pulse Rate 106 H 100 Respiratory Rate 20 20 Blood Pressure 129/62 Pulse Oximetry 92 92 Oxygen Delivery Room Air Oxygen Flow Rate 02/08/25 16:25 02/08/25 19:57 02/08/25 20:00 Temperature Pulse Rate 103 H 103 H 107 H Respiratory Rate 20 20 18 Blood Pressure Pulse Oximetry 97 Oxygen Delivery Nasal Cannula Oxygen Flow Rate 1 02/08/25 20:00 02/08/25 20:03 02/08/25 20:08 Temperature Pulse Rate 102 H 103 H 101 H Respiratory Rate 20 Blood Pressure Pulse Oximetry 93 Oxygen Delivery Nasal Cannula Oxygen Flow Rate 1 02/08/25 22:28 02/09/25 00:00 02/09/25 00:30 Temperature 36.3 C L Pulse Rate 107 H 108 H 99 Respiratory Rate 18 20 Blood Pressure 107/80 Pulse Oximetry 97 Oxygen Delivery Oxygen Flow Rate 02/09/25 00:37 02/09/25 04:00 02/09/25 04:16 Temperature Pulse Rate 102 H 99 95 Respiratory Rate 20 22 H Blood Pressure Pulse Oximetry Oxygen Delivery Oxygen Flow Rate 02/09/25 04:28 02/09/25 06:00 02/09/25 09:11 Temperature 36.4 C L Pulse Rate 98 102 H 108 H Respiratory Rate 22 H 20 20 Blood Pressure 96/77 L Pulse Oximetry 93 Oxygen Delivery Oxygen Flow Rate 02/09/25 09:14 02/09/25 09:20 02/09/25 09:54 Temperature Pulse Rate 107 H 106 H 101 H Respiratory Rate 20 Blood Pressure Pulse Oximetry 100 Oxygen Delivery Nasal Cannula Oxygen Flow Rate 1 Intake/Output Intake/Output: Intake & Output 02/06/25 02/07/25 02/08/25 02/09/25 23:59 23:59 23:59 23:59 Intake Total 550 1070 1320 480 Output Total 725 1150 800 Balance 550 345 170 -320 Meds/Results Medications: Active Medications Generic Name Dose Route Start Last Admin Trade Name Freq PRN Reason Stop Dose Admin Acetaminophen 650 mg 02/06/25 22:14 Acetaminophen 325 Mg Tablet PO Q4H PRN Mild Pain (1-3) or Fever Aspirin 81 mg 02/07/25 00:45 02/09/25 09:54 Aspirin 81 Mg Enteric Tablet PO 81 mg BID CARMEN Administration Atorvastatin Calcium 20 mg 02/08/25 11:50 02/09/25 09:54 Atorvastatin 20 Mg Tablet PO 20 mg DAILY CARMEN Administration Carbidopa/Levodopa 2 tablet 02/07/25 00:45 02/09/25 09:54 Carbidopa/Levodopa 25/250 Mg Tablet PO 2 tablet QID CARMEN Administration Celecoxib 200 mg 02/07/25 09:00 02/09/25 09:54 Celecoxib 200 Mg Capsule PO 200 mg QAM CARMEN Administration Diphenhydramine HCl 50 mg 02/07/25 00:45 02/08/25 20:44 Diphenhydramine Hcl Cap 25 Mg Capsule PO 50 mg HS CARMEN Administration Divalproex Sodium 1,000 mg 02/07/25 00:45 02/08/25 20:[address] 250 Mg Tabec PO 1,000 mg QHS CARMEN Administration Doxycycline Hyclate 100 mg 02/07/25 09:00 02/09/25 09:54 Doxycycline Hyclate 100 Mg Tablet PO 100 mg Q12HR CARMEN Administration Fluticasone Propionate 2 puff 02/07/25 08:00 02/09/25 09:10 Fluticasone Prop 110 Mcg Inhaler 12 Gm (*Sp) INHALATION 2 puff Q12HRT CARMEN Administration Guaifenesin 600 mg 02/08/25 12:05 02/09/25 09:54 Guaifenesin 12 Hr 600 Mg Tabcr PO 600 mg Q12HR CARMEN Administration Ceftriaxone Sodium 1 gm/ 50 mls @ 100 mls/hr 02/07/25 21:00 02/08/25 21:15 Sodium Chloride IVPB Infused Q24H CARMEN Infusion Ibuprofen 400 mg 02/06/25 22:14 Ibuprofen 400 Mg Tablet PO Q6H PRN Mild Pain (1-3) or Fever Ipratropium Chadron 0.5 mg 02/07/25 16:00 02/09/25 09:09 Ipratropium Br 0.02% Inh Soln 0.5 Mg/2.5 Ml Vial INHALATION 0.5 mg Q4HRT CARMEN Administration Lorazepam 1 mg 02/07/25 00:50 02/09/25 09:54 Lorazepam (*Crx) 1 Mg Tablet PO 1 mg Q12HR CARMEN Administration Methylprednisolone Sodium Succinate 20 mg 02/07/25 18:00 02/09/25 05:46 Methylprednisolone Sod Succ 40 Mg Vial IV PUSH 20 mg Q6HR CARMEN Administration Metoprolol Succinate 12.5 mg 02/08/25 11:50 02/09/25 09:54 Metoprolol Succinate Ext Rel 12.5 Mg Tabcr PO 12.5 mg QAM CARMEN Administration Non-Formulary ( 3 each 02/07/25 21:00 02/08/25 20:57 Trifluoperazine Hcl PO 03/09/25 20:59 3 each 10 Mg Oral Tablet) HS CARMEN Administration Ondansetron HCl 4 mg 02/06/25 22:14 Ondansetron Inj 4 Mg/2 Ml Vial IV PUSH Q4H PRN Nausea Primidone 100 mg 02/07/25 00:55 02/09/25 09:54 Primidone 50 Mg Tablet PO 100 mg Q12HR CARMEN Administration Tamsulosin HCl 0.4 mg 02/07/25 00:50 02/08/25 20:45 Tamsulosin Hcl 0.4 Mg Capsule PO 0.4 mg QHS CARMEN Administration Venlafaxine HCl 225 mg 02/07/25 00:50 02/08/25 20:45 Venlafaxine Hcl Xr 75 Mg Cap.Er.24h PO 225 mg QHS CARMEN Administration Radiology Results: ITS Impressions Chest X-Ray 02/06/25 18:30 IMPRESSION: Patchy ground glass opacities may represent infection or edema, overlying moderate chronic interstitial lung disease. Acute exacerbation of the interstitial disease should also be considered in the differential Chest CTA 02/07/25 13:30 IMPRESSION: 1. No pulmonary embolism identified. 2. No pulmonary mass. No new focal pulmonary consolidation. 3. Grossly stable chronic changes in the lungs as compared to the study from 09/30/2024. Grossly stable bronchiectasis. 4. New small right-sided pleural effusion. Tiny left-sided pleural effusion. Modified Barium Swallow 02/07/25 13:59 IMPRESSION: Trace laryngeal penetration without aspiration. Please correlate with speech pathologist findings and specific feeding recommendations. Venous Doppler Study 02/07/25 15:32 IMPRESSION: 1. No deep venous thrombosis in either lower limb. Labs Labs: Laboratory Results - last 24 hr 02/07/25 02/08/25 02/08/25 14:43 05:37 05:41 WBC RBC Hgb Hct MCV MCH MCHC RDW Plt Count MPV Sodium Potassium Chloride Carbon Dioxide Anion Gap BUN Creatinine Estim Creat Clear Calc Estimated GFR Glucose Calcium Magnesium [id number] 200 H Rheum Factor (Ref Lab) 13.8 Chlamy pneumoniae PCR Not detected Adenovirus (PCR) Not detected B. pertussis DNA (PCR) Not detected B.parapertussis DNA PCR Not detected Coronavirus OC43 (PCR) Not detected Coronavirus HKU1 (PCR) Not detected Coronavirus 229E (PCR) Not detected Coronavirus NL63 (PCR) Not detected Human Metapneumovir PCR Not detected Influenza A (H1) PCR Not detected Influ A (H1/09) PCR Not detected Influenza A (H3) PCR Not detected Influenza Type A (PCR) Not detected Influenza Type B (PCR) Not detected M. pneumoniae (PCR) Not detected Parainfluenza 1 (PCR) Not detected Parainfluenza 2 (PCR) Not detected Parainfluenza 3 (PCR) Not detected Parainfluenza 4 (PCR) Not detected RSV (PCR) Not detected Entero/Rhino (PCR) Not detected SARS-CoV-2 (PCR) Not detected 02/09/25 05:43 WBC 19.3 H RBC 3.71 L Hgb 11.0 L Hct 35.5 L MCV 95.7 MCH 29.6 MCHC 31.0 L RDW 16.9 H Plt Count 329 MPV 10.8 H Sodium 135 L Potassium 4.7 Chloride 100 Carbon Dioxide 25 Anion Gap 10 BUN 28 H Creatinine 0.73 Estim Creat Clear Calc 65 Estimated GFR > 60 Glucose 103 Calcium 9.1 Magnesium 2.4 H [id number] Rheum Factor (Ref Lab) Chlamy pneumoniae PCR Adenovirus (PCR) B. pertussis DNA (PCR) B.parapertussis DNA PCR Coronavirus OC43 (PCR) Coronavirus HKU1 (PCR) Coronavirus 229E (PCR) Coronavirus NL63 (PCR) Human Metapneumovir PCR Influenza A (H1) PCR Influ A (H1/09) PCR Influenza A (H3) PCR Influenza Type A (PCR) Influenza Type B (PCR) M. pneumoniae (PCR) Parainfluenza 1 (PCR) Parainfluenza 2 (PCR) Parainfluenza 3 (PCR) Parainfluenza 4 (PCR) RSV (PCR) Entero/Rhino (PCR) SARS-CoV-2 (PCR)
--- NOTE | 2025-02-09 13:18 | PM.IMPN ---
Progress Note: A&P Assessment and Plan (1) Acute hypoxic respiratory failure: Code(s): J96.01 - Acute respiratory failure with hypoxia Status: Acute (2) Acute exacerbation of chronic obstructive pulmonary disease: Code(s): J44.1 - Chronic obstructive pulmonary disease with (acute) exacerbation Status: Acute (3) Sepsis: Qualifiers: Sepsis type: sepsis due to unspecified organism Sepsis acute organ dysfunction status: with acute organ dysfunction Severe sepsis acute organ dysfunction type: acute respiratory failure Acute respiratory failure type: with hypoxia Severe sepsis shock status: without septic shock Qualified Code(s): A41.9 - Sepsis, unspecified organism; R65.20 - Severe sepsis without septic shock; J96.01 - Acute respiratory failure with hypoxia Code(s): A41.9 - Sepsis, unspecified organism Status: Acute (4) Lactic acidosis: Code(s): E87.20 - Acidosis, unspecified Status: Acute (5) Elevated troponin: Code(s): R79.89 - Other specified abnormal findings of blood chemistry Status: Acute Plan Patient met sepsis criteria with tachycardia, tachypnea, leukocytosis in the setting of bilateral pneumonia on imaging with associated acute hypoxic respiratory failure persistent lactic acidosis after 1 L fluid bolus. Patient did not receive 30 mL/kilos fluid bolus due to ER concern for fluid status. At the time of my evaluation patient appears to be intervascular volume depleted. I will give the patient additional 2 L of IV fluid hydration at 150 mL an hour and then re-evaluate fluid status. Patient's lactic acid is doses did improve on repeat labs this a.m.. Patient was started on empiric antibiotic therapy with Rocephin and doxycycline in the ER. Blood cultures have been obtained and are pending. Will check urine Legionella and pneumococcal antigen. Will obtain sputum culture and send for Gram stain. The patient is a likely also has COPD exacerbation due to lower respiratory infection with pneumonia. Patient received 1 dose of IV Solu-Medrol in the ER. Will place patient on scheduled Solu-Medrol 60 mg q.6 hours and scheduled DuoNebs. Will resume patient's home inhalers. Will wean oxygen as tolerated. Will repeat CBC and electrolyte panel in a.m.. Patient did have been mildly elevated troponins most likely due to a demand ischemia from acute hypoxic respiratory failure and tachycardia. Will trend troponins and monitor. Patient is not having any chest pain or EKG changes to indicate acute plaque rupture. 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 Naik, section gang worker and further workup is in progress, patient stats feels congested, will give guaifenesin, patient remains clinically stable, patient with elevated tropes though flat, cardiac echo showing severely reduce with EF of 25-30%, and with CP for last 4-6 weeks, seen by senior actuarial analyst patient will need cardiac cath once his respiratory symptoms have improved will monitor. patient and daughter are present and gave updates. Subjective Date/time seen: 02/09/25 13:18 Interval history: Worsening cough and shortness of H&P-Narrative: 84-year-old male with a past medical history of COPD, pulmonary fibrosis, bronchiectasis, Parkinson's disease, bipolar disorder, depression, BPH and dementia who presented to the ER with productive cough and shortness of breath. The patient states that he had received a prescription for Z-Rufus about 2 weeks ago. Despite taking the Z-Rufus he continued to have cough and the cough was productive of green to brownish sputum. He reports that he usually does have a cough that is productive of clear sputum but his sputum has definitely changed. He reports he has not been having any fever. A couple of days ago he called this provider again and was given a prescription for doxycycline. He took a couple of days of the doxycycline in still was not feeling any better. He noticed that he was having increased wheezing and significant shortness of breath. When he arrived to the ER he was having oxygen saturations of 85% on room air. He was noted to have significant leukocytosis and denies any significant fevers or chills. He denies any orthopnea. He has not noticed any lower extremity swelling. He has noticed that his abdomen is been more distended. He is unsure if he is emptying his bladder completely. He does report weak urinary stream at times. Patient does have history of presume dementia given is on Aricept but is a relatively good historian at the time of my evaluation he is alert oriented x4. He denies any recent confusion. Chest x-ray in the ER suggested likely pneumonia versus pulmonary edema. Patient's oxygen saturations improved up to 95% on 4 L nasal cannula but the patient was mouth breathing and subsequently was placed on a Venti mask. 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 Naik, section gang worker and further workup is in progress, patient stats feels congested, will give guaifenesin, patient remains clinically stable, patient with elevated tropes though flat, cardiac echo showing severely reduce with EF of 25-30%, and with CP for last 4-6 weeks, seen by senior actuarial analyst patient will need cardiac cath once his respiratory symptoms have improved will monitor. patient and daughter are present and gave updates. Review of Systems Review of Systems: 12 systems were reviewed with pertinent positives and negatives per HPI. Except as documented in the HPI, all other systems were reviewed and are negative. Exam Narrative: Patient is comfortable, NAD HEENT: eyes are clear and none icteric LUNGS: Bilateral poor air entry with rhonchi HEART: RR S1S2 ABD: BS+, Soft and nontender Lower extremities: no edema SKIN: nonjaundiced Neuro: grossly intact. Objective Data Vital Signs Vital Signs: Vital Signs - 24 hr 02/08/25 14:00 02/08/25 16:00 02/08/25 16:00 Temperature 36.1 C L Pulse Rate 108 H 102 H 106 H Respiratory Rate 20 Blood Pressure 129/62 Pulse Oximetry 92 Oxygen Delivery Oxygen Flow Rate 02/08/25 16:00 02/08/25 16:18 02/08/25 16:25 Temperature Pulse Rate 100 103 H Respiratory Rate 20 20 Blood Pressure Pulse Oximetry 92 Oxygen Delivery Room Air Oxygen Flow Rate 02/08/25 19:57 02/08/25 20:00 02/08/25 20:00 Temperature Pulse Rate 103 H 107 H 102 H Respiratory Rate 20 18 Blood Pressure Pulse Oximetry 97 Oxygen Delivery Nasal Cannula Oxygen Flow Rate 1 02/08/25 20:03 02/08/25 20:08 02/08/25 22:28 Temperature 36.3 C L Pulse Rate 103 H 101 H 107 H Respiratory Rate 20 18 Blood Pressure 107/80 Pulse Oximetry 93 97 Oxygen Delivery Nasal Cannula Oxygen Flow Rate 1 02/09/25 00:00 02/09/25 00:30 02/09/25 00:37 Temperature Pulse Rate 108 H 99 102 H Respiratory Rate 20 20 Blood Pressure Pulse Oximetry Oxygen Delivery Oxygen Flow Rate 02/09/25 04:00 02/09/25 04:16 02/09/25 04:28 Temperature Pulse Rate 99 95 98 Respiratory Rate 22 H 22 H Blood Pressure Pulse Oximetry Oxygen Delivery Oxygen Flow Rate 02/09/25 06:00 02/09/25 09:11 02/09/25 09:14 Temperature 36.4 C L Pulse Rate 102 H 108 H 107 H Respiratory Rate 20 20 Blood Pressure 96/77 L Pulse Oximetry 93 100 Oxygen Delivery Nasal Cannula Oxygen Flow Rate 1 02/09/25 09:20 02/09/25 09:50 02/09/25 09:50 Temperature Pulse Rate 106 H 101 H Respiratory Rate 20 Blood Pressure Pulse Oximetry 96 Oxygen Delivery Nasal Cannula Oxygen Flow Rate 1 02/09/25 09:54 02/09/25 11:58 02/09/25 12:04 Temperature Pulse Rate 101 H 102 H 94 Respiratory Rate 20 21 H Blood Pressure Pulse Oximetry Oxygen Delivery Oxygen Flow Rate Intake/Output Intake/Output: Intake & Output 02/06/25 02/07/25 02/08/25 02/09/25 23:59 23:59 23:59 23:59 Intake Total 550 1070 1320 480 Output Total 725 1150 800 Balance 550 345 170 -320 Meds/Results Medications: Active Medications Generic Name Dose Route Start Last Admin Trade Name Freq PRN Reason Stop Dose Admin Acetaminophen 650 mg 02/06/25 22:14 Acetaminophen 325 Mg Tablet PO Q4H PRN Mild Pain (1-3) or Fever Aspirin 81 mg 02/07/25 00:45 02/09/25 09:54 Aspirin 81 Mg Enteric Tablet PO 81 mg BID CARMEN Administration Atorvastatin Calcium 20 mg 02/08/25 11:50 02/09/25 09:54 Atorvastatin 20 Mg Tablet PO 20 mg DAILY CARMEN Administration Carbidopa/Levodopa 2 tablet 02/07/25 00:45 02/09/25 09:54 Carbidopa/Levodopa 25/250 Mg Tablet PO 2 tablet QID CARMEN Administration Celecoxib 200 mg 02/07/25 09:00 02/09/25 09:54 Celecoxib 200 Mg Capsule PO 200 mg QAM CARMEN Administration Diphenhydramine HCl 50 mg 02/07/25 00:45 02/08/25 20:44 Diphenhydramine Hcl Cap 25 Mg Capsule PO 50 mg HS CARMEN Administration Divalproex Sodium 1,000 mg 02/07/25 00:45 02/08/25 20:[address] 250 Mg Tabec PO 1,000 mg QHS CARMEN Administration Doxycycline Hyclate 100 mg 02/07/25 09:00 02/09/25 09:54 Doxycycline Hyclate 100 Mg Tablet PO 100 mg Q12HR CARMEN Administration Fluticasone Propionate 2 puff 02/07/25 08:00 02/09/25 09:10 Fluticasone Prop 110 Mcg Inhaler 12 Gm (*Sp) INHALATION 2 puff Q12HRT CARMEN Administration Guaifenesin 600 mg 02/08/25 12:05 02/09/25 09:54 Guaifenesin 12 Hr 600 Mg Tabcr PO 600 mg Q12HR CARMEN Administration Ceftriaxone Sodium 1 gm/ 50 mls @ 100 mls/hr 02/07/25 21:00 02/08/25 21:15 Sodium Chloride IVPB Infused Q24H CARMEN Infusion Ibuprofen 400 mg 02/06/25 22:14 Ibuprofen 400 Mg Tablet PO Q6H PRN Mild Pain (1-3) or Fever Ipratropium [place] 0.5 mg 02/07/25 16:00 02/09/25 11:58 Ipratropium Br 0.02% Inh Soln 0.5 Mg/2.5 Ml Vial INHALATION 0.5 mg Q4HRT CARMEN Administration Lorazepam 1 mg 02/07/25 00:50 02/09/25 09:54 Lorazepam (*Crx) 1 Mg Tablet PO 1 mg Q12HR CARMEN Administration Methylprednisolone Sodium Succinate 20 mg 02/07/25 18:00 02/09/25 05:46 Methylprednisolone Sod Succ 40 Mg Vial IV PUSH 20 mg Q6HR CARMEN Administration Metoprolol Succinate 12.5 mg 02/08/25 11:50 02/09/25 09:54 Metoprolol Succinate Ext Rel 12.5 Mg Tabcr PO 12.5 mg QAM CARMEN Administration Non-Formulary ( 3 each 02/07/25 21:00 02/08/25 20:57 Trifluoperazine Hcl PO 03/09/25 20:59 3 each 10 Mg Oral Tablet) HS CARMEN Administration Ondansetron HCl 4 mg 02/06/25 22:14 Ondansetron Inj 4 Mg/2 Ml Vial IV PUSH Q4H PRN Nausea Primidone 100 mg 02/07/25 00:55 02/09/25 09:54 Primidone 50 Mg Tablet PO 100 mg Q12HR CARMEN Administration Tamsulosin HCl 0.4 mg 02/07/25 00:50 02/08/25 20:45 Tamsulosin Hcl 0.4 Mg Capsule PO 0.4 mg QHS CARMEN Administration Venlafaxine HCl 225 mg 02/07/25 00:50 02/08/25 20:45 Venlafaxine Hcl Xr 75 Mg Cap.Er.24h PO 225 mg QHS CARMEN Administration Radiology Results: ITS Impressions Chest X-Ray 02/06/25 18:30 IMPRESSION: Patchy ground glass opacities may represent infection or edema, overlying moderate chronic interstitial lung disease. Acute exacerbation of the interstitial disease should also be considered in the differential Chest CTA 02/07/25 13:30 IMPRESSION: 1. No pulmonary embolism identified. 2. No pulmonary mass. No new focal pulmonary consolidation. 3. Grossly stable chronic changes in the lungs as compared to the study from 09/30/2024. Grossly stable bronchiectasis. 4. New small right-sided pleural effusion. Tiny left-sided pleural effusion. Modified Barium Swallow 02/07/25 13:59 IMPRESSION: Trace laryngeal penetration without aspiration. Please correlate with speech pathologist findings and specific feeding recommendations. Venous Doppler Study 02/07/25 15:32 IMPRESSION: 1. No deep venous thrombosis in either lower limb. Labs Labs: Laboratory Results - last 24 hr 02/07/25 02/08/25 02/08/25 14:43 05:37 05:41 WBC RBC Hgb Hct MCV MCH MCHC RDW Plt Count MPV Sodium Potassium Chloride Carbon Dioxide Anion Gap BUN Creatinine Estim Creat Clear Calc Estimated GFR Glucose Calcium Magnesium Oteln-[id number] 200 H Immunocap Total IgE Cancelled Rheum Factor (Ref Lab) 13.8 Chlamy pneumoniae PCR Not detected Adenovirus (PCR) Not detected B. pertussis DNA (PCR) Not detected B.parapertussis DNA PCR Not detected Coronavirus OC43 (PCR) Not detected Coronavirus HKU1 (PCR) Not detected Coronavirus 229E (PCR) Not detected Coronavirus NL63 (PCR) Not detected Human Metapneumovir PCR Not detected Influenza A (H1) PCR Not detected Influ A () PCR Not detected Influenza A (H3) PCR Not detected Influenza Type A (PCR) Not detected Influenza Type B (PCR) Not detected M. pneumoniae (PCR) Not detected Parainfluenza 1 (PCR) Not detected Parainfluenza 2 (PCR) Not detected Parainfluenza 3 (PCR) Not detected Parainfluenza 4 (PCR) Not detected RSV (PCR) Not detected Entero/Rhino (PCR) Not detected SARS-CoV-2 (PCR) Not detected 02/09/25 05:43 WBC 19.3 H RBC 3.71 L Hgb 11.0 L Hct 35.5 L MCV 95.7 MCH 29.6 MCHC 31.0 L RDW 16.9 H Plt Count 329 MPV 10.8 H Sodium 135 L Potassium 4.7 Chloride 100 Carbon Dioxide 25 Anion Gap 10 BUN 28 H Creatinine 0.73 Estim Creat Clear Calc 65 Estimated GFR > 60 Glucose 103 Calcium 9.1 Magnesium 2.4 H Lwekt-[id number] Immunocap Total IgE Rheum Factor (Ref Lab) Chlamy pneumoniae PCR Adenovirus (PCR) B. pertussis DNA (PCR) B.parapertussis DNA PCR Coronavirus OC43 (PCR) Coronavirus HKU1 (PCR) Coronavirus 229E (PCR) Coronavirus NL63 (PCR) Human Metapneumovir PCR Influenza A (H1) PCR Influ A () PCR Influenza A (H3) PCR Influenza Type A (PCR) Influenza Type B (PCR) M. pneumoniae (PCR) Parainfluenza 1 (PCR) Parainfluenza 2 (PCR) Parainfluenza 3 (PCR) Parainfluenza 4 (PCR) RSV (PCR) Entero/Rhino (PCR) SARS-CoV-2 (PCR) Quality VTE Prophylaxis VTE prophylaxis: mechanical ordered (SCDs)
--- NOTE | 2025-02-09 18:12 | ECG_ITS ---
Test Date: 2025-02-09 18:23:52 Measurements Intervals [place] Rate: 94 P: 39 GA: 163 QRS: 16 QRSD: 81 T: 98 QT: 381 QTc: 476 Interpretive Statements SINUS RHYTHM WITH SINUS ARRHYTHMIA POSSIBLE LEFT ATRIAL ENLARGEMENT MINIMAL Q WAVES- INFERIOR LEADS ST-T WAVE ABNORMALITY IN INF/LAT LEADS- CONSIDER ISCHEMIA ABNORMAL ECG Compared to ECG 02/07/2025 01:02:44 HAERT RATE HAS DECREASED Electronically Signed On 02-09-2025 20:24:55 CDT by Brandon Marshall D.O.
[2025-02-09] MEDS: cefTRIAXone 1 GM in SODIUM CHLORIDE 0.9% IV 50 ML 100 ML IVPB (21:51)
[2025-02-09] MEDS: VENLAFAXINE HCL XR 75 MG CAP.ER.24H 225 MG PO (21:54)
[2025-02-09] MEDS: TAMSULOSIN HCL 0.4 MG CAPSULE PO (21:54)
[2025-02-09] MEDS: DIVALPROEX SODIUM DR 250 MG TABEC 1000 MG PO (21:54)
[2025-02-09] MEDS: TRIFLUOPERAZINE HCL 10 MG 3 EACH PO (21:54)
[2025-02-09] MEDS: diphenhydrAMINE HCl CAP 25 MG CAPSULE 50 MG PO (21:54)
[2025-02-10] VITALS (39 sets, daily range): BP systolic 97–132; BP diastolic 70–97; PULSE 92–110; RESP 12–24; TEMP 36.1–36.6; O2SAT 85–100
[2025-02-10] MEDS: IPRATROPIUM BR 0.02% INH SOLN 0.5 MG/2.5 ML VIAL INHALATION ×4 (00:07→22:07)
[2025-02-10 04:58] LABS: Hematocrit 34.0 % (42.0-52.0); Hemoglobin 10.7 g/dL (14.0-18.0); Mean Corpuscular HGB Conc 31.5 g/dl (32-36); Mean Corpuscular Hemoglobin 30.0 pg (26-34); Mean Corpuscular Volume 95.2 fl (80-100); Platelet Count Result 264 k/mm3 (150-375); Red Blood Count 3.57 M/mm3 (4.6-6.20); White Blood Count 19.3 K/mm3 (4.5-10.0)
[2025-02-10 05:26] LABS: Anion Gap 12 mmol/L (4-12); Blood Urea Nitrogen 27 mg/dL (9-20); Calcium 8.6 mg/dL (8.4-10.2); Carbon Dioxide 22 mmol/L (22-30); Chloride 99 mmol/L (98-107); Estimated CRCL calculation 74 ml/min; Estimated Glomerular Filt Rate > 60; Glucose 106 mg/dL (65-110); Magnesium 2.3 mg/dL (1.6-2.3); Potassium 4.5 mmol/L (3.4-5.0); Sodium 133 mmol/L (137-145)
[2025-02-10] MEDS: FLUTICASONE PROP 110 MCG INHALER 12 GM (*SP) 2 PUFF INHALATION (07:37)
[2025-02-10 08:06] LABS: CRP 1.7 mg/dL (<1.0)
[2025-02-10 08:11] LABS: NT Pro B Type Natriuretic Pept 8400 pg/mL (19.9-100)
[2025-02-10 08:22] LABS: Procalcitonin 0.1 ng/mL
--- NOTE | 2025-02-10 11:36 | PM.PNPUL ---
Progress Note: A&P Assessment and Plan (1) Chronic obstructive pulmonary disease: Code(s): J44.9 - Chronic obstructive pulmonary disease, unspecified Status: Acute Assessment and Plan: Regarding patient's COPD He the family tells me he was diagnosed 10 years ago. He denies ever having PFTs. He was given inhalers and these did help him. He smoked 2 packs a day from 1957 until 2006 for a total of 100 pack years. He was exposed to secondhand smoke from his father. He denies vaping or illicit drug use. CT scan of the chest on 09/30/2024 shows mild apical predominant panlobular emphysema. He is maintained on fluticasone 100 q.day. At the base line patient is very limited in his activity. Ten years ago he could walk unlimited going slow. Five years ago he began using walker and could walk 1 block. One year ago he could walk half a block. Six months ago he says he could walk half a block. He was admitted to the hospital on 11/23/2024 with pneumonia and colitis and has lost strength since then and his breathing has never recovered. He did not require oxygen at discharge. Patient presents now with change in sputum volume call our, change in sputum color, worsening shortness of breath, leukocytosis and wheezing. I will treat him for COPD exacerbation and he may have a pneumonia. 02/07/2025: Currently the patient tells me he feels better. He is 26% back to his normal. His cough is improved and is 26% back to normal. He has decreased volume of phlegm. His appetite is improved and he 8 like a horse. His white blood cell count is 18.0, his creatinine is 0.79. His BNP is 9220, his CRP is 4.1. D dimer is 1.08. when I enter the room the patient was on 4 L nasal cannula saturations 95%. I decreased her 3 L and his saturations were 95%. I decreased him to 2 L and his saturations were 92%. Plan: currently has no wheezes. I will decrease his Solu-Medrol to 20 mg IV q.6 hours. Patient is tachycardic at 1:10 a.m. on the DuoNebs and I will discontinue albuterol. I will place the patient on ipratropium nebulizers Q.4 hours and follow him clinically. if the patient has continued bronchospasm will add levalbuterol nebulizer. I will order alpha 1 anti trypsin genotype and level tomorrow. I will obtain a CT scan of the chest with contrast to assess his bullous emphysema and to look for evidence of pneumonia. At this time he was clinically improving on ceftriaxone and doxycycline, day 2 will continue. Goal saturation 90-94%. Echocardiogram has been ordered. Pulmonary inpatient consultative services will resume on 02/10/2025, call with questions. Later in the day patient had an echocardiogram with the severely reduced LVEF 25-30%, grade 1 diastolic dysfunction, moderate mitral valve regurgitation, mild aortic valve regurgitation, mild tricuspid valve regurgitation with severe pulmonary hypertension with PASP 60. Normal right ventricular size and function. Normal right atrial size. Later in the day patient had a CT angiogram of the chest and compared to 11/23/2024,with no pulmonary embolism, previous infiltrate right upper lobe has improved, increased reticulations in the lingula, new moderate right pleural effusion. Unchanged mild apical predominant panlobular emphysema, unchanged lower lobe bronchiectasis and unchanged peripheral basilar reticulations and honeycombing in the bilateral lower lobes. 02/10/25: Overall patient is minimally improved. He has some shortness of breath at rest. His cough is a little bit better. When I enter the room he is on 1 L nasal cannula saturations 94%. I decreased him to room air and his saturations decreased to 88% and I placed him back on 1 L nasal cannula. His white blood cell count is 19.3, his creatinine is 0.64. His procalcitonin remains unchanged from 02/07/2025 to 0.1 today. His BNP has decreased from 9220 on 02/07/2025 to 8400 today. His CRP has decreased from 4.7 on 02/07/2025 to 1.7 today. Chest x-ray today shows worsening diffuse alveolar interstitial infiltrates compared to 02/06/2025. Yesterday the patient was positive 170 mL, cumulative he is positive 1.6 L since admission. His weight today is 77.6 with an admission weight of 74 kg. Patient is scheduled for cardiac catheterization later today. Plan: Patient has no wheezes on exam today. I will change his Solu-Medrol 20 mg IV q.6 hours 2 prednisone 40 mg p.o. q.day. today is day 5 of steroids. I will continue to hold off on beta agonist at this time. was not sleeping at night and I will change his ipratropium Nebulizer to q.4 hours while awake. Will continue ceftriaxone and doxycycline for possible pneumonia, day 5 of both. I will increase his guaifenesin from 600 p.o. b.i.d. to 1200 p.o. b.i.d. to aid in expectoration. I will order Cornet flutter valve. Goal saturation 90-94%, adjust oxygen accordingly. Discussed with Dr. Dumont, will follow with you. (2) Pulmonary fibrosis: Code(s): J84.10 - Pulmonary fibrosis, unspecified Status: Acute Assessment and Plan: Regarding his interstitial lung disease this is seen on the first CT scan of the chest in our system on 09/30/2024 with calcified pleural plaques, basilar and peripheral reticulations with honeycombing. In my opinion this is a CT scan with a typical UIP CT pattern. Patient denies any rheumatoid arthritis or skin rashes. Patient worked at [employer] from [id number] with no respiratory protection. He denied welding, sandblasting, coal mining work, construction work. Etiology of interstitial lung disease includes: IPF, asbestosis, occupational lung disease from professional car painting for 30 years. Plan: Will check a CT scan of the chest looking for ground-glass infiltrates which may indicate a flare of his pulmonary fibrosis. Continue steroids as above. Regarding other etiologies for his interstitial lung disease I will send serologies. I will order a VEGA screen that includes 11 different auto antibodies, an ANCA screen, a rheumatoid factor, anti CCP antibody, hypersensitivity pneumonitis panel, a CPK, an aldolase level, CRP, ESR and myomarker 3 plus profile. Patient will need outpatient PFTs once he is clinically stable. Later in the day patient had a CT angiogram of the chest and compared to 11/23/2024,with no pulmonary embolism, previous infiltrate right upper lobe has improved, increased reticulations in the lingula, new moderate right pleural effusion. Unchanged mild apical predominant panlobular emphysema, unchanged lower lobe bronchiectasis and unchanged peripheral basilar reticulations and honeycombing in the bilateral lower lobes. 02/10/2025: Breathing has remained eseentially unchanged. Oxygenation improving, now on [address] scan Compared with 11/23/2024 with unchanged lower lobe bronchiectasis and peripheral reticulations and honeycombing in the lower lobes. Plan: no CT evidence of rapidly progressive pulmonary fibrosis. Serologies: CPK 48, rheumatoid factor 13.8, CCP antibody, VEGA, Anca screen, myositis panel, hypersensitivity pneumonitis panel pending. (3) Bronchiectasis: Code(s): J47.9 - Bronchiectasis, uncomplicated Status: Acute Assessment and Plan: Regarding his bronchiectasis. He does have a chronic cough 2-3 times in the 1st hour and intermittently makes phlegm during this 1st hour but his symptoms have not progressed. The bronchiectasis on his CT scan appears not to be related to traction bronchiectasis. 02/07/25: Plan: I will send serologies looking for an autoimmune disease process, immunodeficiency as an etiology to the patient's bronchiectasis. I will send total IgG, IgM, IgA, IgE, IgG subclass, VEGA screen and rheumatoid factor. 02/10/25: CT scan compared to 11/23/2024 with no change in his lower lobe bronchiectasis. Plan: Total IgG 1008, normal, IgA 315, normal, IgM 100, normal. IgE pending. IgG subclass 1 through 4 pending. additional serologies as above pending. (4) Pleural plaque due to asbestos exposure: Code(s): J92.0 - Pleural plaque with presence of asbestos Status: Acute Assessment and Plan: Regarding his calcified pleural plaques. The patient worked in [employer] and was surrounded by asbestos pipes that ran from the ceiling to the floor. He did not work on the asbestos insulation but he was exposed to these pipes all his life. 02/07/25: Plan: At a minimum the patient has asbestos exposure. He also has interstitial lung disease and may have asbestosis. Will check CT scan of the chest looking for ground-glass infiltrates. 02/10/25: CT scan of the chest on 02/07/2025 with worsening reticulations in the lingula and otherwise unchanged. Plan: Difficult to tell if this is asbestosis or progressive pulmonary fibrosis. Patient will need additional outpatient testing a PFTs. (5) Cardiomyopathy: Code(s): I42.9 - Cardiomyopathy, unspecified Status: Acute Assessment and Plan: Echocardiogram 815 with severe decreased LV function 25-30%, grade 1 diastolic dysfunction, moderate mitral valve regurgitation, severe pulmonary hypertension with PASP of 60. Patient with positive troponins when he was admitted. 02/10/25: He still remains intermittently tachycardic. CT scan with small to moderate right pleural effusion, elevated BNP. Chest x-ray today shows worsening diffuse alveolar interstitial infiltrates compared to 02/06/2025. Yesterday the patient was positive 170 mL, cumulative he is positive 1.6 L since admission. His weight today is 77.6 with an admission weight of 74 kg. Difficult to tell if patient's current rest shortness of breath and dyspnea on exertion or related to above-mentioned pulmonary issues, Fluid overload and or cardiomyopathy. Plan: I will avoid beta agonist nebulizers and inhalers at this time. Cardiomyopathy being managed by Cardiology and will undergo cardiac catheterization per Cardiology later today. Subjective Date/time seen: 02/10/25 11:36 Interval history: 02/07/2025: This is a new pulmonary consult for shortness of breath. 84-year-old with a history of COPD, Interstitial lung disease, bronchiectasis, calcified pleural plaques,Parkinson's disease, BPH, bipolar disease. Regarding patient's COPD He the family tells me he was diagnosed 10 years ago. He denies ever having PFTs. He was given inhalers and these did help him. He smoked 2 packs a day from 1957 until 2006 for a total of 100 pack years. He was exposed to secondhand smoke from his father. He denies vaping or illicit drug use. CT scan of the chest on 09/30/2024 shows mild apical predominant panlobular emphysema. He is maintained on fluticasone 100 q.day. Regarding his interstitial lung disease this is for seen on The for CT scan of the chest in our system on 09/30/2024 with calcified pleural plaques, basilar and peripheral reticulations with honeycombing. Patient denies any rheumatoid arthritis or skin rashes. Patient worked at [employer] and [employer] from [id number] with no respiratory protection. He denied welding, sandblasting, coal mining work, construction work. Regarding his bronchiectasis. He does have a chronic cough 2-3 times in the 1st hour and intermittently makes phlegm during this 1st hour but his symptoms have not progressed. The bronchiectasis on his CT scan appears not to be related to traction bronchiectasis. Regarding his calcified pleural plaques. The patient worked in [employer] and was surrounded by asbestos pipes that ran from the ceiling to the floor. He did not work on the asbestos insulation but he was exposed to these pipes all his life. at the base line patient is very limited in his activity. Ten years ago he could walk unlimited going slow. Five years ago he began using walker and could walk 1 block. One year ago he could walk half a block. Six months ago he says he could walk half a block. He was admitted to the hospital on 11/23/2024 with pneumonia and colitis and has lost strength since then and his breathing has never recovered. He did not require oxygen at discharge. 11/23/2024 through 11/27/2024. Patient was admitted to the hospital with colitis and pneumonia. He was treated on Zosyn and discharged on Augmentin and doxycycline. He had a biopsy of his colon that was consistent with ischemic colitis. CT scan of the chest on 11/23/2024 compared to 09/30/2024 showed unchanged mild apical predominant panlobular emphysema, unchanged calcified pleural plaques, unchanged lower lobe bronchiectasis, new right upper lobe patchy infiltrate. Unchanged peripheral and basilar reticulations and honeycombing in my opinion with a typical UIP CT pattern. Approximately 01/24/2025 the patient developed cough and shortness of breath was prescribed a Z-Rufus. By his PCP. He did not improve and was then prescribe doxycycline. On 02/06 the patient had worsening shortness of breath, dyspnea on exertion, increase in his phlegm volume, change in the color of his phlegm from green to dark green and black and presented to the emergency department. His blood pressure is 134/80, heart rate 113, respirations 22, room air saturations 95%. He had diffuse expiratory wheezes. His white blood cell count was 21.1, eosinophils 1%, creatinine 0.94. BNP 8850, troponin positive 0.303, point 0322. COVID influenza, RSV RT PCR assay negative. Patient had a blood gas on 2 L at 752/20 . 2 hours later the patient had a blood gas on 2 L with a pH of 7.50/27/76. Patient was given 3 L IV fluids, Rocephin, doxycycline and Solu-Medrol and bronchodilators. 02/07/2025: Currently the patient tells me he feels better. He is 26% back to his normal. His cough is improved and is 26% back to normal. He has decreased volume of phlegm. His appetite is improved and he 8 like a horse. His white blood cell count is 18.0, his creatinine is 0.79. His BNP is 9220, his CRP is 4.1. D dimer is 1.08. when I enter the room the patient was on 4 L nasal cannula saturations 95%. I decreased her 3 L and his saturations were 95%. I decreased him to 2 L and his saturations were 92%. Later in the day patient had an echocardiogram with the severely reduced LVEF 25-30%, grade 1 diastolic dysfunction, moderate mitral valve regurgitation, mild aortic valve regurgitation, mild tricuspid valve regurgitation with severe pulmonary hypertension with PASP 60. Normal right ventricular size and function. Normal right atrial size. Later in the day patient had a CT angiogram of the chest and compared to 11/23/2024,with no pulmonary embolism, previous infiltrate right upper lobe has improved, increased reticulations in the lingula, new moderate right pleural effusion. Unchanged mild apical predominant panlobular emphysema, unchanged lower lobe bronchiectasis and unchanged peripheral basilar reticulations and honeycombing in the bilateral lower lobes. 02/10/25: Overall patient is minimally improved. He has some shortness of breath at rest. His cough is a little bit better. When I enter the room he is on 1 L nasal cannula saturations 94%. I decreased him to room air and his saturations decreased to 88% and I placed him back on 1 L nasal cannula. His white blood cell count is 19.3, his creatinine is 0.64. His procalcitonin remains unchanged from 02/07/2025 to 0.1 today. His BNP has decreased from 9220 on 02/07/2025 to 8400 today. His CRP has decreased from 4.7 on 02/07/2025 to 1.7 today. Chest x-ray today shows worsening diffuse alveolar interstitial infiltrates compared to 02/06/2025. Yesterday the patient was positive 170 mL, cumulative he is positive 1.6 L since admission. His weight today is 77.6 with an admission weight of 74 kg. Patient is scheduled for cardiac catheterization later today. DATA: 02/07/25: EXAMINATION: CTA chest PE protocol INDICATION: Rule out pulmonary wasn't. History of ILD. Bronchiectasis COMPARISON: CTA chest 09/30/2024; CT chest 11/23/2024 FINDINGS: No pulmonary embolism is identified. Small right-sided pleural effusion. Tiny left-sided pleural effusion. Upper abdomen is grossly unchanged. Heart is mildly enlarged. Thoracic aorta is not aneurysmal. There are coronary artery calcifications. Tracheobronchial tree is patent. No pneumothorax. No pulmonary mass. Grossly stable paraseptal and centrilobular emphysema. Grossly stable bronchiectasis. Grossly stable honeycombing in the lower lungs. Osseous structures are grossly unchanged. Bones appear osteopenic with multilevel degenerative change in the visualized spine. IMPRESSION: 1. No pulmonary embolism identified. 2. No pulmonary mass. No new focal pulmonary consolidation. 3. Grossly stable chronic changes in the lungs as compared to the study from 09/30/2024. Grossly stable bronchiectasis. 4. New small right-sided pleural effusion. Tiny left-sided pleural effusion. 02/07/2025: Summary 1. Left ventricular chamber dimension is mildly enlarged. 2. Left ventricular systolic function is severely reduced, estimated at 25-30. 3. There is mildly increased left ventricular wall thickness. 4. The left ventricular diastolic function is grade I diastolic dysfunction. 5. Left atrial chamber dimension is moderately enlarged. 6. There is moderate mitral valve regurgitation. 7. The mitral valve annulus is mildly calcified. 8. There is mild aortic valve regurgitation. 9. There is mild tricuspid valve regurgitation. 10. Severe pulmonary hypertension, estimated pulmonary arterial systolic pressure is 60 mmHg. 11. There is moderate pulmonic regurgitation. Right Ventricle Right ventricular chamber dimension is normal. Right ventricular systolic function is normal. Right Atria Right atrial chamber dimension is normal. Atrial Septum Intact interatrial septum visualized by color flow imaging. 11/23/2024: EXAMINATION: CT diagnostic chest wo con DATE: 11/23/2024 11:48 INDICATION: Possible pneumonia. TECHNIQUE: Computed tomography (CT) of the chest was performed without intravenous contrast. The dose-length product was 269.67 mGy-cm. Automated exposure control and iterative reconstruction technique were employed. COMPARISON: CT dated 09/30/2024 FINDINGS: There is patent patchy consolidation of the right upper lobe consistent with pneumonia. There is focal consolidation in the right lower lobe as well. There is extensive chronic interstitial lung disease with bronchiectasis bilaterally. No endobronchial lesions. There is atherosclerosis of the aorta and coronary arteries. Heart size normal. There is residual contrast in the renal collecting systems, likely from prior contrast study. There is severe thoracic and upper lumbar spondylosis with dextroscoliosis. IMPRESSION: 1. Patchy predominantly right-sided airspace consolidation, consistent with pneumonia. 2: Chronic interstitial lung disease, consistent with pulmonary fibrosis. There is associated bronchiectasis bilaterally. 09/30/2024: EXAMINATION: CTA chest PE abdomen pel INDICATION: Remote history of chest and abdominal pain, now resolved. FINDINGS/OBSERVATIONS: PULMONARY ARTERIES: No filling defect is identified within the main or proximal pulmonary artery. The main pulmonary artery is not enlarged. THORACIC AORTA: No aneurysmal dilatation or dissection is present. The great vessels are intact LUNGS: Chronic interstitial change is detected bilaterally. Peripheral honeycombing is also noted, as is central lobular emphysematous disease. Calcified pleural plaques are noted. MEDIASTINUM: No morphologically suspicious or pathologically enlarged lymph nodes are identified within the mediastinum or bilateral axilla. BONES OF THE CHEST: No acute fracture. Age-appropriate degenerative disease. No lytic or blastic lesions. HEART: The heart is of normal size, without pericardial effusion. LIVER: Punctate calcifications identified within the hepatic parenchyma, suggesting prior granulomatous disease. Remainder of the liver is otherwise unremarkable, and is not enlarged. GALLBLADDER AND BILIARY SYSTEM: The gallbladder is surgically absent. PANCREAS: The pancreas enhances homogeneously without ductal dilatation. SPLEEN: Punctate calcifications identified within the splenic parenchyma, suggesting prior granulomatous disease. The remainder of the spleen otherwise enhances homogeneously and is not enlarged. KIDNEYS: The bilateral kidneys enhance symmetrically without hydronephrosis or renal calculi. ADRENAL GLANDS: Unremarkable. GASTROINTESTINAL TRACT: Colonic diverticulosis without surrounding inflammatory change. APPENDIX: The appendix is not definitively visualized. However, no pericecal inflammatory change is identified suggest the presence of acute appendicitis. VASCULATURE: Densely calcified atherosclerotic disease, without aneurysmal dilatation or significant stenosis. LYMPH NODES: No pathologically enlarged or morphologically suspicious lymph nodes within the retroperitoneum or at the root of the mesentery. PELVIC STRUCTURES: The bladder is significantly distended, and otherwise unremarkable. Limited evaluation of the pelvis secondary to streak metallic artifact from patient's right hip prosthetic and lower lumbar spine hardware. The prostate gland does not appear to be enlarged. BODY WALL AND MUSCULOSKELETAL: Posterior fixation hardware at the level of L4, L5 and S1 with postlaminectomy change. 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 IMPRESSION: No pulmonary embolus. No aortic dissection. No acute pathology identified within the chest, abdomen or pelvis, as detailed above Review of Systems Constitutional: Constitutional: Reports no additional constitutional complaints Eyes: Eyes: Reports no additional eye complaints ENT: Reports system reviewed and no additional complaints, except as documented Cardiovascular: Cardiovascular: Reports no additional cardiovascular complaints Respiratory: Respiratory: Reports no additional respiratory complaints Gastrointestinal: Gastrointestinal: Reports no additional gastrointestinal complaints Musculoskeletal: Musculoskeletal: Reports no additional musculoskeletal complaints Neurologic: Reports system reviewed and no additional complaints, except as documented Psychiatric: Psychiatric: Reports no additional psychiatric complaints Endocrine: Endocrine: Reports no additional endocrine complaints Hematologic/Lymphatic: Hematologic/Lymphatic: Reports no additional hematologic/lymphatic complaints Allergic/Immunologic: Allergic/Immunologic: Reports no additional allergic/immunologic complaints Exam Const: General: cooperative, healthy appearing, comfortable and in distress Orientation/consciousness: oriented to person, oriented to place and oriented to time Other: mild respiratory distress HENMT: Head: normal to inspection Ears: hearing grossly normal bilaterally Eyes: General: appearance normal, both eyes and all related structures Neck: Neck: normal visual inspection Chest: Chest palpation & inspection: normal inspection of the chest Resp: Effort & Inspection: normal respiratory effort and able to speak in complete sentences Auscultation: crackles, no rales, no rhonchi, no wheezes and lung sounds not diminished Other: Dry crackles at the bases. No wheezes. Cardio: Jugular venous distension: no JVD GI: Inspection: normal to inspection Skin: General skin exam: normal color Neuro: General: oriented to person, oriented to place and oriented to time Extrem: General: normal to inspection Psych: Appearance: grossly normal Objective Data Vital Signs Vital Signs: Vital Signs - 24 hr 02/09/25 11:58 02/09/25 12:00 02/09/25 12:04 Temperature Pulse Rate 102 H 97 94 Respiratory Rate 20 21 H Blood Pressure Pulse Oximetry Oxygen Delivery Oxygen Flow Rate 02/09/25 14:00 02/09/25 16:00 02/09/25 16:53 Temperature 36.9 C Pulse Rate 64 91 107 H Respiratory Rate 22 H 20 Blood Pressure 102/58 L Pulse Oximetry 95 Oxygen Delivery Oxygen Flow Rate 02/09/25 17:00 02/09/25 20:00 02/09/25 20:00 Temperature Pulse Rate 97 111 H 95 Respiratory Rate 20 22 H Blood Pressure Pulse Oximetry 97 Oxygen Delivery Room Air Oxygen Flow Rate 02/09/25 21:19 02/09/25 21:26 02/09/25 21:27 Temperature Pulse Rate 99 99 Respiratory Rate 24 H 24 H Blood Pressure Pulse Oximetry 99 99 Oxygen Delivery Nasal Cannula Room Air Oxygen Flow Rate 1 02/09/25 21:32 02/09/25 21:45 02/09/25 23:27 Temperature 36.7 C Pulse Rate 111 H 95 Respiratory Rate 22 H 22 H 18 Blood Pressure 108/86 Pulse Oximetry 97 98 Oxygen Delivery Room Air Oxygen Flow Rate 02/10/25 00:00 02/10/25 00:07 02/10/25 00:13 Temperature Pulse Rate 102 H 92 92 Respiratory Rate 24 H 24 H Blood Pressure Pulse Oximetry 85 L Oxygen Delivery Room Air Oxygen Flow Rate 02/10/25 00:17 02/10/25 00:19 02/10/25 04:00 Temperature Pulse Rate 94 108 H 99 Respiratory Rate 24 H 24 H Blood Pressure Pulse Oximetry 91 Oxygen Delivery Nasal Cannula Oxygen Flow Rate 1 02/10/25 04:05 02/10/25 04:16 02/10/25 06:00 Temperature 36.3 C L Pulse Rate 92 104 H Respiratory Rate 24 H 24 H 18 Blood Pressure 111/88 Pulse Oximetry 99 Oxygen Delivery Oxygen Flow Rate 02/10/25 07:39 02/10/25 07:39 02/10/25 07:50 Temperature Pulse Rate 102 H 102 H 103 H Respiratory Rate 16 16 16 Blood Pressure Pulse Oximetry 93 Oxygen Delivery Nasal Cannula Oxygen Flow Rate 1 Intake/Output Intake/Output: Intake & Output 02/07/25 02/08/25 02/09/25 02/10/25 23:59 23:59 23:59 23:59 Intake Total 1070 1320 2250 Output Total 725 1150 1650 1550 Balance 345 170 600 -1550 Meds/Results Medications: Active Medications Generic Name Dose Route Start Last Admin Trade Name Freq PRN Reason Stop Dose Admin Acetaminophen 650 mg 02/06/25 22:14 Acetaminophen 325 Mg Tablet PO Q4H PRN Mild Pain (1-3) or Fever Aspirin 81 mg 02/07/25 00:45 02/09/25 17:56 Aspirin 81 Mg Enteric Tablet PO 81 mg BID CAR[facility] Administration Atorvastatin Calcium 20 mg 02/08/25 11:50 02/09/25 09:54 Atorvastatin 20 Mg Tablet PO 20 mg DAILY [facility] Administration Carbidopa/Levodopa 2 tablet 02/07/25 00:45 02/09/25 21:51 Carbidopa/Levodopa 25/250 Mg Tablet PO 2 tablet QID [facility] Administration Celecoxib 200 mg 02/07/25 09:00 02/09/25 09:54 Celecoxib 200 Mg Capsule PO 200 mg QAM [facility] Administration Diphenhydramine HCl 50 mg 02/07/25 00:45 02/09/25 21:54 Diphenhydramine Hcl Cap 25 Mg Capsule PO 50 mg HS [facility] Administration Divalproex Sodium 1,000 mg 02/07/25 00:45 02/09/25 21:[address] 250 Mg Tabec PO 1,000 mg QHS [facility] Administration Doxycycline Hyclate 100 mg 02/07/25 09:00 02/09/25 21:53 Doxycycline Hyclate 100 Mg Tablet PO 100 mg Q12HR [facility] Administration Fluticasone Propionate 2 puff 02/07/25 08:00 02/10/25 07:37 Fluticasone Prop 110 Mcg Inhaler 12 Gm (*Sp) INHALATION 2 puff Q12HRT [facility] Administration Guaifenesin 600 mg 02/08/25 12:05 02/09/25 21:54 Guaifenesin 12 Hr 600 Mg Tabcr PO 600 mg Q12HR [facility] Administration Ceftriaxone Sodium 1 gm/ 50 mls @ 100 mls/hr 02/07/25 21:00 02/09/25 22:21 Sodium Chloride IVPB Infused Q24H [facility] Infusion Ibuprofen 400 mg 02/06/25 22:14 Ibuprofen 400 Mg Tablet PO Q6H PRN Mild Pain (1-3) or Fever Ipratropium [place] 0.5 mg 02/07/25 16:00 02/10/25 07:37 Ipratropium Br 0.02% Inh Soln 0.5 Mg/2.5 Ml Vial INHALATION 0.5 mg Q4HRT [facility] Administration Lorazepam 1 mg 02/07/25 00:50 02/09/25 21:53 Lorazepam (*Crx) 1 Mg Tablet PO 1 mg Q12HR [facility] Administration Methylprednisolone Sodium Succinate 20 mg 02/07/25 18:00 02/10/25 05:24 Methylprednisolone Sod Succ 40 Mg Vial IV PUSH 20 mg Q6HR [facility] Administration Metoprolol Succinate 12.5 mg 02/08/25 11:50 02/09/25 09:54 Metoprolol Succinate Ext Rel 12.5 Mg Tabcr PO 12.5 mg QAM [facility] Administration Non-Formulary ( 3 each 02/07/25 21:00 02/09/25 21:54 Trifluoperazine Hcl PO 03/09/25 20:59 3 each 10 Mg Oral Tablet) HS [facility] Administration Ondansetron HCl 4 mg 02/06/25 22:14 Ondansetron Inj 4 Mg/2 Ml Vial IV PUSH Q4H PRN Nausea Primidone 100 mg 02/07/25 00:55 02/09/25 21:53 Primidone 50 Mg Tablet PO 100 mg Q12HR [facility] Administration Tamsulosin HCl 0.4 mg 02/07/25 00:50 02/09/25 21:54 Tamsulosin Hcl 0.4 Mg Capsule PO 0.4 mg QHS [facility] Administration Venlafaxine HCl 225 mg 02/07/25 00:50 02/09/25 21:54 Venlafaxine Hcl Xr 75 Mg Cap.Er.24h PO 225 mg QHS [facility] Administration Radiology Results: ITS Impressions Chest CTA 02/07/25 13:30 IMPRESSION: 1. No pulmonary embolism identified. 2. No pulmonary mass. No new focal pulmonary consolidation. 3. Grossly stable chronic changes in the lungs as compared to the study from 09/30/2024. Grossly stable bronchiectasis. 4. New small right-sided pleural effusion. Tiny left-sided pleural effusion. Modified Barium Swallow 02/07/25 13:59 IMPRESSION: Trace laryngeal penetration without aspiration. Please correlate with speech pathologist findings and specific feeding recommendations. Venous Doppler Study 02/07/25 15:32 IMPRESSION: 1. No deep venous thrombosis in either lower limb. Chest X-Ray 02/10/25 08:44 IMPRESSION: 1. Emphysema with chronic interstitial lung disease with suggestion of some interval worsening in superimposed pulmonary edema and/or pneumonia. Labs Labs: Laboratory Results - last 24 hr 02/07/25 02/08/25 02/10/25 09:35 05:41 04:51 WBC 19.3 H RBC 3.57 L Hgb 10.7 L Hct 34.0 L MCV 95.2 MCH 30.0 MCHC 31.5 L RDW 17.0 H Plt Count 264 MPV 10.8 H Sodium 133 L Potassium 4.5 Chloride 99 Carbon Dioxide 22 Anion Gap 12 BUN 27 H Creatinine 0.64 L Estim Creat Clear Calc 74 Estimated GFR > 60 Glucose 106 Calcium 8.6 Magnesium 2.3 C-Reactive Protein 1.7 H NT-Pro-B Natriuret Pep 8400 H Procalcitonin 0.1 Immunocap Total IgE Cancelled Urine Pneumococcal Ag Cancelled
--- NOTE | 2025-02-10 11:44 | PC.NURSE ---
Patient off of unit to cardiac laboratory courier
--- NOTE | 2025-02-10 12:06 | PCRCNOTE ---
Pt in cardiac cath no respiratory treatment given at this time
[2025-02-10 12:08] LABS: Anti-CCP Ab, IgG/IgA 7 units (0-19)
--- NOTE | 2025-02-10 12:29 | WPDMODSED ---
Moderate Sedation Note-Pt Data Patient Data Diagnosis: Cardiomyopathy Procedure to be performed/Plan: Left heart catheterization Coronary angiography Allergies Allergy/AdvReac Type Severity Reaction Status Date / Time No Known Allergies Allergy Verified 02/07/25 05:14 Home Medications ?Medication ?Instructions ?Recorded ?Confirmed ?Type aspirin 81 mg tablet,delayed 81 mg PO BID 03/15/21 02/06/25 History release calcium 300 mg-D3 20 mcg-magnesium 1 tablet PO QAM 03/15/21 02/06/25 History 25 mg-coppr 0.5 [id number] tablet (Caltrate-D3 Plus Minerals) celecoxib 200 mg capsule 200 mg PO QAM 03/15/21 02/06/25 History divalproex 500 mg tablet,delayed 1,000 mg PO QHS 03/15/21 02/06/25 History release fluticasone furoate 100 1 inh inhalation BID 03/15/21 02/06/25 History mcg/actuation blister powder for inhalation tamsulosin 0.4 mg capsule 0.4 mg PO QHS 03/15/21 02/06/25 History trifluoperazine 10 mg tablet 30 mg PO QHS 03/15/21 02/06/25 History venlafaxine 225 mg tablet,extended 225 mg PO QHS 03/15/21 02/06/25 History release 24 hr lorazepam 1 mg tablet 1 mg PO BID 06/13/23 02/06/25 History carbidopa 25 mg-levodopa 250 mg 2 tablet PO QID #480 tabs 11/11/24 02/06/25 Rx tablet donepezil 5 mg tablet See Rx Instructions .Route 11/11/24 02/06/25 Rx .COMPLEX #90 tabs primidone 50 mg tablet See Rx Instructions .Route 11/11/24 02/06/25 Rx .COMPLEX #360 tabs doxycycline hyclate 100 mg tablet 100 mg PO Q12HR #6 tabs 11/27/24 02/06/25 Rx diphenhydramine HCl 25 mg capsule 50 mg PO HS 02/06/25 02/06/25 History (Allergy (diphenhydramine)) Current Medications: Active Medications Acetaminophen (Acetaminophen 325 Mg Tablet) 650 mg PO Q4H PRN PRN Reason: Mild Pain (1-3) or Fever Aspirin (Aspirin 81 Mg Enteric Tablet) 81 mg PO BID CARMEN Last Admin: 02/09/25 17:56 Dose: 81 mg Atorvastatin Calcium (Atorvastatin 20 Mg Tablet) 20 mg PO DAILY [facility] Last Admin: 02/09/25 09:54 Dose: 20 mg Carbidopa/Levodopa (Carbidopa/Levodopa 25/250 Mg Tablet) 2 tablet PO QID [facility] Last Admin: 02/09/25 21:51 Dose: 2 tablet Celecoxib (Celecoxib 200 Mg Capsule) 200 mg PO QAM [facility] Last Admin: 02/09/25 09:54 Dose: 200 mg Diphenhydramine HCl (Diphenhydramine Hcl Cap 25 Mg Capsule) 50 mg PO HS [facility] Last Admin: 02/09/25 21:54 Dose: 50 mg Divalproex Sodium (Divalproex Sodium Dr 250 Mg Tabec) 1,000 mg PO QHS [facility] Last Admin: 02/09/25 21:54 Dose: 1,000 mg Doxycycline Hyclate (Doxycycline Hyclate 100 Mg Tablet) 100 mg PO Q12HR [facility] Last Admin: 02/09/25 21:53 Dose: 100 mg Fluticasone Propionate (Fluticasone Prop 110 Mcg Inhaler 12 Gm (*Sp)) 2 puff INHALATION Q12HRT [facility] Last Admin: 02/10/25 07:37 Dose: 2 puff Guaifenesin (Guaifenesin 12 Hr 600 Mg Tabcr) 1,200 mg PO Q12HR [facility] Ceftriaxone Sodium 1 gm/ (Sodium Chloride) 50 mls @ 100 mls/hr IVPB Q24H [facility] Last Infusion: 02/09/25 22:21 Dose: Infused Ibuprofen (Ibuprofen 400 Mg Tablet) 400 mg PO Q6H PRN PRN Reason: Mild Pain (1-3) or Fever Ipratropium [place] (Ipratropium Br 0.02% Inh Soln 0.5 Mg/2.5 Ml Vial) 0.5 mg INHALATION [id number] Lorazepam (Lorazepam (*Crx) 1 Mg Tablet) 1 mg PO Q12HR [facility] Last Admin: 02/09/25 21:53 Dose: 1 mg Methylprednisolone Sodium Succinate (Methylprednisolone Sod Succ 40 Mg Vial) 20 mg IV PUSH Q6HR [facility] Last Admin: 02/10/25 05:24 Dose: 20 mg Metoprolol Succinate (Metoprolol Succinate Ext Rel 12.5 Mg Tabcr) 12.5 mg PO QAM [facility] Last Admin: 02/09/25 09:54 Dose: 12.5 mg Non-Formulary ( Trifluoperazine Hcl 10 Mg Oral Tablet) 3 each PO HS [facility] Stop: 03/09/25 20:59 Last Admin: 02/09/25 21:54 Dose: 3 each Ondansetron HCl (Ondansetron Inj 4 Mg/2 Ml Vial) 4 mg IV PUSH Q4H PRN PRN Reason: Nausea Primidone (Primidone 50 Mg Tablet) 100 mg PO Q12HR [facility] Last Admin: 02/09/25 21:53 Dose: 100 mg Tamsulosin HCl (Tamsulosin Hcl 0.4 Mg Capsule) 0.4 mg PO QHS [facility] Last Admin: 02/09/25 21:54 Dose: 0.4 mg Venlafaxine HCl (Venlafaxine Hcl Xr 75 Mg Cap.Er.24h) 225 mg PO QHS [facility] Last Admin: 02/09/25 21:54 Dose: 225 mg Sedation/Anesthesia: No previous sedation/anesthesia problems (including family history). [facility] Past Medical History Medical History Bronchiectasis seen on CT scan 11/23/2024 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 11/23/2024 Benign prostatic hyperplasia Anxiety Bipolar disorder Gastroesophageal reflux disease Parkinson's Disease Chronic obstructive pulmonary disease Arthritis Depression Surgical History Surgical History History of cataract extraction History of cholecystectomy History of back surgery History of hip replacement Family History Family History Sibling Diabetes mellitus Father Cancer Sibling Heart disease Other Depression Social History Social History Social History: The patient smoked 2-3 packs of unfiltered Camel cigarettes for 50 years prior to quitting. He quit smoking in 2006. He lives with his of almost 60 years. Surrogate medical decision maker: Helen Chen, spouse. Code status: DNR/DNI Smoking packs per day: 2 Smoking cigarettes per day: 40.0 Years smoked: 50 Smoking pack-years: 100.00 Smoking status: Former smoker Tobacco type: cigarettes Second hand tobacco smoke exposure: Yes Smoking end date: 06/26/06 Alcohol intake: never Substance use: never Substance use type: does not use Do You Feel Safe in your Home?: Yes Lack of Transportation: No Lack of Food: Never True Current Housing: I Have Housing Concerned About Future Housing: No Difficulty Paying Gas/Electric Bills: No Difficulty Paying for Meds: No Currently Unemployed: No Education: High School Diploma/GED Difficulty w/ Childcare or Family Care: No Living arrangements: with family Additional living arrangements comments: Lives with spouse. Occupation/Education: retired Additional occupation/education comments: Worked for [employer] (without a respirator). Spiritual care concerns: No Mod Sed Physical Exam Physical Exam Pre Procedural Exam: Normal: Appearance, Eyes, Ears, Nose, Neck, Throat, Airway, Lungs, Heart Size, Heart Rate, Heart Rhythm, Neuro Exam, Abdomen, Liver, Kidneys, Spleen, Breasts, Genitalia (kruger's instu), Extremities and Skin Hours since solid foods: 12 Hours since liquid intake: 12 Mallampati Classification: class II Internal Medicine - PN: Obj Da Vital Signs Vital Signs: Vital Signs - 24 hr 02/09/25 14:00 02/09/25 16:00 02/09/25 16:53 Temperature 36.9 C Pulse Rate 64 91 107 H Respiratory Rate 22 H 20 Blood Pressure 102/58 L Pulse Oximetry 95 Oxygen Delivery Oxygen Flow Rate 02/09/25 17:00 02/09/25 20:00 02/09/25 20:00 Temperature Pulse Rate 97 111 H 95 Respiratory Rate 20 22 H Blood Pressure Pulse Oximetry 97 Oxygen Delivery Room Air Oxygen Flow Rate 02/09/25 21:19 02/09/25 21:26 02/09/25 21:27 Temperature Pulse Rate 99 99 Respiratory Rate 24 H 24 H Blood Pressure Pulse Oximetry 99 99 Oxygen Delivery Nasal Cannula Room Air Oxygen Flow Rate 1 02/09/25 21:32 02/09/25 21:45 02/09/25 23:27 Temperature 36.7 C Pulse Rate 111 H 95 Respiratory Rate 22 H 22 H 18 Blood Pressure 108/86 Pulse Oximetry 97 98 Oxygen Delivery Room Air Oxygen Flow Rate 02/10/25 00:00 02/10/25 00:07 02/10/25 00:13 Temperature Pulse Rate 102 H 92 92 Respiratory Rate 24 H 24 H Blood Pressure Pulse Oximetry 85 L Oxygen Delivery Room Air Oxygen Flow Rate 02/10/25 00:17 02/10/25 00:19 02/10/25 04:00 Temperature Pulse Rate 94 108 H 99 Respiratory Rate 24 H 24 H Blood Pressure Pulse Oximetry 91 Oxygen Delivery Nasal Cannula Oxygen Flow Rate 1 02/10/25 04:05 02/10/25 04:16 02/10/25 06:00 Temperature 36.3 C L Pulse Rate 92 104 H Respiratory Rate 24 H 24 H 18 Blood Pressure 111/88 Pulse Oximetry 99 Oxygen Delivery Oxygen Flow Rate 02/10/25 07:39 02/10/25 07:39 02/10/25 07:50 Temperature Pulse Rate 102 H 102 H 103 H Respiratory Rate 16 16 16 Blood Pressure Pulse Oximetry 93 Oxygen Delivery Nasal Cannula Oxygen Flow Rate 1 Intake/Output Intake/Output: Intake & Output 02/07/25 02/08/25 02/09/25 02/10/25 23:59 23:59 23:59 23:59 Intake Total 1070 1320 2250 Output Total 725 1150 1650 1550 Balance 345 170 600 -1550 Meds/Results Medications: Active Medications Generic Name Dose Route Start Last Admin Trade Name Freq PRN Reason Stop Dose Admin Acetaminophen 650 mg 02/06/25 22:14 Acetaminophen 325 Mg Tablet PO Q4H PRN Mild Pain (1-3) or Fever Aspirin 81 mg 02/07/25 00:45 02/09/25 17:56 Aspirin 81 Mg Enteric Tablet PO 81 mg BID CARMEN Administration Atorvastatin Calcium 20 mg 02/08/25 11:50 02/09/25 09:54 Atorvastatin 20 Mg Tablet PO 20 mg DAILY [facility] Administration Carbidopa/Levodopa 2 tablet 02/07/25 00:45 02/09/25 21:51 Carbidopa/Levodopa 25/250 Mg Tablet PO 2 tablet QID [facility] Administration Celecoxib 200 mg 02/07/25 09:00 02/09/25 09:54 Celecoxib 200 Mg Capsule PO 200 mg QAM CARMEN Administration Diphenhydramine HCl 50 mg 02/07/25 00:45 02/09/25 21:54 Diphenhydramine Hcl Cap 25 Mg Capsule PO 50 mg HS [facility] Administration Divalproex Sodium 1,000 mg 02/07/25 00:45 02/09/25 21:[address] 250 Mg Tabec PO 1,000 mg QHS [facility] Administration Doxycycline Hyclate 100 mg 02/07/25 09:00 02/09/25 21:53 Doxycycline Hyclate 100 Mg Tablet PO 100 mg Q12HR [facility] Administration Fluticasone Propionate 2 puff 02/07/25 08:00 02/10/25 07:37 Fluticasone Prop 110 Mcg Inhaler 12 Gm (*Sp) INHALATION 2 puff Q12HRT [facility] Administration Guaifenesin 1,200 mg 02/10/25 21:00 Guaifenesin 12 Hr 600 Mg Tabcr PO Q12HR [facility] Ceftriaxone Sodium 1 gm/ 50 mls @ 100 mls/hr 02/07/25 21:00 02/09/25 22:21 Sodium Chloride IVPB Infused Q24H [facility] Infusion Ibuprofen 400 mg 02/06/25 22:14 Ibuprofen 400 Mg Tablet PO Q6H PRN Mild Pain (1-3) or Fever Ipratropium [place] 0.5 mg 02/10/25 12:00 Ipratropium Br 0.02% Inh Soln 0.5 Mg/2.5 Ml Vial INHALATION [id number] [facility] Lorazepam 1 mg 02/07/25 00:50 02/09/25 21:53 Lorazepam (*Crx) 1 Mg Tablet PO 1 mg Q12HR [facility] Administration Methylprednisolone Sodium Succinate 20 mg 02/07/25 18:00 02/10/25 05:24 Methylprednisolone Sod Succ 40 Mg Vial IV PUSH 20 mg Q6HR [facility] Administration Metoprolol Succinate 12.5 mg 02/08/25 11:50 02/09/25 09:54 Metoprolol Succinate Ext Rel 12.5 Mg Tabcr PO 12.5 mg QAM [facility] Administration Non-Formulary ( 3 each 02/07/25 21:00 02/09/25 21:54 Trifluoperazine Hcl PO 03/09/25 20:59 3 each 10 Mg Oral Tablet) HS [facility] Administration Ondansetron HCl 4 mg 02/06/25 22:14 Ondansetron Inj 4 Mg/2 Ml Vial IV PUSH Q4H PRN Nausea Primidone 100 mg 02/07/25 00:55 02/09/25 21:53 Primidone 50 Mg Tablet PO 100 mg Q12HR [facility] Administration Tamsulosin HCl 0.4 mg 02/07/25 00:50 02/09/25 21:54 Tamsulosin Hcl 0.4 Mg Capsule PO 0.4 mg QHS [facility] Administration Venlafaxine HCl 225 mg 02/07/25 00:50 02/09/25 21:54 Venlafaxine Hcl Xr 75 Mg Cap.Er.24h PO 225 mg QHS [facility] Administration Radiology Results: ITS Impressions Chest CTA 02/07/25 13:30 IMPRESSION: 1. No pulmonary embolism identified. 2. No pulmonary mass. No new focal pulmonary consolidation. 3. Grossly stable chronic changes in the lungs as compared to the study from 09/30/2024. Grossly stable bronchiectasis. 4. New small right-sided pleural effusion. Tiny left-sided pleural effusion. Modified Barium Swallow 02/07/25 13:59 IMPRESSION: Trace laryngeal penetration without aspiration. Please correlate with speech pathologist findings and specific feeding recommendations. Venous Doppler Study 02/07/25 15:32 IMPRESSION: 1. No deep venous thrombosis in either lower limb. Chest X-Ray 02/10/25 08:44 IMPRESSION: 1. Emphysema with chronic interstitial lung disease with suggestion of some interval worsening in superimposed pulmonary edema and/or pneumonia. Labs 02/10/25 04:51 02/10/25 04:51 Labs: Laboratory Results - last 24 hr 02/07/25 02/08/25 02/10/25 09:35 05:41 04:51 WBC 19.3 H RBC 3.57 L Hgb 10.7 L Hct 34.0 L MCV 95.2 MCH 30.0 MCHC 31.5 L RDW 17.0 H Plt Count 264 MPV 10.8 H Sodium 133 L Potassium 4.5 Chloride 99 Carbon Dioxide 22 Anion Gap 12 BUN 27 H Creatinine 0.64 L Estim Creat Clear Calc 74 Estimated GFR > 60 Glucose 106 Calcium 8.6 Magnesium 2.3 C-Reactive Protein 1.7 H NT-Pro-B Natriuret Pep 8400 H Procalcitonin 0.1 CCP IgG/IgA Ab 7 Urine Pneumococcal Ag Cancelled ASA Classification/Sedation ASA Classification/Sedation ASA Class: III Emergent: No Risks: Risks, benefits and alternatives explained and patient/family accepted plan for sedation. Patient re-evaluated immediately prior to sedation.
--- NOTE | 2025-02-10 12:30 | WPDCARDPROC ---
Cardiac Cath Procedure Note Date of procedure:: 02/10/25 Performing physician:: Soni Mercado MD Indication:: Cardiomyopathy NSTEMI Brief clinical history:: *4 year old gentleman found to have cardiomyopathy. History of intermittent episodes of chest pain at home. All risks, benefits and alternatives to left heart catheterization with or without percutaneous coronary intervention was discussed at length with the patient. Risk of complications including but not limited to bleeding, infection, arrhythmia, stroke, worsening kidney function, blood loss, groin hematoma, limb loss, emergency coronary artery bypass grafting, and even were discussed with the patient and all questions were answered. The patient understood and wished to proceed. Time out called, patient name, date of , medical record number, allergies, procedure performed, identify Wall Steamer, patient and staff member concurred with accurate data, procedure carried on. Procedure Procedure performed:: Left heart catheterization Coronary angiograph Ultrasound-guided right femoral artery access Pressure wire assessment across LAD, iFR 0.72 Sedation/Medication given:: Versed 1 mg Fentanyl 25 mcg Access site:: Right femoral artery Estimated blood loss:: 5 cc Procedure note:: Informed consent signed and placed in the chart. Patient transferred to rn cardiac cath room. Prepped and draped in usual sterile fashion. 2% lidocaine injected subcutaneously in right wrist area. 22-gauge venipuncture catheter used to access the right radial artery under ultrasound guidance. 5-6-FR slender sheath placed in right femoral artery. 5F FL 4 diagnostic catheter engaged Left Main Coronary Artery. 5F FR 4 diagnostic catheter engaged Right Coronary Artery Multiple orthogonal angiogram obtained and reviewed 5F Pigtail diagnostic catheter crossed aortic valve to obtain LVEDP, LV angiogram deferred. Pressure wire assessment measured across the LAD, iFR 0.72 Hemostasis was achieved by manual hemostasis Findings:: 1. Left main: The left main coronary artery is patent without any significant obstructive disease. 2. Left anterior descending: Large caliber vessel which gives rise to small-moderate caliber diagonal artery and reaches the apex. There is a heavily calcified vessel with a long tubular stenosis from the prox LAD to the mid LAD and 70% in its maximal extent. IFR 0.72 3. Left circumflex: The left circumflex artery has a PRINCIPAL ACCOUNT CLERK. Bridging collaterals and from the LAD seen 4. Right coronary artery: The RCA is the dominant vessel. Prox RCA has heavily calcified tandem lesions 70% and 90% in severity. Distal RCA has a 70% calcified stenosis just proximal to the bifurcation 5. Left ventricle: A. End-diastolic pressure 12 mmHg. B. LV gram deferred. C. No significant gradient across aortic valve on catheter pullback. Conclusion:: 1. Three-vessel disease 2. Ischemic cardiomyopathy Assessment and Plan Assessment and plan (1) Cardiomyopathy: Code(s): I42.9 - Cardiomyopathy, unspecified Status: Acute (2) Non-ST elevation (NSTEMI) myocardial infarction: Code(s): I21.4 - Non-ST elevation (NSTEMI) myocardial infarction Status: Acute Plan -discussed with the patient and his family regarding medical management and revascularization. -transfer to tertiary care center for possible revascularization; consult CT surgery for CABG
--- NOTE | 2025-02-10 12:40 | PCOTNOTE ---
Attempted OT Evaluation; Per. RN pt. just had a cardiac Cath completed and needs to be flat for 6 hours. Hold for today. Will continue to follow and attempt again when able.
--- NOTE | 2025-02-10 12:40 | PM.PNCARD ---
Progress Note: A&P Assessment and Plan (1) Cardiomyopathy: Code(s): I42.9 - Cardiomyopathy, unspecified Status: Acute (2) Non-ST elevation (NSTEMI) myocardial infarction: Code(s): I21.4 - Non-ST elevation (NSTEMI) myocardial infarction Status: Acute Assessment and Plan: 1. CAD, Three vessel disease 2. Chronic systolic heart Failure ---- NYHA II, III, Stage C ---- EF 20-25% ---- ICM 3. NSTEMI; in the setting of Pneumonia 4. CAP 5. COPD/Pulmonary fibrosis 6. Dementia TTE (01/2025) EF 25-30%, GD 1 DD, mod MR, Severe P HTN PASP 60 mmhg LHC (02/10/2025) prox-mid LAD long tubuklar stenosis 70% in its maximal extentl; iFR 0.72; LCX TEAM PRIMARY CARE PHYSICIAN, pRCA tandem lesions 70% and 90% (heavikly calcified chunk of calcium), dRCA 70% -I had an extensive discussion with the patient and family regarding further further management after findings of cardiac catheterization. We discussed medical management as well as revascularization. -the patient wants to pursue aggressive revascularization measures -I discussed with them regarding recuperating from the present ailment followed by a evaluation for CABG as an outpatient. They want to be transferred for CABG while in-patient - Continue ASA 81 mg PO - Continue Atorvastatin - Continue Toprol-XL 12.5 mg PO OD - JOSE/ARB/ARNI/MRA to be added later based on renal function and BP - No SGLT2 as recent infection - Discussed with Dr Dumont Subjective Date/time seen: 02/10/25 12:40 Interval history: No acute events overnight Denies any chest pain Lying comfortably in bed Post cardiac catheterization which shows triple-vessel disease Review of Systems Review of Systems: All systems reviewed & are unremarkable except as noted in HPI and below Constitutional: Constitutional: Denies chills ENT: Reports Normal hearing present Cardiovascular: Cardiovascular: Reports chest pain Respiratory: Respiratory: Reports cough Gastrointestinal: Gastrointestinal: Denies abdominal pain Neurologic: Reports Normal hearing present Exam Narrative: Appears stated age Const: General: comfortable, no acute distress, alert and awake Orientation/consciousness: patient oriented x3 HENMT: Head: normal to inspection Eyes: General: appearance normal, both eyes and all related structures Sclera: sclerae normal Pupils: Equal, round and reactive pupils present Neck: Neck: normal visual inspection, supple and no JVD Carotids: normal carotid upstroke Resp: Effort & Inspection: normal respiratory effort Auscultation: crackles and rhonchi Other: Wheezes also noted Cardio: Rate: regular rate and tachycardic Rhythm: regular rhythm Heart sounds: S1 normal heart sound present, S2 normal heart sound present and no murmurs GI: Auscultation: normal bowel sounds Skin: General skin exam: normal color Neuro: General: patient oriented x3 Cranial nerves: Yes Equal, round and reactive pupils present and Yes Normal hearing present Speech: normal speech Extrem: General: normal to inspection Psych: Appearance: grossly normal Mental Status: mental status grossly normal Objective Data Vital Signs Vital Signs: Vital Signs - 24 hr 02/09/25 14:00 02/09/25 16:00 02/09/25 16:53 Temperature 36.9 C Pulse Rate 64 91 107 H Pulse Rate [Bilateral Pedal (Dorsalis Pedis) Palpation] Respiratory Rate 22 H 20 Blood Pressure 102/58 L Pulse Oximetry 95 Oxygen Delivery Oxygen Flow Rate 02/09/25 17:00 02/09/25 20:00 02/09/25 20:00 Temperature Pulse Rate 97 111 H 95 Pulse Rate [Bilateral Pedal (Dorsalis Pedis) Palpation] Respiratory Rate 20 22 H Blood Pressure Pulse Oximetry 97 Oxygen Delivery Room Air Oxygen Flow Rate 02/09/25 21:19 02/09/25 21:26 02/09/25 21:27 Temperature Pulse Rate 99 99 Pulse Rate [Bilateral Pedal (Dorsalis Pedis) Palpation] Respiratory Rate 24 H 24 H Blood Pressure Pulse Oximetry 99 99 Oxygen Delivery Nasal Cannula Room Air Oxygen Flow Rate 1 02/09/25 21:32 02/09/25 21:45 02/09/25 23:27 Temperature 36.7 C Pulse Rate 111 H 95 Pulse Rate [Bilateral Pedal (Dorsalis Pedis) Palpation] Respiratory Rate 22 H 22 H 18 Blood Pressure 108/86 Pulse Oximetry 97 98 Oxygen Delivery Room Air Oxygen Flow Rate 02/10/25 00:00 02/10/25 00:07 02/10/25 00:13 Temperature Pulse Rate 102 H 92 92 Pulse Rate [Bilateral Pedal (Dorsalis Pedis) Palpation] Respiratory Rate 24 H 24 H Blood Pressure Pulse Oximetry 85 L Oxygen Delivery Room Air Oxygen Flow Rate 02/10/25 00:17 02/10/25 00:19 02/10/25 04:00 Temperature Pulse Rate 94 108 H 99 Pulse Rate [Bilateral Pedal (Dorsalis Pedis) Palpation] Respiratory Rate 24 H 24 H Blood Pressure Pulse Oximetry 91 Oxygen Delivery Nasal Cannula Oxygen Flow Rate 1 02/10/25 04:05 02/10/25 04:16 02/10/25 06:00 Temperature 36.3 C L Pulse Rate 92 104 H Pulse Rate [Bilateral Pedal (Dorsalis Pedis) Palpation] Respiratory Rate 24 H 24 H 18 Blood Pressure 111/88 Pulse Oximetry 99 Oxygen Delivery Oxygen Flow Rate 02/10/25 07:39 02/10/25 07:39 02/10/25 07:50 Temperature Pulse Rate 102 H 102 H 103 H Pulse Rate [Bilateral Pedal (Dorsalis Pedis) Palpation] Respiratory Rate 16 16 16 Blood Pressure Pulse Oximetry 93 Oxygen Delivery Nasal Cannula Oxygen Flow Rate 1 02/10/25 12:30 02/10/25 12:30 Temperature Pulse Rate 98 Pulse Rate [Bilateral Pedal (Dorsalis Pedis) Palpation] 98 Respiratory Rate 14 Blood Pressure 118/87 Pulse Oximetry 94 Oxygen Delivery Nasal Cannula Oxygen Flow Rate 2 Intake/Output Intake/Output: Intake & Output 02/07/25 02/08/25 02/09/25 02/10/25 23:59 23:59 23:59 23:59 Intake Total 1070 1320 2250 Output Total 725 1150 1650 1550 Balance 345 170 600 -1550 Meds/Results Medications: Active Medications Generic Name Dose Route Start Last Admin Trade Name Delfinq PRN Reason Stop Dose Admin Acetaminophen 650 mg 02/06/25 22:14 Acetaminophen 325 Mg Tablet PO Q4H PRN Mild Pain (1-3) or Fever Aspirin 81 mg 02/07/25 00:45 02/09/25 17:56 Aspirin 81 Mg Enteric Tablet PO 81 mg BID CARMEN Administration Atorvastatin Calcium 20 mg 02/08/25 11:50 02/09/25 09:54 Atorvastatin 20 Mg Tablet PO 20 mg DAILY CARMEN Administration Carbidopa/Levodopa 2 tablet 02/07/25 00:45 02/09/25 21:51 Carbidopa/Levodopa 25/250 Mg Tablet PO 2 tablet QID CARMEN Administration Celecoxib 200 mg 02/07/25 09:00 02/09/25 09:54 Celecoxib 200 Mg Capsule PO 200 mg QAM CARMEN Administration Diphenhydramine HCl 50 mg 02/07/25 00:45 02/09/25 21:54 Diphenhydramine Hcl Cap 25 Mg Capsule PO 50 mg HS CARMEN Administration Divalproex Sodium 1,000 mg 02/07/25 00:45 02/09/25 21:[address] 250 Mg Tabec PO 1,000 mg QHS CARMEN Administration Doxycycline Hyclate 100 mg 02/07/25 09:00 02/09/25 21:53 Doxycycline Hyclate 100 Mg Tablet PO 100 mg Q12HR CARMEN Administration Fluticasone Propionate 2 puff 02/07/25 08:00 02/10/25 07:37 Fluticasone Prop 110 Mcg Inhaler 12 Gm (*Sp) INHALATION 2 puff Q12HRT CARMEN Administration Guaifenesin 1,200 mg 02/10/25 21:00 Guaifenesin 12 Hr 600 Mg Tabcr PO Q12HR [facility] Ceftriaxone Sodium 1 gm/ 50 mls @ 100 mls/hr 02/07/25 21:00 02/09/25 22:21 Sodium Chloride IVPB Infused Q24H CARMEN Infusion Ibuprofen 400 mg 02/06/25 22:14 Ibuprofen 400 Mg Tablet PO Q6H PRN Mild Pain (1-3) or Fever Ipratropium [place] 0.5 mg 02/10/25 12:00 Ipratropium Br 0.02% Inh Soln 0.5 Mg/2.5 Ml Vial INHALATION [id number] SCH Lorazepam 1 mg 02/07/25 00:50 02/09/25 21:53 Lorazepam (*Crx) 1 Mg Tablet PO 1 mg Q12HR CARMEN Administration Methylprednisolone Sodium Succinate 20 mg 02/07/25 18:00 02/10/25 05:24 Methylprednisolone Sod Succ 40 Mg Vial IV PUSH 20 mg Q6HR CARMEN Administration Metoprolol Succinate 12.5 mg 02/08/25 11:50 02/09/25 09:54 Metoprolol Succinate Ext Rel 12.5 Mg Tabcr PO 12.5 mg QAM CARMEN Administration Non-Formulary ( 3 each 02/07/25 21:00 02/09/25 21:54 Trifluoperazine Hcl PO 03/09/25 20:59 3 each 10 Mg Oral Tablet) HS CARMEN Administration Ondansetron HCl 4 mg 02/06/25 22:14 Ondansetron Inj 4 Mg/2 Ml Vial IV PUSH Q4H PRN Nausea Primidone 100 mg 02/07/25 00:55 02/09/25 21:53 Primidone 50 Mg Tablet PO 100 mg Q12HR CARMEN Administration Tamsulosin HCl 0.4 mg 02/07/25 00:50 02/09/25 21:54 Tamsulosin Hcl 0.4 Mg Capsule PO 0.4 mg QHS CARMEN Administration Venlafaxine HCl 225 mg 02/07/25 00:50 02/09/25 21:54 Venlafaxine Hcl Xr 75 Mg Cap.Er.24h PO 225 mg QHS CARMEN Administration Radiology Results: ITS Impressions Chest CTA 02/07/25 13:30 IMPRESSION: 1. No pulmonary embolism identified. 2. No pulmonary mass. No new focal pulmonary consolidation. 3. Grossly stable chronic changes in the lungs as compared to the study from 09/30/2024. Grossly stable bronchiectasis. 4. New small right-sided pleural effusion. Tiny left-sided pleural effusion. Modified Barium Swallow 02/07/25 13:59 IMPRESSION: Trace laryngeal penetration without aspiration. Please correlate with speech pathologist findings and specific feeding recommendations. Venous Doppler Study 02/07/25 15:32 IMPRESSION: 1. No deep venous thrombosis in either lower limb. Chest X-Ray 02/10/25 08:44 IMPRESSION: 1. Emphysema with chronic interstitial lung disease with suggestion of some interval worsening in superimposed pulmonary edema and/or pneumonia. Labs Labs: Laboratory Results - last 24 hr 02/07/25 02/08/25 02/10/25 09:35 05:41 04:51 WBC 19.3 H RBC 3.57 L Hgb 10.7 L Hct 34.0 L MCV 95.2 MCH 30.0 MCHC 31.5 L RDW 17.0 H Plt Count 264 MPV 10.8 H Activ Coag Time Kaolin Sodium 133 L Potassium 4.5 Chloride 99 Carbon Dioxide 22 Anion Gap 12 BUN 27 H Creatinine 0.64 L Estim Creat Clear Calc 74 Estimated GFR > 60 Glucose 106 Calcium 8.6 Magnesium 2.3 C-Reactive Protein 1.7 H NT-Pro-B Natriuret Pep 8400 H Procalcitonin 0.1 CCP IgG/IgA Ab 7 Urine Pneumococcal Ag Cancelled 02/10/25 12:14 WBC RBC Hgb Hct MCV MCH MCHC RDW Plt Count MPV Activ Coag Time Kaolin 216 H Sodium Potassium Chloride Carbon Dioxide Anion Gap BUN Creatinine Estim Creat Clear Calc Estimated GFR Glucose Calcium Magnesium C-Reactive Protein NT-Pro-B Natriuret Pep Procalcitonin CCP IgG/IgA Ab Urine Pneumococcal Ag
[2025-02-10 13:08] LABS: ANA by IFA Rfx Titer/Pattern Negative (.)
--- NOTE | 2025-02-10 13:49 | PC.NURSE ---
This patient, Bartolome Maynard, was transferred to IMU 211 on 02/10/25 at 1350. Personal belongings sent with patient. Report given to MAYURI Irwin. Appropriate documentation sent with patient.
--- NOTE | 2025-02-10 16:00 | PCRCNOTE ---
Pt not in room at this time no treatment given
[2025-02-10] MEDS: CARBIDOPA/LEVODOPA 25/250 MG TABLET 2 TABLET PO ×2 (16:57→20:59)
[2025-02-10] MEDS: ASPIRIN 81 MG ENTERIC TABLET PO (16:57)
[2025-02-10 18:07] LABS: IgG, Subclass 1 419 mg/dL (248-810); IgG, Subclass 2 430 mg/dL (130-555); IgG, Subclass 3 174 mg/dL (15-102); IgG, Subclass 4 46 mg/dL (2-96); Immunoglobulin G, Qn 1025 mg/dL (603-1613)
[2025-02-10] MEDS: guaiFENesin 12 HR 600 MG TABCR 1200 MG PO (20:57)
[2025-02-10] MEDS: VENLAFAXINE HCL XR 75 MG CAP.ER.24H 225 MG PO (20:58)
[2025-02-10] MEDS: DIVALPROEX SODIUM DR 250 MG TABEC 1000 MG PO (21:00)
[2025-02-10] MEDS: DOXYCYCLINE HYCLATE 100 MG TABLET PO (21:01)
[2025-02-10] MEDS: LORazepam (*CRX) 1 MG TABLET PO (21:01)
[2025-02-10] MEDS: TAMSULOSIN HCL 0.4 MG CAPSULE PO (21:01)
[2025-02-10] MEDS: PRIMIDONE 50 MG TABLET 100 MG PO (21:01)
[2025-02-10] MEDS: diphenhydrAMINE HCl CAP 25 MG CAPSULE 50 MG PO (21:02)
[2025-02-10] MEDS: TRIFLUOPERAZINE HCL 10 MG 3 EACH PO (21:03)
[2025-02-10] MEDS: cefTRIAXone 1 GM in SODIUM CHLORIDE 0.9% IV 50 ML 100 ML IVPB (21:03)
[2025-02-11] VITALS (9 sets, daily range): BP systolic 97–141; BP diastolic 54–76; PULSE 93–106; RESP 16–20; TEMP 36.4–36.8; O2SAT 91–99
[2025-02-11 05:33] LABS: Hematocrit 36.0 % (42.0-52.0); Hemoglobin 11.0 g/dL (14.0-18.0); Mean Corpuscular HGB Conc 30.6 g/dl (32-36); Mean Corpuscular Hemoglobin 29.6 pg (26-34); Mean Corpuscular Volume 96.8 fl (80-100); Platelet Count Result 253 k/mm3 (150-375); Red Blood Count 3.72 M/mm3 (4.6-6.20); White Blood Count 15.9 K/mm3 (4.5-10.0)
[2025-02-11 06:27] LABS: Anion Gap 10 mmol/L (4-12); Blood Urea Nitrogen 26 mg/dL (9-20); Calcium 8.7 mg/dL (8.4-10.2); Carbon Dioxide 25 mmol/L (22-30); Chloride 100 mmol/L (98-107); Estimated CRCL calculation 59 ml/min; Estimated Glomerular Filt Rate > 60; Glucose 93 mg/dL (65-110); Magnesium 2.3 mg/dL (1.6-2.3); Potassium 4.7 mmol/L (3.4-5.0); Sodium 135 mmol/L (137-145)
[2025-02-11] MEDS: IPRATROPIUM BR 0.02% INH SOLN 0.5 MG/2.5 ML VIAL INHALATION (07:54)
--- NOTE | 2025-02-11 08:23 | PCPTNOTE ---
Attempted to see patient for PT, however while talking to patient about PT respiratory MD came into room to talk with patient and reported he needed 10 minutes.
[2025-02-11] MEDS: METOPROLOL SUCCINATE EXT REL 12.5 MG TABCR PO (09:22)
[2025-02-11] MEDS: PRIMIDONE 50 MG TABLET 100 MG PO (09:23)
[2025-02-11] MEDS: ATORVASTATIN 20 MG TABLET PO (09:23)
[2025-02-11] MEDS: CELECOXIB 200 MG CAPSULE PO (09:23)
[2025-02-11] MEDS: CARBIDOPA/LEVODOPA 25/250 MG TABLET 2 TABLET PO (09:33)
[2025-02-11] MEDS: DOXYCYCLINE HYCLATE 100 MG TABLET PO (09:33)
[2025-02-11] MEDS: ASPIRIN 81 MG ENTERIC TABLET PO (09:33)
[2025-02-11] MEDS: LORazepam (*CRX) 1 MG TABLET PO (09:33)
--- NOTE | 2025-02-11 09:35 | P.PNPL_ITS ---
Progress Note: A&P Assessment and Plan (1) Chronic obstructive pulmonary disease: Code(s): J44.9 - Chronic obstructive pulmonary disease, unspecified Status: Acute Assessment and Plan: Regarding patient's COPD He the family tells me he was diagnosed 10 years ago. He denies ever having PFTs. He was given inhalers and these did help him. He smoked 2 packs a day from 1957 until 2006 for a total of 100 pack years. He was exposed to secondhand smoke from his father. He denies vaping or illicit drug use. CT scan of the chest on 09/30/2024 shows mild apical predominant panlobular emphysema. He is maintained on fluticasone 100 q.day. At the base line patient is very limited in his activity. Ten years ago he could walk unlimited going slow. Five years ago he began using walker and could walk 1 block. One year ago he could walk half a block. Six months ago he says he could walk half a block. He was admitted to the hospital on 11/23/2024 with pneumonia and colitis and has lost strength since then and his breathing has never recovered. He did not require oxygen at discharge. Patient presents now with change in sputum volume call our, change in sputum color, worsening shortness of breath, leukocytosis and wheezing. I will treat him for COPD exacerbation and he may have a pneumonia. 02/07/2025: Currently the patient tells me he feels better. He is 26% back to his normal. His cough is improved and is 26% back to normal. He has decreased volume of phlegm. His appetite is improved and he 8 like a horse. His white blood cell count is 18.0, his creatinine is 0.79. His BNP is 9220, his CRP is 4.1. D dimer is 1.08. when I enter the room the patient was on 4 L nasal cannula saturations 95%. I decreased her 3 L and his saturations were 95%. I decreased him to 2 L and his saturations were 92%. Plan: currently has no wheezes. I will decrease his Solu-Medrol to 20 mg IV q.6 hours. Patient is tachycardic at 1:10 a.m. on the DuoNebs and I will discontinue albuterol. I will place the patient on ipratropium nebulizers Q.4 hours and follow him clinically. if the patient has continued bronchospasm will add levalbuterol nebulizer. I will order alpha 1 anti trypsin genotype and level tomorrow. I will obtain a CT scan of the chest with contrast to assess his bullous emphysema and to look for evidence of pneumonia. At this time he was clinically improving on ceftriaxone and doxycycline, day 2 will continue. Goal saturation 90-94%. Echocardiogram has been ordered. Pulmonary inpatient consultative services will resume on 02/10/2025, call with questions. Later in the day patient had an echocardiogram with the severely reduced LVEF 25-30%, grade 1 diastolic dysfunction, moderate mitral valve regurgitation, mild aortic valve regurgitation, mild tricuspid valve regurgitation with severe pulmonary hypertension with PASP 60. Normal right ventricular size and function. Normal right atrial size. Later in the day patient had a CT angiogram of the chest and compared to 11/23/2024,with no pulmonary embolism, previous infiltrate right upper lobe has improved, increased reticulations in the lingula, new moderate right pleural effusion. Unchanged mild apical predominant panlobular emphysema, unchanged lower lobe bronchiectasis and unchanged peripheral basilar reticulations and honeycombing in the bilateral lower lobes. 02/10/25: Overall patient is minimally improved. He has some shortness of breath at rest. His cough is a little bit better. When I enter the room he is on 1 L nasal cannula saturations 94%. I decreased him to room air and his saturations decreased to 88% and I placed him back on 1 L nasal cannula. His white blood cell count is 19.3, his creatinine is 0.64. His procalcitonin remains unchanged from 02/07/2025 to 0.1 today. His BNP has decreased from 9220 on 02/07/2025 to 8400 today. His CRP has decreased from 4.7 on 02/07/2025 to 1.7 today. Chest x-ray today shows worsening diffuse alveolar interstitial infiltrates compared to 02/06/2025. Yesterday the patient was positive 170 mL, cumulative he is positive 1.6 L since admission. His weight today is 77.6 with an admission weight of 74 kg. Patient is scheduled for cardiac catheterization later today. Plan: Patient has no wheezes on exam today. I will change his Solu-Medrol 20 mg IV q.6 hours 2 prednisone 40 mg p.o. q.day. today is day 5 of steroids. I will continue to hold off on beta agonist at this time. was not sleeping at night and I will change his ipratropium Nebulizer to q.4 hours while awake. Will continue ceftriaxone and doxycycline for possible pneumonia, day 5 of both. I will increase his guaifenesin from 600 p.o. b.i.d. to 1200 p.o. b.i.d. to aid in expectoration. I will order Cornet flutter valve. Goal saturation 90-94%, adjust oxygen accordingly. 02/11/2025: Patient tells me he slept good last night he has less shortness of breath at rest. Overall he feels better than presentation. He was able to cough up green phlegm this morning. when I entered the room he was on 4 L nasal cannula with saturations 99%. I decreased him to 2 L and his saturations were 97% I decreased him to 1 L and his saturations were 94%. I decreased him to room air and his saturations went to 89% and I placed him on 1 L cannula. He is afebrile. White blood cell count 15.9, creatinine 0.81. Yesterday diuresed 2.1 L. Cumulative diuresis since admission is 695 mL. His weight today is 78.8. Plan: Patient has no wheezes today. Has received 5 days of steroids and I will discontinue systemic steroids today. I will place him on nebulized budesonide 500 mcg q.12 hours, continue ipratropium 0.5 mg q.4 hours while awake, I will add levalbuterol 0.63 mg nebulized q.4 hours while awake. Continue ceftriaxone and doxycycline for possible pneumonia, day 6 of both. Continue guaifenesin 1200 mg p.o. b.i.d. and Cornet flutter valve. Goal saturation 90-94%, requiring 1 L at this time. Discussed with Dr. Dumont, Discussed with in the bedroom and and daughter on cell phone. will follow with you. (2) Pulmonary fibrosis: Code(s): J84.10 - Pulmonary fibrosis, unspecified Status: Acute Assessment and Plan: Regarding his interstitial lung disease this is seen on the first CT scan of the chest in our system on 09/30/2024 with calcified pleural plaques, basilar and peripheral reticulations with honeycombing. In my opinion this is a CT scan with a typical UIP CT pattern. Patient denies any rheumatoid arthritis or skin rashes. Patient worked at [employer] and [employer] from [id number] with no respiratory protection. He denied welding, sandblasting, coal mining work, construction work. Etiology of interstitial lung disease includes: IPF, asbestosis, occupational lung disease from professional car painting for 30 years. Plan: Will check a CT scan of the chest looking for ground-glass infiltrates which may indicate a flare of his pulmonary fibrosis. Continue steroids as above. Regarding other etiologies for his interstitial lung disease I will send serologies. I will order a VEGA screen that includes 11 different auto antibodies, an ANCA screen, a rheumatoid factor, anti CCP antibody, hypersensitivity pneumonitis panel, a CPK, an aldolase level, and myomarker 3 plus profile. Patient will need outpatient PFTs once he is clinically stable. serologies: Aldolase 9.8, normal. CPK 48, normal, rheumatoid factor 13.8, normal. CC P antibody 7, normal. VEGA screen negative. C Anca, atypical p- ANCA, p-ANCA all negative. MyoMarker 3+ pending, hypersensitivity pneumonitis panel pending. Later in the day patient had a CT angiogram of the chest and compared to 11/23/2024,with no pulmonary embolism, previous infiltrate right upper lobe has improved, increased reticulations in the lingula, new moderate right pleural effusion. Unchanged mild apical predominant panlobular emphysema, unchanged lower lobe bronchiectasis and unchanged peripheral basilar reticulations and honeycombing in the bilateral lower lobes. 02/10/2025: Breathing has remained essentially unchanged. Oxygenation improving, now on [address] scan Compared with 11/23/2024 with unchanged lower lobe bronchiectasis and peripheral reticulations and honeycombing in the lower lobes. Plan: no CT evidence of rapidly progressive pulmonary fibrosis Per CT scan. Serologies: CPK 48, rheumatoid factor 13.8, CCP antibody, VEGA, Anca screen, myositis panel, hypersensitivity pneumonitis panel pending. 02/11/25: breathing is improved today. Oxygenation stable on 1 L. plan: I will discontinue steroids today and follow the patient on bronchodilators only. Goal saturation 90 94%, wean oxygen as tolerated. (3) Bronchiectasis: Code(s): J47.9 - Bronchiectasis, uncomplicated Status: Acute Assessment and Plan: Regarding his bronchiectasis. He does have a chronic cough 2-3 times in the 1st hour and intermittently makes phlegm during this 1st hour but his symptoms have not progressed. The bronchiectasis on his CT scan appears not to be related to traction bronchiectasis. 02/07/25: Plan: I will send serologies looking for an autoimmune disease process, immunodeficiency as an etiology to the patient's bronchiectasis. I will send total IgG, IgM, IgA, IgE, IgG subclass, VEGA screen and rheumatoid factor. 02/10/25: CT scan compared to 11/23/2024 with no change in his lower lobe bronchiectasis. Serologies: Total IgG 1008, normal, IgG subclass 1 = 419, normal. IgG subclass 2 = 430, normal. IgG subclass 3 = 174, elevated. IgG subclass 4 = 46, normal. IgA 315, normal, IgM 100, normal. IgE pending. VEGA screen and rheumatoid factor negative. 02/11/25: Patient has improved. He is making some mucus now with nebulizers, guaifenesin 1200 b.i.d. and Cornet flutter valve which will be continued. (4) Pleural plaque due to asbestos exposure: Code(s): J92.0 - Pleural plaque with presence of asbestos Status: Acute Assessment and Plan: Regarding his calcified pleural plaques. The patient worked in [employer] and was surrounded by asbestos pipes that ran from the ceiling to the floor. He did not work on the asbestos insulation but he was exposed to these pipes all his life. 02/07/25: Plan: At a minimum the patient has asbestos exposure. He also has interstitial lung disease and may have asbestosis. Will check CT scan of the chest looking for ground-glass infiltrates. 02/10/25: CT scan of the chest on 02/07/2025 with worsening reticulations in the lingula and otherwise unchanged. Plan: Difficult to tell if this is asbestosis or progressive pulmonary fibrosis. Patient will need additional outpatient testing a PFTs. (5) Cardiomyopathy: Code(s): I42.9 - Cardiomyopathy, unspecified Status: Acute Assessment and Plan: Echocardiogram 815 with severe decreased LV function 25-30%, grade 1 diastolic dysfunction, moderate mitral valve regurgitation, severe pulmonary hypertension with PASP of 60. Patient with positive troponins when he was admitted. 02/10/25: He still remains intermittently tachycardic. CT scan with small to moderate right pleural effusion, elevated BNP. Chest x-ray today shows worsening diffuse alveolar interstitial infiltrates compared to 02/06/2025. Yesterday the patient was positive 170 mL, cumulative he is positive 1.6 L since admission. His weight today is 77.6 with an admission weight of 74 kg. Difficult to tell if patient's current rest shortness of breath and dyspnea on exertion or related to above-mentioned pulmonary issues, Fluid overload and or cardiomyopathy. Plan: I will avoid beta agonist nebulizers and inhalers at this time. Cardiomyopathy being managed by Cardiology and will undergo cardiac catheteri zation per Cardiology later today. Later in the day cardiac catheterization revealed 3 vessel coronary artery disease with recommendation for CABG. This was presented to the family will consider transfer to higher level of care facility. 02/11/25: Hospitalist to discuss transfer to higher level of care facility, family told me they prefer [facility] and I would agree with this. Plan: Ischemic cardiomyopathy management per assembly operator and hospitalist team. Would consider gentle diuresis. Subjective Date/time seen: 02/11/25 09:35 Interval history: 02/07/2025: This is a new pulmonary consult for shortness of breath. 84-year-old with a history of COPD, Interstitial lung disease, bronchiectasis, calcified pleural plaques,Parkinson's disease, BPH, bipolar disease. Regarding patient's COPD He the family tells me he was diagnosed 10 years ago. He denies ever having PFTs. He was given inhalers and these did help him. He smoked 2 packs a day from 1957 until 2007 for a total of 100 pack years. He was exposed to secondhand smoke from his father. He denies vaping or illicit drug use. CT scan of the chest on 09/30/2024 shows mild apical predominant panlobular emphysema. He is maintained on fluticasone 100 q.day. Regarding his interstitial lung disease this is for seen on The for CT scan of the chest in our system on 09/30/2024 with calcified pleural plaques, basilar and peripheral reticulations with honeycombing. Patient denies any rheumatoid arthritis or skin rashes. Patient worked at [employer] and [employer] from [id number] with no respiratory protection. He denied welding, sandblasting, coal mining work, construction work. Regarding his bronchiectasis. He does have a chronic cough 2-3 times in the 1st hour and intermittently makes phlegm during this 1st hour but his symptoms have not progressed. The bronchiectasis on his CT scan appears not to be related to traction bronchiectasis. Regarding his calcified pleural plaques. The patient worked in [employer] and was surrounded by asbestos pipes that ran from the ceiling to the floor. He did not work on the asbestos insulation but he was exposed to these pipes all his life. at the base line patient is very limited in his activity. Ten years ago he could walk unlimited going slow. Five years ago he began using walker and could walk 1 block. One year ago he could walk half a block. Six months ago he says he could walk half a block. He was admitted to the hospital on 11/23/2024 with pneumonia and colitis and has lost strength since then and his breathing has never recovered. He did not require oxygen at discharge. 11/23/2024 through 11/27/2024. Patient was admitted to the hospital with colitis and pneumonia. He was treated on Zosyn and discharged on Augmentin and doxycycline. He had a biopsy of his colon that was consistent with ischemic colitis. CT scan of the chest on 11/23/2024 compared to 09/30/2024 showed unchanged mild apical predominant panlobular emphysema, unchanged calcified pleural plaques, unchanged lower lobe bronchiectasis, new right upper lobe patchy infiltrate. Unchanged peripheral and basilar reticulations and honeycombing in my opinion with a typical UIP CT pattern. Approximately 01/24/2025 the patient developed cough and shortness of breath was prescribed a Z-Rufus. By his PCP. He did not improve and was then prescribe doxycycline. On 02/06 the patient had worsening shortness of breath, dyspnea on exertion, increase in his phlegm volume, change in the color of his phlegm from green to dark green and black and presented to the emergency department. His blood pressure is 134/80, heart rate 113, respirations 22, room air saturations 95%. He had diffuse expiratory wheezes. His white blood cell count was 21.1, eosinophils 1%, creatinine 0.94. BNP 8850, troponin positive 0.303, point 0322. COVID influenza, RSV RT PCR assay negative. Patient had a blood gas on 2 L at 752/20 672. 2 hours later the patient had a blood gas on 2 L with a pH of 7.50/27/76. Patient was given 3 L IV fluids, Rocephin, doxycycline and Solu- Medrol and bronchodilators. 02/07/2025: Currently the patient tells me he feels better. He is 26% back to his normal. His cough is improved and is 26% back to normal. He has decreased volume of phlegm. His appetite is improved and he 8 like a horse. His white blood cell count is 18.0, his creatinine is 0.79. His BNP is 9220, his CRP is 4.1. D dimer is 1.08. when I enter the room the patient was on 4 L nasal cannula saturations 95%. I decreased her 3 L and his saturations were 95%. I decreased him to 2 L and his saturations were 92%. Later in the day patient had an echocardiogram with the severely reduced LVEF 25-30%, grade 1 diastolic dysfunction, moderate mitral valve regurgitation, mild aortic valve regurgitation, mild tricuspid valve regurgitation with severe pulmonary hypertension with PASP 60. Normal right ventricular size and function. Normal right atrial size. Later in the day patient had a CT angiogram of the chest and compared to 11/23/2024,with no pulmonary embolism, previous infiltrate right upper lobe has improved, increased reticulations in the lingula, new moderate right pleural effusion. Unchanged mild apical predominant panlobular emphysema, unchanged lower lobe bronchiectasis and unchanged peripheral basilar reticulations and honeycombing in the bilateral lower lobes. 02/10/25: Overall patient is minimally improved. He has some shortness of breath at rest. His cough is a little bit better. When I enter the room he is on 1 L nasal cannula saturations 94%. I decreased him to room air and his saturations decreased to 88% and I placed him back on 1 L nasal cannula. His white blood cell count is 19.3, his creatinine is 0.64. His procalcitonin remains unchanged from 02/07/2025 to 0.1 today. His BNP has decreased from 9220 on 02/07/2025 to 8400 today. His CRP has decreased from 4.7 on 02/07/2025 to 1.7 today. Chest x-ray today shows worsening diffuse alveolar interstitial inf iltrates compared to 02/06/2025. Yesterday the patient was positive 170 mL, cumulative he is positive 1.6 L since admission. His weight today is 77.6 with an admission weight of 74 kg. Patient is scheduled for cardiac catheterization later today. Later in the day cardiac catheterization revealed 3 vessel coronary artery disease with recommendation for CABG. This was presented to the family will consider transfer to higher level of care facility. 02/11/2025: Patient tells me he slept good last night he has less shortness of breath at rest. Overall he feels better than presentation. He was able to cough up green phlegm this morning. when I entered the room he was on 4 L nasal cannula with saturations 99%. I decreased him to 2 L and his saturations were 97% I decreased him to 1 L and his saturations were 94%. I decreased him to room air and his saturations went to 89% and I placed him on 1 L cannula. He is afebrile. White blood cell count 15.9, creatinine 0.81. Yesterday diuresed 2.1 L. Cumulative diuresis since admission is 695 mL. His weight today is 78.8. DATA: 02/07/25: EXAMINATION: CTA chest PE protocol INDICATION: Rule out pulmonary wasn't. History of ILD. Bronchiectasis COMPARISON: CTA chest 09/30/2024; CT chest 11/23/2024 FINDINGS: No pulmonary embolism is identified. Small right-sided pleural effusion. Tiny left-sided pleural effusion. Upper abdomen is grossly unchanged. Heart is mildly enlarged. Thoracic aorta is not aneurysmal. There are coronary artery calcifications. Tracheobronchial tree is patent. No pneumothorax. No pulmonary mass. Grossly stable paraseptal and centrilobular emphysema. Grossly stable bronchiectasis. Grossly stable honeycombing in the lower lungs. Osseous structures are grossly unchanged. Bones appear osteopenic with multilevel degenerative change in the visualized spine. IMPRESSION: 1. No pulmonary embolism identified. 2. No pulmonary mass. No new focal pulmonary consolidation. 3. Grossly stable chronic changes in the lungs as compared to the study from 09/30/2024. Grossly stable bronchiectasis. 4. New small right-sided pleural effusion. Tiny left-sided pleural effusion. 02/07/2025: Summary 1. Left ventricular chamber dimension is mildly enlarged. 2. Left ventricular systolic function is severely reduced, estimated at 25-30. 3. There is mildly increased left ventricular wall thickness. 4. The left ventricular diastolic function is grade I diastolic dysfunction. 5. Left atrial chamber dimension is moderately enlarged. 6. There is moderate mitral valve regurgitation. 7. The mitral valve annulus is mildly calcified. 8. There is mild aortic valve regurgitation. 9. There is mild tricuspid valve regurgitation. 10. Severe pulmonary hypertension, estimated pulmonary arterial systolic pressure is 60 mmHg. 11. There is moderate pulmonic regurgitation. Right Ventricle Right ventricular chamber dimension is normal. Right ventricular systolic function is normal. Right Atria Right atrial chamber dimension is normal. Atrial Septum Intact interatrial septum visualized by color flow imaging. 11/23/2024: EXAMINATION: CT diagnostic chest wo con DATE: 11/23/2024 11:48 INDICATION: Possible pneumonia. TECHNIQUE: Computed tomography (CT) of the chest was performed without intravenous contrast. The dose-length product was 269.67 mGy-cm. Automated exposure control and iterative reconstruction technique were employed. COMPARISON: CT dated 09/30/2024 FINDINGS: There is patent patchy consolidation of the right upper lobe consistent with pneumonia. There is focal consolidation in the right lower lobe as well. There is extensive chronic interstitial lung disease with bronchiectasis bilaterally. No endobronchial lesions. There is atherosclerosis of the aorta and coronary arteries. Heart size normal. There is residual contrast in the renal collecting systems, likely from prior contrast study. There is severe thoracic and upper lumbar spondylosis with dextroscoliosis. IMPRESSION: 1. Patchy predominantly right-sided airspace consolidation, consistent with pneumonia. 2: Chronic interstitial lung disease, consistent with pulmonary fibrosis. There is associated bronchiectasis bilaterally. 09/30/2024: EXAMINATION: CTA chest PE abdomen pel INDICATION: Remote history of chest and abdominal pain, now resolved. FINDINGS/OBSERVATIONS: PULMONARY ARTERIES: No filling defect is identified within the main or proximal pulmonary artery. The main pulmonary artery is not enlarged. THORACIC AORTA: No aneurysmal dilatation or dissection is present. The great vessels are intact LUNGS: Chronic interstitial change is detected bilaterally. Peripheral honeycombing is also noted, as is central lobular emphysematous disease. Calcified pleural plaques are noted. MEDIASTINUM: No morphologically suspicious or pathologically enlarged lymph nodes are identified within the mediastinum or bilateral axilla. BONES OF THE CHEST: No acute fracture. Age-appropriate degenerative disease. No lytic or blastic lesions. HEART: The heart is of normal size, without pericardial effusion. LIVER: Punctate calcifications identified within the hepatic parenchyma, suggesting prior granulomatous disease. Remainder of the liver is otherwise unremarkable, and is not enlarged. GALLBLADDER AND BILIARY SYSTEM: The gallbladder is surgically absent. PANCREAS: The pancreas enhances homogeneously without ductal dilatation. SPLEEN: Punctate calcifications identified within the splenic parenchyma, suggesting prior granulomatous disease. The remainder of the spleen otherwise enhances homogeneously and is not enla rged. KIDNEYS: The bilateral kidneys enhance symmetrically without hydronephrosis or renal calculi. ADRENAL GLANDS: Unremarkable. GASTROINTESTINAL TRACT: Colonic diverticulosis without surrounding inflammatory change. APPENDIX: The appendix is not definitively visualized. However, no pericecal inflammatory change is identified suggest the presence of acute appendicitis. VASCULATURE: Densely calcified atherosclerotic disease, without aneurysmal dilatation or significant stenosis. LYMPH NODES: No pathologically enlarged or morphologically suspicious lymph nodes within the retroperitoneum or at the root of the mesentery. PELVIC STRUCTURES: The bladder is significantly distended, and otherwise unremarkable. Limited evaluation of the pelvis secondary to streak metallic artifact from pat ient's right hip prosthetic and lower lumbar spine hardware. The prostate gland does not appear to be enlarged. BODY WALL AND MUSCULOSKELETAL: Posterior fixation hardware at the level of L4, L5 and S1 with postlaminectomy change. 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 IMPRESSION: No pulmonary embolus. No aortic dissection. No acute pathology identified within the chest, abdomen or pelvis, as detailed above Review of Systems Constitutional: Constitutional: Reports no additional constitutional complaints Eyes: Eyes: Reports no additional eye complaints ENT: Reports system reviewed and no additional complaints, except as documented Cardiovascular: Cardiovascular: Reports no additional cardiovascular complaints Respiratory: Respiratory: Reports no additional respiratory complaints Gastrointestinal: Gastrointestinal: Reports no additional gastrointestinal complaints Musculoskeletal: Musculoskeletal: Reports no additional musculoskeletal complaints Neurologic: Reports system reviewed and no additional complaints, except as documented Psychiatric: Psychiatric: Reports no additional psychiatric complaints Endocrine: Endocrine: Reports no additional endocrine complaints Hematologic/Lymphatic: Hematologic/Lymphatic: Reports no additional hematologic/lymphatic complaints Allergic/Immunologic: Allergic/Immunologic: Reports no additional allergic/immunologic complaints Exam Const: General: cooperative, healthy appearing, comfortable and in distress Orientation/consciousness: oriented to person, oriented to place and oriented to time Other: mild respiratory distress HENMT: Head: normal to inspection Ears: hearing grossly normal bilaterally Eyes: General: appearance normal, both eyes and all related structures Neck: Neck: normal visual inspection Chest: Chest palpation & inspection: normal inspection of the chest Resp: Effort & Inspection: normal respiratory effort and able to speak in complete sentences Auscultation: crackles, no rales, no rhonchi, no wheezes and lung sounds not diminished Other: Dry crackles at the bases. No wheezes. Cardio: Jugular venous distension: no JVD GI: Inspection: normal to inspection Skin: General skin exam: normal color Neuro: General: oriented to person, oriented to place and oriented to time Extrem: General: normal to inspection Psych: Appearance: grossly normal Objective Data Vital Signs Vital Signs: Vital Signs - 24 hr 02/10/25 12:30 02/10/25 12:30 02/10/25 12:45 Temperature Pulse Rate 98 Pulse Rate [Bilateral Pedal (Dorsalis Pedis) Palpation] 98 100 Respiratory Rate 14 Blood Pressure 118/87 Pulse Oximetry 94 Oxygen Delivery Nasal Cannula Oxygen Flow Rate 2 Fraction of Inspired Oxygen 02/10/25 12:45 02/10/25 13:00 02/10/25 13:00 Temperature Pulse Rate 100 100 Pulse Rate [Bilateral Pedal (Dorsalis Pedis) Palpation] 100 Respiratory Rate 16 19 Blood Pressure 111/86 107/93 H Pulse Oximetry 98 98 Oxygen Delivery Nasal Cannula Nasal Cannula Oxygen Flow Rate 2 2 Fraction of Inspired Oxygen 02/10/25 13:15 02/10/25 13:15 02/10/25 13:30 Temperature Pulse Rate 99 Pulse Rate [Bilateral Pedal (Dorsalis Pedis) Palpation] 99 100 Respiratory Rate 20 Blood Pressure 104/84 Pulse Oximetry 94 Oxygen Delivery Nasal Cannula Oxygen Flow Rate 2 Fraction of Inspired Oxygen 02/10/25 13:30 02/10/25 13:45 02/10/25 13:45 Temperature Pulse Rate 100 96 Pulse Rate [Bilateral Pedal (Dorsalis Pedis) Palpation] 96 Respiratory Rate 22 H 19 Blood Pressure 109/92 H 102/83 Pulse Oximetry 95 99 Oxygen Delivery Nasal Cannula Nasal Cannula Oxygen Flow Rate 2 2 Fraction of Inspired Oxygen 02/10/25 14:00 02/10/25 14:00 02/10/25 14:15 Temperature Pulse Rate 95 Pulse Rate [Bilateral Pedal (Dorsalis Pedis) Palpation] 95 98 Respiratory Rate 21 H Blood Pressure 121/93 H Pulse Oximetry 98 Oxygen Delivery Nasal Cannula Oxygen Flow Rate 2 Fraction of Inspired Oxygen 02/10/25 14:15 02/10/25 14:31 02/10/25 14:31 Temperature Pulse Rate 98 101 H Pulse Rate [Bilateral Pedal (Dorsalis Pedis) Palpation] 101 H Respiratory Rate 20 12 Blood Pressure 107/96 H 132/85 Pulse Oximetry 94 98 Oxygen Delivery Nasal Cannula Nasal Cannula Oxygen Flow Rate 2 2 Fraction of Inspired Oxygen 02/10/25 14:36 02/10/25 14:36 02/10/25 14:41 Temperature Pulse Rate 103 H Pulse Rate [Bilateral Pedal (Dorsalis Pedis) Palpation] 103 H 100 Respiratory Rate 12 Blood Pressure 106/92 H Pulse Oximetry 98 Oxygen Delivery Nasal Cannula Oxygen Flow Rate 2 Fraction of Inspired Oxygen 02/10/25 14:41 02/10/25 14:46 02/10/25 14:51 Temperature Pulse Rate 100 98 Pulse Rate [Bilateral Pedal (Dorsalis Pedis) Palpation] 102 H Respiratory Rate 13 15 Blood Pressure 103/88 114/97 H Pulse Oximetry 96 94 Oxygen Delivery Nasal Cannula Nasal Cannula Oxygen Flow Rate 2 2 Fraction of Inspired Oxygen 02/10/25 14:51 02/10/25 14:56 02/10/25 14:56 Temperature Pulse Rate 97 Pulse Rate [Bilateral Pedal (Dorsalis Pedis) Palpation] 97 Respiratory Rate 15 15 Blood Pressure 121/89 119/92 H Pulse Oximetry 95 95 Oxygen Delivery Nasal Cannula Nasal Cannula Oxygen Flow Rate 2 2 Fraction of Inspired Oxygen 02/10/25 15:00 02/10/25 15:00 02/10/25 15:15 Temperature Pulse Rate 106 H Pulse Rate [Bilateral Pedal (Dorsalis Pedis) Palpation] 106 H 106 H Respiratory Rate 15 Blood Pressure 104/84 Pulse Oximetry 95 Oxygen Delivery Nasal Cannula Oxygen Flow Rate 2 Fraction of Inspired Oxygen 02/10/25 15:15 02/10/25 15:30 02/10/25 15:30 Temperature Pulse Rate 106 H 106 H Pulse Rate [Bilateral Pedal (Dorsalis Pedis) Palpation] 106 H Respiratory Rate 15 20 Blood Pressure 103/70 123/97 H Pulse Oximetry 94 94 Oxygen Delivery Nasal Cannula Nasal Cannula Oxygen Flow Rate 2 2 Fraction of Inspired Oxygen 02/10/25 15:45 02/10/25 15:45 02/10/25 16:00 Temperature Pulse Rate 101 H Pulse Rate [Bilateral Pedal (Dorsalis Pedis) Palpation] 101 H 103 H Respiratory Rate 13 Blood Pressure 115/95 H Pulse Oximetry 97 Oxygen Delivery Nasal Cannula Oxygen Flow Rate 2 Fraction of Inspired Oxygen 02/10/25 16:00 02/10/25 16:00 02/10/25 16:00 Temperature Pulse Rate 103 H 105 H Pulse Rate [Bilateral Pedal (Dorsalis Pedis) Palpation] Respiratory Rate 16 Blood Pressure 105/90 Pulse Oximetry 96 96 Oxygen Delivery Nasal Cannula Nasal Cannula Oxygen Flow Rate 2 2 Fraction of Inspired Oxygen 02/10/25 17:00 02/10/25 18:00 02/10/25 19:00 Temperature 36.3 C L 36.6 C 36.1 C L Pulse Rate 100 107 H 110 H Pulse Rate [Bilateral Pedal (Dorsalis Pedis) Palpation] Respiratory Rate 22 H 22 H 20 Blood Pressure 101/78 97/75 L 103/74 Pulse Oximetry 98 91 95 Oxygen Delivery Oxygen Flow Rate Fraction of Inspired Oxygen 02/10/25 20:00 02/10/25 20:00 02/10/25 21:35 Temperature 36.4 C Pulse Rate 107 H 97 Pulse Rate [Bilateral Pedal (Dorsalis Pedis) Palpation] Respiratory Rate Blood Pressure 102/84 Pulse Oximetry 95 100 Oxygen Delivery Nasal Cannula Oxygen Flow Rate 4 Fraction of Inspired Oxygen 02/10/25 22:07 02/10/25 22:09 02/10/25 23:45 Temperature Pulse Rate 96 96 Pulse Rate [Bilateral Pedal (Dorsalis Pedis) Palpation] Respiratory Rate 20 20 Blood Pressure Pulse Oximetry 97 95 Oxygen Delivery Nasal Cannula Nasal Cannula Oxygen Flow Rate 4 4 Fraction of Inspired Oxygen 36 02/11/25 00:00 02/11/25 04:00 02/11/25 04:00 Temperature 36.4 C L Pulse Rate 102 H 93 Pulse Rate [Bilateral Pedal (Dorsalis Pedis) Palpation] Respiratory Rate 20 Blood Pressure 103/54 L Pulse Oximetry 93 92 Oxygen Delivery Nasal Cannula Oxygen Flow Rate 4 Fraction of Inspired Oxygen 02/11/25 04:00 02/11/25 07:57 02/11/25 07:58 Temperature Pulse Rate 93 102 H 102 H Pulse Rate [Bilateral Pedal (Dorsalis Pedis) Palpation] Respiratory Rate 20 20 Blood Pressure Pulse Oximetry 94 Oxygen Delivery Nasal Cannula Oxygen Flow Rate 4 Fraction of Inspired Oxygen 36 02/11/25 08:00 02/11/25 08:06 02/11/25 09:22 Temperature 36.8 C Pulse Rate 101 H 100 99 Pulse Rate [Bilateral Pedal (Dorsalis Pedis) Palpation] Respiratory Rate 16 20 Blood Pressure 141/76 H Pulse Oximetry 99 Oxygen Delivery Oxygen Flow Rate Fraction of Inspired Oxygen Intake/Output Intake/Output: Intake & Output 02/08/25 02/09/25 02/10/25 02/11/25 23:59 23:59 23:59 23:59 Intake Total 1320 2250 790 350 Output Total 1150 1650 2900 600 Balance 170 600 -2110 -250 Meds/Results Medications: Active Medications Generic Name Dose Route Start Last Admin Trade Name Freq PRN Reason Stop Dose Admin Acetaminophen 650 mg 02/06/25 22:14 Acetaminophen 325 Mg Tablet PO Q4H PRN Mild Pain (1-3) or Fever Aspirin 81 mg 02/07/25 00:45 02/11/25 09:33 Aspirin 81 Mg Enteric Tablet PO 81 mg BID CARMEN Administration Atorvastatin Calcium 20 mg 02/08/25 11:50 02/11/25 09:23 Atorvastatin 20 Mg Tablet PO 20 mg DAILY CARMEN Administration Budesonide 0.5 mg 02/11/25 09:30 Budesonide Respule Neb 0.5 Mg/2 Ml Amp INHALATION Q12HRT CARMEN Carbidopa/Levodopa 2 tablet 02/07/25 00:45 02/11/25 09:33 Carbidopa/Levodopa 25/250 Mg Tablet PO 2 tablet QID CARMEN Administration Celecoxib 200 mg 02/07/25 09:00 02/11/25 09:23 Celecoxib 200 Mg Capsule PO 200 mg QAM CARMEN Administration Diphenhydramine HCl 50 mg 02/07/25 00:45 02/10/25 21:02 Diphenhydramine Hcl Cap 25 Mg Capsule PO 50 mg HS CARMEN Administration Divalproex Sodium 1,000 mg 02/07/25 00:45 02/10/25 21:[address] 250 Mg Tabec PO 1,000 mg QHS CARMEN Administration Doxycycline Hyclate 100 mg 02/07/25 09:00 02/11/25 09:33 Doxycycline Hyclate 100 Mg Tablet PO 100 mg Q12HR CARMEN Administration Guaifenesin 1,200 mg 02/10/25 21:00 02/10/25 20:57 Guaifenesin 12 Hr 600 Mg Tabcr PO 1,200 mg Q12HR CAR[facility] Administration Ceftriaxone Sodium 1 gm/ 50 mls @ 100 mls/hr 02/07/25 21:00 02/10/25 21:33 Sodium Chloride IVPB Infused Q24H [facility]MEN Infusion Ibuprofen 400 mg 02/06/25 22:14 Ibuprofen 400 Mg Tablet PO Q6H PRN Mild Pain (1-3) or Fever Ipratropium Patterson 0.5 mg 02/10/25 12:00 02/11/25 07:54 Ipratropium Br 0.02% Inh Soln 0.5 Mg/2.5 Ml Vial INHALATION 0.5 mg [id number] [facility] Administration Levalbuterol HCl 0.63 mg 02/11/25 12:00 Levalbuterol Neb 1.25 Mg/3 Ml INHALATION [id number] [facility] Lorazepam 1 mg 02/07/25 00:50 02/11/25 09:33 Lorazepam (*Crx) 1 Mg Tablet PO 1 mg Q12HR CARMEN Administration Metoprolol Succinate 12.5 mg 02/08/25 11:50 02/11/25 09:22 Metoprolol Succinate Ext Rel 12.5 Mg Tabcr PO 12.5 mg QAM CARMEN Administration Non-Formulary ( 3 each 02/07/25 21:00 02/10/25 21:03 Trifluoperazine Hcl PO 03/09/25 20:59 3 each 10 Mg Oral Tablet) HS CARMEN Administration Ondansetron HCl 4 mg 02/06/25 22:14 Ondansetron Inj 4 Mg/2 Ml Vial IV PUSH Q4H PRN Nausea Primidone 100 mg 02/07/25 00:55 02/11/25 09:23 Primidone 50 Mg Tablet PO 100 mg Q12HR [facility] Administration Tamsulosin HCl 0.4 mg 02/07/25 00:50 02/10/25 21:01 Tamsulosin Hcl 0.4 Mg Capsule PO 0.4 mg QHS CARMEN Administration Venlafaxine HCl 225 mg 02/07/25 00:50 02/10/25 20:58 Venlafaxine Hcl Xr 75 Mg Cap.Er.24h PO 225 mg QHS CARMEN Administration Radiology Results: ITS Impressions Chest CTA 02/07/25 13:30 IMPRESSION: 1. No pulmonary embolism identified. 2. No pulmonary mass. No new focal pulmonary consolidation. 3. Grossly stable chronic changes in the lungs as compared to the study from 09/30/2024. Grossly stable bronchiectasis. 4. New small right-sided pleural effusion. Tiny left-sided pleural effusion. Modified Barium Swallow 02/07/25 13:59 IMPRESSION: Trace laryngeal penetration without aspiration. Please correlate with speech pathologist findings and specific feeding recommendations. Venous Doppler Study 02/07/25 15:32 IMPRESSION: 1. No deep venous thrombosis in either lower limb. Chest X-Ray 02/10/25 08:44 IMPRESSION: 1. Emphysema with chronic interstitial lung disease with suggestion of some interval worsening in superimposed pulmonary edema and/or pneumonia. Labs Labs: Laboratory Results - last 24 hr 02/07/25 02/08/25 02/10/25 09:35 05:41 12:14 WBC RBC Hgb Hct MCV MCH MCHC RDW Plt Count MPV Activ Coag Time Kaolin 216 H Sodium Potassium Chloride Carbon Dioxide Anion Gap BUN Creatinine Estim Creat Clear Calc Estimated GFR Glucose Calcium Magnesium Aldolase 9.8 IgG 1025 IgG Subclass 1 419 IgG Subclass 2 430 IgG Subclass 3 174 H IgG Subclass 4 46 CCP IgG/IgA Ab 7 VEGA Screen Negative c-ANCA Antibody <1:20 Atypical p-ANCA <1:20 p-ANCA Antibody <1:20 Urine Pneumococcal Ag Cancelled 02/10/25 02/10/25 02/11/25 13:18 14:08 03:53 WBC 15.9 H RBC 3.72 L Hgb 11.0 L Hct 36.0 L MCV 96.8 MCH 29.6 MCHC 30.6 L RDW 18.3 H Plt Count 253 MPV 11.1 H Activ Coag Time Kaolin 176 H 158 H Sodium 135 L Potassium 4.7 Chloride 100 Carbon Dioxide 25 Anion Gap 10 BUN 26 H Creatinine 0.81 Estim Creat Clear Calc 59 Estimated GFR > 60 Glucose 93 Calcium 8.7 Magnesium 2.3 Aldolase IgG IgG Subclass 1 IgG Subclass 2 IgG Subclass 3 IgG Subclass 4 CCP IgG/IgA Ab VEGA Screen c-ANCA Antibody Atypical p-ANCA p-ANCA Antibody Urine Pneumococcal Ag
--- NOTE | 2025-02-11 09:58 | PC.NURSE ---
Patient accepted to [facility] by Dr Jackson (CT surgeon), assigned to room number 7222 bed 2 at this time. Family at bedside and updated with patient room number and phone number to the facility.
--- NOTE | 2025-02-11 10:23 | P.PNCA_ITS ---
<Statement entered by Soni Mercado MD - 02/14/25 10:45> The service was provided by the the nurse practitioner independently. i was available in the hospital in case I was needed Progress Note: A&P Assessment and Plan (1) Cardiomyopathy: Code(s): I42.9 - Cardiomyopathy, unspecified Status: Acute (2) Non-ST elevation (NSTEMI) myocardial infarction: Code(s): I21.4 - Non-ST elevation (NSTEMI) myocardial infarction Status: Acute Assessment and Plan: 1. CAD, Three vessel disease 2. Chronic systolic heart Failure ---- NYHA II, III, Stage C ---- EF 20-25% ---- ICM 3. NSTEMI; in the setting of Pneumonia 4. CAP 5. COPD/Pulmonary fibrosis 6. Dementia TTE (01/2025) EF 25-30%, GD 1 DD, mod MR, Severe P HTN PASP 60 mmhg LHC (02/10/2025) prox-mid LAD long tubular stenosis 70% in its maximal extent; iFR 0.72; LCX [employer], pRCA tandem lesions 70% and 90% (heavily calcified chunk of calcium), dRCA 70% -I had an extensive discussion with the patient and family regarding further further management after findings of cardiac catheterization. We discussed medical management as well as revascularization. -the patient wants to pursue aggressive revascularization measures -I discussed with them regarding recuperating from the present ailment followed by a evaluation for CABG as an outpatient. They want to be transferred for CABG while in-patient. Accepted at [place] - Continue ASA 81 mg PO - Continue Atorvastatin - Continue Toprol-XL 12.5 mg PO OD - JOSE/ARB/ARNI/MRA to be added later based on renal function and BP - No SGLT2 as recent infection - Discussed with Dr Dumont Subjective Date/time seen: 02/11/25 10:23 Interval history: No acute events overnight Denies any chest pain Lying comfortably in bed Post cardiac catheterization which shows triple-vessel disease Review of Systems Review of Systems: All systems reviewed & are unremarkable except as noted in HPI and below Constitutional: Constitutional: Denies chills ENT: Reports Normal hearing present Cardiovascular: Cardiovascular: Reports chest pain Respiratory: Respiratory: Reports cough Gastrointestinal: Gastrointestinal: Denies abdominal pain Neurologic: Reports Normal hearing present Exam Narrative: Appears stated age Const: General: comfortable, no acute distress, alert and awake Orientation/consciousness: patient oriented x3 HENMT: Head: normal to inspection Eyes: General: appearance normal, both eyes and all related structures Sclera: sclerae normal Pupils: Equal, round and reactive pupils present Neck: Neck: normal visual inspection, supple and no JVD Carotids: normal carotid upstroke Resp: Effort & Inspection: normal respiratory effort Auscultation: crackles and rhonchi Other: Wheezes also noted Cardio: Rate: regular rate and tachycardic Rhythm: regular rhythm Heart sounds: S1 normal heart sound present, S2 normal heart sound present and no murmurs GI: Auscultation: normal bowel sounds Skin: General skin exam: normal color Neuro: General: patient oriented x3 Cranial nerves: Yes Equal, round and reactive pupils present and Yes Normal hearing present Speech: normal speech Extrem: General: normal to inspection Psych: Appearance: grossly normal Mental Status: mental status grossly normal Objective Data Vital Signs Vital Signs: Vital Signs - 24 hr 02/10/25 12:30 02/10/25 12:30 02/10/25 12:45 Temperature Pulse Rate 98 Pulse Rate [Bilateral Pedal (Dorsalis Pedis) Palpation] 98 100 Respiratory Rate 14 Blood Pressure 118/87 Pulse Oximetry 94 Oxygen Delivery Nasal Cannula Oxygen Flow Rate 2 Fraction of Inspired Oxygen 02/10/25 12:45 02/10/25 13:00 02/10/25 13:00 Temperature Pulse Rate 100 100 Pulse Rate [Bilateral Pedal (Dorsalis Pedis) Palpation] 100 Respiratory Rate 16 19 Blood Pressure 111/86 107/93 H Pulse Oximetry 98 98 Oxygen Delivery Nasal Cannula Nasal Cannula Oxygen Flow Rate 2 2 Fraction of Inspired Oxygen 02/10/25 13:15 02/10/25 13:15 02/10/25 13:30 Temperature Pulse Rate 99 Pulse Rate [Bilateral Pedal (Dorsalis Pedis) Palpation] 99 100 Respiratory Rate 20 Blood Pressure 104/84 Pulse Oximetry 94 Oxygen Delivery Nasal Cannula Oxygen Flow Rate 2 Fraction of Inspired Oxygen 02/10/25 13:30 02/10/25 13:45 02/10/25 13:45 Temperature Pulse Rate 100 96 Pulse Rate [Bilateral Pedal (Dorsalis Pedis) Palpation] 96 Respiratory Rate 22 H 19 Blood Pressure 109/92 H 102/83 Pulse Oximetry 95 99 Oxygen Delivery Nasal Cannula Nasal Cannula Oxygen Flow Rate 2 2 Fraction of Inspired Oxygen 02/10/25 14:00 02/10/25 14:00 02/10/25 14:15 Temperature Pulse Rate 95 Pulse Rate [Bilateral Pedal (Dorsalis Pedis) Palpation] 95 98 Respiratory Rate 21 H Blood Pressure 121/93 H Pulse Oximetry 98 Oxygen Delivery Nasal Cannula Oxygen Flow Rate 2 Fraction of Inspired Oxygen 02/10/25 14:15 02/10/25 14:31 02/10/25 14:31 Temperature Pulse Rate 98 101 H Pulse Rate [Bilateral Pedal (Dorsalis Pedis) Palpation] 101 H Respiratory Rate 20 12 Blood Pressure 107/96 H 132/85 Pulse Oximetry 94 98 Oxygen Delivery Nasal Cannula Nasal Cannula Oxygen Flow Rate 2 2 Fraction of Inspired Oxygen 02/10/25 14:36 02/10/25 14:36 02/10/25 14:41 Temperature Pulse Rate 103 H Pulse Rate [Bilateral Pedal (Dorsalis Pedis) Palpation] 103 H 100 Respiratory Rate 12 Blood Pressure 106/92 H Pulse Oximetry 98 Oxygen Delivery Nasal Cannula Oxygen Flow Rate 2 Fraction of Inspired Oxygen 02/10/25 14:41 02/10/25 14:46 02/10/25 14:51 Temperature Pulse Rate 100 98 Pulse Rate [Bilateral Pedal (Dorsalis Pedis) Palpation] 102 H Respiratory Rate 13 15 Blood Pressure 103/88 114/97 H Pulse Oximetry 96 94 Oxygen Delivery Nasal Cannula Nasal Cannula Oxygen Flow Rate 2 2 Fraction of Inspired Oxygen 02/10/25 14:51 02/10/25 14:56 02/10/25 14:56 Temperature Pulse Rate 97 Pulse Rate [Bilateral Pedal (Dorsalis Pedis) Palpation] 97 Respiratory Rate 15 15 Blood Pressure 121/89 119/92 H Pulse Oximetry 95 95 Oxygen Delivery Nasal Cannula Nasal Cannula Oxygen Flow Rate 2 2 Fraction of Inspired Oxygen 02/10/25 15:00 02/10/25 15:00 02/10/25 15:15 Temperature Pulse Rate 106 H Pulse Rate [Bilateral Pedal (Dorsalis Pedis) Palpation] 106 H 106 H Respiratory Rate 15 Blood Pressure 104/84 Pulse Oximetry 95 Oxygen Delivery Nasal Cannula Oxygen Flow Rate 2 Fraction of Inspired Oxygen 02/10/25 15:15 02/10/25 15:30 02/10/25 15:30 Temperature Pulse Rate 106 H 106 H Pulse Rate [Bilateral Pedal (Dorsalis Pedis) Palpation] 106 H Respiratory Rate 15 20 Blood Pressure 103/70 123/97 H Pulse Oximetry 94 94 Oxygen Delivery Nasal Cannula Nasal Cannula Oxygen Flow Rate 2 2 Fraction of Inspired Oxygen 02/10/25 15:45 02/10/25 15:45 02/10/25 16:00 Temperature Pulse Rate 101 H Pulse Rate [Bilateral Pedal (Dorsalis Pedis) Palpation] 101 H 103 H Respiratory Rate 13 Blood Pressure 115/95 H Pulse Oximetry 97 Oxygen Delivery Nasal Cannula Oxygen Flow Rate 2 Fraction of Inspired Oxygen 02/10/25 16:00 02/10/25 16:00 02/10/25 16:00 Temperature Pulse Rate 103 H 105 H Pulse Rate [Bilateral Pedal (Dorsalis Pedis) Palpation] Respiratory Rate 16 Blood Pressure 105/90 Pulse Oximetry 96 96 Oxygen Delivery Nasal Cannula Nasal Cannula Oxygen Flow Rate 2 2 Fraction of Inspired Oxygen 02/10/25 17:00 02/10/25 18:00 02/10/25 19:00 Temperature 36.3 C L 36.6 C 36.1 C L Pulse Rate 100 107 H 110 H Pulse Rate [Bilateral Pedal (Dorsalis Pedis) Palpation] Respiratory Rate 22 H 22 H 20 Blood Pressure 101/78 97/75 L 103/74 Pulse Oximetry 98 91 95 Oxygen Delivery Oxygen Flow Rate Fraction of Inspired Oxygen 02/10/25 20:00 02/10/25 20:00 02/10/25 21:35 Temperature 36.4 C Pulse Rate 107 H 97 Pulse Rate [Bilateral Pedal (Dorsalis Pedis) Palpation] Respiratory Rate Blood Pressure 102/84 Pulse Oximetry 95 100 Oxygen Delivery Nasal Cannula Oxygen Flow Rate 4 Fraction of Inspired Oxygen 02/10/25 22:07 02/10/25 22:09 02/10/25 23:45 Temperature Pulse Rate 96 96 Pulse Rate [Bilateral Pedal (Dorsalis Pedis) Palpation] Respiratory Rate 20 20 Blood Pressure Pulse Oximetry 97 95 Oxygen Delivery Nasal Cannula Nasal Cannula Oxygen Flow Rate 4 4 Fraction of Inspired Oxygen 36 02/11/25 00:00 02/11/25 04:00 02/11/25 04:00 Temperature 36.4 C L Pulse Rate 102 H 93 Pulse Rate [Bilateral Pedal (Dorsalis Pedis) Palpation] Respiratory Rate 20 Blood Pressure 103/54 L Pulse Oximetry 93 92 Oxygen Delivery Nasal Cannula Oxygen Flow Rate 4 Fraction of Inspired Oxygen 02/11/25 04:00 02/11/25 07:57 02/11/25 07:58 Temperature Pulse Rate 93 102 H 102 H Pulse Rate [Bilateral Pedal (Dorsalis Pedis) Palpation] Respiratory Rate 20 20 Blood Pressure Pulse Oximetry 94 Oxygen Delivery Nasal Cannula Oxygen Flow Rate 4 Fraction of Inspired Oxygen 36 02/11/25 08:00 02/11/25 08:00 02/11/25 08:00 Temperature 36.8 C Pulse Rate 101 H 99 106 H Pulse Rate [Bilateral Pedal (Dorsalis Pedis) Palpation] Respiratory Rate 16 20 Blood Pressure 141/76 H Pulse Oximetry 99 99 Oxygen Delivery Nasal Cannula Oxygen Flow Rate 1 Fraction of Inspired Oxygen 36 02/11/25 08:06 02/11/25 09:22 Temperature Pulse Rate 100 99 Pulse Rate [Bilateral Pedal (Dorsalis Pedis) Palpation] Respiratory Rate 20 Blood Pressure Pulse Oximetry Oxygen Delivery Oxygen Flow Rate Fraction of Inspired Oxygen Intake/Output Intake/Output: Intake & Output 02/08/25 02/09/25 02/10/25 02/11/25 23:59 23:59 23:59 23:59 Intake Total 1320 2250 790 350 Output Total 1150 1650 2900 600 Balance 170 600 -2110 -250 Meds/Results Medications: Active Medications Generic Name Dose Route Start Last Admin Trade Name Freq PRN Reason Stop Dose Admin Acetaminophen 650 mg 02/06/25 22:14 Acetaminophen 325 Mg Tablet PO Q4H PRN Mild Pain (1-3) or Fever Aspirin 81 mg 02/07/25 00:45 02/11/25 09:33 Aspirin 81 Mg Enteric Tablet PO 81 mg BID [facility] Administration Atorvastatin Calcium 20 mg 02/08/25 11:50 02/11/25 09:23 Atorvastatin 20 Mg Tablet PO 20 mg DAILY [facility] Administration Budesonide 0.5 mg 02/11/25 09:30 Budesonide Respule Neb 0.5 Mg/2 Ml Amp INHALATION Q12HRT [facility] Carbidopa/Levodopa 2 tablet 02/07/25 00:45 02/11/25 09:33 Carbidopa/Levodopa 25/250 Mg Tablet PO 2 tablet QID [facility] Administration Celecoxib 200 mg 02/07/25 09:00 02/11/25 09:23 Celecoxib 200 Mg Capsule PO 200 mg QAM [facility] Administration Diphenhydramine HCl 50 mg 02/07/25 00:45 02/10/25 21:02 Diphenhydramine Hcl Cap 25 Mg Capsule PO 50 mg HS [facility] Administration Divalproex Sodium 1,000 mg 02/07/25 00:45 02/10/25 21:[address] 250 Mg Tabec PO 1,000 mg QHS [facility] Administration Doxycycline Hyclate 100 mg 02/07/25 09:00 02/11/25 09:33 Doxycycline Hyclate 100 Mg Tablet PO 100 mg Q12HR [facility] Administration Guaifenesin 1,200 mg 02/10/25 21:00 02/10/25 20:57 Guaifenesin 12 Hr 600 Mg Tabcr PO 1,200 mg Q12HR [facility] Administration Ceftriaxone Sodium 1 gm/ 50 mls @ 100 mls/hr 02/07/25 21:00 02/10/25 21:33 Sodium Chloride IVPB Infused Q24H [facility] Infusion Ibuprofen 400 mg 02/06/25 22:14 Ibuprofen 400 Mg Tablet PO Q6H PRN Mild Pain (1-3) or Fever Ipratropium [place] 0.5 mg 02/10/25 12:00 02/11/25 07:54 Ipratropium Br 0.02% Inh Soln 0.5 Mg/2.5 Ml Vial INHALATION 0.5 mg [id number] [facility] Administration Levalbuterol HCl 0.63 mg 02/11/25 12:00 Levalbuterol Neb 1.25 Mg/3 Ml INHALATION [id number] [facility] Lorazepam 1 mg 02/07/25 00:50 02/11/25 09:33 Lorazepam (*Crx) 1 Mg Tablet PO 1 mg Q12HR [facility] Administration Metoprolol Succinate 12.5 mg 02/08/25 11:50 02/11/25 09:22 Metoprolol Succinate Ext Rel 12.5 Mg Tabcr PO 12.5 mg QAM [facility] Administration Non-Formulary ( 3 each 02/07/25 21:00 02/10/25 21:03 Trifluoperazine Hcl PO 03/09/25 20:59 3 each 10 Mg Oral Tablet) HS [facility] Administration Ondansetron HCl 4 mg 02/06/25 22:14 Ondansetron Inj 4 Mg/2 Ml Vial IV PUSH Q4H PRN Nausea Primidone 100 mg 02/07/25 00:55 02/11/25 09:23 Primidone 50 Mg Tablet PO 100 mg Q12HR [facility] Administration Tamsulosin HCl 0.4 mg 02/07/25 00:50 02/10/25 21:01 Tamsulosin Hcl 0.4 Mg Capsule PO 0.4 mg QHS [facility] Administration Venlafaxine HCl 225 mg 02/07/25 00:50 02/10/25 20:58 Venlafaxine Hcl Xr 75 Mg Cap.Er.24h PO 225 mg QHS [facility] Administration Radiology Results: ITS Impressions Chest CTA 02/07/25 13:30 IMPRESSION: 1. No pulmonary embolism identified. 2. No pulmonary mass. No new focal pulmonary consolidation. 3. Grossly stable chronic changes in the lungs as compared to the study from 09/30/2024. Grossly stable bronchiectasis. 4. New small right-sided pleural effusion. Tiny left-sided pleural effusion. Modified Barium Swallow 02/07/25 13:59 IMPRESSION: Trace laryngeal penetration without aspiration. Please correlate with speech pathologist findings and specific feeding recommendations. Venous Doppler Study 02/07/25 15:32 IMPRESSION: 1. No deep venous thrombosis in either lower limb. Chest X-Ray 02/10/25 08:44 IMPRESSION: 1. Emphysema with chronic interstitial lung disease with suggestion of some interval worsening in superimposed pulmonary edema and/or pneumonia. Labs Labs: Laboratory Results - last 24 hr 02/08/25 02/10/25 02/10/25 05:41 12:14 13:18 WBC RBC Hgb Hct MCV MCH MCHC RDW Plt Count MPV Activ Coag Time [place] 216 H 176 H Sodium Potassium Chloride Carbon Dioxide Anion Gap BUN Creatinine Estim Creat Clear Calc Estimated GFR Glucose Calcium Magnesium Aldolase 9.8 IgG 1025 IgG Subclass 1 419 IgG Subclass 2 430 IgG Subclass 3 174 H IgG Subclass 4 46 CCP IgG/IgA Ab 7 VEGA Screen Negative c-ANCA Antibody <1:20 Atypical p-ANCA <1:20 p-ANCA Antibody <1:20 02/10/25 02/11/25 14:08 03:53 WBC 15.9 H RBC 3.72 L Hgb 11.0 L Hct 36.0 L MCV 96.8 MCH 29.6 MCHC 30.6 L RDW 18.3 H Plt Count 253 MPV 11.1 H Activ Coag Time [place] 158 H Sodium 135 L Potassium 4.7 Chloride 100 Carbon Dioxide 25 Anion Gap 10 BUN 26 H Creatinine 0.81 Estim Creat Clear Calc 59 Estimated GFR > 60 Glucose 93 Calcium 8.7 Magnesium 2.3 Aldolase IgG IgG Subclass 1 IgG Subclass 2 IgG Subclass 3 IgG Subclass 4 CCP IgG/IgA Ab VEGA Screen c-ANCA Antibody Atypical p-ANCA p-ANCA Antibody
--- NOTE | 2025-02-11 12:52 | P.PNIM_ITS ---
Subjective Date/time seen: 02/10/25 16:52 Objective Data Vital Signs Vital Signs: Vital Signs - 24 hr 02/10/25 13:00 02/10/25 13:00 02/10/25 13:15 Temperature Pulse Rate 100 Pulse Rate [Bilateral Pedal (Dorsalis Pedis) Palpation] 100 99 Respiratory Rate 19 Blood Pressure 107/93 H Pulse Oximetry 98 Oxygen Delivery Nasal Cannula Oxygen Flow Rate 2 Fraction of Inspired Oxygen 02/10/25 13:15 02/10/25 13:30 02/10/25 13:30 Temperature Pulse Rate 99 100 Pulse Rate [Bilateral Pedal (Dorsalis Pedis) Palpation] 100 Respiratory Rate 20 22 H Blood Pressure 104/84 109/92 H Pulse Oximetry 94 95 Oxygen Delivery Nasal Cannula Nasal Cannula Oxygen Flow Rate 2 2 Fraction of Inspired Oxygen 02/10/25 13:45 02/10/25 13:45 02/10/25 14:00 Temperature Pulse Rate 96 Pulse Rate [Bilateral Pedal (Dorsalis Pedis) Palpation] 96 95 Respiratory Rate 19 Blood Pressure 102/83 Pulse Oximetry 99 Oxygen Delivery Nasal Cannula Oxygen Flow Rate 2 Fraction of Inspired Oxygen 02/10/25 14:00 02/10/25 14:15 02/10/25 14:15 Temperature Pulse Rate 95 98 Pulse Rate [Bilateral Pedal (Dorsalis Pedis) Palpation] 98 Respiratory Rate 21 H 20 Blood Pressure 121/93 H 107/96 H Pulse Oximetry 98 94 Oxygen Delivery Nasal Cannula Nasal Cannula Oxygen Flow Rate 2 2 Fraction of Inspired Oxygen 02/10/25 14:31 02/10/25 14:31 02/10/25 14:36 Temperature Pulse Rate 101 H Pulse Rate [Bilateral Pedal (Dorsalis Pedis) Palpation] 101 H 103 H Respiratory Rate 12 Blood Pressure 132/85 Pulse Oximetry 98 Oxygen Delivery Nasal Cannula Oxygen Flow Rate 2 Fraction of Inspired Oxygen 02/10/25 14:36 02/10/25 14:41 02/10/25 14:41 Temperature Pulse Rate 103 H 100 Pulse Rate [Bilateral Pedal (Dorsalis Pedis) Palpation] 100 Respiratory Rate 12 13 Blood Pressure 106/92 H 103/88 Pulse Oximetry 98 96 Oxygen Delivery Nasal Cannula Nasal Cannula Oxygen Flow Rate 2 2 Fraction of Inspired Oxygen 02/10/25 14:46 02/10/25 14:51 02/10/25 14:51 Temperature Pulse Rate 98 Pulse Rate [Bilateral Pedal (Dorsalis Pedis) Palpation] 102 H Respiratory Rate 15 15 Blood Pressure 114/97 H 121/89 Pulse Oximetry 94 95 Oxygen Delivery Nasal Cannula Nasal Cannula Oxygen Flow Rate 2 2 Fraction of Inspired Oxygen 02/10/25 14:56 02/10/25 14:56 02/10/25 15:00 Temperature Pulse Rate 97 Pulse Rate [Bilateral Pedal (Dorsalis Pedis) Palpation] 97 106 H Respiratory Rate 15 Blood Pressure 119/92 H Pulse Oximetry 95 Oxygen Delivery Nasal Cannula Oxygen Flow Rate 2 Fraction of Inspired Oxygen 02/10/25 15:00 02/10/25 15:15 02/10/25 15:15 Temperature Pulse Rate 106 H 106 H Pulse Rate [Bilateral Pedal (Dorsalis Pedis) Palpation] 106 H Respiratory Rate 15 15 Blood Pressure 104/84 103/70 Pulse Oximetry 95 94 Oxygen Delivery Nasal Cannula Nasal Cannula Oxygen Flow Rate 2 2 Fraction of Inspired Oxygen 02/10/25 15:30 02/10/25 15:30 02/10/25 15:45 Temperature Pulse Rate 106 H Pulse Rate [Bilateral Pedal (Dorsalis Pedis) Palpation] 106 H 101 H Respiratory Rate 20 Blood Pressure 123/97 H Pulse Oximetry 94 Oxygen Delivery Nasal Cannula Oxygen Flow Rate 2 Fraction of Inspired Oxygen 02/10/25 15:45 02/10/25 16:00 02/10/25 16:00 Temperature Pulse Rate 101 H 103 H Pulse Rate [Bilateral Pedal (Dorsalis Pedis) Palpation] 103 H Respiratory Rate 13 16 Blood Pressure 115/95 H 105/90 Pulse Oximetry 97 96 Oxygen Delivery Nasal Cannula Nasal Cannula Oxygen Flow Rate 2 2 Fraction of Inspired Oxygen 02/10/25 16:00 02/10/25 16:00 02/10/25 17:00 Temperature 36.3 C L Pulse Rate 105 H 100 Pulse Rate [Bilateral Pedal (Dorsalis Pedis) Palpation] Respiratory Rate 22 H Blood Pressure 101/78 Pulse Oximetry 96 98 Oxygen Delivery Nasal Cannula Oxygen Flow Rate 2 Fraction of Inspired Oxygen 02/10/25 18:00 02/10/25 19:00 02/10/25 20:00 Temperature 36.6 C 36.1 C L Pulse Rate 107 H 110 H Pulse Rate [Bilateral Pedal (Dorsalis Pedis) Palpation] Respiratory Rate 22 H 20 Blood Pressure 97/75 L 103/74 Pulse Oximetry 91 95 95 Oxygen Delivery Nasal Cannula Oxygen Flow Rate 4 Fraction of Inspired Oxygen 02/10/25 20:00 02/10/25 21:35 02/10/25 22:07 Temperature 36.4 C Pulse Rate 107 H 97 96 Pulse Rate [Bilateral Pedal (Dorsalis Pedis) Palpation] Respiratory Rate 20 Blood Pressure 102/84 Pulse Oximetry 100 Oxygen Delivery Oxygen Flow Rate Fraction of Inspired Oxygen 02/10/25 22:09 02/10/25 23:45 02/11/25 00:00 Temperature Pulse Rate 96 102 H Pulse Rate [Bilateral Pedal (Dorsalis Pedis) Palpation] Respiratory Rate 20 Blood Pressure Pulse Oximetry 97 95 Oxygen Delivery Nasal Cannula Nasal Cannula Oxygen Flow Rate 4 4 Fraction of Inspired Oxygen 36 02/11/25 04:00 02/11/25 04:00 02/11/25 04:00 Temperature 36.4 C L Pulse Rate 93 93 Pulse Rate [Bilateral Pedal (Dorsalis Pedis) Palpation] Respiratory Rate 20 Blood Pressure 103/54 L Pulse Oximetry 93 92 Oxygen Delivery Nasal Cannula Oxygen Flow Rate 4 Fraction of Inspired Oxygen 02/11/25 07:57 02/11/25 07:58 02/11/25 08:00 Temperature 36.8 C Pulse Rate 102 H 102 H 101 H Pulse Rate [Bilateral Pedal (Dorsalis Pedis) Palpation] Respiratory Rate 20 20 16 Blood Pressure 141/76 H Pulse Oximetry 94 99 Oxygen Delivery Nasal Cannula Oxygen Flow Rate 4 Fraction of Inspired Oxygen 36 02/11/25 08:00 02/11/25 08:00 02/11/25 08:06 Temperature Pulse Rate 99 106 H 100 Pulse Rate [Bilateral Pedal (Dorsalis Pedis) Palpation] Respiratory Rate 20 20 Blood Pressure Pulse Oximetry 99 Oxygen Delivery Nasal Cannula Oxygen Flow Rate 1 Fraction of Inspired Oxygen 36 02/11/25 09:22 02/11/25 10:36 02/11/25 11:51 Temperature 36.5 C Pulse Rate 99 99 Pulse Rate [Bilateral Pedal (Dorsalis Pedis) Palpation] Respiratory Rate 20 Blood Pressure 97/67 L Pulse Oximetry 91 Oxygen Delivery Nasal Cannula Oxygen Flow Rate 1 Fraction of Inspired Oxygen 02/11/25 12:03 Temperature Pulse Rate 98 Pulse Rate [Bilateral Pedal (Dorsalis Pedis) Palpation] Respiratory Rate 20 Blood Pressure Pulse Oximetry Oxygen Delivery Oxygen Flow Rate Fraction of Inspired Oxygen Intake/Output Intake/Output: Intake & Output 08/16/25 02/09/25 02/10/25 02/11/25 23:59 23:59 23:59 23:59 Intake Total 1320 2250 790 350 Output Total 1150 1650 2900 600 Balance 170 600 -2110 -250 Meds/Results Medications: Active Medications Generic Name Dose Route Start Last Admin Trade Name Freq PRN Reason Stop Dose Admin Acetaminophen 650 mg 02/06/25 22:14 Acetaminophen 325 Mg Tablet PO Q4H PRN Mild Pain (1-3) or Fever Aspirin 81 mg 02/07/25 00:45 02/11/25 09:33 Aspirin 81 Mg Enteric Tablet PO 81 mg BID CARMEN Administration Atorvastatin Calcium 20 mg 02/08/25 11:50 02/11/25 09:23 Atorvastatin 20 Mg Tablet PO 20 mg DAILY CARMEN Administration Budesonide 0.5 mg 02/11/25 09:30 02/11/25 12:03 Budesonide Respule Neb 0.5 Mg/2 Ml Amp INHALATION Not Given Q12HRT CARMEN Carbidopa/Levodopa 2 tablet 02/07/25 00:45 02/11/25 09:33 Carbidopa/Levodopa 25/250 Mg Tablet PO 2 tablet QID CARMEN Administration Celecoxib 200 mg 02/07/25 09:00 02/11/25 09:23 Celecoxib 200 Mg Capsule PO 200 mg QAM CARMEN Administration Diphenhydramine HCl 50 mg 02/07/25 00:45 02/10/25 21:02 Diphenhydramine Hcl Cap 25 Mg Capsule PO 50 mg HS CARMEN Administration Divalproex Sodium 1,000 mg 02/07/25 00:45 02/10/25 21:[address] 250 Mg Tabec PO 1,000 mg QHS [facility] Administration Doxycycline Hyclate 100 mg 02/07/25 09:00 02/11/25 09:33 Doxycycline Hyclate 100 Mg Tablet PO 100 mg Q12HR [facility] Administration Guaifenesin 1,200 mg 02/10/25 21:00 02/10/25 20:57 Guaifenesin 12 Hr 600 Mg Tabcr PO 1,200 mg Q12HR [facility] Administration Ceftriaxone Sodium 1 gm/ 50 mls @ 100 mls/hr 02/07/25 21:00 02/10/25 21:33 Sodium Chloride IVPB Infused Q24H [facility] Infusion Ibuprofen 400 mg 02/06/25 22:14 Ibuprofen 400 Mg Tablet PO Q6H PRN Mild Pain (1-3) or Fever Ipratropium [place] 0.5 mg 02/10/25 12:00 02/11/25 07:54 Ipratropium Br 0.02% Inh Soln 0.5 Mg/2.5 Ml Vial INHALATION 0.5 mg [id number] CARMEN Administration Levalbuterol HCl 0.63 mg 02/11/25 12:00 02/11/25 11:58 Levalbuterol Neb 1.25 Mg/3 Ml INHALATION 0.63 mg [id number] [facility] Administration Lorazepam 1 mg 02/07/25 00:50 02/11/25 09:33 Lorazepam (*Crx) 1 Mg Tablet PO 1 mg Q12HR [facility] Administration Metoprolol Succinate 12.5 mg 02/08/25 11:50 02/11/25 09:22 Metoprolol Succinate Ext Rel 12.5 Mg Tabcr PO 12.5 mg QAM [facility] Administration Non-Formulary ( 3 each 02/07/25 21:00 02/10/25 21:03 Trifluoperazine Hcl PO 03/09/25 20:59 3 each 10 Mg Oral Tablet) HS CARMEN Administration Ondansetron HCl 4 mg 02/06/25 22:14 Ondansetron Inj 4 Mg/2 Ml Vial IV PUSH Q4H PRN Nausea Primidone 100 mg 02/07/25 00:55 02/11/25 09:23 Primidone 50 Mg Tablet PO 100 mg Q12HR [facility] Administration Tamsulosin HCl 0.4 mg 02/07/25 00:50 02/10/25 21:01 Tamsulosin Hcl 0.4 Mg Capsule PO 0.4 mg QHS [facility] Administration Venlafaxine HCl 225 mg 02/07/25 00:50 02/10/25 20:58 Venlafaxine Hcl Xr 75 Mg Cap.Er.24h PO 225 mg QHS CAR[facility] Administration Radiology Results: ITS Impressions Chest CTA 02/07/25 13:30 IMPRESSION: 1. No pulmonary embolism identified. 2. No pulmonary mass. No new focal pulmonary consolidation. 3. Grossly stable chronic changes in the lungs as compared to the study from 09/30/2024. Grossly stable bronchiectasis. 4. New small right-sided pleural effusion. Tiny left-sided pleural effusion. Modified Barium Swallow 02/07/25 13:59 IMPRESSION: Trace laryngeal penetration without aspiration. Please correlate with speech pathologist findings and specific feeding recommendations. Venous Doppler Study 02/07/25 15:32 IMPRESSION: 1. No deep venous thrombosis in either lower limb. Chest X-Ray 02/10/25 08:44 IMPRESSION: 1. Emphysema with chronic interstitial lung disease with suggestion of some interval worsening in superimposed pulmonary edema and/or pneumonia. Labs Labs: Laboratory Results - last 24 hr 02/08/25 02/10/25 02/10/25 05:41 13:18 14:08 WBC RBC Hgb Hct MCV MCH MCHC RDW Plt Count MPV Activ Coag Time Kaolin 176 H 158 H Sodium Potassium Chloride Carbon Dioxide Anion Gap BUN Creatinine Estim Creat Clear Calc Estimated GFR Glucose Calcium Magnesium Aldolase 9.8 IgG 1025 IgG Subclass 1 419 IgG Subclass 2 430 IgG Subclass 3 174 H IgG Subclass 4 46 VEGA Screen Negative c-ANCA Antibody <1:20 Atypical p-ANCA <1:20 p-ANCA Antibody <1:20 02/11/25 03:53 WBC 15.9 H RBC 3.72 L Hgb 11.0 L Hct 36.0 L MCV 96.8 MCH 29.6 MCHC 30.6 L RDW 18.3 H Plt Count 253 MPV 11.1 H Activ Coag Time Kaolin Sodium 135 L Potassium 4.7 Chloride 100 Carbon Dioxide 25 Anion Gap 10 BUN 26 H Creatinine 0.81 Estim Creat Clear Calc 59 Estimated GFR > 60 Glucose 93 Calcium 8.7 Magnesium 2.3 Aldolase IgG IgG Subclass 1 IgG Subclass 2 IgG Subclass 3 IgG Subclass 4 VEGA Screen c-ANCA Antibody Atypical p-ANCA p-ANCA Antibody
--- NOTE | 2025-02-11 12:54 | PM.TDS ---
Transfer Discharge Sum: Prov Provider Date of admission: 02/06/25 22:14 Primary care physician: Junito Saeed, MD Admitting clinician: Jackie Lazcano DO Consults: 02/07/25 Consult to Physician Routine Comment: spoke with Jami Robledo @[id number](ER,US) Consulting Provider: Edna Robledo machine scallop cutter/MD group to consult: Noemy Robledo Reason for consultation: Elevated troponins Has provider been notified: Yes Consult to Physician Routine Comment: spoke with Dr. Naik @[id number](ER,US) Consulting Provider: Gregg Naik Reason for consultation: shortness of breath Has provider been notified: Yes DS: Admitting Diagnosis Discharge Date 02/11/25 Admitting Diagnosis Worsening cough and shortness of breath DS: Discharge Diagnosis Discharge Diagnosis (1) Acute hypoxic respiratory failure: Code(s): J96.01 - Acute respiratory failure with hypoxia Status: Acute (2) Acute exacerbation of chronic obstructive pulmonary disease: Code(s): J44.1 - Chronic obstructive pulmonary disease with (acute) exacerbation Status: Acute (3) Sepsis: Qualifiers: Sepsis type: sepsis due to unspecified organism Sepsis acute organ dysfunction status: with acute organ dysfunction Severe sepsis acute organ dysfunction type: acute respiratory failure Acute respiratory failure type: with hypoxia Severe sepsis shock status: without septic shock Qualified Code(s): A41.9 - Sepsis, unspecified organism; R65.20 - Severe sepsis without septic shock; J96.01 - Acute respiratory failure with hypoxia Code(s): A41.9 - Sepsis, unspecified organism Status: Acute (4) Lactic acidosis: Code(s): E87.20 - Acidosis, unspecified Status: Acute (5) Elevated troponin: Code(s): R79.89 - Other specified abnormal findings of blood chemistry Status: Acute Plan Patient met sepsis criteria with tachycardia, tachypnea, leukocytosis in the setting of bilateral pneumonia on imaging with associated acute hypoxic respiratory failure persistent lactic acidosis after 1 L fluid bolus. Patient did not receive 30 mL/kilos fluid bolus due to ER concern for fluid status. At the time of my evaluation patient appears to be intervascular volume depleted. I will give the patient additional 2 L of IV fluid hydration at 150 mL an hour and then re-evaluate fluid status. Patient's lactic acid is doses did improve on repeat labs this a.m.. Patient was started on empiric antibiotic therapy with Rocephin and doxycycline in the ER. Blood cultures have been obtained and are pending. Will check urine Legionella and pneumococcal antigen. Will obtain sputum culture and send for Gram stain. The patient is a likely also has COPD exacerbation due to lower respiratory infection with pneumonia. Patient received 1 dose of IV Solu-Medrol in the ER. Will place patient on scheduled Solu-Medrol 60 mg q.6 hours and scheduled DuoNebs. Will resume patient's home inhalers. Will wean oxygen as tolerated. Will repeat CBC and electrolyte panel in a.m.. Patient did have been mildly elevated troponins most likely due to a demand ischemia from acute hypoxic respiratory failure and tachycardia. Will trend troponins and monitor. Patient is not having any chest pain or EKG changes to indicate acute plaque rupture. 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 Naik, electrical logging engineer and further workup is in progress, patient stats feels congested, will give guaifenesin, patient remains clinically stable, patient with elevated tropes though flat, cardiac echo showing severely reduce with EF of 25-30%, and with CP for last 4-6 weeks, seen by clinical resource director patient will need cardiac cath once his respiratory symptoms have improved will monitor. patient and daughter are present and gave updates. Transfer Discharge Sum: Med Medications Active and Home Medications: Home Medications aspirin 81 mg tablet,delayed release 81 mg PO BID 03/15/21 [History Confirmed 02/06/25] calcium 300 mg-D3 20 mcg-magnesium 25 mg-coppr 0.5 [id number] tablet (Caltrate-D3 Plus Minerals) 1 tablet PO QAM 03/15/21 [History Confirmed 02/06/25] celecoxib 200 mg capsule 200 mg PO QAM 03/15/21 [History Confirmed 02/06/25] divalproex 500 mg tablet,delayed release 1,000 mg PO QHS 03/15/21 [History Confirmed 02/06/25] fluticasone furoate 100 mcg/actuation blister powder for inhalation 1 inh inhalation BID 03/15/21 [History Confirmed 02/06/25] tamsulosin 0.4 mg capsule 0.4 mg PO QHS 03/15/21 [History Confirmed 02/06/25] trifluoperazine 10 mg tablet 30 mg PO QHS 03/15/21 [History Confirmed 02/06/25] venlafaxine 225 mg tablet,extended release 24 hr 225 mg PO QHS 03/15/21 [History Confirmed 02/06/25] lorazepam 1 mg tablet 1 mg PO BID 06/13/23 [History Confirmed 02/06/25] carbidopa 25 mg-levodopa 250 mg tablet 2 tablet PO QID #480 tabs 11/11/24 [Rx Confirmed 02/06/25] donepezil 5 mg tablet See Rx Instructions .Route .COMPLEX #90 tabs 11/11/24 [Rx Confirmed 02/06/25] primidone 50 mg tablet See Rx Instructions .Route .COMPLEX #360 tabs 11/11/24 [Rx Confirmed 02/06/25] doxycycline hyclate 100 mg tablet 100 mg PO Q12HR #6 tabs 11/27/24 [Rx Confirmed 02/06/25] diphenhydramine HCl 25 mg capsule (Allergy (diphenhydramine)) 50 mg PO HS 02/06/25 [History Confirmed 02/06/25] Active Medications Acetaminophen (Acetaminophen 325 Mg Tablet) 650 mg PO Q4H PRN PRN Reason: Mild Pain (1-3) or Fever Aspirin (Aspirin 81 Mg Enteric Tablet) 81 mg PO BID [facility] Last Admin: 02/11/25 09:33 Dose: 81 mg Atorvastatin Calcium (Atorvastatin 20 Mg Tablet) 20 mg PO DAILY [facility] Last Admin: 02/11/25 09:23 Dose: 20 mg Budesonide (Budesonide Respule Neb 0.5 Mg/2 Ml Amp) 0.5 mg INHALATION Q12HRT [facility] Last Admin: 02/11/25 12:03 Dose: Not Given Carbidopa/Levodopa (Carbidopa/Levodopa 25/250 Mg Tablet) 2 tablet PO QID [facility] Last Admin: 02/11/25 09:33 Dose: 2 tablet Celecoxib (Celecoxib 200 Mg Capsule) 200 mg PO QAM [facility] Last Admin: 02/11/25 09:23 Dose: 200 mg Diphenhydramine HCl (Diphenhydramine Hcl Cap 25 Mg Capsule) 50 mg PO [facility] Last Admin: 02/10/25 21:02 Dose: 50 mg Divalproex Sodium (Divalproex Sodium Dr 250 Mg Tabec) 1,000 mg PO QHS [facility] Last Admin: 02/10/25 21:00 Dose: 1,000 mg Doxycycline Hyclate (Doxycycline Hyclate 100 Mg Tablet) 100 mg PO Q12HR [facility] Last Admin: 02/11/25 09:33 Dose: 100 mg Guaifenesin (Guaifenesin 12 Hr 600 Mg Tabcr) 1,200 mg PO Q12HR [facility] Last Admin: 02/10/25 20:57 Dose: 1,200 mg Ceftriaxone Sodium 1 gm/ (Sodium Chloride) 50 mls @ 100 mls/hr IVPB Q24H [facility] Last Infusion: 02/10/25 21:33 Dose: Infused Ibuprofen (Ibuprofen 400 Mg Tablet) 400 mg PO Q6H PRN PRN Reason: Mild Pain (1-3) or Fever Ipratropium [place] (Ipratropium Br 0.02% Inh Soln 0.5 Mg/2.5 Ml Vial) 0.5 mg INHALATION [id number] [facility] Last Admin: 02/11/25 07:54 Dose: 0.5 mg Levalbuterol HCl (Levalbuterol Neb 1.25 Mg/3 Ml) 0.63 mg INHALATION [id number] [facility] Last Admin: 02/11/25 11:58 Dose: 0.63 mg Lorazepam (Lorazepam (*Crx) 1 Mg Tablet) 1 mg PO Q12HR [facility] Last Admin: 02/11/25 09:33 Dose: 1 mg Metoprolol Succinate (Metoprolol Succinate Ext Rel 12.5 Mg Tabcr) 12.5 mg PO QAM [facility] Last Admin: 02/11/25 09:22 Dose: 12.5 mg Non-Formulary ( Trifluoperazine Hcl 10 Mg Oral Tablet) 3 each PO HS [facility] Stop: 03/09/25 20:59 Last Admin: 02/10/25 21:03 Dose: 3 each Ondansetron HCl (Ondansetron Inj 4 Mg/2 Ml Vial) 4 mg IV PUSH Q4H PRN PRN Reason: Nausea Primidone (Primidone 50 Mg Tablet) 100 mg PO Q12HR [facility] Last Admin: 02/11/25 09:23 Dose: 100 mg Tamsulosin HCl (Tamsulosin Hcl 0.4 Mg Capsule) 0.4 mg PO QHS [facility] Last Admin: 02/10/25 21:01 Dose: 0.4 mg Venlafaxine HCl (Venlafaxine Hcl Xr 75 Mg Cap.Er.24h) 225 mg PO QHS [facility] Last Admin: 02/10/25 20:58 Dose: 225 mg Transfer Discharge Sum: Hosp Hospital Course Hospital course: Bartolome Maynard is a 84 year old male Patient Condition: Stable Time Spent with Patient Time attestation: Total time spent providing and/or coordinating transfer services: 84 male presented with c/o shortness of breath with long history of smoking, 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 Naik, electrical logging engineer and further workup is in progress, patient stats feels congested, will give guaifenesin, patient remains clinically stable, patient with elevated tropes though flat, cardiac echo showing severely reduce with EF of 25-30%, and with CP for last 4-6 weeks, seen by clinical resource director patient will have cardiac cath once his respiratory symptoms have improved will monitor. patient had cardiac cath which showed severe coronary artery disease, with 3 vessels disease, the clinical resource director recommended to transfer the patient to a tertiary care for CABG, patient's family is agreeable for the transfer, called [facility] and patient is accepted by the cardiac surgeon, will transfer the patient. Exam Narrative: Patient is comfortable, NAD HEENT: eyes are clear and none icteric LUNGS: Bilateral poor air entry with rhonchi HEART: RR S1S2 ABD: BS+, Soft and nontender Lower extremities: no edema SKIN: nonjaundiced Neuro: grossly intact. DS: Data Data Completed and Pending Labs on day of discharge: Labs from last 24 hours 02/11/25 02/10/25 02/10/25 03:53 14:08 13:18 WBC 15.9 H RBC 3.72 L Hgb 11.0 L Hct 36.0 L MCV 96.8 MCH 29.6 MCHC 30.6 L RDW 18.3 H Plt Count 253 MPV 11.1 H Activ Coag Time Kaolin 158 H 176 H Sodium 135 L Potassium 4.7 Chloride 100 Carbon Dioxide 25 Anion Gap 10 BUN 26 H Creatinine 0.81 Estim Creat Clear Calc 59 Estimated GFR > 60 Glucose 93 Calcium 8.7 Magnesium 2.3 Aldolase IgG IgG Subclass 1 IgG Subclass 2 IgG Subclass 3 IgG Subclass 4 VEGA Screen c-ANCA Antibody Atypical p-ANCA p-ANCA Antibody 02/08/25 05:41 WBC RBC Hgb Hct MCV MCH MCHC RDW Plt Count MPV Activ Coag Time Kaolin Sodium Potassium Chloride Carbon Dioxide Anion Gap BUN Creatinine Estim Creat Clear Calc Estimated GFR Glucose Calcium Magnesium Aldolase 9.8 IgG 1025 IgG Subclass 1 419 IgG Subclass 2 430 IgG Subclass 3 174 H IgG Subclass 4 46 VEGA Screen Negative c-ANCA Antibody <1:20 Atypical p-ANCA <1:20 p-ANCA Antibody <1:20 Preliminary micro results at discharge 02/07/25 09:35 Specimen Source - Preliminary Urine - Urine Streptococcus pneumoniae Ag Screen - Preliminary Sterile Body Fluid Culture - Preliminary Organism Identification - Preliminary 02/06/25 20:43 Blood Culture - Preliminary Blood 02/06/25 19:57 Blood Culture - Preliminary Blood
--- NOTE | 2025-02-11 13:20 | PC.NURSE ---
Ambulance arrived at approximately 1300pm to transport patient to [facility]. Family member at bedside and riding along with patient. No acute distress noted at this time. Placed on transport monitor.
[2025-03-04 15:09] LABS: Anti-Jo-1 Ab <20 Units (<20); Anti-Ku Ab Negative (Negative); Anti-MDA-5 Ab (CADM-140) <20 Units (<20); Anti-NXP-2 (P140) Ab <20 Units (<20); Anti-PM/Scl-100 Ab <20 Units (<20); Anti-SAE1 Ab IgG <20 Units (<20); Anti-SS-A 52kD Ab IgG 24 Units (<20); Anti-TIF-1gamma Ab <20 Units (<20); Anti-U2 RNP Ab Negative (Negative); Anti-U3 RNP (Fibrillarin) Negative (Negative); U1 RNP Ab <20 Units (<20)
== END 2025-02-11 12:53 | disposition short-term general hospital (02) | DRG 871 ==
LOC: ANHED 22:17 → ANHIMU 23:47 → ANH3MED 02-10 10:49 → ANHIMU 02-12 10:28
PROVIDERS: Emergency Medicine; Internal Medicine Interventional Cardiology; Internal Medicine Pulmonary Disease; Registered Nurse; Admitting Provider Internal Medicine; Emergency Provider Student in an Organized Health Care Education/Training Program; PCP Internal Medicine; Visit Provider Family Medicine
PROC: 4A023N7 Measurement of Cardiac Sampling and Pressure, Left Heart, Percutaneous Approach (ICD-10-PCS; CPT 93452; principal; 2025-02-10 11:30)
PROC: 4A033BC Measurement of Arterial Pressure, Coronary, Percutaneous Approach (ICD-10-PCS; CPT 93571; 2025-02-10 11:30)
DX: A41.9 Sepsis, unspecified organism (principal); J18.9 Pneumonia, unspecified organism; J96.01 Acute respiratory failure with hypoxia; J44.0 Chronic obstructive pulmonary disease with (acute) lower respiratory infection; J44.1 Chronic obstructive pulmonary disease with (acute) exacerbation; I24.89 Other forms of acute ischemic heart disease; I42.9 Cardiomyopathy, unspecified; I50.32 Chronic diastolic (congestive) heart failure; R65.20 Severe sepsis without septic shock; I25.10 Atherosclerotic heart disease of native coronary artery without angina pectoris; I25.82 Chronic total occlusion of coronary artery; J47.9 Bronchiectasis, uncomplicated; J84.10 Pulmonary fibrosis, unspecified; K21.9 Gastro-esophageal reflux disease without esophagitis; N40.0 Benign prostatic hyperplasia without lower urinary tract symptoms; M19.90 Unspecified osteoarthritis, unspecified site; G20.A1 Parkinson's disease without dyskinesia, without mention of fluctuations; F02.80 Dementia in other diseases classified elsewhere, unspecified severity, without behavioral disturbance, psychotic disturbance, mood disturbance, and anxiety; F32.A Depression, unspecified; F41.9 Anxiety disorder, unspecified; Z20.822 Contact with and (suspected) exposure to COVID-19; Z77.090 Contact with and (suspected) exposure to asbestos; Z96.649 Presence of unspecified artificial hip joint; Z87.891 Personal history of nicotine dependence; Z79.82 Long term (current) use of aspirin
CPT/HCPCS: 36415; 36600; 71045; 71046; 71275; 74230; 80048; 80053; 81001; 82085; 82103; 82104; 82550; 82784; 82785; 82787; 82805; 82948; 83605; 83735; 83880; 84145; 84484; 85018; 85025; 85027; 85380; 85610; 85730; 86036; 86037; 86038; 86140; 86200; 86235; 86331; 86364; 86430; 86431; 86606; 86609; 86671; 86738; 87040; 87086; 87449; 87637; 87641; 87899; 92611; 93005; 93458; 93571; 93970; 94640; 94667; 96365; 96375; 97161; 97166; 97530; 99285; A9270; C1769; C1887; C1894; C8929; J0696; J1644; J2003; J2250; J2305; J2919; J3010; J7040; Q9957; Q9967